=== PATIENT | female | born 1960 | race Caucasian/White ===

== ENCOUNTER → 2017-05-31 14:39 | Outpatient (CLI) | payer MEDICAID, SELFPAY ==
[2017-05-31 18:05] LABS: Absolute Lymphocyte Count 1.63 X10^3/ul (0.83-4.51); Eosinophil# 0.12 X10^3/uL; Eosinophils% 2.3 % (0-5); Hematocrit 38.9 % (37-47); Hemoglobin 13.2 g/dl (12.0-15.0); Lymphocyte # 1.63 X10^3/ul (4.0); Lymphocyte % 30.9 % (19-41); Mean Corp Hgb Conc 33.9 g/gl (32-36); Mean Corpuscular Volume 79.6 fL (81-99); Mean Platelet Vol. 10.8 fl (6.2-12.0); Monocyte# 0.48 X10^3/uL; Monocyte% 9.1 % (0-10); Neutrophil # 3.04 X10^3/uL (2.7-7.7); Neutrophil % 57.5 % (47-70); Platelet Count 205 K/mm3 (150-450); RBC Distribution Width CV 13.6 % (11.6-14.6); RBC Distribution Width SD 38.8 fl (35.1-43.9); Red Blood Count 4.89 M/mm3 (4.2-5.4); White Blood Count 5.3 K/mm3 (4.4-11.0)
[2017-05-31 18:26] LABS: Hemoglobin A1c 9.6 % (4.2-6.3)
[2017-05-31 18:27] LABS: Microalbumin,Random Urine 13.4 mg/L (NO RANGE EST.); Microalbumin:Creatinine Ratio 8.6 mg/g CRE (<30 mg/g CRE)
[2017-05-31 18:35] LABS: ALB/GLOB Ratio 0.8 RATIO (0.9-2.4); AST(SGOT) 12 U/L (15-37); Alanine Aminotransfer ALT/SGPT 15 U/L (13-56); Albumin, Serum 3.5 g/dL (3.2-5.0); Alkaline Phosphatase 116 U/L (45-117); Anion Gap 10 (5-15); BUN 14 mg/dL (7-18); BUN/Creat Ratio 17.5 RATIO (10-20); Calcium,Total 9.5 mg/dL (8.5-10.1); Chloride 99 mmol/L (98-107); Cholesterol 270 mg/dL (200); EST Glomerular Filtration Rate 79 mL/min (>60); Est Glom Filt Rate - Afr Amer 96 mL/min (>60); Globulin 4.6 g/dL (2.2-4.2); Glucose 229 mg/dL (74-106); High Density Lipoprotein 47 mg/dL; Potassium 3.9 mmol/L (3.5-5.1); Protein, Total 8.1 g/dL (6.4-8.2); Sodium Level 136 mmol/L (136-145); Thyroid Stim Hormone (TSH) 1.51 uIU/mL (0.358-3.74); Triglycerides 412 mg/dL
[2017-05-31 18:58] LABS: POSITIVE COUNT NO; POSITIVE DIFFERENTIAL NO; POSITIVE MORPHOLOGY NO
[2017-06-01 09:17] LABS: Vitamin D,25 Hydroxy 7.8 ng/mL (19.95-100.01)
== END ==
PROVIDERS: Family Provider Family Medicine; PCP Family Medicine; Visit Provider Family Medicine
DX: E11.65 Type 2 diabetes mellitus with hyperglycemia (principal); E78.5 Hyperlipidemia, unspecified; R53.83 Other fatigue; E01.0 Iodine-deficiency related diffuse (endemic) goiter
CPT/HCPCS: 36415; 80053; 80061; 82043; 82306; 82570; 83036; 84443; 85025

== ENCOUNTER → 2018-09-05 13:44 | Outpatient (CLI) | payer MEDICAID, SELFPAY | PROVIDERS: Family Provider Family Medicine; PCP Family Medicine; Visit Provider Family Medicine | DX: E11.65 Type 2 diabetes mellitus with hyperglycemia (principal); E78.5 Hyperlipidemia, unspecified; E55.9 Vitamin D deficiency, unspecified; R53.83 Other fatigue | CPT/HCPCS: 36415 ==

== ENCOUNTER → 2019-10-18 11:54 | Outpatient (CLI) | payer MEDICAID, SELFPAY ==
[2019-04-19 15:43] VITALS: BMI 33.3
[2019-10-18 15:11] LABS: Absolute Lymphocyte Count 2.45 X10^3/uL (0.83-4.51); Absolute Neutrophil Count 3.1 X10^3/uL (2.0-7.7); Basophil# 0.01 X10^3/uL; Basophil% 0.2 % (0-1); Eosinophil# 0.08 X10^3/uL; Eosinophils% 1.3 % (0-5); Hematocrit 40.4 % (37-47); Hemoglobin 13.2 g/dL (12.0-15.0); Lymphocyte # 2.45 X10^3/ul (4.0); Lymphocyte % 40.6 % (19-41); Mean Corp Hgb Conc 32.7 g/dL (32-36); Mean Corpuscular Hgb 27.4 pg (27.0-32.0); Mean Corpuscular Volume 83.8 fL (81-99); Mean Platelet Vol. 10.8 fl (6.2-12.0); Monocyte# 0.43 X10^3/uL; Monocyte% 7.1 % (0-10); NRBC Flagged by Analyzer 0 % (0-5); Neutrophil # 3.06 X10^3/uL (2.7-7.7); Neutrophil % 50.6 % (47-70); Platelet Count 249 K/mm3 (150-450); RBC Distribution Width CV 13.2 % (11.6-14.6); RBC Distribution Width SD 39.9 fl (35.1-43.9); Red Blood Count 4.82 M/mm3 (4.2-5.4)
[2019-10-18 15:42] LABS: ALB/GLOB Ratio 0.9 RATIO (0.9-2.4); AST(SGOT) 15 U/L (15-37); Alanine Aminotransfer ALT/SGPT 18 U/L (13-56); Albumin, Serum 3.7 g/dL (3.2-5.0); Alkaline Phosphatase 93 U/L (45-117); Anion Gap 1 (5-15); BUN 9 mg/dL (7-18); BUN/Creat Ratio 12.3 RATIO (10-20); Chloride 102 mmol/L (98-107); Creatinine, Serum 0.73 mg/dL (0.55-1.02); EST Glomerular Filtration Rate 87 mL/min (>60); Est Glom Filt Rate - Afr Amer 105 mL/min (>60); Glucose 207 mg/dL (74-106); Magnesium 1.9 mg/dL (1.6-2.6); Protein, Total 7.7 g/dL (6.4-8.2); Sodium Level 135 mmol/L (136-145)
== END ==
PROVIDERS: PCP Family Medicine; Visit Provider Family Medicine
DX: E11.65 Type 2 diabetes mellitus with hyperglycemia (principal); R25.2 Cramp and spasm; E87.6 Hypokalemia
CPT/HCPCS: 36415; 80053; 83735; 85025

== ENCOUNTER → 2020-01-17 15:51 | Outpatient (CLI) | payer MEDICAID, SELFPAY ==
[2020-01-17 15:01] VITALS: BMI 31.2
== END ==
PROVIDERS: PCP Family Medicine; Referring Provider Internal Medicine Cardiovascular Disease; Visit Provider Internal Medicine Cardiovascular Disease
DX: E78.5 Hyperlipidemia, unspecified (principal)
CPT/HCPCS: 36415; 80061; 80076

== ENCOUNTER → 2020-01-24 14:21 | Outpatient (CLI) | payer MEDICAID, SELFPAY ==
[2020-01-17 15:01] VITALS: BMI 31.2
[2020-01-24 13:32] VITALS: BMI 31.2
[2020-01-24 15:40] LABS: ALB/GLOB Ratio 0.7 RATIO (0.9-2.4); AST(SGOT) 19 U/L (15-37); Alanine Aminotransfer ALT/SGPT 20 U/L (13-56); Albumin, Serum 3.6 g/dL (3.2-5.0); Alkaline Phosphatase 88 U/L (45-117); Anion Gap 4 (5-15); BUN 10 mg/dL (7-18); BUN/Creat Ratio 13.3 RATIO (10-20); Bilirubin, Direct 0.19 mg/dL (0.00-0.30); Calcium,Total 9.3 mg/dL (8.5-10.1); Chloride 102 mmol/L (98-107); Cholesterol 198 mg/dL (200); Creatinine, Serum 0.75 mg/dL (0.55-1.02); EST Glomerular Filtration Rate 84 mL/min (>60); Est Glom Filt Rate - Afr Amer 101 mL/min (>60); Globulin 4.9 g/dL (2.2-4.2); Glucose 114 mg/dL (74-106); High Density Lipoprotein 55 mg/dL; Potassium 3.9 mmol/L (3.5-5.1); Protein, Total 8.5 g/dL (6.4-8.2); Sodium Level 136 mmol/L (136-145); Triglycerides 206 mg/dL; Very Low Density Lipoprotein 41 mg/dL (5-40)
[2020-01-26 14:37] LABS: C-Peptide 1.8 ng/mL (1.1-4.4)
== END ==
PROVIDERS: Internal Medicine Endocrinology, Diabetes & Metabolism; PCP Family Medicine; Referring Provider Internal Medicine Cardiovascular Disease; Visit Provider Internal Medicine Cardiovascular Disease
DX: E11.65 Type 2 diabetes mellitus with hyperglycemia (principal); I10 Essential (primary) hypertension; E78.5 Hyperlipidemia, unspecified; E55.9 Vitamin D deficiency, unspecified
CPT/HCPCS: 80053; 80061; 82248; 82306; 84681

== ENCOUNTER → 2020-02-12 06:25 | Outpatient (CLI) | payer MEDICAID, SELFPAY ==
[2020-01-17 15:01] VITALS: BMI 31.2
[2020-01-24 13:32] VITALS: BMI 31.2
--- NOTE | 2020-02-12 17:37 | STRESSREP ---
Stress Test Report Exercise myocardial perfusion stress test. 59-year-old lady with a history of previous left anterior descending artery stent. Stress protocol: Resting EKG demonstrates normal sinus rhythm with a rate of 66 bpm normal intervals are noted. The patient exercised according to the regular Brennen protocol for a total duration of 7 minutes. Patient completed 1 minute into stage III of the Brennen protocol. The maximum heart rate attained was 157 bpm which was 96% of max impacted heart rate the maximum workload was 8.5 metabolic equivalents. At rest there were no ST or T wave changes noted to suggest ischemia at peak exercise upsloping ST changes noted of approximately 1.25 mm noted in leads II, III and aVF were noted. The patient did experience chest discomfort across the chest which appeared to persist during recovery. It did improve however. The peak blood pressure was 142/90 mmHg. Myocardial perfusion protocol. 12.0 mCi of technetium 99m sestamibi was injected at rest. The patient exercised according to regular Brennen protocol for 7 minutes at peak exercise 35.0 mCi of technetium 99m sestamibi was injected stress images were obtained stress and rest images were reconstructed and compared in the short axis vertical long horizontal long axis. Gated images were also obtained Perfusion SPECT analysis: Review of the stress images demonstrate a small to medium size defect noted in the mid anterior wall. The resting images demonstrate improvement in this wall suggestive of mid anterior ischemia. No previous infarct is noted. Gated SPECT analysis: The gated ejection fraction is 57%. Conclusion: Abnormal exercise myocardial perfusion stress test with evidence of ischemia noted at a moderate workload. Clinical angina present. Preserved ejection fraction.
== END ==
PROVIDERS: PCP Family Medicine; Referring Provider Internal Medicine Cardiovascular Disease; Visit Provider Internal Medicine Cardiovascular Disease
DX: I25.10 Atherosclerotic heart disease of native coronary artery without angina pectoris (principal); E78.1 Pure hyperglyceridemia; Z95.5 Presence of coronary angioplasty implant and graft
CPT/HCPCS: 78452; 93017; A9500; A4216

== ENCOUNTER 2020-02-21 06:36 | Day surgery (SDC) | payer MEDICAID, SELFPAY ==
[2020-01-24 13:32] VITALS: BMI 31.2
--- NOTE | 2020-02-15 09:13 | RAD_ITS ---
STUDY: X-RAY CHEST REASON FOR EXAM: Female, 59 years old. HEART CATH, STENS TECHNIQUE: PA and lateral views of the chest. COMPARISON: 07/21/2016 FINDINGS: The lungs are clear and expanded. There is no demonstrated pleural abnormality. Normal size heart. Normal mediastinum and kt. Normal visualized pulmonary arteries. Normal visualized aortic arch and descending thoracic aorta. Normal visualized thoracic spine. Normal visualized ribs, clavicles, and shoulders. There is no demonstrated abnormality of the visualized soft tissue structures of the upper abdomen. RAD/Chest PA and Lateral IMPRESSION: Normal x-ray examination of the chest. Electronically Signed: Donell Mathews MD at 8:40 EDT Tel , Service support ,
[2020-02-15 09:22] LABS: Absolute Lymphocyte Count 2.17 X10^3/uL (0.83-4.51); Absolute Neutrophil Count 2.4 X10^3/uL (2.0-7.7); Basophil# 0.01 X10^3/uL; Basophil% 0.2 % (0-1); Eosinophil# 0.13 X10^3/uL; Eosinophils% 2.5 % (0-5); Hematocrit 40.5 % (37-47); Hemoglobin 12.9 g/dL (12.0-15.0); Lymphocyte # 2.17 X10^3/ul (4.0); Lymphocyte % 41.6 % (19-41); Mean Corp Hgb Conc 31.9 g/dL (32-36); Mean Corpuscular Hgb 27.1 pg (27.0-32.0); Mean Corpuscular Volume 85.1 fL (81-99); Mean Platelet Vol. 10.5 fl (6.2-12.0); Monocyte# 0.54 X10^3/uL; Monocyte% 10.3 % (0-10); NRBC Flagged by Analyzer 0 % (0-5); Neutrophil # 2.36 X10^3/uL (2.7-7.7); Neutrophil % 45.2 % (47-70); Platelet Count 216 K/mm3 (150-450); RBC Distribution Width SD 40.1 fl (35.1-43.9); Red Blood Count 4.76 M/mm3 (4.2-5.4); White Blood Count 5.2 K/mm3 (4.4-11.0)
[2020-02-15 09:47] LABS: Anion Gap 5 (5-15); BUN 10 mg/dL (7-18); Calcium,Total 9.2 mg/dL (8.5-10.1); Chloride 105 mmol/L (98-107); Creatinine, Serum 0.77 mg/dL (0.55-1.02); EST Glomerular Filtration Rate 82 mL/min (>60); Est Glom Filt Rate - Afr Amer 99 mL/min (>60); Glucose 128 mg/dL (74-106); Potassium 4.2 mmol/L (3.5-5.1); Sodium Level 140 mmol/L (136-145)
[2020-02-20 07:50] VITALS: BMI 31.2
--- NOTE | 2020-02-21 08:00 | HP_ITS ---
HPI HPI History of Present Illness Details: Pleasant 59-year-old lady who presents for a follow-up visit in 2014 she underwent a cardiac catheterization with demonstrated proximal left anterior descending artery as well as a diagonal stenosis. She underwent angioplasty of the diagonal vessel and stenting to the left anterior descending artery with a 3.5 x 20 mm Promus stent placed. She did not follow-up here due to a variety of reasons. She started having accelerated chest discomfort presented to [place] emergency room with a non-ST elevation myocardial infarction and was transferred to [facility] where she underwent a drug-eluting stent placed to the left anterior descending artery. She says that she has been feeling better but occasionally has some chest discomfort. She has had no further neck arm or jaw discomfort suggest angina her blood pressure appears to have been stable. She has had no dizziness or diaphoresis no near syncope or syncope. Her physical exam here today demonstrates clear lung lombardi regular rate and rhythm. Intake Vital Signs 01/17/20 BP 106/68 01/17/20 Position Standing 01/17/20 Pulse 84 01/17/20 Height 5 ft 5 in 01/17/20 Weight: 188 lb 01/17/20 BMI 31.2 01/17/20 BP 114/68 01/17/20 Position Sitting 01/17/20 Respiration 16 01/17/20 Pulse 80 01/17/20 Pulse Oximetry (%) 96 12/18/19 Height 5 ft 5 in Intake Visit Reasons: 6 M FU (pt r/s from 9-) Allergies No Known Allergies Allergy (Verified 04/19/19 15:42) Medications Aspirin [Aspirin, Baby] 81 mg PO DAILY@0800 11/08/14 [History Confirmed 01/17/20] Metoprolol Tartrate [Lopressor (Beta Crista)] 25 mg PO BID 07/23/16 [History Confirmed 01/17/20] atorvastatin 80 mg tablet 80 mg PO DAILY tab 04/19/19 [History Confirmed 01/17/20] clopidogrel 75 mg tablet 75 mg PO DAILY #90 tab 04/19/19 [Rx Confirmed 01/17/20] isosorbide mononitrate 30 mg tablet,extended release 24 hr mg PO 04/19/19 [History Confirmed 01/17/20] glipizide 5 mg tablet 5 mg PO DAILY 01/17/20 [History Confirmed 01/17/20] insulin glargine 100 unit/mL subcutaneous solution 50 unit SC QHS ml 01/17/20 [History Confirmed 01/17/20] Ejection fraction %: 60 to 64 PFSH Medical History Atherosclerosis of coronary artery of [place] heart without angina pectoris (Chronic) History of non-ST elevation myocardial infarction (NSTEMI) (Resolved 02/23/19) Essential (primary) hypertension (Chronic) Hypertriglyceridemia (Chronic) Hyperlipidemia (Chronic) Obesity (Chronic) Type 2 diabetes mellitus (Chronic) Surgical History History of coronary artery stent placement (Resolved 02/23/19) History of left heart catheterization (Resolved 12/02/14) Family History Father CVA (cerebral vascular accident) ROS Const Const: Positive for fatigue; negative for weakness, headache(s), frequent falls, difficulty sleeping or excessive sweating Eyes Eyes: Negative for loss of peripheral vision, transient loss of vision, blurry vision, double vision or tunnel vision ENT ENT: Negative for headache(s), dizziness, Nosebleed/epistaxis or balance problems Cardio Chest Pain: Yes (October-Dec, having chest pain at rest and with activity) Frequency: weekly Character: tightness Onset: at rest, exercise Location: mid sternal Duration: minutes Exacerbation: activity, rest Relieving: rest, other (ntg SL) Palpitations: No Edema: None Muscle aches with walking: None Resp Respiratory: Negative for SOB with activity, SOB at rest, SOB orthopnea\SOB lying down, Cough or paroxysmal nocturnal dyspnea GI GI: Negative nausea, vomiting, heartburn or black,tarry stools : Negative for hematuria Musc Musc: Negative for muscle aches/ myalgia, muscle weakness, joint pain or balance problems Skin Skin: Negative non-healing lesions, rash or unusual bruising Neuro Neuro: Negative for dizziness, lightheadedness, near syncope, syncope, orthostatic symptoms, frequent falls, headache(s), weakness, blurry vision, double vision or lack of coordination Aba Hematologic/Lymphatic: Negative for easy bleeding or easy bruising Endo Endo: Positive for fatigue; negative for excessive sweating or increased thirst/drinking Psych Psych: Negative for anxiety or depression Allergy Allergy/Immunology: Negative for hives, Negative for rash Cardiology Exam Const Appearance: cooperative, healthy appearing, no acute distress, well developed and well groomed Nutritional Appearance: average body habitus and well nourished Orientation: alert, awake and oriented x3 Head Head: normal to inspection, normocephalic and atraumatic Ears: hearing grossly normal bilaterally and external ears normal Nose: external nose normal, nares normal, nasal mucous membranes and turbinates normal, septum normal, no nasal discharge Face and Sinus: face symmetric Mouth: oral mucosae normal, tongue normal, oropharynx normal and moist mucous membranes Teeth and gingiva: dentition normal Throat: posterior oropharynx normal, tonsils normal and uvula midline Eyes General: appearance normal, both eyes and all related structures Eyelids: eyelids normal Conjunctivae: conjunctivae normal Pupils: PERRL, normal by confrontation and accommodation normal EOM: EOM intact bilaterally Neck Neck: normal visual inspection, trachea midline and no JVD JVD: +5 Carotids: normal carotid upstroke and bounding pulses Chest Chest inspection: normal inspection of the chest, symmetric chest movement and normal respiratory effort Auscultation: Bilateral: Clear to Auscultation Cardio Palpation: normal PMI Rate: regular rate Rhythm: regular rhythm Heart sounds: S1 normal, S2 normal and normal, physiologic split S2; negative rub, gallop or murmur GI GI: normal to inspection, soft, no hepatosplenomegaly and bowel sounds present Neuro General: alert, awake, oriented x3, gait normal, moves all extremities and no focal sensory deficit Skin Skin: no rashes or lesions noted Extremities Pulses: Normal: Right Femoral Pulse, Left Femoral Pulse, Right Dorsalis Pedis Pulse, Left Dorsalis Pedis Pulse, Right Posterior Tibial Pulse, Left Posterior Tibial Pulse, Right Radial Pulse, Left Radial Pulse Lower Extremity Edema: None: Bilateral Musculoskel Musculoskeletal: No joint tenderness Psych Psychological: normal affect Assessment & Plan 1. Chest pain R07.9 Plan She has had some chest discomfort which was not long-lasting and somewhat atypical. My recommendation is for us to obtain an exercise myocardial perfusion stress test and depending on the findings further recommendations will be made. 2. History of coronary artery stent placement Z95.5 TGE-RWS-Shlf LAD and Mid LAD w/ 3.5 x 16 mm and 3.0 x 12 mm Promus Premier Stent and POBA-D1 11/12/14; PCI-CLAY-ISR Prox and Mid LAD and thrombotic lesion between both stents w/ 3.5 x 23 mm and 3.0 x 38 mm Xience Sharon Stents 02/23/19 Plan She is status post previous angioplasty and stenting as noted above. Her blood pressure appears to be under good control. You do remember that in February 2019 she had in-stent stenosis of the proximal and mid LAD for which she underwent repeat stenting. We will evaluate this by stress testing. She did have a carotid and abdominal ultrasound done all of which were normal. Orders Orders: Nuclear Stress Test - Treadmil 3 Weeks 3. Essential (primary) hypertension I10 Plan Her blood pressure is under good control at this time and I would not suggest that we make any changes. 4. Hyperlipidemia E78.5 Plan She does have a history of hyperlipidemia. Her most recent lipid profile was in 2017 and I would recommend that we obtain a repeat profile today. Depending on the findings further recommendations will be made. Orders Orders: Lipid Profile Today Liver Profile Today Plan Detail Other Orders Orders: Nuclear Stress Test - Treadmil 3 Weeks E78.1, I25.10 Liver Profile Today E78.1 Follow Up 6 Months (mmm) Coding Level of Care Code Off vis,est,level 4 Diagnoses Chest pain R07.9 History of coronary artery stent placement Z95.5 Essential (primary) hypertension I10 Hyperlipidemia E78.5 Coding Level of Care Code Off vis,est,level 4 Diagnoses Chest pain R07.9 History of coronary artery stent placement Z95.5 Essential (primary) hypertension I10 Hyperlipidemia E78.5 Supplemental Info Supplemental Information Labs LDL Cholesterol Pending 01/17/20 HDL Cholesterol Pending 01/17/20 Triglycerides Pending 01/17/20 VLDL Cholesterol Pending 01/17/20 Diagnostics Chest X-Ray 07/21/16
--- NOTE | 2020-02-21 09:00 | CL.D_ITS ---
Patient Name: ZITA BROWNLEE Study Date: 02/21/2020 Performing: Reggie Ramirez MD Ht: 64.96 inches 165 cm : 1960 Wt: 187.39 lbs 85 kg Age: 59 Gender: female BSA: 1.92 PROCEDURE(S) PERFORMED OD74-DBU/COR/LV CLINICAL PROFILE AND INDICATIONS Indications: Suspected CAD Heart Failure: None Stress/Imaging Date: 02/05/2020 CAD Presentations: Unstable angina. CONCLUSIONS Previously placed stent in the LAD is noted to be patent. Minimal distal disease is noted. Moderate ostial left circumflex OM1 stenosis. Preserved ejection fraction. RECOMMENDATIONS Medical therapy DESCRIPTION OF PROCEDURE The patient arrived to the procedure lab. The risks and benefits of the procedure as well as a full d escription of our services here and current unavailability of surgical backup were fully explained to the patient and/or their significant other prior to the catheterization. The Timeout was completed, verifying the correct patient and procedure. The patient's procedural site was prepped and draped in the usual fashion. Local anesthetic was given subcutaneously to right radial region with Lidocaine 2% . Using a modified Seldinger technique, arterial access was obtained via the right radial artery, a 6 Fr sheath was inserted. Left Coronary Artery selective angiography was performed in multiple views u sing a 5 Fr. 4.0 [place] catheter. Right Coronary Artery selective angiography was then performed in mu ltiple views using a 5 Fr. 4.0 [place] catheter. Left Ventriculography was performed in MCGRAW projection using a 5 Fr. Pigtail catheter. LV to AO pullback pressures were then recorded.The arterial sheath was pulled and a TR Band was applied for hemostasis 14cc air CORONARY ANGIOGRAPHY DOMINANCE: Right Dominant LEFT HEART ASSESSMENT Left Ventricular Ejection Fraction: by LV Gram 60 % Normal Left Ventricular systolic function LEFT MAIN: Angiographically normal LEFT ANTERIOR DESCENDING ARTERY: MID LAD: Previously placed stent has an instent 20 % restenosis DISTAL LAD: Moderate luminal irregularities up to 50% CIRCUMFLEX ARTERY: No significant disease noted OM 1: Ostial - 60 % Stenosis RIGHT CORONARY ARTERY: No significant disease noted COMPLICATIONS No Complications PROCEDURE MEDICATIONS Versed 1 mg IV Fentanyl 50 mcg IV Versed 1 mg IV Oxygen: 2 L/min via nasal cannula Heparin diluted in 23cc Heparinized saline. Patient given 10cc IA of this solution. 02/21/2020 08:28: 10 Verapamil 2.5mg, Ntg 100mcgs, 2000 units of Heparin diluted in 23cc Heparinized saline. Patient give n 10cc IA of this solution. 02/21/2020 08:28:10 SUMMARY OF HEMODYNAMIC DATA Time AIR REST ECG 07:06:57 AO 110/67 (86) SA 08:29:05 LV 120/1, 10 08:34:29 LV 121/2, 9 08:34:36 LV 112/5, 12 08:35:14 LVp 112/2, 11 08:35:18 AOp 115/62 (85) 08:35:23 Signed By Reggie Ramirez MD On 02/21/2020 08:59:51 Reggie Ramirez MD
== END 2020-02-21 10:45 | disposition home or self-care (01) ==
LOC: CLSP 06:36
PROVIDERS: PCP Family Medicine; Referring Provider Internal Medicine Cardiovascular Disease; Visit Provider Internal Medicine Cardiovascular Disease
DX: I25.110 Atherosclerotic heart disease of native coronary artery with unstable angina pectoris (principal); E11.9 Type 2 diabetes mellitus without complications; I10 Essential (primary) hypertension; E78.1 Pure hyperglyceridemia; E78.5 Hyperlipidemia, unspecified; E66.9 Obesity, unspecified; Z79.82 Long term (current) use of aspirin; Z79.4 Long term (current) use of insulin; I25.2 Old myocardial infarction; Z95.5 Presence of coronary angioplasty implant and graft
CPT/HCPCS: 36415; 71046; 80048; 85025; 93458; 99152; 99153; J7040; Q9967; C1769; C1894

== ENCOUNTER → 2021-01-29 15:40 | Outpatient (CLI) | payer MEDICAID, SELFPAY ==
[2021-01-29 17:44] LABS: BNP,B-Type NATRIURETIC PEPTIDE 66.1 pg/mL (0-100)
[2021-01-29 17:52] LABS: Anion Gap 7 (5-15); BUN 13 mg/dL (7-18); BUN/Creat Ratio 15.7 RATIO (10-20); Calcium,Total 9.6 mg/dL (8.5-10.1); Chloride 101 mmol/L (98-107); Creatinine, Serum 0.83 mg/dL (0.55-1.02); EST Glomerular Filtration Rate 75 mL/min (>60); Est Glom Filt Rate - Afr Amer 90 mL/min (>60); Glucose 176 mg/dL (74-106); Potassium 3.9 mmol/L (3.5-5.1); Sodium Level 135 mmol/L (136-145)
== END ==
PROVIDERS: PCP Family Medicine; Visit Provider Nurse Practitioner Family
DX: R06.00 Dyspnea, unspecified (principal); E78.5 Hyperlipidemia, unspecified; I10 Essential (primary) hypertension; I25.10 Atherosclerotic heart disease of native coronary artery without angina pectoris; Z95.5 Presence of coronary angioplasty implant and graft
CPT/HCPCS: 36415; 80048; 83880

== ENCOUNTER 2021-04-28 09:30 | Outpatient (CLI) | payer MEDICAID, SELFPAY ==
[2021-04-28 12:53] LABS: Microalbumin,Random Urine 5.6 mg/L (NO RANGE EST.); Microalbumin:Creatinine Ratio 11.2 mg/g CRE (<30 mg/g CRE)
[2021-04-28 12:57] LABS: ALB/GLOB Ratio 0.8 RATIO (0.9-2.4); AST(SGOT) 14 U/L (15-37); Alanine Aminotransfer ALT/SGPT 19 U/L (13-56); Albumin, Serum 3.4 g/dL (3.2-5.0); Alkaline Phosphatase 90 U/L (45-117); Anion Gap 8 (5-15); BUN 11 mg/dL (7-18); BUN/Creat Ratio 13.1 RATIO (10-20); Calcium,Total 9.2 mg/dL (8.5-10.1); Chloride 102 mmol/L (98-107); Cholesterol 364 mg/dL (200); Creatinine, Serum 0.84 mg/dL (0.55-1.02); EST Glomerular Filtration Rate 74 mL/min (>60); Est Glom Filt Rate - Afr Amer 89 mL/min (>60); Glucose 256 mg/dL (74-106); High Density Lipoprotein 36 mg/dL; Potassium 4.1 mmol/L (3.5-5.1); Protein, Total 7.4 g/dL (6.4-8.2); Sodium Level 137 mmol/L (136-145); Thyroid Stim Hormone (TSH) 2.14 uIU/mL (0.358-3.74); Triglycerides 688 mg/dL
[2021-04-28 13:10] LABS: Vitamin D,25 Hydroxy 44.9 ng/mL
== END 2021-04-28 23:59 | disposition short-term general hospital (02) ==
LOC: BIMLAB 09:31
PROVIDERS: PCP Family Medicine; Visit Provider Internal Medicine Endocrinology, Diabetes & Metabolism
DX: E11.65 Type 2 diabetes mellitus with hyperglycemia (principal); Z79.4 Long term (current) use of insulin; E78.5 Hyperlipidemia, unspecified; I10 Essential (primary) hypertension; I25.10 Atherosclerotic heart disease of native coronary artery without angina pectoris; E66.09 Other obesity due to excess calories; Z68.31 Body mass index [BMI] 31.0-31.9, adult
CPT/HCPCS: 36415; 80053; 80061; 82043; 82306; 82570; 84443

== ENCOUNTER 2021-05-18 06:44 | Outpatient (CLI) | payer MEDICAID, SELFPAY ==
--- NOTE | 2021-05-18 10:16 | STRESSREP ---
Stress Test Report Exercise myocardial perfusion stress test. 60-year-old lady with a history of premature coronary artery disease status post previous angioplasty and stenting of the left anterior descending artery. Medications aspirin, clopidogrel, metoprolol, ranolazine. Stress protocol: Resting EKG demonstrates normal sinus rhythm with a rate of 60 bpm normal intervals are noted resting blood pressure is 126/82 mmHg. The patient exercised according to the regular Brennen protocol for total duration of 5 minutes. The maximum heart rate attained was 151 bpm which was 93% of max impact at heart rate. Patient completed 2 minutes into stage II of the Brennen protocol. The maximum workload was 7 metabolic equivalents. At rest there were no ST or T wave changes noted to suggest ischemia and at peak exercise no ST changes were noted to suggest ischemia. Patient did experience some chest burning suggestive of angina. Post stress no diffuse T wave inversions noted. The peak blood pressure was 164/82 mmHg. Myocardial perfusion protocol. 11.4 mCi of technetium 99m sestamibi was injected at rest. The patient exercised according to the regular Brennen protocol for 5 minutes and at peak exercise 35.1 mCi of technetium 99m sestamibi was injected stress images were obtained stress and rest images were reconstructed and compared in the short axis vertical long and horizontal long axis. Gated images were also obtained per Perfusion SPECT analysis: Review of the stress images demonstrate mildly reduced perfusion noted in the mid anterior wall. The septum inferior wall and lateral wall appeared to be normally perfused. The resting images demonstrate mild improvement in the anterior wall suggesting a mild amount of mid anterior ischemia. No previous infarct is noted. Gated SPECT analysis: The gated ejection fraction is 75%. Conclusion: Mildly abnormal myocardial perfusion stress test with mild anterior ischemia noted at a moderate workload. Chest burning suggestive of angina noted. Preserved ejection fraction.
== END 2021-05-18 23:59 | disposition short-term general hospital (02) ==
LOC: CVS 06:45
PROVIDERS: PCP Family Medicine; Referring Provider Nurse Practitioner Family; Visit Provider Nurse Practitioner Family
DX: R07.9 Chest pain, unspecified (principal); E78.5 Hyperlipidemia, unspecified; I10 Essential (primary) hypertension; Z95.5 Presence of coronary angioplasty implant and graft; Z91.19 Patient's noncompliance with other medical treatment and regimen
CPT/HCPCS: 78452; 93017; A9500; A4216

== ENCOUNTER 2021-05-24 18:34 | Inpatient (IN) | payer MEDICAID, SELFPAY ==
[2021-05-24] VITALS (10 sets, daily range): BP systolic 106–139; BP diastolic 62–87; PULSE 60–78; RESP 11–22; TEMP 36–37.2; O2SAT 96–100; BMI 30.2; BMI 29.6
--- NOTE | 2021-05-24 18:44 | EKG12_ITS ---
Test Reason : CP Blood Pressure : / mmHG Vent. Rate : 072 BPM Atrial Rate : 072 BPM P-R Int : 152 ms QRS Dur : 084 ms QT Int : 370 ms P-R-T Axes : 058 039 056 degrees QTc Int : 405 ms Normal sinus rhythm Normal ECG Confirmed by JOSÉ LUIS GATES, MELITON ([id number]), communications editor LENARD KHALIL ([id number]) on 05/25/2021 12:27:13 PM Referred By: RICKEY Confirmed By:MELITON ORDONEZ MD
--- NOTE | 2021-05-24 19:00 | RAD_ITS ---
STUDY: X-RAY CHEST REASON FOR EXAM: Female, 60 years old. chest pain TECHNIQUE: Single AP portable view of the chest. COMPARISON: May 20, 2021 FINDINGS: No visualized consolidation. There is hyperinflation of the lungs consistent with chronic obstructive lung disease (COPD). There is no demonstrated pleural abnormality. Normal size heart. Normal mediastinum and kt. Normal visualized pulmonary arteries. There is atherosclerotic calcification of the aortic arch with tortuosity. Left coronary stent noted. There are diffuse degenerative changes of the visualized thoracic spine. Normal visualized ribs, clavicles, and shoulders. There is no demonstrated abnormality of the visualized soft tissue structures of the upper abdomen. RAD/Chest 1 View (Portable) IMPRESSION: COPD. Electronically Signed: Ethan Cortez MD at 19:52 EST ,
[2021-05-24] MEDS: Aspirin 81 MG TAB.CHEW 324 MG PO (19:06)
[2021-05-24 19:11] LABS: Anion Gap 6 (5-15); BUN 14 mg/dL (7-18); BUN/Creat Ratio 16.1 RATIO (10-20); Chloride 104 mmol/L (98-107); Creatinine, Serum 0.87 mg/dL (0.55-1.02); EST Glomerular Filtration Rate 71 mL/min (>60); Est Glom Filt Rate - Afr Amer 86 mL/min (>60); Estimated Creatinine Clearance 62.65 ml/min; Glucose 203 mg/dL (74-106); Potassium 3.7 mmol/L (3.5-5.1); Sodium Level 138 mmol/L (136-145); Troponin-I HS < 3 pg/mL (3.0-54.0)
--- NOTE | 2021-05-24 19:29 | EDS_ITS ---
HPI History of Present Illness Chief Complaint: Chest Pain Narrative Narrative: 60-year-old female with history of NSTEMI, hyperlipidemia, diabetes, abnormal stress test. She scheduled for a cardiac catheterization tomorrow by Dr. Ramirez. She states that over the course of the last 24 hours has had increasing chest pain which she describes as crushing chest pressure. This sometimes is relieved by nitroglycerin. Patient currently is symptom-free but had pain prior to arrival. Patient states is not had fever, chills, cough. She denies lower extremity edema. [facility] Medical History Atherosclerosis of coronary artery of [place] heart without angina pectoris Diabetes Essential (primary) hypertension History of non-ST elevation myocardial infarction (NSTEMI) (02/23/19) Hyperlipidemia Hypertriglyceridemia Noncompliance with diabetes treatment Obesity Obesity Type 2 diabetes mellitus Home Medications aspirin 81 mg PO DAILY@0800 11/08/14 [History Last Taken 02/21/20] clopidogrel 75 mg tablet 75 mg PO DAILY #90 tab 05/01/20 [Rx Last Taken Unknown] metoprolol tartrate 25 mg tablet 25 mg PO BID #180 tab 05/01/20 [Rx Last Taken Unknown] ranolazine 500 mg tablet,extended release,12 hr 500 mg PO BID #60 tablet 07/29/20 [Rx Last Taken Unknown] nitroglycerin 0.4 mg sublingual tablet 0.4 mg SUBLINGUAL Q5-15M PRN #25 tab 10/21/20 [Rx Last Taken Unknown] insulin aspart U-100 100 unit/mL (3 mL) subcutaneous pen 10 unit SUBCUT TID #15 ml 04/28/21 [Rx Last Taken Unknown] pen needle, diabetic 32 gauge x #100 ea 04/28/21 [Rx Last Taken Unknown] insulin detemir U-100 100 unit/mL (3 mL) subcutaneous pen 30 unit SUBCUT QHS #15 ml 04/30/21 [Rx Last Taken Unknown] Allergy/AdvReac Type Severity Reaction Status Date / Time No Known Allergies Allergy Verified 05/24/21 18:42 Family History Father CVA (cerebral vascular accident) Surgical History History of coronary artery stent placement (02/23/19) History of left heart catheterization (02/21/20) Social History Smoking Status: Never smoker alcohol intake: never substance use type: does not use caffeine: Yes ROS ROS ED Constitutional Constitutional ED: Denies chills or fever(s) Eyes Eyes: Denies blurry vision or change in vision ENT ENT ED: Denies rhinorrhea or sore throat Cardiovascular Cardiovascular: Reports as per HPI Respiratory/Chest Respiratory/Chest: Denies cough or dyspnea Gastrointestinal Gastrointestinal: Reports nausea; Denies abdominal pain or vomiting Genitourinary Genitourinary ED: Denies dysuria, hematuria or urinary frequency Musculoskeletal Musculoskeletal: Denies arthralgias or myalgias Integumentary Denies abscess or rash EXAM Physical Exam Const Vital Signs: 05/24/21 18:37 05/24/21 18:43 05/24/21 18:45 Temperature 96.8 F L Temperature Source Temporal Pulse Rate 78 Respiratory Rate 13 Respiratory Effort Normal Non-Labored Blood Pressure 139/83 H Blood Pressure Mean 101 Pulse Ox 100 99 Oxygen Delivery Method Room Air 05/24/21 20:00 05/24/21 20:36 05/24/21 21:00 Temperature Temperature Source Pulse Rate 70 66 63 Respiratory Rate 13 22 H 11 L Respiratory Effort Blood Pressure 106/87 H 124/76 H 118/68 Blood Pressure Mean 93 92 84 Pulse Ox 98 96 97 Oxygen Delivery Method Room Air Room Air Room Air Positive well developed General Appearance ED: well developed and NAD; Negative for pallor HEENT normocephalic and atraumatic Eyes PERRL and EOMs intact bilaterally Chest Wall inspection of chest normal and palpation of chest normal Resp normal respiratory effort Effort and Inspection: respiratory distress Cardio regular rate and regular rhythm Extremity normal to inspection General Extremety ED: Negative for edema or tenderness General Extremity: Negative for edema Neuro oriented x3 Sensorium / Orientation: awake and alert Psych mental status grossly normal Skin no rashes or lesions noted General Skin Exam: Negative for jaundice or pallor Heart Score History: Highly Suspicious ECG: Normal Age: >45 - <65 years Risk Factors: >/= 3 Risk Factors or History of CAD Score: 5 MDM MDM MDM Narrative Medical decision making narrative: Patient with abnormal stress test and cardiac history including NSTEMI without previous stents presenting with chest pain. Patient scheduled for cardiac catheterization tomorrow. EKG on my interpretation is sinus rhythm at a ventricular to 72 bpm without sign of ischemic change. CBC and BMP are unremarkable. Initial high-sensitivity troponin is less than 3. 2-hour troponin is 4. Chest x-ray my interpretation shows no acute cardiopulmonary process. Covid testing is negative. Discussed with Dr. Ramirez given abnormal stress test and he recommended admission. Patient given aspirin 324 mg. She is currently pain-free. Discussed with hospitalist. Impression: 1. Unstable angina Lab Data Attestation: I reviewed the patient's lab results. Labs: Laboratory Results - last 24 hr 05/24/21 05/24/21 05/24/21 18:45 18:45 20:45 WBC 7.2 RBC 4.74 Hgb 13.5 Hct 39.5 MCV 83.3 MCH 28.5 MCHC 34.2 RDW Std Deviation 38.2 RDW Coeff of Donna 12.6 Plt Count 230 MPV 10.8 Immature Gran % (Auto) 0.300 Neut % (Auto) 48.0 Lymph % (Auto) 41.8 H [place] % (Auto) 8.3 Eos % (Auto) 1.3 Baso % (Auto) 0.3 Absolute Neuts (auto) 3.4 Absolute Lymphs (auto) 2.99 Nucleated RBC % 0 Sodium 138 Potassium 3.7 Chloride 104 Carbon Dioxide 28.0 Anion Gap 6 BUN 14 Creatinine 0.87 Estim Creat Clear Calc 62.65 Est GFR (MDRD) Af Amer 86 Est GFR (MDRD) Non-Af 71 BUN/Creatinine Ratio 16.1 Glucose 203 H Calcium 9.0 Troponin I High Sens < 3 L 4 Radiography Diagnostic Testing: Clinical Impression(s) from Imaging Studies Chest X-Ray 05/24/21 19:00 IMPRESSION: COPD. Electronically Signed: Ethan Cortez MD at 19:52 EST , Discharge Plan Triage Chief Complaint: Chest Pain ED Provider: Alberto Green Dx/Rx/DC Orders Prescriptions: No Action ranolazine [Ranexa] 500 mg tablet extended release 12 hr 500 mg PO BID Qty: 60 RF: 3 insulin aspart U-100 [Novolog Flexpen U-100 Insulin] 100 unit/mL (3 mL) insulin pen 10 unit subcut TID Qty: 15 RF: 4 (DME) pen needle, diabetic [BD Ultra-Fine Yu Pen Needle] 32 gauge x 5/32 needle See Rx Instructions .ROUTE .MEDSUPPLY Qty: 100 RF: 4 Levemir FlexTouch U-100 Insuln 100 unit/mL (3 mL) insulin pen 30 unit subcut QHS Qty: 15 RF: 4 aspirin 81 MG tablet,chewable 81 mg PO DAILY@0800 RF: 0 clopidogrel 75 mg tablet 75 mg PO DAILY Qty: 90 RF: 3 metoprolol tartrate 25 mg tablet 25 mg PO BID Qty: 180 RF: 3 nitroglycerin 0.4 mg tablet, sublingual 0.4 mg sublingual Q5-15M PRN (Reason: chest pain) Qty: 25 RF: 6 Primary Care Provider: Madalyn Vaughan
[2021-05-24 19:38] LABS: Absolute Lymphocyte Count 2.99 X10^3/uL (0.83-4.51); Absolute Neutrophil Count 3.4 X10^3/uL (2.0-7.7); Basophil# 0.02 X10^3/uL; Basophil% 0.3 % (0-1); Eosinophil# 0.09 X10^3/uL; Eosinophils% 1.3 % (0-5); Hematocrit 39.5 % (37-47); Hemoglobin 13.5 g/dL (12.0-15.0); Lymphocyte # 2.99 X10^3/ul (0.83-4.51); Lymphocyte % 41.8 % (19-41); Mean Corp Hgb Conc 34.2 g/dL (32-36); Mean Corpuscular Hgb 28.5 pg (27.0-32.0); Mean Corpuscular Volume 83.3 fL (81-99); Mean Platelet Vol. 10.8 fl (6.2-12.0); Monocyte# 0.59 X10^3/uL; Monocyte% 8.3 % (0-10); NRBC Flagged by Analyzer 0 % (0-5); Neutrophil # 3.44 X10^3/uL (2.7-7.7); Platelet Count 230 K/mm3 (150-450); RBC Distribution Width CV 12.6 % (11.6-14.6); RBC Distribution Width SD 38.2 fl (35.1-43.9); Red Blood Count 4.74 M/mm3 (4.2-5.4); White Blood Count 7.2 K/mm3 (4.4-11.0)
[2021-05-24 21:13] LABS: Troponin-I HS 4 pg/mL (3.0-54.0)
--- NOTE | 2021-05-24 21:50 | HP.PCM.HOS_ITS ---
[facility] - General General Date of Admission: 05/24/21 HPI Narrative ZITA BROWNLEE, is a 60 F with a significant history of hypertension; hyperlipidemia; type 2 diabetes; CAD status post stent who has a heart cath scheduled on 05/25/2021 at 9:30AM presenting to the emergency department on 05/24/2021 with chest pain. She report that her chest pain began a night before the day of presentation. The chest pain woke her up from sleep. Her chest pain went away and returned about 2 times on the day of presentation. The chest pain is substernal. She described the chest pain as crushing. The chest pain is nonradiating. She has a headache. She denies any vomiting. She has some mild nausea. She denies diaphoresis. [facility] Medical History Atherosclerosis of coronary artery of [place] heart without angina pectoris Diabetes Essential (primary) hypertension History of non-ST elevation myocardial infarction (NSTEMI) (02/23/19) Hyperlipidemia Hypertriglyceridemia Noncompliance with diabetes treatment Obesity Obesity Type 2 diabetes mellitus Home Medications aspirin 81 mg PO DAILY@0800 11/08/14 [History Last Taken 05/24/21] clopidogrel 75 mg tablet 75 mg PO DAILY #90 tab 05/01/20 [Rx Last Taken 05/23/21] metoprolol tartrate 25 mg tablet 25 mg PO BID #180 tab 05/01/20 [Rx Last Taken 05/23/21] ranolazine 500 mg tablet,extended release,12 hr 500 mg PO BID #60 tablet 07/29/20 [Rx Last Taken Unknown] nitroglycerin 0.4 mg sublingual tablet 0.4 mg SUBLINGUAL Q5-15M PRN #25 tab 10/21/20 [Rx Last Taken 05/24/21] insulin aspart U-100 100 unit/mL (3 mL) subcutaneous pen 10 unit SUBCUT TID #15 ml 04/28/21 [Rx Last Taken 05/24/21 12:00] insulin detemir U-100 100 unit/mL (3 mL) subcutaneous pen 30 unit SUBCUT QHS #15 ml 04/30/21 [Rx Last Taken 05/23/21] pen needle, diabetic [BD Ultra-Fine Yu Pen Needle] 05/24/21 [History Last Taken Unknown] Allergy/AdvReac Type Severity Reaction Status Date / Time No Known Allergies Allergy Verified 05/24/21 18:42 Family History Father CVA (cerebral vascular accident) Surgical History History of coronary artery stent placement (02/23/19) History of left heart catheterization (02/21/20) Social History Smoking Status: Never smoker alcohol intake: never substance use type: does not use caffeine: Yes ROS ROS Narrative Constitutional: Denies fever, chills, fatigue, anorexia and change in weight Eyes: Denies blurry vision, change in eye color, change in vision, discharge from eye(s), double vision, erythema, eye pain, loss of vision or other HEENT: Denies abnormal hearing, dysphagia, ear pain, epistaxis, headache(s), hearing loss, nasal congestion, nasal discharge, post nasal drip, sinus pressure, sore throat or other Cardiovascular: Reports chest pain. Denies palpitations. Denies dyspnea on exertion, orthopnea and paroxysmal nocturnal dyspnea Respiratory/Chest: Denies cough, excessive phlegm production, shortness of breath with exertion and wheezing Gastrointestinal: Reports nausea. Denies abdominal pain, coffee ground emesis, constipation, diarrhea, dyspepsia, hematemesis, hematochezia, loose stools, melena, vomiting or other Genitourinary: Denies burning urination, difficulty urinating, dysuria, hematuria, nocturia, urinary frequency, urinary hesitancy, urinary incontinence, urinary urgency or other Musculoskeletal: Denies arthralgias, back pain, joint pain, joint stiffness, joint swelling, myalgias, neck pain or other Neurologic: Denies abnormal gait, abnormal speech, confusion, disequilibrium, d izziness, focal weakness, headache(s), numbness, paresthesias, seizure-like activity, seizures, syncope, tingling, tremor(s) or other Psychiatric: Denies anxiety, depression, homicidal ideation, suicidal ideation or other Endocrinology: Denies change in body appearance, cold intolerance, excessive sweating, heat intolerance, polydipsia, polyuria or other Hematologic/Lymphatic: Denies anemia, easy bleeding, easy bruising, lymphadenopathy or other Integumentary: Denies rashes Allergic/Immunologic: Denies rhinitis, hives, eczema, asthma or other Vital Signs Vital Signs Vital Signs: 05/24/21 18:37 05/24/21 18:43 05/24/21 18:45 Temperature 96.8 F L Temperature Source Temporal Pulse Rate 78 Respiratory Rate 13 Respiratory Effort Normal Non-Labored Blood Pressure 139/83 H Blood Pressure Mean 101 Pulse Ox 100 99 Oxygen Delivery Method Room Air 05/24/21 20:00 05/24/21 20:36 05/24/21 21:00 Temperature Temperature Source Pulse Rate 70 66 63 Respiratory Rate 13 22 H 11 L Respiratory Effort Blood Pressure 106/87 H 124/76 H 118/68 Blood Pressure Mean 93 92 84 Pulse Ox 98 96 97 Oxygen Delivery Method Room Air Room Air Room Air Weight Weight: 82.3 kg Body Mass Index (BMI) 30.2 Physical Exam Narrative Physical exam: General: Well-nourished, well-developed. Head: Normocephalic, atraumatic, no tenderness Eyes: PERRLA, EOMI ENT, no trauma, moist mucous membranes, no rhinorrhea Neck: Nontender, full range of motion, no spinal tenderness, deformities, step- off CVS: Regular rate and rhythm. S1-S2 present. No murmur, gallop or rub. Respiratory : clear to auscultation bilaterally, chest wall nontender, no wheezing Abdomen: Soft, nontender, nondistended, normal bowel sounds, no masses : Deferred Back: Nontender, no CVA tenderness, no midline spinal tenderness, deformities, step-offs Extremities: Nontender full range of motion, no trauma Skin: Normal color, no trauma, abrasions Neuro: Alert, oriented, cranial nerves II through XII grossly intact. Psychiatry: Normal mood. Normal affect. Not depressed. Not anxious. Results Lab / Micro Data Result Diagrams: 05/24/21 18:45 05/24/21 18:45 Labs: Laboratory Results - last 24 hr 05/24/21 18:45: WBC 7.2, RBC 4.74, Hgb 13.5, Hct 39.5, MCV 83.3, MCH 28.5, MCHC 34.2, RDW Std Deviation 38.2, RDW Coeff of Donna 12.6, Plt Count 230, MPV 10.8, Immature Gran % (Auto) 0.300, Neut % (Auto) 48.0, Lymph % (Auto) 41.8 H, [place] % (Auto) 8.3, Eos % (Auto) 1.3, Baso % (Auto) 0.3, Absolute Neuts (auto) 3.4, Absolute Lymphs (auto) 2.99, Nucleated RBC % 0 05/24/21 18:45: Sodium 138, Potassium 3.7, Chloride 104, Carbon Dioxide 28.0, Anion Gap 6, BUN 14, Creatinine 0.87, Estim Creat Clear Calc 62.65, Est GFR (MDRD) Af Amer 86, Est GFR (MDRD) Non-Af 71, BUN/Creatinine Ratio 16.1, Glucose 203 H, Calcium 9.0, Troponin I High Sens < 3 L 05/24/21 20:45: Troponin I High Sens 4 Micro: Microbiology 05/24/21 20:25 Nasal Secretion SARS-CoV-2 Antigen (Rapid) - Final Radiology Impression Chest X-Ray 05/24/21 19:00 IMPRESSION: COPD. Electronically Signed: Ethan Cortez MD at 19:52 EST Reading Location ID and State: [facility] / [place] , Service support , Assessment & Plan Assessment/Plan (1) Unstable angina: PLAN: Unstable angina place on a monitored bed at progressive care unit. Actual CXR image was visualized and independently interpreted. No acute cardiopulmonary process seen. I agree with radiologist impression. Actual EKG tracing was independently visualized. EKG tracing showed sinus rhythm with no ST or T wave abnormalities. Old records were reviewed. Conclusion of stress test on 05/18/2021:Mildly abnormal myocardial perfusion stress test with mild anterior ischemia noted at a moderate workload. Chest burning suggestive of angina noted. Preserved ejection fraction. Daily baby aspirin and Plavix continued. SL NTG 0.4 mg prn as needed for chest pain ordered Morphine as needed for pain ordered Metoprolol and ranolazine continued. High-sensitivity troponin x2 at the ED was negative, trend. Emergency department doctor discussed the case with cardiology. Cardiology consult. N.p.o. after midnight for possible heart cath since patient was already scheduled for cardiac cath outpatient. Diabetes mellitus Patient with hyperglycemia on presentation. ED labs reviewed showed a glucose of 203. Adjust basal insulin. Hold prandial insulin in the setting of n.p.o. status. Accu-Chek every 6 hours with correction scale insulin ordered. Hypertension Blood pressure is stable. Metoprolol continued. Trend blood pressure and adjust blood pressure medications. DVT prophylaxis: SCDs ordered. Charges/Coding Visit Charges Inpatient E&M: 90907 Init Hosp L3
--- NOTE | 2021-05-24 23:00 | EKG12_ITS ---
Test Reason : CP ADMIT Blood Pressure : / mmHG Vent. Rate : 057 BPM Atrial Rate : 057 BPM P-R Int : 148 ms QRS Dur : 084 ms QT Int : 440 ms P-R-T Axes : 027 034 056 degrees QTc Int : 428 ms Sinus bradycardia Otherwise normal ECG When compared with ECG of 24-MAY-2021 18:40, MANUAL COMPARISON REQUIRED, DATA IS UNCONFIRMED Confirmed by JOSÉ LUIS GATES, REGGIE ([id number]), video tape editor LENARD KHALIL ([id number]) on 05/26/2021 10:50:57 AM Referred By: Reggie Ramirez Confirmed By:REGGIE RAMIREZ MD
[2021-05-24 23:55] LABS: Bedside Glucose 155 mg/dL (70-110)
[2021-05-25] VITALS (19 sets, daily range): BP systolic 92–119; BP diastolic 52–73; PULSE 54–72; RESP 16–18; TEMP 36.4–36.6; O2SAT 96–100
[2021-05-25] MEDS: Ranolazine 500 MG Tablet PO ×3 (00:01→21:46)
[2021-05-25 01:27] LABS: Troponin-I HS 4 pg/mL (3.0-54.0)
--- NOTE | 2021-05-25 05:55 | EKG12_ITS ---
Test Reason : AM EKG Blood Pressure : / mmHG Vent. Rate : 060 BPM Atrial Rate : 060 BPM P-R Int : 150 ms QRS Dur : 086 ms QT Int : 438 ms P-R-T Axes : 014 024 051 degrees QTc Int : 438 ms Normal sinus rhythm Normal ECG When compared with ECG of 24-MAY-2021 23:39, MANUAL COMPARISON REQUIRED, DATA IS UNCONFIRMED Confirmed by JOSÉ LUIS GATES, MELITON ([id number]), purchase request editor LENARD KHALIL ([id number]) on 05/26/2021 10:50:22 AM Referred By: DR UGARTE Confirmed By:MELITON ORDONEZ MD
[2021-05-25] MEDS: Metoprolol Tartrate 25 MG Tablet PO ×2 (06:09→21:37)
[2021-05-25] MEDS: Clopidogrel Bisulfate 75 MG Tablet PO (06:10)
[2021-05-25] MEDS: Aspirin 81 MG TAB.CHEW PO (06:13)
[2021-05-25 06:34] LABS: Absolute Lymphocyte Count 2.56 X10^3/uL (0.83-4.51); Basophil# 0.01 X10^3/uL; Basophil% 0.2 % (0-1); Hemoglobin 12.9 g/dL (12.0-15.0); Lymphocyte # 2.56 X10^3/ul (0.83-4.51); Mean Corp Hgb Conc 33.9 g/dL (32-36); Mean Corpuscular Hgb 28.1 pg (27.0-32.0); Mean Corpuscular Volume 82.8 fL (81-99); Mean Platelet Vol. 10.4 fl (6.2-12.0); Monocyte# 0.46 X10^3/uL; NRBC Flagged by Analyzer 0 % (0-5); Neutrophil # 1.98 X10^3/uL (2.7-7.7); Neutrophil % 38.6 % (47-70); Platelet Count 197 K/mm3 (150-450); RBC Distribution Width CV 12.6 % (11.6-14.6); Red Blood Count 4.59 M/mm3 (4.2-5.4); White Blood Count 5.1 K/mm3 (4.4-11.0)
[2021-05-25 06:36] LABS: Bedside Glucose 215 mg/dL (70-110)
[2021-05-25 06:58] LABS: Anion Gap 8 (5-15); BUN 9 mg/dL (7-18); BUN/Creat Ratio 12.2 RATIO (10-20); Calcium,Total 8.9 mg/dL (8.5-10.1); Chloride 105 mmol/L (98-107); Creatinine, Serum 0.74 mg/dL (0.55-1.02); EST Glomerular Filtration Rate 85 mL/min (>60); Est Glom Filt Rate - Afr Amer 103 mL/min (>60); Estimated Creatinine Clearance 73.66 ml/min; Glucose 175 mg/dL (74-106); Potassium 3.9 mmol/L (3.5-5.1); Sodium Level 136 mmol/L (136-145)
--- NOTE | 2021-05-25 07:01 | PCM.CONS.C ---
Assessment & Plan Assessment/Plan (1) Chest pain: PLAN: The patient presents with chest pain with an abnormal stress test recently. At this juncture it would be prudent to reassess her coronary anatomy and to guide therapy. Coronary anatomy today demonstrates the following: Normal left main coronary artery. Left anterior descending artery with proximal 90% stenosis prior to the stent with a stent having mild in-stent stenosis and a distal 70% stenosis noted. Left circumflex artery with a second small obtuse marginal branch with a 90% long stenosis. Dominant right coronary artery with proximal mild disease and distal 50% stenosis. Preserved left ventricular systolic function. Based on the above angiographic findings the patient would be considered for PCI of the proximal left anterior descending artery. (2) History of coronary artery stent placement: PLAN: Patient has previous stenting noted in the left anterior descending artery with mildly abnormal stress test done recently. We will continue with her current medical therapy with no changes. She will continue with risk factor modification. (3) Essential (primary) hypertension: PLAN: Her blood pressure appears to be under good control. Would recommend adding a low-dose ZENA inhibitor to the regimen. Thank you for allowing me to participate in the care of your patient. Please don't hesitate to call if any issues arise. HPI Consult Data Date of Consult: 05/25/21 HPI Narrative HPI Narrative: ZITA BROWNLEE, is a 60 F who presents to the emergency room with crushing chest discomfort. She was originally scheduled to undergo a cardiac catheterization this morning. In 2014, she underwent a cardiac catheterization with demonstrated proximal left anterior descending artery as well as a diagonal stenosis. She underwent angioplasty of the diagonal vessel and stenting to the left anterior descending artery with a 3.5 x 20 mm Promus stent placed. In February 2019, she presented with chest discomfort and was transferred and underwent a cardiac catheterization which demonstrated in-stent restenosis to the LAD for which she had a drug-eluting stent placed. She also has a history of hypertension and hyperlipidemia. She had been doing well until we saw her in January 2020 when she complained of chest discomfort going up a hill. She underwent a cardiac catheterization which demonstrated patent stents and moderate disease of the circumflex artery. Her ejection fraction was noted to be 60%. She has noted to have intermittent chest discomfort. This is noted with both rest and activity. This resolves on its own in approximately one hour. This is located in the center of her chest. This radiates into her left lower back. This is not associated with SOB, nausea, or diaphoresis. She rates it a 3-4/10. She acknowledges SOB with activity such as going up step. This is ongoing since last office visit and not necessarily worse. This improves with rest. She denies bilateral lower extremity edema. She therefore underwent a stress test which demonstrated mild anterior ischemia and has been scheduled for cardiac catheterization. COUNTS INCLUDE 234 BEDS AT THE [facility] Medical History Atherosclerosis of coronary artery of solomon heart without angina pectoris Diabetes Essential (primary) hypertension History of non-ST elevation myocardial infarction (NSTEMI) (02/23/19) Hyperlipidemia Hypertriglyceridemia Noncompliance with diabetes treatment Obesity Obesity Type 2 diabetes mellitus Home Medications aspirin 81 mg PO DAILY@0800 11/08/14 [History Last Taken 05/24/21] clopidogrel 75 mg tablet 75 mg PO DAILY #90 tab 05/01/20 [Rx Last Taken 05/23/21] metoprolol tartrate 25 mg tablet 25 mg PO BID #180 tab 05/01/20 [Rx Last Taken 05/23/21] ranolazine 500 mg tablet,extended release,12 hr 500 mg PO BID #60 tablet 07/29/20 [Rx Last Taken Unknown] nitroglycerin 0.4 mg sublingual tablet 0.4 mg SUBLINGUAL Q5-15M PRN #25 tab 10/21/20 [Rx Last Taken 05/24/21] insulin aspart U-100 100 unit/mL (3 mL) subcutaneous pen 10 unit SUBCUT TID #15 ml 04/28/21 [Rx Last Taken 05/24/21 12:00] insulin detemir U-100 100 unit/mL (3 mL) subcutaneous pen 30 unit SUBCUT QHS #15 ml 04/30/21 [Rx Last Taken 05/23/21] pen needle, diabetic [BD Ultra-Fine Yu Pen Needle] 05/24/21 [History Last Taken Unknown] Allergy/AdvReac Type Severity Reaction Status Date / Time No Known Allergies Allergy Verified 05/24/21 18:42 Family History Father CVA (cerebral vascular accident) Surgical History History of coronary artery stent placement (02/23/19) History of left heart catheterization (02/21/20) Social History Smoking Status: Never smoker alcohol intake: never substance use type: does not use caffeine: Yes ROS Constitutional Constitutional: Denies fever(s) or weight loss Eyes Eyes: Reports systems reviewed and no addt'l complaints, except as documented ENT HEENT: Reports systems reviewed and no addt'l complaints, except as documented Cardiovascular Cardiovascular: Reports chest pain at rest and chest pain with activity; Denies dyspnea at rest, dyspnea on exertion, edema, palpitations or paroxysmal nocturnal dyspnea Respiratory/Chest Respiratory/Chest: Denies dyspnea on exertion, productive cough, shortness of breath at rest or shortness of breath with exertion Gastrointestinal Gastrointestinal: Denies change in bowel habits, nausea, vomiting or weight changes Genitourinary Genitourinary: Denies difficulty urinating Musculoskeletal Musculoskeletal: Denies joint stiffness or muscle weakness Integumentary Integumentary: Denies lesions Neurologic Neurologic: Denies dizziness or syncope Psychiatric Psychiatric: Denies anxiety Endocrine Endocrinology: Denies excessive sweating or fatigue Hematologic/Lymphatic Hematologic/Lymphatic: Denies anemia Allergic/Immunologic Allergic/Immunologic: Denies seasonal rhinorrhea Physical Exam Const alert, oriented x3 and no apparent distress General Appearance: cooperative HEENT hearing grossly normal bilaterally Head and Scalp: atraumatic Eyes EOMs intact bilaterally Neck General: normal visual inspection Chest inspection of chest normal and palpation of chest normal Resp normal respiratory effort Auscultation: clear to auscultation bilaterally Cardio regular rate, regular rhythm, S1 normal heart sound and S2 normal heart sound Jugular Venous Distention: JVD GI normal to inspection, nondistended, normoactive bowel sounds Extremity normal capillary refill and no pedal edema Peripheral Pulses: Yes pulses 2+ throughout and femoral pulses present Skin no rashes or lesions noted Neuro oriented x3 and CN's II-XII intact bilaterally Psych Appearance: grossly normal and appropriate Risk Stratification Risk Stratification Applicable: Yes Age >/= 65: No >/= 3 CAD Risk Factors (HTN, HLD, DM, family hx of CAD, or current smoker): Yes Aspirin Use in the Past 7 Days: Yes Severe Angina (>/= episodes in 24 hours): Yes EKG ST Changes >/= 0.5mm: No Positive Cardiac Marker: No CRUZ Risk Stratification Score: 3 CRUZ % Risk: 13% Risk Objective Data Vital Signs: Vital Signs Temp Pulse Resp BP Pulse Ox 97.8 F 61 16 119/65 98 05/25/21 05:40 05/25/21 06:09 05/25/21 05:40 05/25/21 05:40 05/25/21 05:40 Oxygen Delivery Method Room Air Weight: 177 lb 14.609 oz Body Mass Index (BMI) 29.6 Lab / Micro Data Result Diagrams: 05/25/21 06:07 05/25/21 06:07 Labs: Laboratory Results - last 24 hr 05/24/21 18:45: WBC 7.2, RBC 4.74, Hgb 13.5, Hct 39.5, MCV 83.3, MCH 28.5, MCHC 34.2, RDW Std Deviation 38.2, RDW Coeff of Donna 12.6, Plt Count 230, MPV 10.8, Immature Gran % (Auto) 0.300, Neut % (Auto) 48.0, Lymph % (Auto) 41.8 H, [place] % (Auto) 8.3, Eos % (Auto) 1.3, Baso % (Auto) 0.3, Absolute Neuts (auto) 3.4, Absolute Lymphs (auto) 2.99, Nucleated RBC % 0 05/24/21 18:45: Sodium 138, Potassium 3.7, Chloride 104, Carbon Dioxide 28.0, Anion Gap 6, BUN 14, Creatinine 0.87, Estim Creat Clear Calc 62.65, Est GFR (MDRD) Af Amer 86, Est GFR (MDRD) Non-Af 71, BUN/Creatinine Ratio 16.1, Glucose 203 H, Calcium 9.0, Troponin I High Sens < 3 L 05/24/21 20:45: Troponin I High Sens 4 05/24/21 23:47: POC Glucose 155 H 05/25/21 00:54: Troponin I High Sens 4 05/25/21 05:35: POC Glucose 215 H 05/25/21 06:07: WBC 5.1, RBC 4.59, Hgb 12.9, Hct 38.0, MCV 82.8, MCH 28.1, MCHC 33.9, RDW Std Deviation 38.0, RDW Coeff of Donna 12.6, Plt Count 197, MPV 10.4, Immature Gran % (Auto) 0.200, Neut % (Auto) 38.6 L, Lymph % (Auto) 50.0 H, [place] % (Auto) 9.0, Eos % (Auto) 2.0, Baso % (Auto) 0.2, Absolute Neuts (auto) 2.0, Absolute Lymphs (auto) 2.56, Nucleated RBC % 0 05/25/21 06:07: Sodium 136, Potassium 3.9, Chloride 105, Carbon Dioxide 23.0, Anion Gap 8, BUN 9, Creatinine 0.74, Estim Creat Clear Calc 73.66, Est GFR (MDRD) Af Amer 103, Est GFR (MDRD) Non-Af 85, BUN/Creatinine Ratio 12.2, Glucose 175 H, Calcium 8.9 Micro: Microbiology 05/24/21 20:25 Nasal Secretion SARS-CoV-2 Antigen (Rapid) - Final Cardiology Labs/Tests 05/24/21 18:45: WBC 7.2, RBC 4.74, Hgb 13.5, Hct 39.5, MCV 83.3, MCH 28.5, MCHC 34.2, Plt Count 230, MPV 10.8, Immature Gran % (Auto) 0.300, Neut % (Auto) 48.0, Lymph % (Auto) 41.8 H, [place] % (Auto) 8.3, Eos % (Auto) 1.3, Baso % (Auto) 0.3, Absolute Neuts (auto) 3.4, Nucleated RBC % 0 05/24/21 18:45: Sodium 138, Potassium 3.7, Chloride 104, Carbon Dioxide 28.0, Anion Gap 6, BUN 14, Creatinine 0.87, Est GFR (MDRD) Af Amer 86, Est GFR (MDRD) Non-Af 71, BUN/Creatinine Ratio 16.1, Glucose 203 H, Calcium 9.0 05/25/21 06:07: WBC 5.1, RBC 4.59, Hgb 12.9, Hct 38.0, MCV 82.8, MCH 28.1, MCHC 33.9, Plt Count 197, MPV 10.4, Immature Gran % (Auto) 0.200, Neut % (Auto) 38.6 L, Lymph % (Auto) 50.0 H, [place] % (Auto) 9.0, Eos % (Auto) 2.0, Baso % (Auto) 0.2, Absolute Neuts (auto) 2.0, Nucleated RBC % 0 05/25/21 06:07: Sodium 136, Potassium 3.9, Chloride 105, Carbon Dioxide 23.0, Anion Gap 8, BUN 9, Creatinine 0.74, Est GFR (MDRD) Af Amer 103, Est GFR (MDRD) Non-Af 85, BUN/Creatinine Ratio 12.2, Glucose 175 H, Calcium 8.9 Rhythm: EKG: ECHO: Stress Test: Cardiac Cath: PCI: CT Surgery: Holter monitor: EPS: PPM: CXR: Chest CT Scan: Radiography Diagnostic Testing: Radiology Impression Chest X-Ray 05/24/21 19:00 IMPRESSION: COPD. Electronically Signed: Ethan Cotrez MD at 19:52 EST Reading Location ID and State: [address] [place] [address] , Service support ,
--- NOTE | 2021-05-25 08:28 | CL.D_ITS ---
Patient Name: ZITA BROWNLEE Study Date: 05/25/2021 Performing: Reggie Ramirez MD Ht: 64.96 inches 165 cm : 1960 Wt: 178.57 lbs 81 kg Age: 60 Gender: female BSA: 1.88 PROCEDURE(S) PERFORMED [id number])LHC/COR/LV CLINICAL PROFILE AND INDICATIONS Indications: Suspected CAD Heart Failure: None Stress/Imaging Date: 05/07/21 CONCLUSIONS Severe stenosis of the proximal left anterior descending artery prior to the stent. Severe disease n oted in the second obtuse marginal vessel RECOMMENDATIONS Referred for immediate PCI DESCRIPTION OF PROCEDURE The patient arrived to the procedure lab. The risks and benefits of the procedure as well as a full d escription of our services here and current unavailability of surgical backup were fully explained to the patient and/or their significant other prior to the catheterization. The Timeout was completed, verifying the correct patient and procedure. The patient's procedural site was prepped and draped in the usual fashion. Local anesthetic was given subcutaneously to right radial region with Lidocaine 2% . Using a modified Seldinger technique, arterial access was obtained via the right radial artery, a 6 Fr sheath was inserted. Left Coronary Artery selective angiography was performed in multiple views u sing a 5 Fr. 4.0 [place] catheter. Right Coronary Artery selective angiography was then performed in mu ltiple views using a 5 Fr. 4.0 [place] catheter. Left Ventriculography was performed in MCGRAW projection using a 5 Fr. Pigtail catheter. LV to AO pullback pressures were then recorded. CORONARY ANGIOGRAPHY DOMINANCE: Right Dominant LEFT HEART ASSESSMENT Left Ventricular Ejection Fraction: by LV Gram 55 % Normal LV wall motion Normal Left Ventricular systolic function LEFT MAIN: Angiographically normal LEFT ANTERIOR DESCENDING ARTERY: Proximal left anterior descending artery with 95% stenosis in the mi d LAD with previously placed stent with mild 30% in-stent stenosis and a distal long 70% stenosis in a small vessel. RIGHT CORONARY ARTERY: Dominant right coronary artery with a distal 50% stenosis in the posterior lat eral vessel. COMPLICATIONS PROCEDURE MEDICATIONS Fentanyl 50 mcg IV Versed 1 mg IV Oxygen: 2 L/min via nasal cannula Heparin given IA 05/25/2021 07:53:22 Verapamil 2.5mg, Ntg 100mcgs, 3000 units of Heparin given IA 05/25/2021 07:53:22 SUMMARY OF HEMODYNAMIC DATA Time AIR REST ECG 07:37:59 AO 125/72 (94) SA 07:54:12 LV 121/2, 9 07:59:56 LV 129/4, 11 08:00:03 LV 122/6, 15 08:00:40 LVp 117/4, 15 08:00:45 AOp 126/65 (91) 08:00:50 Signed By Reggie Ramirez MD On 05/25/2021 8:27:25 AM Reggie Ramirez MD
--- NOTE | 2021-05-25 09:55 | PCIREPORT_ITS ---
PCI Cardiac Cath Report PCI Report: Procedure performed; 1. Successful PCI of high-grade 95% stenosis of the proximal LAD with predilatation, using 2.5 x 15 mm Emerge balloon Followed by stenting of the proximal LAD using 3.5 x 22 mm drug-eluting stent/CLAY/Orsiro post dilated with 3.5 x 20 mm NC balloon With reduction of stenosis to 0% and maintenance of pre and post CRUZ-3 flow 2. Placement of TR band to the right radial artery arteriotomy site. Preprocedure diagnosis; 60-year-old patient with history of hypertension, hyperlipidemia, CAD with symptoms of chest pain She had a PCI and stent of the LAD in 2014 using drug-eluting stent 3.5 mm, with PTCA of the sidebranch diagonal She underwent cardiac catheterization today by her primary supervisor mold yard Dr. Ramirez Finding of cardiac catheterization were discussed it revealed severe proximal LAD stenosis of around 95% and diffuse disease in the LAD which is a small vessel distally RCA is large dominant with nonobstructive 50% in the posterolateral branch The left circumflex artery OM 2 had long segment of diffuse 90% stenosis small vessel on the left main is normal angiographically Ejection fraction is 55%. Based on her clinical presentation we will proceed with the intervention PCI of the culprit which is a high-grade stenosis of the proximal large left anterior descending artery. Consent; Risk and benefits of the procedure explained detail patient elected to proceed informed consent obtained. Interventional equipment used; 1. 6 Prydeinig sheath/Terumo in the right radial artery 2. 6 Prydeinig 3.5 EBU guide catheter 3. 0.014 run-through extra floppy 180 cm straight wire 4. 2.5 x 15 mm emerge balloon 5. Drug-eluting stent/CLAY-Orsiro 3.5 x 22 mm 6. NC balloon 3.5 x 20 mm/NC Emerge MR Medication used in the Credit Rating Checker patient was given additional doses of Plavix a total of 300 mg of Plavix in addition to aspirin Heparin 6000 units of heparin ACT level was acceptable. Procedure in detail; Proceed with a 6 Prydeinig EBU guide from the radial approach advanced ascending aorta cannulated the left main without difficulty, angiographic view obtained in the spider and MCGRAW cranial Then will proceed with the guidewire run-through across the lesion in the prox imal LAD and placed wire distal to this mid LAD stent Then will proceed with a predilatation using the 2.5 x 50 mm balloon followed by placement of the stent as a specified and postdilated using 3.5 x 20 mm NC balloon and achievement of excellent result Patient had symptoms of mild discomfort in the chest with no change in the EKG. She was given nitroglycerin. Conclusion and recommendation; Successful PCI of high-grade proximal LAD stenosis with placement of drug- eluting stent overlapping the stent with a previously placed stent in the mid LAD 1. Continue on DAPT patient currently on Plavix and aspirin for 1 year 2. We will continue to follow with the primary supervisor mold yard Dr. Ramirez 3. Patient is scheduled for phase 1 cardiac rehab program No complication in the Credit Rating Checker. Tip Sanders MD,FAC,[facility]
--- NOTE | 2021-05-25 10:00 | EKG12_ITS ---
Test Reason : AM EKG Blood Pressure : / mmHG Vent. Rate : 058 BPM Atrial Rate : 058 BPM P-R Int : 164 ms QRS Dur : 094 ms QT Int : 440 ms P-R-T Axes : 061 040 057 degrees QTc Int : 431 ms Sinus bradycardia Nonspecific T wave abnormality Abnormal ECG Confirmed by CATINA GATES, BONY ([id number]), associate entertainment editor LENARD KHALIL ([id number]) on 05/27/2021 9:26:02 AM Referred By: HUGO Confirmed By:BONY DOMINIQUE MD
[2021-05-25] MEDS: 0.9% Normal Saline 1,000 ML 75 ML IV (11:04)
--- NOTE | 2021-05-25 11:08 | PCM.PN.HOSP ---
Documented by User: James GURROLA 05/25/21 11:18 Subjective Subjective Patient is a 60-year-old female comfortably resting in bed, alert and orient x3. Denies development of any new symptoms overnight. Does not appear in acute distress. Objective Data Objective Data Vital Signs: Vital Signs Temp Pulse Resp BP Pulse Ox 97.7 F L 54 L 16 108/69 99 05/25/21 09:28 05/25/21 10:41 05/25/21 10:41 05/25/21 10:41 05/25/21 10:41 Oxygen Delivery Method Room Air Weight: 177 lb 14.609 oz Body Mass Index (BMI) 29.6 Lab / Micro Data Result Diagrams: 05/25/21 06:07 05/25/21 06:07 Labs: Laboratory Results - last 24 hr 05/24/21 18:45: WBC 7.2, RBC 4.74, Hgb 13.5, Hct 39.5, MCV 83.3, MCH 28.5, MCHC 34.2, RDW Std Deviation 38.2, RDW Coeff of Donna 12.6, Plt Count 230, MPV 10.8, Immature Gran % (Auto) 0.300, Neut % (Auto) 48.0, Lymph % (Auto) 41.8 H, [place] % (Auto) 8.3, Eos % (Auto) 1.3, Baso % (Auto) 0.3, Absolute Neuts (auto) 3.4, Absolute Lymphs (auto) 2.99, Nucleated RBC % 0 05/24/21 18:45: Sodium 138, Potassium 3.7, Chloride 104, Carbon Dioxide 28.0, Anion Gap 6, BUN 14, Creatinine 0.87, Estim Creat Clear Calc 62.65, Est GFR (MDRD) Af Amer 86, Est GFR (MDRD) Non-Af 71, BUN/Creatinine Ratio 16.1, Glucose 203 H, Calcium 9.0, Troponin I High Sens < 3 L 05/24/21 20:45: Troponin I High Sens 4 05/24/21 23:47: POC Glucose 155 H 05/25/21 00:54: Troponin I High Sens 4 05/25/21 05:35: POC Glucose 215 H 05/25/21 06:07: WBC 5.1, RBC 4.59, Hgb 12.9, Hct 38.0, MCV 82.8, MCH 28.1, MCHC 33.9, RDW Std Deviation 38.0, RDW Coeff of Donna 12.6, Plt Count 197, MPV 10.4, Immature Gran % (Auto) 0.200, Neut % (Auto) 38.6 L, Lymph % (Auto) 50.0 H, [place] % (Auto) 9.0, Eos % (Auto) 2.0, Baso % (Auto) 0.2, Absolute Neuts (auto) 2.0, Absolute Lymphs (auto) 2.56, Nucleated RBC % 0 05/25/21 06:07: Sodium 136, Potassium 3.9, Chloride 105, Carbon Dioxide 23.0, Anion Gap 8, BUN 9, Creatinine 0.74, Estim Creat Clear Calc 73.66, Est GFR (MDRD) Af Amer 103, Est GFR (MDRD) Non-Af 85, BUN/Creatinine Ratio 12.2, Glucose 175 H, Calcium 8.9 Micro: Microbiology 05/24/21 20:25 Nasal Secretion SARS-CoV-2 Antigen (Rapid) - Final Radiography Diagnostic Testing: Radiology Impression Chest X-Ray 05/24/21 19:00 IMPRESSION: COPD. Electronically Signed: Ethan Cortez MD at 19:52 EST Reading Location ID and State: [facility] / [place] , Service support , Physical Exam Const alert, oriented x3 and no apparent distress HEENT head/scalp atraumatic and moist oral mucous membranes Head and Scalp: normocephalic Eyes PERRL, EOMs intact bilaterally and conjunctivae normal Neck no lymphadenopathy, supple and no JVD Resp normal respiratory effort, no retractions, no use of accessory muscles and clear to auscultation bilaterally Cardio regular rhythm, no murmurs and no JVD Rate: bradycardia GI normal to inspection, nondistended, normoactive bowel sounds, soft to palpation and non-tender Extremity normal to inspection, full ROM and no clubbing, cyanosis or edema Skin no rashes or lesions noted Neuro CN's II-XII intact bilaterally Psych affect normal Assessment & Plan Assessment/Plan (1) Unstable angina: PLAN: Day 1 Discharge planning: Current plan for patient discharge home when medically ready. 1) unstable angina Patient underwent cardiac catheterization which revealed proximal 90% stenosis of the LAD and left circumflex artery, patient immediately went for PCI of the proximal LAD. We will continue to monitor overnight, continue aspirin, Plavix, statin, beta-kamla and isosorbide mononitrate. Cardiology following. 2) DM2 Accu-Cheks with sliding scale insulin ordered. 3) HTN Stable, continue metoprolol. DVT prophylaxis - SCDs Patient seen by James Ayala PA-C, under the supervision of Dr. Tinoco. Documented by User: Dr. Jairo Tinoco MD 05/25/21 13:13 Objective Data Lab / Micro Data Result Diagrams: 05/25/21 06:07 05/25/21 06:07 Assessment & Plan Addt'l Comments This patient was seen in conjunction with James Ayala PA-C. I have independently interviewed and examined the patient and reviewed pertinent historical, laboratory, and other data. Please refer to James Ayala PA-C's note for details of this patient's presentation, findings, and recommendations. I have reviewed James Ayala PA-C's note and concur with documented findings. In brief, patient is a 60-year-old lady with history of recent abnormal stress test who due to undergo undergo [facility] on 05/25/2021 who presented with chest pain. An assessment of unstable angina made admitted to a monitored bed with consultation placed to cardiology. Patient underwent left heart catheterization with PCI to LAD Physical Examination: GENERAL: cooperative HEENT: Atraumatic; EYES; Anicteric, Normal Conjunctiva NECK; supple, normal thyroid, RESPIRATORY: Diminished to auscultation CARDIOVASCULAR: Regular S1 S2, GI: soft, normoactive bowel sounds, : No Renal angle tenderness; EXTREMITIES: No edema, no clubbing, MUSCULOSKELETAL: no muscle wasting NEURO: Awake; no lateralizing signs. SKIN: No Rash PSYCH; Flat affect Assessment: 1. Unstable angina 2. Diabetes mellitus type 2 3. Essential hypertension 4. DVT prophylaxis Recommendations: 1. I have discussed the results of my overview and impressions with the patient 2. Options for management were reviewed Plan; patient was admitted to a monitored bed cardiology was consulted underwent left heart catheterization with PCI with CLAY to proximal LAD lesion Total time spent by myself and the advanced practice practitioner evaluating patient, reviewing labs, subsequent management decisions, discussion with patient as well as other providers 40 minutes ( 25 of which was spent by myself) Charges/Coding Visit Charges Inpatient E&M: 18722 [facility] Hosp L3
--- NOTE | 2021-05-25 11:35 | CASEMGMT ---
DINORAH WINSLOW assessment: Face to Face with patient for initial transition planning/care coordination assessment. DINORAH WINSLOW introduced self and role at [facility], pt voices understanding and consents to assessment. Pt is sitting up in bed in no distress on room air. Pt is A/Ox4 and answers all questions appropriately. Care providers, pharmacy, and demographics verified. Presentation: Pt c/o 'crushing' CP that was relieved with nitro-pain returned, also c/o SOB, dizziness Admitting dx: Unstable angina PCP: [facility] Specialists: [facility] Preferred Pharmacy: [facility] Insurance: [email or web address] Prescription Benefit: [email or web address] Living Will/HPOA: Pt does not have LW/HPOA and declines AD info. LNOK: Luigi Justice, ; Chantal Mota, daughter Living Arrangements: Pt lives with daughter on main level of 2 story home and states no concerns at home. Pt is independent with ADL's. Transportation: Pt drives self and states no transportation concerns. DME/HHC: Pt has no current DME or need for any further DME. Pt states no hx of HHC or SNF. Pt states no concerns with going home at time of discharge. 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 Pt states does not smoke cigarettes or drink ETOH. Pt states no further concerns/needs. CM to follow for any further discharge planning/needs. Advised pt to ask for CM if any further questions/concerns/needs arise, voices understanding. Pt Goal: [place] DINORAH WINSLOW
[2021-05-25] MEDS: Lisinopril 2.5 MG Tablet PO (11:52)
[2021-05-25] MEDS: Insulin Lispro 100 UNIT/ML INSULN.PEN SC ×2 (11:52→21:37)
[2021-05-25 12:05] LABS: Bedside Glucose 171 mg/dL (70-110)
--- NOTE | 2021-05-25 14:15 | CRPHASE1_ITS ---
Patient Communication PHII Cardiac Rehab Discussed with Patient:: Yes Guide to Cardiac Rehab Given to Patient:: Yes Cardiac Rehab Facility Choice List Given to Patient:: Yes Choice Program [facility] PHII:: Communication Given to CR, Refer to [facility] Choice Program Other:: Communication Given to CR - pt thinks that she may do rehab at [facility], With permission faxed order and referral information Rehabilitation Supervisor:: Tip Sanders Refer Phase II Cardiac Rehab:: Yes Sessions:: 36 sessions - 3 days/wk, 12 weeks Cardiac Rehabilitation Info Cardiac Rehabilitation Program Information: Cardiac Rehabilitation is important for patients like you who are recovering from a heart problem. Cardiac rehabilitation programs are recognized as integral to the continued care of the patient with coronary heart disease. The cardiac rehabilitation program is designed to optimize a patient's physical, psychological, and social functioning. Health administrator health care facility work in cardiac rehabilitation programs and assist you with getting the treatments you need to get stronger and healthier - like exercise, healthy eating habits, and medications. Cardiac rehabilitation has been show to help people with heart problems live longer and have better life enjoyment than people who do not go to cardiac rehabilitation. Please contact the Cardiac Rehabilitation Program at [facility] at in two weeks if you have not heard from them.
--- NOTE | 2021-05-25 14:18 | CRPH1.INSTRU ---
General Education CAD and cardiac anatomy and function:: Needs reinforcement Explanation of diagnoses and procedures:: Needs reinforcement Sign/Symptoms of [place]:: Needs reinforcement Antiplatelet therapy: Needs reinforcement Proper use of NTG-SL: Not instructed Emergency procedures and activation of EMS: Needs reinforcement Compliance of all prescribed medications: Needs reinforcement Smoking Nicotine/Smoking Response Code:: Patient communicates acknowledgment Dyslipidemia Dyslipidemia Response Code:: Patient communicates acknowledgment Overweight/Obesity Patient Overweight/Obesity Risk Factors Are:: Overweight = 26-29 Overweight/Obesity:: Family communicates acknowledgment Hypertension Recommendations Include:: Maintain BP <130/85, BP <130/80 if diabetic, DASH dietary guidelines, Decrease/maintain normal body weight, Moderation of ETOH Hypertension:: Patient returns demonstration Heart Disease Patient Heart Disease Risk Factors Are:: Previous cardiac event Heart Disease Response Code:: Patient communicates acknowledgment Diabetes Patient Diabetes Risk Factors Are:: Elevated blood sugars Diabetes:: Patient communicates acknowledgment Metabolic Syndrome Metabolic Syndrome Response Code:: Patient communicates acknowledgment Sedentary Sedentary Response Code:: Patient communicates acknowledgment Stress Stress Response Code:: Patient communicates acknowledgment
[2021-05-25 16:50] LABS: Bedside Glucose 135 mg/dL (70-110)
[2021-05-25] MEDS: MELATONIN 3 MG TABLET PO (21:41)
[2021-05-25 21:51] LABS: Bedside Glucose 166 mg/dL (70-110)
[2021-05-26] VITALS (8 sets, daily range): BP systolic 86–99; BP diastolic 50–62; PULSE 55–61; RESP 10–18; TEMP 36.1–36.9; O2SAT 96–99
[2021-05-26 05:50] LABS: Hematocrit 36.9 % (37-47); Hemoglobin 12.5 g/dL (12.0-15.0); Mean Corp Hgb Conc 33.9 g/dL (32-36); Mean Corpuscular Hgb 27.7 pg (27.0-32.0); Mean Corpuscular Volume 81.6 fL (81-99); Mean Platelet Vol. 10.2 fl (6.2-12.0); Platelet Count 194 K/mm3 (150-450); RBC Distribution Width CV 12.5 % (11.6-14.6); RBC Distribution Width SD 37.4 fl (35.1-43.9); Red Blood Count 4.52 M/mm3 (4.2-5.4); White Blood Count 5.4 K/mm3 (4.4-11.0)
[2021-05-26 06:33] LABS: ALB/GLOB Ratio 0.9 RATIO (0.9-2.4); AST(SGOT) 13 U/L (15-37); Alanine Aminotransfer ALT/SGPT 14 U/L (13-56); Albumin, Serum 3.4 g/dL (3.2-5.0); Alkaline Phosphatase 82 U/L (45-117); Anion Gap 7 (5-15); BUN 12 mg/dL (7-18); BUN/Creat Ratio 15.6 RATIO (10-20); Calcium,Total 8.8 mg/dL (8.5-10.1); Chloride 106 mmol/L (98-107); Creatinine, Serum 0.77 mg/dL (0.55-1.02); EST Glomerular Filtration Rate 82 mL/min (>60); Est Glom Filt Rate - Afr Amer 99 mL/min (>60); Estimated Creatinine Clearance 70.79 ml/min; Globulin 3.7 g/dL (2.2-4.2); Glucose 125 mg/dL (74-106); Potassium 3.8 mmol/L (3.5-5.1); Protein, Total 7.1 g/dL (6.4-8.2); Sodium Level 137 mmol/L (136-145)
--- NOTE | 2021-05-26 08:22 | PN.CARD_ITS ---
Subjective Subjective Patient seen and evaluated. Appears to be doing well. No complaints this morning. Objective Data Vital Signs: Vital Signs Temp Pulse Resp BP Pulse Ox 98.5 F 59 L 18 96/50 L 98 05/26/21 03:50 05/26/21 07:00 05/26/21 03:50 05/26/21 03:50 05/26/21 03:50 Oxygen Delivery Method Room Air Weight: 177 lb 14.609 oz Body Mass Index (BMI) 29.6 Intake & Output: Intake and Output for Last 24 Hours 05/24/21 05/25/21 05/26/21 23:59 23:59 23:59 Intake Total 2190 / 2190 220 / 220 Balance 2190 / 2190 220 / 220 Lab / Micro Data Result Diagrams: 05/26/21 05:38 05/26/21 05:38 Labs: Laboratory Results - last 24 hr 05/25/21 11:31: POC Glucose 171 H 05/25/21 16:18: POC Glucose 135 H 05/25/21 21:34: POC Glucose 166 H 05/26/21 05:38: WBC 5.4, RBC 4.52, Hgb 12.5, Hct 36.9 L, MCV 81.6, MCH 27.7, MCHC 33.9, RDW Std Deviation 37.4, RDW Coeff of Donna 12.5, Plt Count 194, MPV 10.2 05/26/21 05:38: Sodium 137, Potassium 3.8, Chloride 106, Carbon Dioxide 24.0, Anion Gap 7, BUN 12, Creatinine 0.77, Estim Creat Clear Calc 70.79, Est GFR (MDRD) Af Amer 99, Est GFR (MDRD) Non-Af 82, BUN/Creatinine Ratio 15.6, Glucose 125 H, Calcium 8.8, Total Bilirubin 1.10 H, AST 13 L, ALT 14, Alkaline Phosphatase 82, Total Protein 7.1, Albumin 3.4, Globulin 3.7, Albumin/Globulin Ratio 0.9 Cardiology Labs/Tests 05/26/21 05:38: WBC 5.4, RBC 4.52, Hgb 12.5, Hct 36.9 L, MCV 81.6, MCH 27.7, MCHC 33.9, Plt Count 194, MPV 10.2 05/26/21 05:38: Sodium 137, Potassium 3.8, Chloride 106, Carbon Dioxide 24.0, Anion Gap 7, BUN 12, Creatinine 0.77, Est GFR (MDRD) Af Amer 99, Est GFR (MDRD) Non-Af 82, BUN/Creatinine Ratio 15.6, Glucose 125 H, Calcium 8.8, Total Bilirubin 1.10 H Rhythm: EKG: ECHO: Stress Test: Cardiac Cath: PCI: CT Surgery: Holter monitor: EPS: PPM: CXR: Chest CT Scan: Physical Exam Const alert, oriented x3 and no apparent distress General Appearance: cooperative HEENT hearing grossly normal bilaterally Head and Scalp: atraumatic Eyes EOMs intact bilaterally Neck General: normal visual inspection Chest inspection of chest normal and palpation of chest normal Resp normal respiratory effort Auscultation: clear to auscultation bilaterally Cardio regular rate, regular rhythm, S1 normal heart sound and S2 normal heart sound Jugular Venous Distention: JVD GI normal to inspection, nondistended, normoactive bowel sounds Extremity normal capillary refill and no pedal edema Peripheral Pulses: Yes pulses 2+ throughout and femoral pulses present Skin no rashes or lesions noted Neuro oriented x3 and CN's II-XII intact bilaterally Psych Appearance: grossly normal and appropriate Assessment & Plan Assessment/Plan (1) Chest pain: PLAN: The patient presents with chest pain with an abnormal stress test recently. Coronary anatomy demonstrates the following: Normal left main coronary artery. Left anterior descending artery with proximal 90% stenosis prior to the stent with a stent having mild in-stent stenosis and a distal 70% stenosis noted. Left circumflex artery with a second small obtuse marginal branch with a 90% long stenosis. Dominant right coronary artery with proximal mild disease and distal 50% valorie nosis. Preserved left ventricular systolic function. Based on the above angiographic findings the patient underwent PCI of the proximal left anterior descending artery. This morning she is feeling quite well with no headache or chest discomfort. She will be discharged for outpatient follow-up in cardiac rehabilitation. (2) History of coronary artery stent placement: PLAN: Patient has previous stenting noted in the left anterior descending artery with mildly abnormal stress test done recently. We will continue with her current medical therapy with no changes. She will continue with risk factor modification. (3) Essential (primary) hypertension: PLAN: Her blood pressure appears to be under good control. Would recommend adding a low-dose ZENA inhibitor to the regimen. Thank you for allowing me to participate in the care of your patient. Please don't hesitate to call if any issues arise.
[2021-05-26] MEDS: Clopidogrel Bisulfate 75 MG Tablet PO (09:41)
[2021-05-26] MEDS: Aspirin 81 MG TAB.CHEW PO (09:41)
--- NOTE | 2021-05-26 10:00 | EKG12_ITS ---
Test Reason : PCI Blood Pressure : / mmHG Vent. Rate : 056 BPM Atrial Rate : 056 BPM P-R Int : 152 ms QRS Dur : 086 ms QT Int : 456 ms P-R-T Axes : 049 027 058 degrees QTc Int : 440 ms Sinus bradycardia Otherwise normal ECG Confirmed by CATINA GATES, BONY ([id number]), editorial intern LENARD KHALIL ([id number]) on 05/27/2021 9:26:17 AM Referred By: JOSÉ LUIS Confirmed By:BONY DOMINIQUE MD
--- NOTE | 2021-05-26 10:58 | PCM.DC ---
Discharge Instructions Diet Discharge Diet: No restrictions Activity Discharge Activity: Return to Normal Activity Weight Bearing Status: Weight bearing as tolerated Dressing / Incision Call your doctor if you observe: Fever of 101 or Higher, Numbness or Tingling, Shortness of breath, Dizziness, Chest pain, Increased palpitations (irregular heartbeat) and Calf discomfort Follow Up Care Please Follow Up With: Primary care provider When: Within the next two weeks. Test Results: Test results from this visit will be discussed in further detail at your follow-up appointment, if applicable. Discharge Plan Admission Admit Date/Time: 05/24/21 21:43 Primary Reason for Your Visit: Chest pain Attending Provider: Jairo Tinoco Primary Care Provider: Madalyn Vaughan Consulting Providers: eRggie Ramirez Discharge Orders/Prescriptions Prescriptions: New atorvastatin 40 mg Tablet 40 mg PO QHS Qty: 30 RF: 0 isosorbide mononitrate 30 mg Tablet Extended Release 24 Hr 30 mg PO DAILY Qty: 30 RF: 0 lisinopril 2.5 mg Tablet 2.5 mg PO DAILY Qty: 30 RF: 0 Continued ranolazine [Ranexa] 500 mg tablet extended release 12 hr 500 mg PO BID Qty: 60 RF: 3 insulin aspart U-100 [Novolog Flexpen U-100 Insulin] 100 unit/mL (3 mL) insulin pen 10 unit subcut TID Qty: 15 RF: 4 Levemir FlexTouch U-100 Insuln 100 unit/mL (3 mL) insulin pen 30 unit subcut QHS Qty: 15 RF: 4 aspirin 81 MG tablet,chewable 81 mg PO DAILY@0800 RF: 0 (DME) pen needle, diabetic [BD Ultra-Fine Yu Pen Needle] 32 gauge x 5/32 needle See Rx Instructions .ROUTE .MEDSUPPLY RF: 0 clopidogrel 75 mg tablet 75 mg PO DAILY Qty: 90 RF: 3 metoprolol tartrate 25 mg tablet 25 mg PO BID Qty: 180 RF: 3 nitroglycerin 0.4 mg tablet, sublingual 0.4 mg sublingual Q5-15M PRN (Reason: chest pain) Qty: 25 RF: 6 Referrals / Follow Up: Reggie Ramirez MD [STAFF PHYSICIAN] - Within 2 Weeks Madalyn Vaughan DO [Primary Care Provider] - Within 2 Weeks Disposition Disposition (needs filled in before D/C Order can be placed): Home, Self Care
[2021-05-26 12:36] LABS: Bedside Glucose 146 mg/dL (70-110)
--- NOTE | 2021-05-26 14:34 | PCM.DC.SUM ---
Documented by User: James GURROLA 05/26/21 14:39 Providers Date of Admission: 05/24/21 Primary Care Physician: Dr. Madalyn Vaughan DO Consultations 05/24/21 23:00 Consult: Cardiology Routine Consulting Provider: Reggie Ramirez Reason for Consult: Chest pain; cardiac cath already ordered outpatient EMERGENT Consult: No MD Notified: Yes Date Notified: 05/24/21 Time Notified: 21:48 Method of Notification: in ED by MD Reason For Visit: UNSTABLE ANGINA Diagnosis Discharge Diagnosis (1) Chest pain: Status: Acute Code(s): R07.9 - Chest pain, unspecified (2) History of coronary artery stent placement: Status: Resolved Code(s): Z95.5 - Presence of coronary angioplasty implant and graft (3) Essential (primary) hypertension: Status: Chronic Code(s): I10 - Essential (primary) hypertension Medications at Discharge Home Medications aspirin 81 mg PO DAILY@0800 11/08/14 clopidogrel 75 mg tablet 75 mg PO DAILY #90 tab 05/01/20 metoprolol tartrate 25 mg tablet 25 mg PO BID #180 tab 05/01/20 ranolazine 500 mg tablet,extended release,12 hr 500 mg PO BID #60 tablet 07/29/20 nitroglycerin 0.4 mg sublingual tablet 0.4 mg SUBLINGUAL Q5-15M PRN #25 tab 10/21/20 insulin aspart U-100 100 unit/mL (3 mL) subcutaneous pen 10 unit SUBCUT TID #15 ml 04/28/21 insulin detemir U-100 100 unit/mL (3 mL) subcutaneous pen 30 unit SUBCUT QHS #15 ml 04/30/21 pen needle, diabetic [BD Ultra-Fine Yu Pen Needle] 05/24/21 atorvastatin 40 mg PO QHS #30 tab 05/26/21 isosorbide mononitrate 30 mg PO DAILY #30 tab 05/26/21 lisinopril 2.5 mg PO DAILY #30 tab 05/26/21 Hospital Course Procedures Cardiac catheterization Summary of Care Provided Minutes Spent on Discharge: 20 Hospital Course: Patient is a 60-year-old female who was admitted to [facility] on [facility]10/05/2021 for evaluation and management of chest pain. Course and management as below. 1) unstable angina Patient underwent cardiac catheterization which revealed proximal 90% stenosis of the LAD and left circumflex artery, patient immediately went for PCI of the proximal LAD. Patient was observed overnight and no cardiac events or complaints were noted. We will continue aspirin, Plavix, beta-kamla, ranolazine. We will initiate lisinopril, isosorbide and atorvastatin. Patient is to follow-up with cardiology within the next 2 weeks. 2) DM2 Continue home diabetic regimen. 3) HTN Stable, continue metoprolol. Patient seen by James Ayaal PA-C, under the supervision of Dr. Tinoco. Physical Exam Narrative Patient is a 60-year-old female comfortably resting in bed, alert and orient x3. Patient denies development of any new symptoms overnight. Does not appear in acute distress. Const alert, oriented x3 and no apparent distress HEENT normocephalic, head/scalp atraumatic and hearing grossly normal bilaterally Eyes PERRL, EOMs intact bilaterally and conjunctivae normal Neck no lymphadenopathy, supple and no JVD Resp normal respiratory effort, no retractions and no use of accessory muscles Cardio regular rate, regular rhythm and no JVD GI normal to inspection, nondistended, normoactive bowel sounds Extremity normal to inspection Skin no rashes or lesions noted Neuro CN's II-XII intact bilaterally Psych affect normal Weight / BMI Weight Weight: 177 lb 14.609 oz Body Mass Index (BMI) 29.6 ABG / Lab / Microbiology Data Result Diagrams: 05/26/21 05:38 05/26/21 05:38 Laboratory: Laboratory Results - last 24 hr 05/25/21 16:18: POC Glucose 135 H 05/25/21 21:34: POC Glucose 166 H 05/26/21 05:38: WBC 5.4, RBC 4.52, Hgb 12.5, Hct 36.9 L, MCV 81.6, MCH 27.7, MCHC 33.9, RDW Std Deviation 37.4, RDW Coeff of Donna 12.5, Plt Count 194, MPV 10.2 05/26/21 05:38: Sodium 137, Potassium 3.8, Chloride 106, Carbon Dioxide 24.0, Anion Gap 7, BUN 12, Creatinine 0.77, Estim Creat Clear Calc 70.79, Est GFR (MDRD) Af Amer 99, Est GFR (MDRD) Non-Af 82, BUN/Creatinine Ratio 15.6, Glucose 125 H, Calcium 8.8, Total Bilirubin 1.10 H, AST 13 L, ALT 14, Alkaline Phosphatase 82, Total Protein 7.1, Albumin 3.4, Globulin 3.7, Albumin/Globulin Ratio 0.9 05/26/21 12:15: POC Glucose 146 H Microbiology: Microbiology 05/24/21 20:25 Nasal Secretion SARS-CoV-2 Antigen (Rapid) - Final D/C Instructions Discharge Diet: No restrictions Weight Bearing Status: Weight bearing as tolerated Call your doctor if you observe: Fever of 101 or Higher, Numbness or Tingling, Shortness of breath, Dizziness, Chest pain, Increased palpitations (irregular heartbeat) and Calf discomfort Please Follow Up With: Primary care provider When: Within the next two weeks. Meaningful Use Info Meaningful Use Diagnoses (Choose all that apply): None applicable Discharge Plan Admission Admit Date/Time: 05/24/21 21:43 Primary Reason for Your Visit: Chest pain Attending Provider: Jairo Tinoco Primary Care Provider: Madalyn Vaughan Consulting Providers: Reggie Ramirez Discharge Orders/Prescriptions Prescriptions: New atorvastatin 40 mg Tablet 40 mg PO QHS Qty: 30 RF: 0 isosorbide mononitrate 30 mg Tablet Extended Release 24 Hr 30 mg PO DAILY Qty: 30 RF: 0 lisinopril 2.5 mg Tablet 2.5 mg PO DAILY Qty: 30 RF: 0 Continued ranolazine [Ranexa] 500 mg tablet extended release 12 hr 500 mg PO BID Qty: 60 RF: 3 insulin aspart U-100 [Novolog Flexpen U-100 Insulin] 100 unit/mL (3 mL) insulin pen 10 unit subcut TID Qty: 15 RF: 4 Levemir FlexTouch U-100 Insuln 100 unit/mL (3 mL) insulin pen 30 unit subcut QHS Qty: 15 RF: 4 aspirin 81 MG tablet,chewable 81 mg PO DAILY@0800 RF: 0 (DME) pen needle, diabetic [BD Ultra-Fine Yu Pen Needle] 32 gauge x 5/32 needle See Rx Instructions .ROUTE .MEDSUPPLY RF: 0 clopidogrel 75 mg tablet 75 mg PO DAILY Qty: 90 RF: 3 metoprolol tartrate 25 mg tablet 25 mg PO BID Qty: 180 RF: 3 nitroglycerin 0.4 mg tablet, sublingual 0.4 mg sublingual Q5-15M PRN (Reason: chest pain) Qty: 25 RF: 6 Referrals / Follow Up: Reggie Ramirez MD [STAFF PHYSICIAN] - 06/17/21 1:00 pm Madalyn Vaughan DO [Primary Care Provider] - Within 2 Weeks Disposition Disposition (needs filled in before D/C Order can be placed): Home, Self Care Documented by User: Dr. Jairo Tinoco MD 05/26/21 14:58 Providers Date of Admission: 05/24/21 Reason For Visit: UNSTABLE ANGINA Medications at Discharge Home Medications aspirin 81 mg PO DAILY@0800 11/08/14 clopidogrel 75 mg tablet 75 mg PO DAILY #90 tab 05/01/20 metoprolol tartrate 25 mg tablet 25 mg PO BID #180 tab 05/01/20 ranolazine 500 mg tablet,extended release,12 hr 500 mg PO BID #60 tablet 07/29/20 nitroglycerin 0.4 mg sublingual tablet 0.4 mg SUBLINGUAL Q5-15M PRN #25 tab 10/21/20 insulin aspart U-100 100 unit/mL (3 mL) subcutaneous pen 10 unit SUBCUT TID #15 ml 04/28/21 insulin detemir U-100 100 unit/mL (3 mL) subcutaneous pen 30 unit SUBCUT QHS #15 ml 04/30/21 pen needle, diabetic [BD Ultra-Fine Yu Pen Needle] 05/24/21 atorvastatin 40 mg PO QHS #30 tab 05/26/21 isosorbide mononitrate 30 mg PO DAILY #30 tab 05/26/21 lisinopril 2.5 mg PO DAILY #30 tab 05/26/21 Hospital Course Summary of Care Provided Hospital Course: This patient was seen in conjunction with James Ayala PA-C. I have independently interviewed and examined the patient and reviewed pertinent historical, laboratory, and other data. Please refer to James Ayala PA-C's note for details of this patient's presentation, findings, and recommendations. I have reviewed James Ayala PA-C's note and concur with documented findings. In brief, patient is a 60-year-old lady with history of recent abnormal stress test who due to undergo undergo C on 05/25/2021 who presented with chest pain. An assessment of unstable angina made admitted to a monitored bed with consultation placed to cardiology. Patient underwent left heart catheterization with PCI to LAD Physical Examination: GENERAL: cooperative HEENT: Atraumatic; EYES; Anicteric, Normal Conjunctiva NECK; supple, normal thyroid, RESPIRATORY: Diminished to auscultation CARDIOVASCULAR: Regular S1 S2, GI: soft, normoactive bowel sounds, : No Renal angle tenderness; EXTREMITIES: No edema, no clubbing, MUSCULOSKELETAL: no muscle wasting NEURO: Awake; no lateralizing signs. SKIN: No Rash PSYCH; Flat affect Assessment: 1. Unstable angina 2. Diabetes mellitus type 2 3. Essential hypertension 4. DVT prophylaxis Plan; patient was admitted to a monitored bed cardiology was consulted underwent left heart catheterization with PCI with CLAY to proximal LAD lesion Total time spent by myself and the advanced practice practitioner evaluating patient, reviewing labs, subsequent management decisions, discussion with patient as well as other providers 40 minutes ( 25 of which was spent by myself) ABG / Lab / Microbiology Data Result Diagrams: 05/26/21 05:38 05/26/21 05:38 Discharge Plan Admission Admit Date/Time: 05/24/21 21:43 Primary Reason for Your Visit: Chest pain Attending Provider: Jairo Tinoco Primary Care Provider: Madalyn Vaughan Consulting Providers: Reggie Ramirez Discharge Orders/Prescriptions Prescriptions: New atorvastatin 40 mg Tablet 40 mg PO QHS Qty: 30 RF: 0 isosorbide mononitrate 30 mg Tablet Extended Release 24 Hr 30 mg PO DAILY Qty: 30 RF: 0 lisinopril 2.5 mg Tablet 2.5 mg PO DAILY Qty: 30 RF: 0 Continued ranolazine [Ranexa] 500 mg tablet extended release 12 hr 500 mg PO BID Qty: 60 RF: 3 insulin aspart U-100 [Novolog Flexpen U-100 Insulin] 100 unit/mL (3 mL) insulin pen 10 unit subcut TID Qty: 15 RF: 4 Levemir FlexTouch U-100 Insuln 100 unit/mL (3 mL) insulin pen 30 unit subcut QHS Qty: 15 RF: 4 aspirin 81 MG tablet,chewable 81 mg PO DAILY@0800 RF: 0 (DME) pen needle, diabetic [BD Ultra-Fine Yu Pen Needle] 32 gauge x 5/32 needle See Rx Instructions .ROUTE .MEDSUPPLY RF: 0 clopidogrel 75 mg tablet 75 mg PO DAILY Qty: 90 RF: 3 metoprolol tartrate 25 mg tablet 25 mg PO BID Qty: 180 RF: 3 nitroglycerin 0.4 mg tablet, sublingual 0.4 mg sublingual Q5-15M PRN (Reason: chest pain) Qty: 25 RF: 6 Referrals / Follow Up: Reggie Ramirez MD [STAFF PHYSICIAN] - 06/17/21 1:00 pm Madalyn Vaughan DO [Primary Care Provider] - Within 2 Weeks Disposition Disposition (needs filled in before D/C Order can be placed): Home, Self Care Charges/Coding Visit Charges Inpatient E&M: 42605 Disch Hosp
== END 2021-05-26 14:37 | disposition home or self-care (01) | DRG 175 ==
LOC: ED 19:00 → PCU 22:00
PROVIDERS: Internal Medicine Interventional Cardiology; Admitting Provider Hospitalist; Emergency Provider Student in an Organized Health Care Education/Training Program; PCP Family Medicine; Visit Provider Internal Medicine
DX: I25.110 Atherosclerotic heart disease of native coronary artery with unstable angina pectoris (principal); T82.855A Stenosis of coronary artery stent, initial encounter; E11.65 Type 2 diabetes mellitus with hyperglycemia; Z79.4 Long term (current) use of insulin; E78.5 Hyperlipidemia, unspecified; I10 Essential (primary) hypertension; I25.2 Old myocardial infarction; E78.1 Pure hyperglyceridemia; Z20.822 Contact with and (suspected) exposure to COVID-19; Z79.02 Long term (current) use of antithrombotics/antiplatelets; Z79.82 Long term (current) use of aspirin; Z91.19 Patient's noncompliance with other medical treatment and regimen; E66.9 Obesity, unspecified; Z95.5 Presence of coronary angioplasty implant and graft; Z68.30 Body mass index [BMI] 30.0-30.9, adult
CPT/HCPCS: 36415; 71045; 80048; 80053; 82962; 84484; 85025; 85027; 87426; 92928; 93005; 93458; 99152; 99153; 99285; C1874; J7030; Q9967; A4216; C1725; C1769; C1887; C1894; C9600

== ENCOUNTER 2021-05-25 11:37 | Outpatient (CLI) | payer MEDICAID, SELFPAY ==
--- NOTE | 2021-05-20 09:47 | RAD_ITS ---
STUDY: X-RAY CHEST REASON FOR EXAM: Female, 60 years old. Preop for heart catheter TECHNIQUE: PA and lateral views of the chest. COMPARISON: 02/15/2020 FINDINGS: The lungs are clear and expanded. There is no demonstrated pleural abnormality. Normal size heart. Normal mediastinum and kt. Normal visualized pulmonary arteries. Normal visualized aortic arch and descending thoracic aorta. Normal visualized thoracic spine. Normal visualized ribs, clavicles, and shoulders. There is no demonstrated abnormality of the visualized soft tissue structures of the upper abdomen. RAD/Chest PA and Lateral IMPRESSION: No acute pulmonary process Electronically Signed: Souleymane Marquez MD at 16:18 EST ,
[2021-05-20 10:01] LABS: Absolute Lymphocyte Count 2.16 X10^3/uL (0.83-4.51); Absolute Neutrophil Count 2.2 X10^3/uL (2.0-7.7); Basophil# 0.01 X10^3/uL; Basophil% 0.2 % (0-1); Eosinophil# 0.07 X10^3/uL; Eosinophils% 1.5 % (0-5); Hematocrit 38.3 % (37-47); Hemoglobin 12.9 g/dL (12.0-15.0); Lymphocyte # 2.16 X10^3/ul (0.83-4.51); Lymphocyte % 45.6 % (19-41); Mean Corp Hgb Conc 33.7 g/dL (32-36); Mean Corpuscular Volume 83.1 fL (81-99); Mean Platelet Vol. 10.8 fl (6.2-12.0); Monocyte# 0.35 X10^3/uL; Monocyte% 7.4 % (0-10); NRBC Flagged by Analyzer 0 % (0-5); Neutrophil # 2.15 X10^3/uL (2.7-7.7); Neutrophil % 45.3 % (47-70); Platelet Count 205 K/mm3 (150-450); RBC Distribution Width CV 12.8 % (11.6-14.6); RBC Distribution Width SD 38.6 fl (35.1-43.9); Red Blood Count 4.61 M/mm3 (4.2-5.4); White Blood Count 4.7 K/mm3 (4.4-11.0)
[2021-05-20 10:31] LABS: Anion Gap 7 (5-15); BUN 12 mg/dL (7-18); BUN/Creat Ratio 16.8 RATIO (10-20); Calcium,Total 9.1 mg/dL (8.5-10.1); Chloride 104 mmol/L (98-107); Creatinine, Serum 0.72 mg/dL (0.55-1.02); EST Glomerular Filtration Rate 89 mL/min (>60); Est Glom Filt Rate - Afr Amer 107 mL/min (>60); Glucose 159 mg/dL (74-106); Sodium Level 138 mmol/L (136-145)
[2021-05-22 07:49] VITALS: BMI 30.4
== END 2021-05-25 23:59 | disposition home or self-care (01) ==
LOC: CLSP 07-02 11:38
PROVIDERS: Nurse Practitioner Family; PCP Family Medicine; Referring Provider Internal Medicine Cardiovascular Disease; Visit Provider Internal Medicine Cardiovascular Disease
DX: Z01.818 Encounter for other preprocedural examination (principal); R94.39 Abnormal result of other cardiovascular function study
CPT/HCPCS: 36415; 71046; 80048; 85025

== ENCOUNTER 2021-06-29 11:50 | Outpatient (CLI) | payer MEDICAID, SELFPAY ==
[2021-06-29 16:22] LABS: Cholesterol 277 mg/dL (200); High Density Lipoprotein 51 mg/dL; Triglycerides 171 mg/dL; Very Low Density Lipoprotein 34 mg/dL (5-40)
== END 2021-06-29 23:59 | disposition home or self-care (01) ==
LOC: BIMLAB 11:51
PROVIDERS: PCP Family Medicine; Referring Provider Nurse Practitioner Family; Visit Provider Nurse Practitioner Family
DX: E78.5 Hyperlipidemia, unspecified (principal); E11.65 Type 2 diabetes mellitus with hyperglycemia; Z79.4 Long term (current) use of insulin
CPT/HCPCS: 36415; 80061

== ENCOUNTER 2021-07-27 14:19 | Emergency (ER) | payer MEDICAID, SELFPAY ==
[2021-07-27 14:19] VITALS: BP 120/93; PULSE 74; RESP 18; TEMP 36.5; O2SAT 96; BMI 29.1
[2021-07-27 14:41] VITALS: BP 146/79; PULSE 69; RESP 18; O2SAT 99
--- NOTE | 2021-07-27 15:00 | EKG12_ITS ---
Test Reason : CP Blood Pressure : / mmHG Vent. Rate : 065 BPM Atrial Rate : 065 BPM P-R Int : 156 ms QRS Dur : 082 ms QT Int : 402 ms P-R-T Axes : 063 040 054 degrees QTc Int : 418 ms Normal sinus rhythm Normal ECG Confirmed by CATINA GATES, BONY ([id number]), web editor DARREN PEPE ([id number]) on 07/29/2021 11:38:55 AM Referred By: Confirmed By:BONY DOMINIQUE MD
--- NOTE | 2021-07-27 15:10 | RAD_ITS ---
STUDY: X-RAY CHEST REASON FOR EXAM: Female, 60 years old. Chest pain TECHNIQUE: Single AP portable view of the chest. COMPARISON: Comparison is made with prior study dated 05/24/2021. FINDINGS: EKG electrodes are seen. The lungs are clear and expanded. There is no demonstrated pleural abnormality. Left coronary stent. Normal mediastinum and kt. Normal visualized pulmonary arteries. Normal visualized aortic arch and descending thoracic aorta. There are diffuse degenerative changes of the visualized thoracic spine. Normal visualized ribs, clavicles, and shoulders. There is no demonstrated abnormality of the visualized soft tissue structures of the upper abdomen. RAD/Chest 1 View (Portable) IMPRESSION: Stable examination. No acute abnormality is seen. Electronically Signed: Alexander Galvez MD at 15:22 EDT ,
--- NOTE | 2021-07-27 15:12 | ED.VIS.CHEST ---
HPI History of Present Illness Chief Complaint: Chest Pain Informant: patient Onset/Context/Timing Onset: Weeks (1) Activity at onset: gradual Quality: Positive for Pressure Location: Substernal Worsened By: Nothing Relieved By: Nothing Associated Symptoms: Positive for Lightheadedness and Palpitations; Negative for Nausea, Vomiting, Diaphoresis, Dyspnea, Cough, Fever and Acid Reflux Narrative Narrative: Presents with chest pain that began approximate 1 week ago. Patient states it is gradually getting worse over the last week. Patient states it has been constant today. Patient describes as a pressure. Patient states it is over the substernal area. Patient states nothing makes it better nothing makes it worse. Patient admits to some lightheadedness. Patient also admits to some palpitations. Patient denies any nausea or vomiting. Patient denies any shortness of breath or cough. Patient denies any diaphoresis. Patient states she did have a recent cardiac stents placed and her pain is similar to the pain she was having prior to stent placement. CVD Risk Factors: Positive for Hypertension, Diabetes, Hypercholesterolemia and Family History 1' </=55; Negative for Smoking PE Risk Factors: Negative for Recent Travel/Surgery, Recent Immobilization, Prior DVT or PE, Cancer and OCP + Smoking + >/=35 PFSH PFSH Medical History Atherosclerosis of coronary artery of upper [place] heart without angina pectoris Diabetes Essential (primary) hypertension History of non-ST elevation myocardial infarction (NSTEMI) (02/23/19) Hyperlipidemia Hypertriglyceridemia Noncompliance with diabetes treatment Obesity Obesity Type 2 diabetes mellitus Home Medications aspirin 81 mg PO DAILY@0800 11/08/14 [History Last Taken 05/24/21] nitroglycerin 0.4 mg sublingual tablet 0.4 mg SUBLINGUAL Q5-15M PRN #25 tab 10/21/20 [Rx Last Taken 05/24/21] insulin aspart U-100 100 unit/mL (3 mL) subcutaneous pen 10 unit SUBCUT TID #15 ml 04/28/21 [Rx Last Taken 05/24/21 12:00] insulin detemir U-100 100 unit/mL (3 mL) subcutaneous pen 30 unit SUBCUT QHS #15 ml 04/30/21 [Rx Last Taken 05/23/21] pen needle, diabetic [BD Ultra-Fine Yu Pen Needle] 05/24/21 [History Last Taken Unknown] clopidogrel 75 mg tablet 75 mg PO DAILY #90 tab 06/17/21 [Rx Last Taken Unknown] evolocumab 140 mg/mL subcutaneous pen injector 140 mg SUBCUT Q2W #2 ml 06/17/21 [Rx Last Taken Unknown] lisinopril 2.5 mg tablet 2.5 mg PO DAILY #30 tab 06/17/21 [Rx Last Taken Unknown] metoprolol tartrate 25 mg tablet 25 mg PO BID #180 tab 06/17/21 [Rx Last Taken Unknown] Allergy/AdvReac Type Severity Reaction Status Date / Time atorvastatin AdvReac Severe myalgias Verified 07/27/21 14:20 rosuvastatin AdvReac Severe myalgias Verified 07/27/21 14:20 simvastatin AdvReac Severe myalgias Verified 07/27/21 14:20 Family History Father CVA (cerebral vascular accident) Surgical History History of coronary artery stent placement (05/25/21) History of left heart catheterization (02/21/20) Social History Smoking Status: Never smoker alcohol intake: never substance use type: does not use caffeine: Yes ROS ROS ED Constitutional Constitutional ED: Denies chills or fever(s) Eyes Eyes: Denies blurry vision or change in vision ENT ENT ED: Denies rhinorrhea or sore throat Cardiovascular Cardiovascular: Reports chest pain and palpitations Respiratory/Chest Respiratory/Chest: Denies cough or dyspnea Gastrointestinal Gastrointestinal: Denies abdominal pain, nausea or vomiting Genitourinary Genitourinary ED: Denies dysuria or hematuria Musculoskeletal Musculoskeletal: Reports back pain and neck pain Integumentary Denies abscess or rash Neurologic Neurologic: Reports headache(s); Denies weakness Allergic/Immunologic Allergic/Immunologic ED: Denies mouth swelling or urticaria EXAM Physical Exam Const Vital Signs: 07/27/21 14:19 07/27/21 14:41 07/27/21 15:01 Temperature 97.7 F L Temperature Source Temporal Pulse Rate 74 69 Respiratory Rate 18 18 Respiratory Effort Normal Non-Labored Blood Pressure 120/93 H 146/79 H Blood Pressure Mean 102 101 Pulse Ox 96 99 Oxygen Delivery Method Room Air Room Air Room Air 07/27/21 15:19 07/27/21 16:00 07/27/21 16:39 Temperature Temperature Source Pulse Rate 69 89 67 Respiratory Rate 16 16 Respiratory Effort Blood Pressure 127/68 H 127/79 H 122/70 H Blood Pressure Mean 87 95 Pulse Ox 98 97 Oxygen Delivery Method Room Air Room Air 07/27/21 17:00 Temperature Temperature Source Pulse Rate 64 Respiratory Rate 13 Respiratory Effort Blood Pressure 110/64 Blood Pressure Mean 79 Pulse Ox 98 Oxygen Delivery Method Room Air Positive well nourished and well developed General Appearance ED: well developed and NAD HEENT normocephalic and atraumatic Eyes PERRL and EOMs intact bilaterally Neck supple and no JVD Chest Wall palpation of chest normal Resp normal respiratory effort and clear to auscultation bilaterally Effort and Inspection: Negative for respiratory distress Cardio regular rate, regular rhythm and no murmurs GI normal to inspection, nondistended, normoactive bowel sounds, soft to palpation, non-tender and non-distended Extremity normal to inspection General Extremety ED: Negative for edema or tenderness General Extremity: Negative for edema Neuro oriented x3, CN's II-XII intact bilaterally and no sensory deficits noted Sensorium / Orientation: awake and alert Motor Exam: strength 5/5 throughout Psych mental status grossly normal Heart Score History: Moderately Suspicious ECG: Normal Age: >45 - <65 years Risk Factors: >/= 3 Risk Factors or History of CAD Troponin: </= Normal Limit Score: 4 MDM MDM MDM Narrative Medical decision making narrative: EKG was obtained. On my interpretation, it showed a normal sinus rhythm with a rate of 65. VA interval, QRS interval, and QTc intervals were all normal. Powell was normal. There are no acute ST or T wave changes. CBC and basic metabolic profile were obtained and were essentially within normal limits. PT with INR was normal. High-sensitivity troponin was less than 3. D-dimer was less than 0.27. Portable 1 view chest x-ray was obtained. On my interpretation, lung lombardi are clear. There is normal cardiac silhouette. Bony thorax is normal. There is no acute process noted. Radiologist also interpreted the x-ray and agrees. Patient was advised of her findings. Patient was instructed to follow-up with her primary care physician in 3 to 5 days for further evaluation. Patient understood and was agreeable with the plan. All questions were answered. Lab Data Attestation: I reviewed the patient's lab results. Labs: Laboratory Results - last 24 hr 07/27/21 07/27/21 07/27/21 14:55 14:55 14:55 WBC 5.5 RBC 4.47 Hgb 12.1 Hct 37.0 MCV 82.8 MCH 27.1 MCHC 32.7 RDW Std Deviation 37.6 RDW Coeff of Donna 12.5 Plt Count 220 MPV 10.2 Immature Gran % (Auto) 0.200 Neut % (Auto) 57.6 Lymph % (Auto) 33.0 Monroe % (Auto) 7.9 Eos % (Auto) 1.1 Baso % (Auto) 0.2 Absolute Neuts (auto) 3.1 Absolute Lymphs (auto) 1.80 Nucleated RBC % 0 PT 12.7 INR 1.0 D-Dimer Quant (PE/DVT) Sodium 138 Potassium 3.6 Chloride 104 Carbon Dioxide 30.0 Anion Gap 4 L BUN 12 Creatinine 0.74 Estim Creat Clear Calc 73.66 Est GFR (MDRD) Af Amer 103 Est GFR (MDRD) Non-Af 85 BUN/Creatinine Ratio 16.2 Glucose 232 H Calcium 8.9 Troponin I High Sens < 3 L 07/27/21 14:55 WBC RBC Hgb Hct MCV MCH MCHC RDW Std Deviation RDW Coeff of Donna Plt Count MPV Immature Gran % (Auto) Neut % (Auto) Lymph % (Auto) Monroe % (Auto) Eos % (Auto) Baso % (Auto) Absolute Neuts (auto) Absolute Lymphs (auto) Nucleated RBC % PT INR D-Dimer Quant (PE/DVT) < 0.27 L Sodium Potassium Chloride Carbon Dioxide Anion Gap BUN Creatinine Estim Creat Clear Calc Est GFR (MDRD) Af Amer Est GFR (MDRD) Non-Af BUN/Creatinine Ratio Glucose Calcium Troponin I High Sens Radiography Chest X-Ray - ED: 1 View, Read by ED Physician, Read by Radiologist and No Acute Disease Diagnostic Testing: Clinical Impression(s) from Imaging Studies Chest X-Ray 07/27/21 15:10 IMPRESSION: Stable examination. No acute abnormality is seen. Electronically Signed: Alexander Galvez MD at 15:22 EDT , EKG Initial EKG: Interpretation: Sinus Rhythm (65) and No Acute Injury Pattern Prior: Unchanged (05/25/2021) Discharge Plan Triage Chief Complaint: Chest Pain ED Provider: Mahin Dewitt Dx/Rx/DC Orders Clinical Impression: Chest pain, Atherosclerosis of coronary artery of upper [place] heart without angina pectoris Instructions: ED Chest Pain, Uncertain Cause Prescriptions: No Action insulin aspart U-100 [Novolog Flexpen U-100 Insulin] 100 unit/mL (3 mL) insulin pen 10 unit subcut TID Qty: 15 RF: 4 Levemir FlexTouch U-100 Insuln 100 unit/mL (3 mL) insulin pen 30 unit subcut QHS Qty: 15 RF: 4 lisinopril 2.5 mg tablet 2.5 mg PO DAILY Qty: 30 RF: 3 Repatha SureClick 140 mg/mL pen injector 140 mg subcut Q2W Qty: 2 RF: 11 clopidogrel 75 mg tablet 75 mg PO DAILY Qty: 90 RF: 3 metoprolol tartrate 25 mg tablet 25 mg PO BID Qty: 180 RF: 3 aspirin 81 MG tablet,chewable 81 mg PO DAILY@0800 RF: 0 (DME) pen needle, diabetic [BD Ultra-Fine Yu Pen Needle] 32 gauge x 5/32 needle See Rx Instructions .ROUTE .MEDSUPPLY RF: 0 nitroglycerin 0.4 mg tablet, sublingual 0.4 mg sublingual Q5-15M PRN (Reason: chest pain) Qty: 25 RF: 6 Primary Care Provider: Madalyn Vaughan Referrals: Madalyn Vaughan DO [Primary Care Provider] - 3-5 Days Disposition Disposition: Home, Self Care
[2021-07-27 15:19] VITALS: BP 127/68; PULSE 69; RESP 16; O2SAT 98
[2021-07-27 15:31] LABS: Absolute Neutrophil Count 3.1 X10^3/uL (2.0-7.7); Basophil# 0.01 X10^3/uL; Basophil% 0.2 % (0-1); Eosinophil# 0.06 X10^3/uL; Eosinophils% 1.1 % (0-5); Hemoglobin 12.1 g/dL (12.0-15.0); Mean Corp Hgb Conc 32.7 g/dL (32-36); Mean Corpuscular Hgb 27.1 pg (27.0-32.0); Mean Corpuscular Volume 82.8 fL (81-99); Mean Platelet Vol. 10.2 fl (6.2-12.0); Monocyte# 0.43 X10^3/uL; Monocyte% 7.9 % (0-10); NRBC Flagged by Analyzer 0 % (0-5); Neutrophil # 3.14 X10^3/uL (2.7-7.7); Neutrophil % 57.6 % (47-70); Platelet Count 220 K/mm3 (150-450); RBC Distribution Width CV 12.5 % (11.6-14.6); RBC Distribution Width SD 37.6 fl (35.1-43.9); Red Blood Count 4.47 M/mm3 (4.2-5.4); White Blood Count 5.5 K/mm3 (4.4-11.0)
[2021-07-27 15:36] LABS: Anion Gap 4 (5-15); BUN 12 mg/dL (7-18); BUN/Creat Ratio 16.2 RATIO (10-20); Calcium,Total 8.9 mg/dL (8.5-10.1); Chloride 104 mmol/L (98-107); Creatinine, Serum 0.74 mg/dL (0.55-1.02); EST Glomerular Filtration Rate 85 mL/min (>60); Est Glom Filt Rate - Afr Amer 103 mL/min (>60); Estimated Creatinine Clearance 73.66 ml/min; Glucose 232 mg/dL (74-106); Potassium 3.6 mmol/L (3.5-5.1); Sodium Level 138 mmol/L (136-145); Troponin-I HS < 3 pg/mL (3.0-54.0)
[2021-07-27 15:39] LABS: Prothrombin Time (Protime)PT. 12.7 SECONDS (11.7-14.9)
[2021-07-27 15:43] LABS: D-Dimer Quantitative (DVT/PE) < 0.27 FEU/ug/m (0.27-0.49)
[2021-07-27 16:00] VITALS: BP 127/79; PULSE 89; RESP 16; O2SAT 97
[2021-07-27 16:39] VITALS: BP 122/70; PULSE 67
[2021-07-27] MEDS: Nitroglycerin SL (ED/IMG/CATH) 0.4 MG TABLET SL (16:39)
[2021-07-27 17:00] VITALS: BP 110/64; PULSE 64; RESP 13; O2SAT 98
== END 2021-07-27 17:31 | disposition home or self-care (01) ==
PROVIDERS: Emergency Provider Emergency Medicine; PCP Family Medicine; Visit Provider Emergency Medicine
DX: R07.9 Chest pain, unspecified (principal); E11.9 Type 2 diabetes mellitus without complications; Z79.4 Long term (current) use of insulin; I25.10 Atherosclerotic heart disease of native coronary artery without angina pectoris; R00.2 Palpitations; I10 Essential (primary) hypertension; E78.5 Hyperlipidemia, unspecified; E66.9 Obesity, unspecified; I25.2 Old myocardial infarction; Z91.14 Patient's other noncompliance with medication regimen; Z79.82 Long term (current) use of aspirin; Z79.899 Other long term (current) drug therapy; Z95.5 Presence of coronary angioplasty implant and graft; Z79.02 Long term (current) use of antithrombotics/antiplatelets
CPT/HCPCS: 71045; 80048; 84484; 85025; 85379; 85610; 93005; 99285; A4216

== ENCOUNTER → 2022-01-14 | Outpatient (CLI) | payer MEDICAID, SELFPAY ==
[2022-01-14 13:52] LABS: Bacteria 0 SEEN /hpf (None Seen); Mucous, Urine 0 SEEN /hpf (<or=2+)
[2022-01-14 14:39] LABS: Color, Urine Straw (Yellow); Glucose, Dipstick Normal (Normal); Ketone-Dipstick Negative (Negative); Leukocyte Esterase-Dipstick Negative /ul (Negative); Nitrite-Dipstick Negative (Negative); Occult Blood-Urine Negative /ul (Negative); Protein-Dipstick Negative (Negative); Urine Bilirubin Dipstick Negative (Negative); Urine Clarity Clear (Clear); Urine Urobilinogen Normal (Normal)
[2022-01-14 14:45] LABS: Red Blood Cells-Urine 0-5 SEEN /hpf (0-5); Squamous Epithelial Cells - UA 0-5 SEEN /hpf (5-10); White Blood Cells 0 SEEN /hpf (0-5)
== END | disposition home or self-care (01) ==
LOC: LAB 13:48
PROVIDERS: PCP Family Medicine; Referring Provider Internal Medicine Cardiovascular Disease; Visit Provider Internal Medicine Cardiovascular Disease
DX: R10.30 Lower abdominal pain, unspecified (principal); R68.83 Chills (without fever)
CPT/HCPCS: 81001

== ENCOUNTER → 2022-01-20 | Outpatient (CLI) | payer MEDICAID, SELFPAY ==
[2022-01-20 14:53] LABS: Mucous, Urine 0 SEEN /hpf (<or=2+); Red Blood Cells-Urine 0 SEEN /hpf (0-5)
[2022-01-20 15:41] LABS: Color, Urine Straw (Yellow); Glucose, Dipstick Normal (Normal); Ketone-Dipstick Negative (Negative); Leukocyte Esterase-Dipstick 25 /ul (Negative); Nitrite-Dipstick Negative (Negative); Occult Blood-Urine Negative /ul (Negative); Protein-Dipstick Negative (Negative); Specific Gravity, Urine 1.015 (1.002-1.030); Urine Bilirubin Dipstick Negative (Negative); Urine Clarity Clear (Clear); Urine Urobilinogen Normal (Normal); Urine pH 6.5 (5.0 - 8.0)
[2022-01-20 15:49] LABS: Bacteria 1+ /hpf (None Seen); Squamous Epithelial Cells - UA 0-5 SEEN /hpf (5-10); White Blood Cells 0-5 SEEN /hpf (0-5)
== END | disposition home or self-care (01) ==
LOC: LAB 14:49
PROVIDERS: PCP Family Medicine; Visit Provider Nurse Practitioner Family
DX: R30.0 Dysuria (principal)
CPT/HCPCS: 81001; 87086; 87088

== ENCOUNTER → 2022-02-24 | Outpatient (CLI) | payer MEDICAID, SELFPAY ==
--- NOTE | 2022-02-24 16:05 | MRI_ITS ---
EXAM: MR LEFT LOWER EXTREMITY WITHOUT INTRAVENOUS CONTRAST, KNEE CLINICAL INDICATION: left knee pain TECHNIQUE: Multiplanar and multisequence MR images of the left knee without intravenous contrast. This report was created using [employer] technology. COMPARISON: None. FINDINGS: BONES/JOINTS: Unremarkable. No fracture. No abnormal bone marrow signal. No synovial hypertrophy. No intra-articular body. EXTENSOR MECHANISM: Unremarkable. MEDIAL MENISCUS: Tearing of the posterior root ligament of the medial meniscus. No other meniscal tear. Associated 2 mm of peripheral excision of the body segment of the medial meniscus. LATERAL MENISCUS: Unremarkable. MEDIAL CAPSULE/SUPPORTING STRUCTURES: Unremarkable. Intact. LATERAL CAPSULE/SUPPORTING STRUCTURES: Unremarkable. Lateral collateral ligamentous complex, inclusive of the popliteal tendon, are intact. ANTERIOR CRUCIATE LIGAMENT: Unremarkable. Intact. POSTERIOR CRUCIATE LIGAMENT: Unremarkable. Intact. MUSCLES: Unremarkable. CARTILAGE: Unremarkable. Intact. FLUID: Large suprapatellar joint effusion without significant synovitis or intracranial intra-articular ossific bodies. OTHER SOFT TISSUES: Unremarkable. No popliteal cyst. MRI/Lower Ext Joint Only (Routine) IMPRESSION: Tearing of the posterior root ligament of the medial meniscus. No other meniscal tear. Electronically Signed: Theron Cole MD at 3:57 EST ,
== END | disposition home or self-care (01) ==
LOC: MRI 15:48
PROVIDERS: PCP Family Medicine; Visit Provider Physician Assistant
DX: M25.562 Pain in left knee (principal)
CPT/HCPCS: 73721

== ENCOUNTER → 2022-03-24 | Outpatient (CLI) | payer MEDICAID, SELFPAY ==
--- NOTE | 2022-03-24 17:07 | STRESSREP_ITS ---
Stress Test Report Exercise myocardial perfusion stress test. 61-year-old lady with history of coronary artery disease Stress protocol: Resting EKG demonstrates normal sinus rhythm with a rate of 65 bpm normal intervals noted. Resting blood pressure is 142/80 mmHg. The patient exercised according to the regular Brennen protocol for a total duration of 4 minutes attaining a maximum heart rate of [150 ] bpm which was 93% of max impacted heart rate the maximum workload was 6.9 metabolic equivalents. At rest there were no ST or T wave changes noted suggest ischemia and at peak exercise upsloping ST changes only were noted we did not meet the criteria for ischemia. No clinical angina was noted the test was terminated due to the target heart rate being ach ieved. The peak blood pressure was 198/90 mmHg. Rate-pressure product was 28,100. Myocardial perfusion protocol. 11.9 mCi of technetium 99m sestamibi was injected at rest. The patient exercised according to regular Brennen protocol for total duration of 4 minutes and at peak exercise 34.7 mCi of technetium 99m sestamibi was injected stress images were obtained stress and rest images were reconstructed in comparing the short axis vertical long and horizontal long axis. Gated images were also obtained. Perfusion SPECT analysis: Review of the stress images demonstrate normal uptake of tracer noted in all areas of the myocardium. The resting images similarly demonstrate normal uptake of tracer noted in all areas of the myocardium. No areas of reversibility are noted to suggest ischemia no previous infarct was noted. Gated SPECT analysis: The gated ejection fraction is 58. Conclusion: Normal exercise myocardial perfusion stress test at a moderate workload. Preserved ejection fraction.
== END | disposition home or self-care (01) ==
LOC: CVS 06:06
PROVIDERS: PCP Family Medicine; Visit Provider Internal Medicine Cardiovascular Disease
DX: I25.10 Atherosclerotic heart disease of native coronary artery without angina pectoris (principal); R07.9 Chest pain, unspecified; R06.09 Other forms of dyspnea; Z95.5 Presence of coronary angioplasty implant and graft
CPT/HCPCS: 78452; 93017; A9500; A4216

== ENCOUNTER → 2022-07-08 | Outpatient (CLI) | payer MEDICAID, SELFPAY ==
[2022-07-08 13:04] LABS: Vitamin D,25 Hydroxy 36.3 ng/mL
[2022-07-08 13:36] LABS: Microalbumin,Random Urine 6.4 mg/L (NO RANGE EST.); Microalbumin:Creatinine Ratio 5.8 mg/g CRE (<30 mg/g CRE)
[2022-07-08 13:37] LABS: AST(SGOT) 15 U/L (15-37); Alanine Aminotransfer ALT/SGPT 18 U/L (13-56); Albumin, Serum 3.7 g/dL (3.2-5.0); Alkaline Phosphatase 78 U/L (45-117); Anion Gap 8 (5-15); BUN 12 mg/dL (7-18); BUN/Creat Ratio 16.7 RATIO (10-20); Calcium,Total 9.4 mg/dL (8.5-10.1); Chloride 102 mmol/L (98-107); Cholesterol 380 mg/dL (200); Creatinine, Serum 0.72 mg/dL (0.55-1.02); EST Glomerular Filtration Rate 88 mL/min (>60); Est Glom Filt Rate - Afr Amer 106 mL/min (>60); Globulin 3.8 g/dL (2.2-4.2); Glucose 189 mg/dL (74-106); High Density Lipoprotein 50 mg/dL; Potassium 4.1 mmol/L (3.5-5.1); Protein, Total 7.5 g/dL (6.4-8.2); Sodium Level 137 mmol/L (136-145); Thyroid Stim Hormone (TSH) 1.19 uIU/mL (0.358-3.74); Triglycerides 370 mg/dL; Very Low Density Lipoprotein 74 mg/dL (5-40)
== END | disposition home or self-care (01) ==
LOC: LAB 12:00
PROVIDERS: PCP Family Medicine; Visit Provider Nurse Practitioner Family
DX: E11.9 Type 2 diabetes mellitus without complications (principal)
CPT/HCPCS: 36415; 80053; 80061; 82043; 82306; 82570; 84443

== ENCOUNTER → 2023-03-21 | Outpatient (CLI) | payer MEDICAID, SELFPAY ==
[2023-03-21 11:59] LABS: Cholesterol 321 mg/dL (200); High Density Lipoprotein 48 mg/dL; Triglycerides 287 mg/dL; Very Low Density Lipoprotein 57 mg/dL (5-40)
== END | disposition home or self-care (01) ==
LOC: LABSPEC 09:49 → LAB 09:53
PROVIDERS: PCP Family Medicine; Visit Provider Nurse Practitioner Family
DX: E78.1 Pure hyperglyceridemia (principal)
CPT/HCPCS: 36415; 80061

== ENCOUNTER → 2023-03-30 | Outpatient (CLI) | payer MEDICAID, SELFPAY ==
--- NOTE | 2023-03-30 09:54 | RAD_ITS ---
STUDY: X-RAY CHEST REASON FOR EXAM: Female, 62 years old. cp TECHNIQUE: PA and lateral COMPARISON: July 27, 2021. FINDINGS: The lungs are clear and expanded. Tiny calcified granuloma in left upper lobe There is no demonstrated pleural abnormality. Normal size heart. Normal mediastinum and kt. Normal visualized pulmonary arteries. Normal visualized aortic arch and descending thoracic aorta. Dorsal spine demonstrates mild scoliosis and degenerative change. Normal visualized ribs, clavicles, and shoulders. There is no demonstrated abnormality of the visualized soft tissue structures of the upper abdomen. RAD/Chest PA and Lateral IMPRESSION: No acute cardiopulmonary pathology Electronically Signed: Ihsan Reyna MD at 19:05 EST ,
== END | disposition home or self-care (01) ==
LOC: RAD 09:49
PROVIDERS: PCP Family Medicine; Visit Provider Internal Medicine Cardiovascular Disease
DX: R07.9 Chest pain, unspecified (principal)
CPT/HCPCS: 71046

== ENCOUNTER 2023-04-04 08:58 | Day surgery (SDC) | payer MEDICAID, SELFPAY ==
[2023-03-30 11:26] LABS: Absolute Lymphocyte Count 1.51 X10^3/uL (0.83-4.51); Absolute Neutrophil Count 2.8 X10^3/uL (2.0-7.7); Basophil# 0.02 X10^3/uL; Basophil% 0.4 % (0-1); Eosinophil# 0.05 X10^3/uL; Hemoglobin 12.7 g/dL (12.0-15.0); Lymphocyte # 1.51 X10^3/ul (0.83-4.51); Lymphocyte % 30.6 % (19-41); Mean Corp Hgb Conc 31.8 g/dL (32-36); Mean Corpuscular Hgb 26.6 pg (27.0-32.0); Mean Corpuscular Volume 83.9 fL (81-99); Mean Platelet Vol. 10.5 fl (6.2-12.0); Monocyte# 0.53 X10^3/uL; Monocyte% 10.8 % (0-10); NRBC Flagged by Analyzer 0 % (0-5); Neutrophil # 2.81 X10^3/uL (2.7-7.7); Platelet Count 233 K/mm3 (150-450); RBC Distribution Width CV 12.6 % (11.6-14.6); RBC Distribution Width SD 38.3 fl (35.1-43.9); Red Blood Count 4.77 M/mm3 (4.2-5.4); White Blood Count 4.9 K/mm3 (4.4-11.0)
[2023-03-30 11:56] LABS: Anion Gap 4 (5-15); BUN 13 mg/dL (7-18); BUN/Creat Ratio 17.8 RATIO (10-20); Calcium,Total 9.3 mg/dL (8.5-10.1); Chloride 105 mmol/L (98-107); Creatinine, Serum 0.73 mg/dL (0.55-1.02); EST Glomerular Filtration Rate 86 mL/min (>60); Est Glom Filt Rate - Afr Amer 104 mL/min (>60); Glucose 144 mg/dL (74-106); Sodium Level 138 mmol/L (136-145)
[2023-03-30 11:57] LABS: Prothrombin Time (Protime)PT. 13.1 SECONDS (11.7-14.9)
[2023-04-04 09:03] VITALS: BMI 30.4
--- NOTE | 2023-04-04 10:47 | CL.D_ITS ---
Patient Name: ZITA BROWNLEE Study Date: 04/04/2023 Performing: Reggie Ramirez MD Ht: 65 inches 165.1 cm : 1960 Wt: 183.01 lbs 83.01 kg Age: 62 Gender: female BSA: 1.9 PROCEDURE(S) PERFORMED DC01-(85282)LHC/COR/LV IC10-(91256)FFR, CORONARY OR GRAFT, INITIAL VESSEL CLINICAL PROFILE AND INDICATIONS Indications: Worsening Angina Heart Failure: None Stress/Imaging Date: 04/08/22Stress Test with SPECT MPI: Negative CAD Presentations: Unstable angina. CONCLUSIONS Diffuse coronary disease with previously stented LAD which is noted to be patent with mild to moderate in-stent stenosis, disease noted of the diagonal vessel, obtuse marginal vessel, and the mid right coronary artery. The first 2 did not appear to be significantly changed from before and the latter has a normal IFR. RECOMMENDATIONS Aggressive medical therapy and risk factor modification and medication compliance. DESCRIPTION OF PROCEDURE The patient arrived to the procedure lab. The risks and benefits of the procedure as well as a full description of our services here and current unavailability of surgical backup were fully explained to the patient and/or their significant other prior to the catheterization. The Timeout was completed, verifying the correct patient and procedure. The patient's procedural site was prepped and draped in the usual fashion. Local anesthetic was given subcutaneously to right radial region with Lidocaine 2%. Using a modified Seldinger technique, arterial access was obtained via the right radial artery, a 6Fr sheath was inserted. Left Coronary Artery selective angiography was performed in multiple views using a 5 Fr. 4.0 [place] catheter. Right Coronary Artery selective angiography was then performed in multiple views using a 5 Fr. 4.0 [place] catheter. Left Ventriculography was performed in MCGRAW projection using a 5 Fr. Pigtail catheter. LV to AO pullback pressures were then recorded.The arterial sheath was pulled and a TR Band was applied for hemostasis w/ 10ml air CORONARY ANGIOGRAPHY DOMINANCE: Right Dominant LEFT HEART ASSESSMENT Left Ventricular Ejection Fraction: by LV Gram 65 % Normal LV wall motion Normal Left Ventricular systolic function LEFT MAIN: Angiographically normal LEFT ANTERIOR DESCENDING ARTERY: Previously stented vessel which is noted to be patent with mild 40% in-stent stenosis and a second distal diagonal vessel with an ostial 90% and distal LAD with 60 to 70% long stenosis. CIRCUMFLEX ARTERY: Codominant vessel with first obtuse marginal branch with mild to moderate disease in the second obtuse marginal branch diffusely diseased with 80% proximal stenosis in the AV groove branch with 40 to 50% diffuse stenosis RIGHT CORONARY ARTERY: Codominant right coronary artery with moderate mid segment stenosis of approximately 60% for which she underwent an IFR which demonstrated 0.92. COMPLICATIONS No Complications PROCEDURE MEDICATIONS Versed 1 mg IV Fentanyl 50 mcg IV Oxygen: 2 L/min via nasal cannula Aspirin (325mg) 1 Tabs PO 04/04/2023 09:30:36 Brilinta 180 mg PO @ 04/04/2023 10:18:22 Heparin given IA 04/04/2023 09:48:25 Heparin 6000 unit(s) IV 04/04/2023 10:20:16 Verapamil 2.5mg, Ntg 100mcgs, 3000 units of Heparin given IA 04/04/2023 09:48:25 SUMMARY OF HEMODYNAMIC DATA Time AIR REST ECG 09:23:14 Art 149/72 (100) 09:53:59 AO 182/57 (78) SA 10:01:03 LV 185/13, 31 10:08:26 LV 181/14, 29 10:08:34 LV 0/0, 16 10:09:07 LV 174/17, 31 10:09:16 LVp 174/17, 32 10:09:22 AOp 176/93 (130) 10:09:29 10:45:35 Signed By Reggie Ramirez MD On 04/04/2023 10:46:29 Reggie Ramirez MD
--- NOTE | 2023-04-04 10:57 | PCI.CARDCATH ---
PCI Cardiac Cath Report PCI Report: Procedure performed; 1. IFR of mid codominant RCA. Mid RCA intermediate lesion of around 60% stenosis iFR repeated x 3 equivalent to 0.92 which is normal. 2. Placement of TR band to close the right radial artery arteriotomy site. Consent; Risk and benefit of procedure interventional plan/IFR explained in detail to the patient She elected to proceed informed consent obtained. Procedure in detail; 62-year-old patient with history of CAD With a prior PCI and stent of left anterior descending artery Patient seen and evaluated by the primary chenille machine operator Dr. Ramirez Underwent cardiac catheterization I reviewed the cardiac cath films in detail with Dr. Ramirez. LV function is preserved. LAD stent is patent with mild 40% in-stent stenosis and diagonal branch of around ostial 90%. Circumflex had diffuse disease. 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 6 Latvian R4 guide 2. IFR wire Proceed with a 6 Latvian JR4 Cannulated the right coronary artery ostium without difficulty Then we proceeded with IFR wire normalized and then we crossed the lesion and we measure IFR x 3 Patient has no symptoms and no change in the cardiac rehabilitation specialist remained in sinus rhythm iFR repeatedly within normal 0.92 Conclusion recommendations; Patient with intermediate lesion in the mid RCA 60% Had diffuse atherosclerosis involving the left coronary system , OM branches which are small and patency of LAD stent Diagonal branch disease and intermediate RCA evaluated by IFR which was normal. Would recommend medical therapy and patient will follow-up with her primary chenille machine operator Dr. Ramirez No complication in the [employer] Luggage M[employer] Tip Sanders MD,[facility]
== END 2023-04-04 13:49 | disposition home or self-care (01) ==
LOC: CLSP 09:00
PROVIDERS: Physician Assistant Medical; PCP Family Medicine; Referring Provider Internal Medicine Cardiovascular Disease; Visit Provider Internal Medicine Cardiovascular Disease
DX: T82.855A Stenosis of coronary artery stent, initial encounter (principal); I25.110 Atherosclerotic heart disease of native coronary artery with unstable angina pectoris; Z79.4 Long term (current) use of insulin; E11.9 Type 2 diabetes mellitus without complications; I10 Essential (primary) hypertension; E78.5 Hyperlipidemia, unspecified; E78.1 Pure hyperglyceridemia; E66.9 Obesity, unspecified; I25.2 Old myocardial infarction; Z79.899 Other long term (current) drug therapy
CPT/HCPCS: 36415; 80048; 85025; 85610; 85730; 93005; 93458; 93571; 99152; 99153; J7040; Q9967; C1769; C1887; C1894

== ENCOUNTER → 2023-08-03 | Outpatient (CLI) | payer MEDICAID, SELFPAY | END | disposition home or self-care (01) | LOC: BFHLAB 10:57 | PROVIDERS: PCP Family Medicine; Referring Provider Family Medicine; Visit Provider Family Medicine | DX: N39.0 Urinary tract infection, site not specified (principal) | CPT/HCPCS: 87086; 87088 ==

== ENCOUNTER → 2023-09-23 | Outpatient (CLI) | payer MEDICAID, SELFPAY | END | disposition home or self-care (01) | PROVIDERS: PCP Family Medicine; Referring Provider Nurse Practitioner Family; Visit Provider Nurse Practitioner Family | DX: N39.0 Urinary tract infection, site not specified (principal) | CPT/HCPCS: 87086; 87088 ==

== ENCOUNTER → 2024-06-14 | Outpatient (CLI) | payer MEDICAID, SELFPAY ==
[2024-06-14 12:05] LABS: Hemoglobin A1c 6.7 % (<=5.6)
[2024-06-14 12:22] LABS: ALB/GLOB Ratio 1.5 RATIO (0.9-2.4); AST(SGOT) 21 U/L (<=31); Alanine Aminotransfer ALT/SGPT 9 U/L (<=34); Albumin, Serum 4.3 g/dL (3.4-4.8); Alkaline Phosphatase 67 U/L (35-104); Anion Gap 9 (5-15); BUN 13 mg/dL (4-19); BUN/Creat Ratio 16.4 RATIO (10-20); Calcium 9.6 mg/dL (7.6-11.0); Carbon Dioxide 27.7 mmol/L (22.0-29.0); Chloride 103 mmol/L (96-108); Cholesterol 248 mg/dL (<=200); Creatinine, Serum 0.8 mg/dL (0.6-1.0); EST Glomerular Filtration Rate 88 (>60); Globulin 2.9 g/dL (2.2-4.2); Glucose 129 mg/dL (70-99); High Density Lipoprotein 60 mg/dL; Low Density Lipoprotein Calc. 159 mg/dL; Potassium 4.4 mmol/L (3.3-5.1); Protein, Total 7.2 g/dL (5.9-8.4); Sodium Level 139 mmol/L (133-145); Total Bilirubin 0.45 mg/dL (0.00-1.30); Triglycerides 145 mg/dL; Very Low Density Lipoprotein 29 mg/dL (5-40); Vitamin D,25 Hydroxy 26.7 ng/mL (30-100); cholesterol:hdl ratio screen 4.15
[2024-06-14 16:13] LABS: Microalbumin,Random Urine < 12.0 mg/L (NO RANGE EST.)
== END | disposition home or self-care (01) ==
LOC: LAB 11:06
PROVIDERS: PCP Family Medicine; Referring Provider Nurse Practitioner Family; Visit Provider Nurse Practitioner Family
DX: E11.65 Type 2 diabetes mellitus with hyperglycemia (principal); Z79.4 Long term (current) use of insulin
CPT/HCPCS: 36415; 80053; 80061; 82043; 82306; 82570; 83036; 84443

== ENCOUNTER → 2025-02-06 | Outpatient (CLI) | payer MEDICAID, SELFPAY ==
--- OUTSIDE RECORDS SUMMARY | 2025-02-06 06:45 | XMS RPT_ITS | CCD ---
Author Organization [facility] CliniSyri Care Team Providers Care Dye Tub Operator Name Role Phone Unavailable Primary Care Provider UnavailDr. Madalyn Holt Primary Care Provider Dr. Madalyn Vaughan Referring Provider Dr. Wali Hurley Attending Provider Roof BROADCASTER, BROADCASTER-C James Eller Attending Provider Roof BROADCASTER, BROADCASTER-C James Eller Referring Provider Roof BROADCASTER, BROADCASTER-C James Eller Other Provider Dr. Reggie Ramirez Attending Provider Dr. Alberto Green Emergency Provider Dr. Kaiser Corey Admit Provider Dr. Kaiser Corey Attending Provider Dr. Kaiser Corey Other Provider Dr. Reggie Ramirez Other Provider Dr. Min Arias Attending Provider Dr. Reggie Ramirez Referring Provider Dr. Jairo Tinoco Other Provider Unavailable Dr. Jairo Tinoco Attending Provider Unavailable Dr. Kaiser Corey Referring Provider Adelfo GURROLA, GALILEO Kathleen Attending Provider JOE Mcfarland Attending Provider Unavailable Primary Care Provider UnavailMadalyn Hlot DO Primary Care Provider Reggie Ramirez Unavailable Dr. Madalyn Vaughan Primary Care Provider Clement, Dr. Bergman Referring Provider James, Dr. Paredes Attending Provider [phone] JOE Mcfarland Attending Provider [phone] Clement, Dr. Bergman Primary Care Provider [phone] Clement, Dr. Bergman Referring Provider [phone] James, Dr. Paredes Attending Provider [phone] JOE Mcfarland Attending Provider James, Dr. Paredes Other Provider Clement, Dr. Bergman Primary Care Provider James, Dr. Paredes Attending Provider [phone] James, Dr. Paredes Other Provider Clement, Dr. Bergman Referring Provider JOE Mcfarland Attending Provider Dr. Wali Hurley Attending Provider NICK PERRY Consulting Unavailable ESPOSITO, DONA Attending Unavailable ESPOSITO, DONA Primary Care Unavailable ESPOSITO, DONA Admitting Unavailable PROVIDER, UNKNOWN Consulting Unavailable PROVIDER, UNKNOWN Consulting Unavailable PROVIDER, UNKNOWN Consulting Unavailable Malys DO, Madalyn A Primary Care Provider Reggie Ramirez Unavailable SAATI, AMMAR Referring Unavailable MALYS, MADALYN A Primary Care Unavailable MALYS, MADALYN A Primary Care Unavailable SAATI, AMMAR Referring Unavailable MALYS, MADALYN A Primary Care Unavailable SAATI, AMMAR Referring Unavailable MALYS, MADALYN A Primary Care Unavailable MALYS, MADALYN A Referring Unavailable SAATI, AMMAR Attending Unavailable Clement, Dr. Bergman Primary Care Provider Dr. Madalyn Vaughan Referring Provider JOE Mcfarland Attending Provider [phone] Adelfo GURROLA, GALILEO Kathleen Attending Provider James, Dr. Paredes Referring Provider Dr. Reggie Ramirez Other Provider Dr. Tip Sanders Attending Provider Clement GILL, Dr. Bergman Primary Care Provider [phone] Clement GILL, Dr. Bergman Referring Provider [phone] Bartolo BROADCASTER-C, Shonna Attending Provider [phone] Bartolo BROADCASTER-C, Shonna Referring Provider [phone] Unavailable Primary Care Provider UnavailMIGUEL Kang Attending Unavailable Clement DO, Dr. Bergman Primary Care Provider [phone] Malys , Dr. Bergman Referring Provider [phone] Reggie Ramirez MD Attending Provider [phone] Bartolo BROADCASTER-C, Shonna Attending Provider [phone] Wali Hurley Attending Unavailable Malys, Madalyn Primary Care Unavailable Malys, Madalyn Referring Unavailable Malys, Madalyn Primary Care Unavailable James, Sapello Attending Unavailable James, Reggie Referring Unavailable Bartolo, Shonna Attending Unavailable Bartolo, Shonna Referring Unavailable Malys, Madalyn Primary Care Unavailable Malys, Madalyn Primary Care Unavailable Bartolo, Shonna Attending Unavailable Malys, Madalyn Referring Unavailable Malys, Mdaalyn Referring Unavailable Bartolo, Shonna Attending Unavailable Malys, Madalyn Primary Care Unavailable Malys, Madalyn Primary Care Unavailable James, Reggie Attending Unavailable Malys, Madalyn Referring Unavailable Allergies Allergy Classification Reported Allergen(s) Allergy Type Date of Onset Reaction(s) Facility (15 sources) atorvastatin; Translations: [ATORVASTATIN] Drug Allergy 06-29-2021 [facility] (15 sources) rosuvastatin; Translations: [ROSUVASTATIN] Drug Allergy 06-29-2021 [facility] (15 sources) Simvastatin; Translations: [SIMVASTATIN] Drug Allergy 06-29-2021 [facility] (8 sources) evolocumab; Translations: [EVOLOCUMAB] Drug Allergy 09-23-2022 Unknown [facility] Work Phone: (1 source) atorvastatin Drug Allergy 12-03-2024 [facility] (1 source) evolocumab Drug Allergy 12-03-2024 [facility] (1 source) rosuvastatin Drug Allergy 12-03-2024 [facility] (1 source) Simvastatin Drug Allergy 12-03-2024 [facility] Medications Current Medications Medication Drug Class(es) Dates Sig (Normalized) Sig (Original) 1 ml alirocumab 75 mg/ml auto-injector (5 sources) PCSK9 Inhibitor Start: 08-21-2024 Alirocumab (Praluent Pen) 75 mg/mL pen injector Active 75 mg SC Q14D 2 August 21, 2024 12:00am Start: 10-19-2023 End: 05-28-2024 Alirocumab (Praluent Pen) 75 mg/mL pen injector Discontinued 75 mg SC every 2 weeks 2 October 19, 2023 2:22pm May 28, 2024 4:55pm amLODIPine 10 mg oral tablet (7 sources) Dihydropyridine Calcium Channel Crista Start: 04-04-2023 End: 08-30-2024 take 1 tablet by mouth once daily Amlodipine 10 mg tablet Active 10 mg PO daily 90 August 30, 2024 9:56am amoxicillin 875 mg / clavulanate 125 mg oral tablet (3 sources) Penicillin-class Antibacterial Start: 09-11-2024 End: 09-18-2024 take 1 tablet by mouth every twelve hours Amoxicillin-clav ulanate 875-125 MG tablet Take 1 tablet by mouth every 12 hours for 13 doses. 13 tablet 09/11/2024 11:04 AM EDT 09/11/2024 09/18/2024 Active Start: 09-11-2024 End: 09-11-2024 1 tablet, Oral, ONCE, 1 dose , On Tue09/11/24 at 1045 Blood-Glucose Meter (Onetouc h Verio Flex Meter) mis (6 sources) Start: 03-21-2023 Blood-Glucose Meter (Onetouch Verio Flex Meter) misc Active 0 .Route 1 March 21, 2023 1:00am Diabetes mellitus Type 2 diabetes mellitus without complications As directed Start: 03-21-2023 Blood-Glucose Meter (Onetouch Verio Flex Meter) misc Active 0 .Route March 21, 2023 1:00am As directed Start: 03-21-2023 Blood-Glucose Meter (Onetouch Verio Flex Meter) mis Active 0 .Route 1 March 21, 2023 12:00am As directed Blood-Glucose Sensor (Freest yle Jaime 3 Plus Sensor) device (3 sources) Start: 11-19-2024 Blood-Glucose Sensor (Freestyle Jaime 3 Plus Sensor) device Active 0 .Route 2 November 19, 2024 1:02pm Diabetes mellitus Type 2 diabetes mellitus with hyperglycemia 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 1 sensor every 15 days Start: 05-28-2024 End: 11-19-2024 Blood-Glucose Sensor (Freest yle Jaime 3 Plus Sensor) device Discontinued 0 .Route 2 May 28, 2024 1:00am November 19, 2024 1:02pm Diabetes mellitus Type 2 diabetes mellitus with hyperglycemia 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 1 sensor every 15 days Start: 05-28-2024 Blood-Glucose Sensor (Freestyle Jaime 3 Plus Sensor) device Active 0 .Route 2 May 28, 2024 1:00am 1 sensor every 15 days desipramine hydrochloride 25 mg oral tablet (1 source) Tricyclic Antidepressant Start: 06-29-2021 take 25 mg by mouth at bedtime Desipramine Active 25 MG PO AT BEDTIME June 29, 2021 11:51am 3 ml insulin glargine 100 unt/ml pen injector (20 sources) Insulin Analog Start: 03-14-2024 End: 10-03-2024 Insulin Glargine (Lantus Solostar U-100 Insulin) 100 unit/mL (3 mL) insulin pen Active 32 U SC DAILY 28.8 1 October 03, 2024 12:56pm Diabetes mellitus Type 2 diabetes mellitus with hyperglycemia skilled nursing (current) use of insulin Start: 08-19-2020 End: 04-28-2021 Insulin Glargine (Lantus Sophie ostar U-100 Insulin) 100 unit/mL (3 mL) insulin pen Discontinued 24 U SC DAILY August 19, 2020 12:00am April 28, 2021 10:24am Start: 04-22-2020 End: 06-30-2020 Insulin Glargine 100 unit/mL (3 mL) insulin pen Discontinued 50 U SC ONCE April 22, 2020 1:00am June 30, 2020 3:57pm Start: 01-17-2020 End: 03-25-2020 Insulin Glargine 100 unit/mL solution Discontinued 50 U SC AT BEDTIME January 17, 2020 3:04pm March 25, 2020 4:25pm Start: 07-23-2016 End: 01-17-2020 inject 100 [IU] by subcutaneous injection at bedtime Insulin Glargine 100 UNIT/ML solution Discontinued 100 U SQ AT BEDTIME July 23, 2016 12:00am January 17, 2020 3:05pm 3 ml insulin lispro 100 unt/ml pen injector (1 source) Insulin Analog Start: 07-09-2024 Insulin Lispro (Humalog Kwikpen Insulin) 100 unit/mL insulin pen Active 12 U SC THREE TIMES A DAY 45 July 09, 2024 12:00am magnesium hydroxide 80 mg/ml oral suspension (1 source) Start: 02-23-2019 take 30 mL by mouth once daily as needed for constipation 30 mL, Oral, DAILY PRN, Constipation, Starting Tue02/23/19 at 0518 First line therapy for constipation. 2 ml ondansetron 2 mg/ml injection (1 source) Serotonin-3 Receptor Antagonist Start: 02-23-2019 4 mg, Intravenous, EVERY 6 HOURS PRN, Nausea, Starting Tue02/23/19 at 0518 perflutren lipid microspheres (DEFINITY) injection 1.65 mg (1 source) Start: 02-24-2019 End: 02-27-2019 perflutren lipid microspheres (DEFINITY) injection 1.65 mg potassium chloride 10 meq extended release oral capsule (3 sources) Start: 08-21-2024 take 2 capsules by mouth once daily Potassium Chloride 10 mEq capsule, extended release Active 20 meq PO daily August 21, 2024 9:43am Start: 05-28-2024 End: 08-21-2024 take 2 capsules by mouth twice daily Potassium Chloride 10 mEq capsule, extended release Discontinued 20 meq PO TWICE A DAY May 28, 2024 1:00am August 21, 2024 9:43am Completed/Discontinued Medications Medication Drug Class(es) Dates Sig (Normalized) Sig (Original) acetaminophen 325 mg oral tablet (1 source) Start: 02-24-2019 End: 02-24-2019 acetaminophen (TYLENOL) 325 MG tablet Start: 02-24-2019 End: 02-24-2019 acetaminophen (TYLENOL) 325 MG tablet aspirin 81 mg chewable tablet (20 sources) Platelet Aggregation Inhibitor, Nonsteroidal Anti-inflammatory Drug Start: 11-08-2014 End: 03-21-2023 take 1 tablet by mouth once daily Aspirin 81 mg tablet,chewable Discontinued 81 mg PO DAILY@0800 September 23, 2022 9:53am March 21, 2023 11:32am heart health take 1 tablet by mouth once nisha y aspirin 81 MG tablet Take 81 mg by mouth daily 0 Active atorvastatin 40 mg oral tablet (20 sources) HMG-CoA Reductase Inhibitor Start: 05-26-2021 End: 06-17-2021 take 1 tablet by mouth at bedtime Atorvastatin 40 mg Tablet Discontinued 40 mg PO AT BEDTIME 30 0 May 26, 2021 1:00am June 17, 2021 2:05pm Start: 07-29-2020 End: 01-29-2021 Atorvastatin 80 mg tablet Discontinued 40 mg PO AT BEDTIME July 29, 2020 12:00am January 29, 2021 2:43pm Start: 07-29-2020 End: 01-29-2021 take 40 mg by mouth at bedtime Atorvastatin Discontinu ed 40 MG PO AT BEDTIME July 29, 2020 12:00am January 29, 2021 2:43pm Start: 04-19-2019 End: 04-22-2020 take 1 tablet by mouth once daily Atorvastatin 80 mg tablet Discontinued 80 mg PO DAILY April 19, 2019 1:00am April 22, 2020 5:23pm Start: 02-24-2019 take 1 tablet by genesis th once daily atorvastatin (LIPITOR) 80 MG tablet Take 1 tablet by mouth daily 30 tablet 3 02/24/2019 Active Start: 02-23-2019 atorvastatin ( LIPITOR) tablet 80 mg Start: 12-02-2014 End: 04-19-2019 take 1 tablet by mouth at bedtime Atorvastatin 40 MG tablet Discontinued 40 mg PO AT BEDTIME December 02, 2014 12:00am April 19, 2019 4:46pm cephalexin 500 mg oral capsule (10 sources) Cephalosporin Antibacterial Start: 01-21-2022 End: 09-23-2022 take 1 capsule by mouth three times daily Cephalexin 500 mg capsule Discontinued 500 mg PO THREE TIMES A DAY 15 0 January 21, 2022 12:00am September 23, 2022 9:53am Urinary tract infection Urinary tract infection, site not specified clopidogrel 75 mg oral tablet (20 sources) P2Y12 Platelet Inhibitor Start: 11-28-2014 End: 12-22-2023 take 1 tablet by mouth once daily Clopidogrel 75 mg tablet Discontinued 75 mg PO DAILY 90 November 15, 2022 11:36am December 22, 2023 11:48am Comment on above: Take 75 mg by mouth once daily. 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 Start: 08-03-2021 End: 01-14-2022 Dulaglutide (Trulicity) 0.75 mg/0.5 mL pen injector Discontinued 0.75 mg SC EVERY WEEK August 03, 2021 12:00am January 14, 2022 1:16pm Start: 06-29-2021 Dulaglutide (T rulicity) 0.75 mg/0.5 mL pen injector Active 0.75 MG SC EVERY WEEK 2 June 29, 2021 11:45am 1 ml evolocumab 140 mg/ml auto-injector (13 sources) PCSK9 Inhibitor Start: 06-17-2021 End: 09-23-2022 Evolocumab (Repatha Sureclick) 140 mg/mL pen injector Discontinued 140 mg SC every 2 weeks 05 29June 17, 2021 1:00am September 23, 2022 9:53am ezetimibe 10 mg oral tablet (6 sources) Dietary Cholesterol Absorption Inhibitor Start: 09-23-2022 End: 11-15-2022 take 1 tablet by mouth once daily Ezetimibe (Zetia) 10 mg tablet Discontinued 10 mg PO DAILY 17 03September 23, 2022 12:00am November 15, 2022 8:16am fenofibrate 145 mg oral tablet (11 sources) Peroxisome Proliferator Receptor alpha Agonist Start: 03-21-2023 End: 12-22-2023 take 1 tablet by mouth once daily Fenofibrate Nanocrystallized 145 mg tablet Discontinued 145 mg PO DAILY October 27, 2023 10:44am December 22, 2023 11:48am Start: 03-21-2023 Fenofibrate Na nocrystallized Active MG PO March 21, 2023 1:00am Start: 12-07-2022 End: 03-07-2023 take 1 tablet by mouth once daily fenofibrate nanocrystallized (TRICOR) 145 mg tablet Indications: Familial hypercholesterolemia , Coronary artery disease due to lipid rich plaque Take 1 tablet by mouth once daily. 30 tablet 2 12/07/2022 03/07/2023 Active Comment on above: Take 1 tablet by genesis th once daily. Flash Glucose Scanning [place] (Freestyle Jaime 2 [place]) misc (13 sources) Start: 12-06-2022 End: 12-03-2024 Flash Glucose Scanning [place] (Freestyle Jaime 2 [place]) misc Discontinued 0 .Route 1 0 December 06, 2022 3:19pm December 03, 2024 2:40pm Diabetes mellitus Type 2 diabetes mellitus without complications As directed Start: 12-06-2022 Flash Glucose Scanning [place] (Freestyle Jaime 2 [place]) misc Active 0 .Route 1 December 06, 2022 3:19pm As directed Start: 12-06-2022 Flash Glucose Scanning [place] (Freestyle Jaime 2 [place]) misc Active 0 .Route 1 December 06, 2022 2:19pm As directed Start: 06-23-2022 End: 12-06-2022 Flash Glucose Scanning [place] (Freestyle Jaime 2 [place]) misc Discontinued 0 .Route 1 0 June 23, 2022 1:00am December 06, 2022 3:19pm Diabetes mellitus Type 2 diabetes mellitus without complications As directed Start: 06-23-2022 End: 12-06-2022 Flash Glucose Scanning Re[place] r (Freestyle Jaime 2 [place]) misc Discontinued 0 .Route 1 June 23, 2022 1:00am December 06, 2022 3:19pm As directed Start: 06-23-2022 End: 12-06-2022 Flash Glucose Scanning [place] r (Freestyle Jaime 2 [place]) misc Discontinued 0 .Route 1 June 23, 2022 12:00am December 06, 2022 2:19pm As directed Start: 06-23-2022 Flash Glucose Scanning [place] (Freestyle Jaime 2 [place]) misc Active 0 .Route 1 June 23, 2022 1:00am As directed Flash Glucose Sensor (Freestyle Jaime 2 Sensor) kit (17 sources) Start: 10-27-2023 End: 12-03-2024 Flash Glucose Sensor (Freest yle Jaime 2 Sensor) kit Discontinued 0 .Route 6 October 27, 2023 11:02am December 03, 2024 2:40pm Diabetes mellitus Type 2 diabetes mellitus without complications 1 sensor q 14 days Start: 10-27-2023 Flash Glucose Sensor (Freestyle Jaime 2 Sensor) kit Active 0 .Route 6 October 27, 2023 11:02am 1 sensor q 14 days Start: 09-23-2023 End: 10-27-2023 Flash Glucose Sensor (Freest yle Jaime 2 Sensor) kit Discontinued 0 .Route 2 September 23, 2023 11:26am October 27, 2023 11:02am Diabetes mellitus Type 2 diabetes mellitus without complications 1 sensor q 14 days Start: 09-23-2023 End: 10-27-2023 Flash Glucose Sensor (Freest yle Jaime 2 Sensor) kit Discontinued 0 .Route 2 September 23, 2023 11:26am October 27, 2023 11:02am 1 sensor q 14 days Start: 03-21-2023 End: 09-23-2023 Flash Glucose Sensor (Freest yle Jaime 2 Sensor) kit Discontinued 0 .Route 2 March 21, 2023 10:30am September 23, 2023 11:26am Diabetes mellitus Type 2 diabetes mellitus without complications 1 sensor q 14 days Start: 03-21-2023 End: 09-23-2023 Flash Glucose Sensor (Freest yle Jaime 2 Sensor) kit Discontinued 0 .Route 2 March 21, 2023 10:30am September 23, 2023 11:26am 1 sensor q 14 days Start: 03-21-2023 Flash Glucose Sensor (Freestyle Jaime 2 Sensor) kit Active 0 .Route 2 March 21, 2023 10:30am 1 sensor q 14 days Start: 03-21-2023 Flash Glucose Sensor (Freestyle Jaime 2 Sensor) kit Active 0 .Route 2 March 21, 2023 9:30am 1 sensor q 14 days Start: 06-23-2022 End: 03-21-2023 Flash Glucose Sensor (Freest yle Jaime 2 Sensor) kit Discontinued 0 .Route 2 5 June 23, 2022 1:00am March 21, 2023 10:30am Diabetes mellitus Type 2 diabetes mellitus without complications 1 sensor q 14 days Start: 06-23-2022 End: 03-21-2023 Flash Glucose Sensor (Freest yle Jaime 2 Sensor) kit Discontinued 0 .Route 2 June 23, 2022 1:00am March 21, 2023 10:30am 1 sensor q 14 days Start: 06-23-2022 End: 03-21-2023 Flash Glucose Sensor (Freest yle Jaime 2 Sensor) kit Discontinued 0 .Route 2 June 23, 2022 12:00am March 21, 2023 9:30am 1 sensor q 14 days Start: 06-23-2022 Flash Glucose Sensor (Freestyle Jaime 2 Sensor) kit Active 0 .Route 2 June 23, 2022 1:00am 1 sensor q 14 days furosemide 40 mg oral tablet (13 sources) Loop Diuretic Start: 04-19-2019 End: 12-15-2019 take 1 tablet by mouth once daily Furosemide (Lasix) 40 mg tablet Discontinued 40 mg PO DAILY 7 0 April 19, 2019 1:00am December 15, 2019 4:11pm glipiZIDE 5 mg oral tablet (13 sources) Sulfonylurea Start: 01-17-2020 End: 07-29-2020 take 1 tablet by mouth once daily Glipizide 5 mg tablet Discontinued 5 mg PO DAILY January 17, 2020 12:00am July 29, 2020 3:19pm 100 ml heparin sodium, porcine 100 unt/ml injection (2 sources) Unfractionated Heparin, Anti-coagulant Start: 02-23-2019 End: 02-23-2019 1,000 Units/hr (10 mL/hr), Intravenous, at 10 mL/hr, CONTINUOUS, Starting Tue02/23/19 at 0545 LOW Dose Heparin Weight Based Dosing (ACS/[place]/CVA/ECMO) aPTT < 30 Call ordering provider JAYCEE. If ordering provider cannot be reached in 20 minutes, follow escalation policy. aPTT 30-49.9 Rebolus with half initial bolus and increase Heparin by 100 units/hr (1ml/hr). &nb sp; Repeat aPTT in 6hrs. If repeat value is <50 call ordering provider JAYCEE, otherwise follow table. aPTT 50-70.9 Continue same rate. Repeat aPTT in 6 hrs after first therapeutic PTT (aPTT between 50-70, then repeat aPTT every 12 hrs X 2, then repeat aPTT daily. aPTT 71-95.9 If less than 6 hrs after bolus continue same rate, otherwise discontinue Heparin X 1 hr. Then restart Heparin 100 units/hr (1ml/hr) below previous rate. R epeat aPTT in 6 hr. If aPTT 71-95 Call ordering provider JAYCEE, otherwise, follow table. aPTT > 95.9 Stop Heparin infusion. Call ordering provider JAYCEE. Check aPTT 6 hours after initiation and 6 hours after every dose change; &nbsp ;Every 12hrs X 1 day after 2 consecutive therapeutic aPTT; Daily after Every 12hrs X 1 day is completed. Start: 02-23-2019 End: 02-23-2019 2,000 Units, Intravenous, [place] N, Other, heparin dosing algorithm, Starting Tue02/23/19 at 0520 Half dose re-bolus based on pharmacy algorithm icosapent ethyl 1000 mg oral capsule (12 sources) Start: 11-15-2022 End: 12-30-2022 Icosapent Ethyl (Vascepa) 1 gram capsule Discontinued 2 g PO TWICE A DAY 120 5 December 21, 2022 2:17pm December 30, 2022 10:28am 3 ml insulin aspart, human 100 unt/ml pen injector (20 sources) Insulin Analog Start: 12-26-2023 End: 07-09-2024 Insulin Aspart U-100 (Novolog Flexpen U-100 Insulin) 100 unit/mL (3 mL) insulin pen Discontinued 12 U SC THREE TIMES A DAY 32.4 1 December 29, 2023 2:01pm July 09, 2024 3:47pm Diabetes mellitus Type 2 diabetes mellitus with hyperglycemia skilled nursing (current) use of insulin Start: 01-11-2023 End: 12-26-2023 Insulin Aspart U-100 (Novolo g Flexpen U-100 Insulin) 100 unit/mL (3 mL) insulin pen Discontinued 12 U SC TWICE A DAY 15 5 January 11, 2023 12:59pm December 26, 2023 12:56pm Diabetes mellitus Type 2 diabetes mellitus with hyperglycemia 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 0 07/19/2022 Active Start: 01-27-2022 End: 01-11-2023 Insulin Aspart U-100 (Novolo g Flexpen U-100 Insulin) 100 unit/mL (3 mL) insulin pen Discontinued 12 U SC DAILY 15 October 14, 2022 9:28am January 11, 2023 12:59pm Diabetes mellitus Type 2 diabetes mellitus with hyperglycemia 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 8 u supper, 4 u snacks Start: 08-03-2021 End: 01-27-2022 Insulin Aspart U-100 (Novolo g Flexpen U-100 Insulin) 100 unit/mL (3 mL) insulin pen Discontinued 2 U SC THREE TIMES A DAY August 03, 2021 9:38am January 27, 2022 2:22pm Start: 04-28-2021 End: 08-03-2021 Insulin Aspart U-100 (Novolo g Flexpen U-100 Insulin) 100 unit/mL (3 mL) insulin pen Discontinued 10 U SC THREE TIMES A DAY 15 April 28, 2021 1:00am August 03, 2021 9:39am Comment on above: INJECT 8 UNITS SUBCU TANEOUSLY AT SUPPER, THEN 4 UNITS WITH SNACKS. 3 ml insulin degludec 100 unt/ml pen injector (20 sources) Insulin Analog Start: 04-28-2021 End: 04-30-2021 Insulin Degludec (Tresiba Flextouch U-100) 100 unit/mL (3 mL) insulin pen Discontinued 30 U SC DAILY 15 April 28, 2021 1:00am April 30, 2021 9:05am Start: 03-25-2020 End: 06-30-2020 Insulin Degludec (Tresiba Fl extouch U-200) 200 unit/mL (3 mL) insulin pen Discontinued 50 U SC DAILY 9 March 25, 2020 1:00am June 30, 2020 3:57pm 3 ml insulin detemir 100 unt/ml pen injector (20 sources) Insulin Analog Start: 01-27-2022 End: 07-19-2022 Insulin Detemir U-100 (Levemir Flextouch U-100 Insuln) 100 unit/mL (3 mL) insulin pen Discontinued 32 U SC AT BEDTIME 30 3 July 15, 2022 3:32pm July 19, 2022 1:27pm Diabetes mellitus Type 2 diabetes mellitus with hyperglycemia 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 Start: 04-30-2021 End: 01-27-2022 Insulin Detemir U-100 (Levem ir Flextouch U100 Insulin) 100 unit/mL (3 mL) insulin pen Discontinued 30 U SC AT BEDTIME 15 4 April 30, 2021 1:00am January 27, 2022 2:22pm Insulin Detemir U-100 (Levemir Flexpen) 100 unit/mL (3 mL) insulin pen (12 sources) Start: 12-29-2023 End: 05-28-2024 Insulin Detemir U-100 (Levem ir Flexpen) 100 unit/mL (3 mL) insulin pen Discontinued 32 U SC AT BEDTIME 28.8 1 December 29, 2023 2:01pm May 28, 2024 4:56pm Diabetes mellitus Type 2 diabetes mellitus with hyperglycemia skilled nursing (current) use of insulin Start: 12-29-2023 End: 05-28-2024 Insulin Detemir U-100 (Levem ir Flexpen) 100 unit/mL (3 mL) insulin pen Discontinued 32 U SC AT BEDTIME 28.8 December 29, 2023 2:01pm May 28, 2024 4:56pm Start: 12-26-2023 End: 12-29-2023 Insulin Detemir U-100 (Levem ir Flexpen) 100 unit/mL (3 mL) insulin pen Discontinued 32 U SC AT BEDTIME 28.8 1 December 26, 2023 12:56pm December 29, 2023 2:01pm Diabetes mellitus Type 2 diabetes mellitus with hyperglycemia 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 Start: 12-26-2023 End: 12-29-2023 Insulin Detemir U-100 (Levem ir Flexpen) 100 unit/mL (3 mL) insulin pen Discontinued 32 U SC AT BEDTIME 28.8 December 26, 2023 12:56pm December 29, 2023 2:01pm Start: 10-10-2023 End: 12-26-2023 Insulin Detemir U-100 (Levem ir Flexpen) 100 unit/mL (3 mL) insulin pen Discontinued 32 U SC AT BEDTIME 15 07October 10, 2023 1:33pm December 26, 2023 12:56pm Start: 10-10-2023 End: 12-26-2023 Insulin Detemir U-100 (Levem ir Flexpen) 100 unit/mL (3 mL) insulin pen Discontinued 32 U SC AT BEDTIME October 10, 2023 1:33pm December 26, 2023 12:56pm Start: 07-19-2022 End: 10-10-2023 Insulin Detemir U-100 (Levem ir Flexpen) 100 unit/mL (3 mL) insulin pen Discontinued 32 U SC AT BEDTIME 15 07July 19, 2022 12:00am October 10, 2023 1:33pm Start: 07-19-2022 End: 10-10-2023 Insulin Detemir U-100 (Levem ir Flexpen) 100 unit/mL (3 mL) insulin pen Discontinued 32 U SC AT BEDTIME July 19, 2022 12:00am October 10, 2023 1:33pm Start: 07-19-2022 Insulin Detemi r U-100 (Levemir Flexpen) 100 unit/mL (3 mL) insulin pen Active 32 UNIT SC AT BEDTIME July 19, 2022 12:00am Start: 07-19-2022 Insulin Detemi r U-100 (Levemir Flexpen) 100 unit/mL (3 mL) insulin pen Active 32 UNIT SC AT BEDTIME July 18, 2022 11:00pm 3 ml insulin lispro 50 unt/ml / insulin lispro protamine, human 50 unt/ml pen injector (13 sources) Insulin Analog Start: 06-30-2020 End: 04-28-2021 Insulin Lispro Protamin-Lispro (Humalog Mix 50-50 Kwikpen) 100 unit/mL (50-50) insulin pen Discontinued 25 U SC TWICE A DAY 15 June 30, 2020 12:00am April 28, 2021 10:18am iohexol (OMNIPAQUE) 350 MG/ML injection 1-171 mL (1 source) Start: 09-11-2024 End: 09-11-2024 1-171 mL, Intravenous, ONCE, 1 dose, On Tue09/11/24 at 0915, Extravasation Risk, CT Procedure 24 hr isosorbide mononitrate 60 mg extended release oral tablet (20 sources) Nitrate Vasodilator Start: 04-04-2023 End: 10-19-2023 take 1 tablet by mouth at bedtime, then take 1 tablet by mouth every twenty-four hours Isosorbide Mononitrate 60 mg tablet extended release 24 hr Discontinued 60 mg PO AT BEDTIME 90 July 11, 2023 5:27pm October 19, 2023 11:01am Start: 03-28-2023 End: 04-04-2023 take 1 tablet by mouth once daily, then take 1 tablet by mouth every twenty-four hours Isosorbide Mononitrate 30 mg tablet extended release 24 hr Discontinued 30 mg PO DAILY 30 March 28, 2023 1:00am April 04, 2023 11:54am Start: 03-08-2022 End: 09-23-2022 take 1 tablet by mouth once daily, then take 1 tablet by mouth every twenty-four hours Isosorbide Mononitrate 30 mg tablet extended release 24 hr Discontinued 30 mg PO DAILY 30 March 08, 2022 1:00am September 23, 2022 9:53am Start: 05-26-2021 End: 06-17-2021 take 1 tablet by mouth once daily, then take 1 tablet by mouth every twenty-four hours Isosorbide Mononitrate 30 mg Tablet Extended Release 24 Hr Discontinued 30 mg PO DAILY 30 May 26, 2021 1:00am June 17, 2021 2:06pm Start: 06-19-2020 End: 07-29-2020 take 1 tablet by mouth once daily, then take 1 tablet by mouth every twenty-four hours Isosorbide Mononitrate 60 mg tablet extended release 24 hr Discontinued 60 mg PO DAILY 90 June 19, 2020 1:00am July 29, 2020 3:18pm Start: 03-27-2020 End: 06-19-2020 take 1 tablet by mouth twice daily, then take 1 tablet by mouth every twenty-four hours Isosorbide Mononitrate 30 mg tablet extended release 24 hr Discontinued 30 mg PO TWICE A DAY 180 May 22, 2020 12:59pm June 19, 2020 9:52am Start: 04-19-2019 End: 03-27-2020 take 1 tablet by mouth once daily Isosorbide Mononitra te 30 mg tablet extended release 24 hr Discontinued 1 mg PO DAILY April 19, 2019 1:00am March 27, 2020 11:46am Start: 02-23-2019 End: 02-24-2019 take 30 mg by mouth once daily 30 mg, Oral, DAILY, Fir st dose on Tue02/23/19 at 1045 Do not crush or chew. linagliptin 5 mg oral tablet (13 sources) Dipeptidyl Peptidase 4 Inhibitor Start: 07-23-2016 End: 04-19-2019 take 1 tablet by mouth once daily Linagliptin 5 MG tablet Discontinued 5 mg PO DAILY July 23, 2016 12:00am April 19, 2019 4:47pm lisinopril 2.5 mg oral tablet (20 sources) Angiotensin Converting Enzyme Inhibitor Start: 05-26-2021 End: 08-03-2021 take 1 tablet by mouth once daily Lisinopril 2.5 mg tablet Discontinued 2.5 mg PO DAILY 30 3 June 17, 2021 2:30pm August 03, 2021 9:38am metFORMIN hydrochloride 1000 mg oral tablet (13 sources) Biguanide Start: 11-08-2014 End: 01-17-2020 take 1 tablet by mouth twice daily at mealtime Metformin 1,000 MG tablet Discontinued 1000 mg PO TWICE DAILY WITH MEALS November 08, 2014 12:00am January 17, 2020 3:05pm 24 hr metoprolol succinate 50 mg extended release oral tablet (20 sources) beta-Adrenergic Crista Start: 04-04-2023 End: 08-20-2024 take 1 tablet by mouth once daily Metoprolol Succinate (Toprol Xl) 50 mg tablet extended release 24 hr Discontinued 50 mg PO .Daily 90 3 August 20, 2024 8:00am August 20, 2024 9:21am Start: 03-21-2023 End: 04-04-2023 take 1 tablet by mouth once daily Metoprolol Tartrate 25 mg tablet Discontinued 25 mg PO DAILY March 21, 2023 11:33am April 04, 2023 11:53am Start: 02-23-2019 take 25 mg by mouth twice nisha y 25 mg, Oral, 2 TIMES DAILY, First dose on Tue02/23/19 at 1045 Do not crush or chew. Start: 07-23-2016 End: 03-21-2023 take 1 tablet by mouth twice daily Metoprolol Tartrate 25 mg tablet Discontinued 25 mg PO TWICE A DAY 180 November 15, 2022 11:36am March 21, 2023 11:33am take 1 tablet by genesis th once daily metoprolol succinate ER (TOPROL XL) 25 mg 24 hr tablet Take 25 mg by mouth once daily. 0 Active Comment on above: Take 25 mg by mouth once daily. nitroglycerin 0.4 mg sublingual tablet (20 sources) Nitrate Vasodilator Start: 10-21-2020 End: 03-19-2024 Nitroglycerin 0.4 mg tablet, sublingual Discontinued 0.4 mg SL every 5 to 15 minutes as needed for chest pain 10 10August 16, 2022 9:41am March 19, 2024 5:13pm do not exceed 3 doses per episode Start: 10-21-2020 End: 08-16-2022 Nitroglycerin Active 0.4 MG SL every 5 to 15 minutes August 16, 2022 8:41am do not exceed 3 doses per episode omega-3 acid ethyl esters (detention) 1000 mg oral capsule (6 sources) Start: 12-30-2022 End: 10-19-2023 take 1 capsule by mouth twice daily [place]-3 Acid Ethyl Esters (Lovaza) 1 gram capsule Discontinued 1 NMA PO TWICE A DAY 180 December 30, 2022 12:00am October 19, 2023 11:01am Hyperlipidemia Hyperlipidemia, unspecified 12 hr ranolazine 500 mg extended release oral tablet (20 sources) Anti-wood nal Start: 09-23-2022 End: 11-15-2022 take 1 tablet by mouth twice daily Ranolazine 500 mg tablet extended release 12 hr Discontinued 500 mg PO TWICE A DAY 60 September 23, 2022 12:00am November 15, 2022 8:16am Start: 08-03-2021 End: 01-14-2022 take 1 tablet by mouth twice daily Ranolazine (Ranexa) 500 mg tablet extended release 12 hr Discontinued 500 mg PO TWICE A DAY 60 August 03, 2021 12:00am January 14, 2022 1:15pm Start: 07-29-2020 End: 06-17-2021 take 1 tablet by mouth twice daily Ranolazine (Ranexa) 500 mg tablet extended release 12 hr Discontinued 500 mg PO TWICE A DAY 60 July 29, 2020 12:00am June 17, 2021 2:29pm Semaglutide (7 sources) Start: 06-23-2022 End: 07-19-2022 Semaglutide (Ozempic) 0.25 m g or 0.5 mg (2 mg/3 mL) pen injector Discontinued 0.25 mg SC EVERY WEEK 3 June 23, 2022 1:00am July 19, 2022 8:01am Diabetes mellitus Obesity Type 2 diabetes mellitus without complications Obesity, unspecified for 4 weeks Start: 06-23-2022 End: 07-19-2022 Semaglutide (Ozempic) 0.25 m g or 0.5 mg (2 mg/3 mL) pen injector Discontinued 0.25 mg SC EVERY WEEK June 23, 2022 1:00am July 19, 2022 8:01am for 4 weeks Start: 06-23-2022 End: 07-19-2022 Semaglutide (Ozempic) 0.25 m g or 0.5 mg (2 mg/3 mL) pen injector Discontinued 0.25 MG SC EVERY WEEK June 23, 2022 1:00am July 19, 2022 8:01am for 4 weeks Start: 06-23-2022 End: 07-19-2022 Semaglutide (Ozempic) 0.25 m g or 0.5 mg (2 mg/3 mL) pen injector Discontinued 0.25 MG SC EVERY WEEK June 23, 2022 12:00am July 19, 2022 7:01am for 4 weeks Start: 06-23-2022 Semaglutide (O zempic) 0.25 mg or 0.5 mg (2 mg/3 mL) pen injector Active 0.25 MG SC EVERY WEEK June 23, 2022 1:00am for 4 weeks 20 ml sodium chloride 9 mg/m l injection (6 sources) Start: 09-11-2024 End: 09-11-2024 1-100 mL, Intravenous, ONCE NEEDED, 1 dose, Starting on Tue09/11/24 at 0901, Until Tue09/11/24 at 0901, Flush, CT Procedure Start: 02-23-2019 End: 02-27-2019 sodium chloride flush 0.9 % injection 10 mL Start: 02-23-2019 10 mL, Intrave nous, EVERY 12 HOURS SCHEDULED (2 times per day), First dose on Tue02/23/19 at 0900 Start: 02-23-2019 take 10 mL intraveno us route once as needed 10 mL, Intravenous, PRN, Line Care, After every IV line use, Starting Tue02/23/19 at 0518 ticagrelor 90 mg oral tablet (15 sources) Start: 04-19-2019 End: 04-19-2019 Ticagrelor 90 mg tablet Discontinued mg PO April 19, 2019 1:00am April 19, 2019 5:04pm Start: 04-19-2019 End: 04-19-2019 Ticagrelor Discontinued MG P O April 19, 2019 1:00am April 19, 2019 5:04pm Start: 02-24-2019 take 1 tablet by genesis th twice daily ticagrelor (BRILINTA) 90 MG TABS tablet Take 1 tablet by mouth 2 times daily 60 tablet 02/24/2019 Active Start: 02-23-2019 ticagrelor (BR ILINTA) tablet 90 mg Problems Active Problems Problem Classification Problem Date Documented Date Episodic/Chronic Abdominal pain (11 sources) Lower abdominal pain; Translations: [Lower abdominal pain, unspecified] 01-14-2022 Episodic Acute myocardial infarction (3 sources) Myocardial infarction; Translations: [Non-ST elevation (NSTEMI) myocardial infarction] Onset: 02-23-2019 02-24-2019 Chronic Coronary atherosclerosis and other heart disease (20 sources) Coronary arteriosclerosis in [place] artery; Translations: [Coronary arteriosclerosis] Onset: 02-23-2019 02-24-2019 Chronic Coronary atherosclerosis and other heart disease (8 sources) Presence of coronary angioplasty implant and graft; Translations: [Percutaneous transluminal coronary angioplasty status] Onset: 05-25-2021 Episodic Diabetes mellitus with complications (1 source) Type 2 diabetes mellitus with hyperglycemia; Translations: [Type 2 diabetes mellitus with hyperglycemia] Onset: 12-03-2024 Chronic Diabetes mellitus without complication (20 sources) Diabetes mellitus; Translations: [Type 2 diabetes mellitus without complications] Onset: 02-23-2019 02-24-2019 Chronic Disorders of lipid metabolism (20 sources) Hypertriglyceridemia; Translations: [Pure hyperglyceridemia] Onset: 02-24-2019 Chronic Essential hypertension (20 sources) Essential hypertension; Translations: [Essential (primary) hypertension] Chronic Genitourinary symptoms and ill-defined conditions (14 sources) Dysuria; Translations: [Dysuria] Onset: 2022 Episodic Other aftercare (1 source) skilled nursing (current) use of insulin; 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] Onset: 12-03-2024 Episodic Other circulatory disease (6 sources) Carotid bruit; Translations: [Other specified symptoms and signs involving the circulatory and respiratory systems] 09-23-2022 Episodic Other connective tissue disease (1 source) Pain in right leg; Translations: [Leg pain, bilateral] Onset: 10-11-2022 Episodic Other connective tissue disease (1 source) Pain in left leg; Translations: [Leg pain, bilateral] Onset: 10-11-2022 Episodic Other lower respiratory disease (20 sources) Dyspnea on exertion; Translations: [Dyspnea, unspecified] 01-29-2021 Episodic Other lower respiratory disease (13 sources) Dyspnea; Translations: [Dyspnea, unspecified] 12-15-2019 Episodic Other nervous system disorders (14 sources) Neuropathy; Translations: [Polyneuropathy, unspecified] 06-29-2021 Chronic Other nervous system disorders (6 sources) Polyneuropathy, unspecified; Translations: [Mononeuritis of unspecified site] Chronic Other nutritional; endocrine; and metabolic disorders (14 sources) Obesity; Translations: [Obesity, unspecified] 01-20-2022 Chronic Other nutritional; endocrine; and metabolic disorders (6 sources) Obesity, unspecified; Translations: [Obesity, unspecified] Chronic Other nutritional; endocrine; and metabolic disorders (6 sources) Overweight; Translations: [Overweight] 03-21-2023 Episodic Other nutritional; endocrine; and metabolic disorders (3 sources) Overweight; Translations: [Overweight] 03-21-2023 Episodic Other screening for suspected conditions (not mental disorders or infectious disease) (13 sources) Cardiovascular stress test abnormal; Translations: [Abnormal result of other cardiovascular function study] 11-03-2021 Episodic Peripheral and visceral atherosclerosis (8 sources) Intermittent claudication; Translations: [Peripheral vascular disease, unspecified] Onset: 09-27-2022 09-27-2022 Chronic Residual codes; unclassified (13 sources) Noncompliance with treatment; Translations: [Patient's noncompliance with other medical treatment and regimen] 04-28-2021 Episodic Residual codes; unclassified (2 sources) Patient's noncompliance with other medical treatment and regimen; Translations: [Personal history of noncompliance with medical treatment, presenting hazards to health] Episodic Residual codes; unclassified (11 sources) Chill; Translations: [Chills (without fever)] 01-14-2022 Episodic Urinary tract infections (13 sources) Urinary tract infectious disease; Translations: [Urinary tract infection, site not specified] Onset: 09-11-2024 01-21-2022 Episodic Past or Other Problems Problem Classification Problem Date Documented Da te Episodic/Chronic Nonspecific chest pain (20 sources) Chest discomfort; Translations: [Other chest pain] Onset: 08-21-2024 Episodic Other lower respiratory disease (1 source) Dyspnea, unspecified; Translations: [Dyspnea, unspecified] Onset: 08-21-2024 Episodic Results Test Name Value Interpretation Reference Range Facility Endocrinology Visit Reporton 12-03-2024 Endocrinology Visit Report [facility] [address] [place] [address] OFFICE VISIT Date of Service: 12/03/24 MR#: [id number] Acct: [id number] Name: BONNIE BROWNLEE Rep #: [id number] : 1960 Provider: JOE urias Age/Sex: 64/F Location[place] [facility] Status: Signed Intake Vital Signs 05/28/24 15:50 08/21/24 09:28 12/03/24 14:34 Height 5 ft 5 in 5 ft 5 in 5 ft 5 in Weight: 189 lb 181 lb BMI 31.4 30.1 BP 108/69 116/69 Blood Pressure Location Lt brachial Lt brachial Position Sitting Sitting Respiration 16 Pulse 60 57 L Pulse Source Monitor Monitor Pulse Oximetry (%) 98 Oxygen Delivery Method room air Intake Visit Reasons: 6 M FU Chief Complaint: f/u diabetes Design Director Required: No Accompanied by: Self Is patient in pain?: No Allergies atorvastatin Adverse Reaction (Severe, Verified 12/03/24 14:34) myalgias rosuvastatin Adverse Reaction (Severe, Verified 12/03/24 14:34) myalgias simvastatin Adverse Reaction (Severe, Verified 12/03/24 14:34) myalgias evolocumab (From Repatha Pushtronex) Adverse Reaction (Intermediate, Verified 12/03/24 14:34) mylagias Medications ???Medication ???Instructions ???Recorded ???Confirmed ???Type pen needle, diabetic 32 gauge x 05/24/21 12/03/24 History " (BD Ultra-Fine Yu Pen Needle) blood-glucose meter (SecureWatersTouch #1 ea 03/21/23 12/03/24 Rx Verio Flex Meter) clopidogrel 75 mg tablet 75 mg PO DAILY #90 tabs 12/22/23 0 12/03/24 Rx fenofibrate nanocrystallized 145 145 mg PO DAILY #90 tabs 12/22/23 12/03/24 Rx mg tablet nitroglycerin 0.4 mg sublingual 0.4 mg sublingual Q5-15M PRN chest 03/19/24 12/03/24 Rx tablet pain #25 tabs insulin lispro 100 unit/mL 12 unit (0.12 mL) subcut TID #45 m L 07/09/24 12/03/24 Rx subcutaneous pen (Humalog KwikPen (U-100) Insulin) metoprolol succinate 50 mg 50 mg PO .Daily #90 tabs 08/20/24 12/03/24 Rx tablet,extended release 24 hr (Toprol XL) alirocumab 75 mg/mL subcutaneous 75 mg subcut Q14D #2 mL 08/21/24 0 12/03/24 Rx pen injector (Praluent Pen) potassium chloride 10 mEq 20 meq PO QDAY 08/21/24 12/03/24 H istory capsule,extended release amlodipine 10 mg tablet 10 mg PO QDAY #90 tabs 08/30/24 Rx insulin glargine 100 unit/mL (3 32 unit (0.32 mL) subcut DAILY 12/03/24 Rx mL) subcutaneous pen (Lantus #28.8 mL Solostar U-100 Insulin) blood-glucose sensor (FreeStyle #2 ea 11/19/24 12/03/24 Rx Jaime 3 Plus Sensor device) [facility] Medical History Abnormal stress test Noncompliance with diabetes treatment Obesity Diabetes Hypertriglyceridemia History of non-ST elevation myocardial infarction (NSTEMI) (02/23/19) Type 2 diabetes mellitus Atherosclerosis of coronary artery of chilkoot heart without angina pectoris Essential (primary) hypertension Hyperlipidemia Surgical History History of left heart catheterization (02/21/20) History of coronary artery stent placement (05/25/21) Family History Father CVA (cerebral vascular accident) Social History Smoking Status: Never smoker alcohol intake: never substance use type: does not use caffeine: Yes (Occasionally) Type: coffee HPI HPI Chief Complaint: f/u diabetes Details: BONNIE BROWNLEE, is a 64 F who presents to the office today for evaluation and management of diabetes. A1C today is 6.5%, improved from 05/28/24 at 6.9%. She has lost 6 lbs since that time. Currently taking Lantus 30 u once daily and Novolog 12 u TIDCM. CGM tracings reviewed- she is having occasional post meal elevations, she is having lows during sleeping hours. She denies any significant episode of hypoglycemia that has required assistance from others. BP controlled. Currently taking amlodipine 10 mg once daily. She was to have a stress test completed; however, her was acutely ill at the time and she did not proceed. She states that she does not want to pursue a stress test as "I have horrible chest pain during the test." Hx of poorly controlled cholesterol and unable to tolerate statins. She was prescribed alirocumab; however, she doesn't know if this is approved by insurance and is not currently taking any medications to address her cholesterol. She has vitamin D insufficiency. She is not currently taking any supplement. Her recently , she reports decreased appetite with grief. Denies any acute concerns. ROS Const Constitutional: No fatigue, weakness or weight change Cardio Cardiology: No chest pain at rest, chest pain (more content not included)... Normal [facility] CALCIUMon 09-11-2024 Calcium [Mass/Vol] 9.5 mg/dL 8.6 - 10. 5 mg/dL [facility] Calcium [Mass/Vol] 9.5 mg/dL Normal 8.6-10.5 [facility] Comment on above: Performed By: #### H FP, MGO, CA, LIPA, C7ED #### [facility] (DEFAULT) [address] [place] [address] CBC AND ELECTRONIC DIFFon Basophils (Bld) [#/Vol] K/uL 0.00 - 0.15 K/uL [facility] Basophils/100 WBC (Bld) 0.2 % [facility] Differential cell count method Nom (Bld) Electronic Differential O [facility] Eosinophils (Bld) [#/Vol] 0.1 10*3/uL 0.00 - 0.42 K/uL [facility] Eosinophils/100 WBC (Bld) 1.7 % [facility] Erythrocyte distribution width (RBC) [Ratio] 12.7 % 10.8 - 14.9 % [facility] Hematocrit (Bld) [Volume fraction] 37.2 % 34.9 - 44.3 % [facility] Hemoglobin (Bld) [Mass/Vol] 12.5 g/dL 11.4 - 15.2 g/dL [facility] Immature granulocytes (Bld) [#/Vol] K/uL NINF - 0.08 K/uL [facility] Immature granulocytes/100 WBC (Bld) 0.2 % [facility] Lymphocytes (Bld) [#/Vol] 2.65 10*3/uL 1.16 - 3.51 K/uL [facility] Lymphocytes/100 WBC (Bld) 46.2 % [facility] MCH (RBC) [Entitic mass] 27.7 pg 25.9 - 33.9 pg [facility] MCHC (RBC) [Mass/Vol] 33.6 g/dL 31.4 - 35.9 g/dL [facility] MCV (RBC) [Entitic vol] 82.5 fL 79.6 - 97.7 fL [facility] Monocytes (Bld) [#/Vol] 0.51 10*3/uL 0.22 - 0.87 K/uL [facility] Monocytes/100 WBC (Bld) 8.9 % [facility] Neutrophils (Bld) [#/Vol] 2.45 10*3/uL 1.64 - 7.28 K/uL [facility] Nucleated RBC/100 WBC (Bld) [Ratio] 0 % NINF [facility] Platelet mean volume (Bld) [Entitic vol] 10.5 fL 8.5 - 12.2 fL [facility] Platelets (Bld) [#/Vol] 259 10*3/uL 150 - 393 K/uL [facility] RBC (Bld) [#/Vol] 4.51 10*6/uL [facility] Segmented neutrophils/100 WBC (Bld) 42.8 % [facility] WBC (Bld) [#/Vol] 5.73 10*3/uL 3.99 - 11. 19 K/uL [facility] Abs Baso Auto < Normal 0.00-0.15 [facility] Comment on above: Performed By: #### L [id number] #### [facility] (DEFAULT) [address] [address] Basophils/100 WBC (Bld) 0.2 % Normal [facility] Comment on above: Performed By: #### L [id number] #### [facility] (DEFAULT) [address] [place] [id number] DIFF STATUS Electronic Differential Normal [facility] Comment on above: Performed By: #### L [id number] #### [facility] (DEFAULT) [address] [address] Eosinophils (Bld) [#/Vol] 0.10 10*3/uL Normal 0.00-0.42 [facility] Comment on above: Performed By: #### L [id number] #### [facility] (DEFAULT) [address] [address] Eosinophils/100 WBC (Bld) 1.7 % Normal [facility] Comment on above: Performed By: #### L [id number] #### [facility] (DEFAULT) [address] [place] [id number] Hematocrit (Bld) [Volume fraction] 37.2 % Normal 34.9-44.3 [facility] Comment on above: Performed By: #### L [id number] #### [facility] (DEFAULT) [address] [address] Hemoglobin (Bld) [Mass/Vol] 12.5 g/dL Normal 11.4-15.2 [facility] Comment on above: Performed By: #### L [id number] #### [facility] (DEFAULT) [address] [address] Immature Grans % 0.2 % Normal [facility] Comment on above: Performed By: #### L [id number] #### [facility] (DEFAULT) [address] [address] Immature Grans Absolute < Normal <=0.08 [facility] Comment on above: Performed By: #### L [id number] #### [facility] (DEFAULT) [address] [address] Lymphocytes (Bld) [#/Vol] 2.65 10*3/uL Normal 1.16-3.51 [facility] Comment on above: Performed By: #### L [id number] #### [facility] (DEFAULT) [address] [address] Lymphocytes/100 WBC (Bld) 46.2 % Normal [facility] Comment on above: Performed By: #### L [id number] #### [facility] (DEFAULT) [address] [address] MCV (RBC) [Entitic vol] 82.5 fL Normal 79.6-97.7 [facility] Comment on above: Performed By: #### L [id number] #### [facility] (DEFAULT) [address] [address] Mean Cell Hgb 27.7 pg Normal 25.9-33.9 [facility] Comment on above: Performed By: #### L [id number] #### [facility] (DEFAULT) [address] [address] Mean Cell Hgb Conc 33.6 g/dL Normal 31.4-35.9 [facility] Comment on above: Performed By: #### L [id number] #### [facility] (DEFAULT) [address] [address] Monocytes (Bld) [#/Vol] 0.51 10*3/uL Normal 0.22-0.87 [facility] Comment on above: Performed By: #### L [id number] #### [facility] (DEFAULT) [address] [address] Monocytes/100 WBC (Bld) 8.9 % Normal [facility] Comment on above: Performed By: #### L [id number] #### [facility] (DEFAULT) [address] [address] Nucleated RBC 0.0 /100 WBC Normal <=0.2 [facility] Comment on above: Performed By: #### L [id number] #### [facility] (DEFAULT) [address] [address] Platelet mean volume (Bld) [Entitic vol] 10.5 fL Normal 8.5-12.2 [facility] Comment on above: Performed By: #### L [id number] #### [facility] (DEFAULT) [address] [address] Platelets (Bld) [#/Vol] 259 10*3/uL Normal 150-393 [facility] Comment on above: Performed By: #### L [id number] #### [facility] (DEFAULT) [address] [place] [address] RBC (Bld) [#/Vol] 4.51 10*6/uL Normal 3.91-5.04 [facility] Comment on above: Performed By: #### L [id number] #### [facility] (DEFAULT) [address] [place] [address] RBC Distribution 12.7 % Normal 10.8-14.9 [facility] Comment on above: Performed By: #### L [id number] #### [facility] (DEFAULT) [address] [place] [address] [id number] Segs + Bands Auto 42.8 % Normal [facility] Comment on above: Performed By: #### L [id number] #### [facility] (DEFAULT) [address] [place] [address] [id number] Segs + Bands,Absolute Auto 2.45 K/uL Normal 1.64-7.28 [facility] Comment on above: Performed By: #### L [id number] #### [facility] (DEFAULT) [address] [place] [address] [phone] WBC (Bld) [#/Vol] 5.73 10*3/uL Normal 3.99-11.19 [facility] Comment on above: Performed By: #### L [id number] #### [facility] (DEFAULT) [address] [place] [address] [id number] [facility] 7 - EDon 09-11-2024 Anion gap [Moles/Vol] 9 mmol/L 7 - 17 mmol/L [facility] Chloride [Moles/Vol] 106 mmol/L 98 - 10 8 mmol/L [facility] CO2 [Moles/Vol] 26 mmol/L 21 - 31 mmol/L [facility] Creatinine [Mass/Vol] 0.84 mg/dL 0.50 - 1.20 mg/dL [facility] eGFR, CKD-EPI, Female 80 - PINF [facility] Comment on above: Reported eGFR is bas ed on the CKD-EPI 2020 equation using creatinine, age, and sex. Glucose [Mass/Vol] 125 mg/dL 70 - 179 mg/dL [facility] Osmolality Calc [Osmolality] 291 [facility] Potassium [Moles/Vol] 3.9 mmol/L 3.5 - 5.0 mmol/L [facility] Sodium [Moles/Vol] 137 mmol/L 135 - 145 mmol/L [facility] Urea nitrogen [Mass/Vol] 19 mg/dL 7 - 25 mg/dL [facility] Urea nitrogen/Creatinine [Mass ratio] 23 mg/mg [facility] Anion gap [Moles/Vol] 9 mmol/L Normal 7-17 [facility] Comment on above: Performed By: #### H FP, MGO, CA, LIPA, C7ED #### [facility] (DEFAULT) [address] [place] [address] [phone] Chloride [Moles/Vol] 106 mmol/L Normal 98-108 [facility] Comment on above: Performed By: #### H FP, MGO, CA, LIPA, C7ED #### [facility] (DEFAULT) [address] [place] [address] 60109 CO2 [Moles/Vol] 26 mmol/L Normal 21-31 [facility] Comment on above: Performed By: #### H FP, MGO, CA, LIPA, C7ED #### [facility] (DEFAULT) [address] [place] [address] [phone] Creatinine [Mass/Vol] 0.84 mg/dL Normal 0.50-1.20 [facility] Comment on above: Performed By: #### H FP, MGO, CA, LIPA, C7ED #### [facility] (DEFAULT) [address] [place] [address] [phone] GFR/1.73 sq M.predicted among non-blacks MDRD (S/P/Bld) [Vol rate/Area] 79 mL/min/{1.73_m2} Normal >=60 [facility] Comment on above: Result Comment: Repo rted eGFR is based on the CKD-EPI 2020 equation using creatinine, age, and sex. Performed By: #### H FP, MGO, CA, LIPA, C7ED #### [facility] (DEFAULT) [address] [place] [address] [phone] Glucose [Mass/Vol] 125 mg/dL Normal Nonfastin -179 mg/dL; Fastin-99 [facility] Comment on above: Performed By: #### H FP, MGO, CA, LIPA, C7ED #### [facility] (DEFAULT) [address] [place] [address] [phone] Osmolality [Osmolality] 291 mosm/kg Normal 278-305 [facility] Comment on above: Performed By: #### H FP, MGO, CA, LIPA, C7ED #### [facility] (DEFAULT) [address] [place] [address] 34431 Potassium [Moles/Vol] 3.9 mmol/L Normal 3.5-5.0 [facility] Comment on above: Performed By: #### H FP, MGO, CA, LIPA, C7ED #### [facility] (DEFAULT) [address] [place] [address] 50769 Sodium [Moles/Vol] 137 mmol/L Normal 135-145 [facility] Comment on above: Performed By: #### H FP, MGO, CA, LIPA, C7ED #### [facility] (DEFAULT) [address] [place] [address] [phone] Urea nitrogen [Mass/Vol] 19 mg/dL Normal 7-25 [facility] Comment on above: Performed By: #### H FP, MGO, CA, LIPA, C7ED #### [facility] (DEFAULT) [address] [place] [address] [phone] Urea nitrogen/Creatinine [Mass ratio] 23 mg/mg Normal [facility] Comment on above: Performed By: #### H FP, MGO, CA, LIPA, C7ED #### [facility] (DEFAULT) [address] [place] [address] CT ABDOMEN/PELVIS WITH CONTR Ramon 09-11-2024 CT ABDOMEN/PELVIS WITH CONTRAST EXAM: CT ABDOMEN/PELVIS WITH CONTRAST, 09/11/2024 09:11 AM COMPARISON: No prior studies available for comparison. CLINICAL INDICATIONS: Suprapubic and RLQ abd tenderness TECHNIQUE: CT scanning was performed of the abdomen and pelvis following the administration of intravenous contrast. PROTOCOL: Standard. CONTRAST: iohexol (OMNIPAQUE) 350 MG/ML injection 1-171 mL; Route of Administration: Intravenous; Dose: 90 mL. FINDINGS: Lung Bases: Visualized lung bases reveal atelectatic changes in the lower lobes and in the lingula lobe. No pleural or pericardial effusion. Small left posterior diaphragmatic defect with herniation of the abdominal fat into the thorax. Liver: Liver is normal in size and morphology. Mild hepatic steatosis. Faint hypodensity along the falciform ligament likely relates to focal fatty infiltration. Some areas of fatty sparing in the liver parenchyma. There are no suspicious enhancing focal liver lesions. Portal vein is patent. No intrahepatic biliary ductal dilatation. No perihepatic fluid or collection is seen Gallbladder: Gallbladder is distended with no calcified stones. No GB wall thickening or pericholecystic fluid Bile Ducts: Normal in caliber. Spleen: Spleen is normal in size and CT density. No suspicious enhancing focal splenic lesions. Small calcified granuloma along the posterior aspect of the spleen measuring 1 cm in size. Splenic vascular pedicle is patent with no perisplenic fluid or collections. Pancreas: Pancreas shows no discrete focal lesions or ductal dilatation. There is some fatty replacement in the pancreatic parenchyma. There are no peripancreatic inflammatory changes or fluid collections. Adrenals: Both adrenal glands and unremarkable Kidneys: Kidneys show symmetric enhancement with no calculus or hydronephrosis. There are no focal lesions noted within the kidneys. No perinephric or retroperitoneal fluid collections. The ureters are nondilated Gastrointestinal: Stomach is partly distended with fluid limiting detailed evaluation. Apparent wall thickening in the gastric fundus and body could be related to partial distention or acid peptic disease. The small bowel loops are grossly unremarkable and nonobstructed. No mesenteric mass or adenopathy is seen. Appendix: Appendix is within normal limits. Mild to moderate fecal residue is noted within the colonic loops limiting detailed evaluation. No gross colonic mass or paracolic inflammation is seen. No diverticular disease.. No free air Peritoneum/retroperiton eum: No ascites. No loculated fluid collections in the abdomen or pelvis. Iliopsoas muscles are symmetric. Lymph nodes: No enlarged or morphologically abnormal lymph nodes in the upper abdomen or retroperitoneum. Scattered small mesenteric nodes throughout the central abdomen.. Vasculature: The abdominal aorta is normal in course and caliber. Patent celiac and superior mesenteric arteries. Patent portal, splenic, and superior mesenteric veins. Atherosclerotic wall thickening and calcifications in the abdominal aorta Bladder: Urinary bladder is distended with no gross mass or calculus. Bladder wall thickness is within normal limits. Pelvic Organs: Uterus shows heterogeneous enhancement with a punctate focus of calcification in the left fundus. Prominent adnexal vascularity especially on the left side with no adnexal mass or pelvic free fluid. Small phleboliths in the pelvis with atherosclerotic vascular calcifications. No enlarged pelvic or inguinal nodes. Body Wall: Some skin thickening in the region of the umbilicus. Mild diastasis of the rectus muscles. Scarring in the pelvic ventral wall Bones: Degenerative changes in the visualized spine and the pelvic bones. Mild generalized osteopenia. No aggressive bony lesions IMPRESSION: 1. Normal appendix. No acute bowel obstruction or free air. Moderate amount of stool in the colon. 2. Heterogeneous uterus with a punctate focus of calcification in the left fundus. Slight prominence of adnexal vascularity especially on the left side with no clear adnexal mass lesions. 3. Hepatic steatosis with some areas of fatty sparing in the liver. No suspicious focal liver lesions. 4. Ancillary findings as described above Normal [facility] CT Abdomen and Pelvis W cont rast Mary 09-11-2024 IMPRESSION: 1. Normal appendix. No acute bowel obstruction or free air. Moderate amount of stool in the colon. 2. Heterogeneous uterus with a punctate focus of calcification in the left fundus. Slight prominence of adnexal vascularity especially on the left side with no clear adnexal mass lesions. 3. Hepatic steatosis with some areas of fatty sparing in the liver. No suspicious focal liver lesions. 4. Ancillary findings as described above OLOGY EXAM: CT ABDOMEN/PEL VIS WITH CONTRAST, 09/11/2024 09:11 AM COMPARISON: No prior studies available for comparison. CLINICAL INDICATIONS: Suprapubic and RLQ abd tenderness TECHNIQUE: CT scanning was performed of the abdomen and pelvis following the administration of intravenous contrast. PROTOCOL: Standard. CONTRAST: iohexol (OMNIPAQUE) 350 MG/ML injection 1-171 mL; Route of Administration: Intravenous; Dose: 90 mL. FINDINGS: Lung Bases: Visualized lung bases reveal atelectatic changes in the lower lobes and in the lingula lobe. No pleural or pericardial effusion. Small left posterior diaphragmatic defect with herniation of the abdominal fat into the thorax. Liver: Liver is normal in size and morphology. Mild hepatic steatosis. Faint hypodensity along the falciform ligament likely relates to focal fatty infiltration. Some areas of fatty sparing in the liver parenchyma. There are no suspicious enhancing focal liver lesions. Portal vein is patent. No intrahepatic biliary ductal dilatation. No perihepatic fluid or collection is seen Gallbladder: Gallbladder is distended with no calcified stones. No GB wall thickening or pericholecystic fluid Bile Ducts: Normal in caliber. Spleen: Spleen is normal in size and CT density. No suspicious enhancing focal splenic lesions. Small calcified granuloma along the posterior aspect of the spleen measuring 1 cm in size. Splenic vascular pedicle is patent with no perisplenic fluid or collections. Pancreas: Pancreas shows no discrete focal lesions or ductal dilatation. There is some fatty replacement in the pancreatic parenchyma. There are no peripancreatic inflammatory changes or fluid collections. Adrenals: Both adrenal glands and unremarkable Kidneys: Kidneys show symmetric enhancement with no calculus or hydronephrosis. There are no focal lesions noted within the kidneys. No perinephric or retroperitoneal fluid collections. The ureters are nondilated Gastrointestinal: Stomach is partly distended with fluid limiting detailed evaluation. Apparent wall thickening in the gastric fundus and body could be related to partial distention or acid peptic disease. The small bowel loops are grossly unremarkable and nonobstructed. No mesenteric mass or adenopathy is seen. Appendix: Appendix is within normal limits. Mild to moderate fecal residue is noted within the colonic loops limiting detailed evaluation. No gross colonic mass or paracolic inflammation is seen. No diverticular disease.. No free air Peritoneum/retroperiton eum: No ascites. No loculated fluid collections in the abdomen or pelvis. Iliopsoas muscles are symmetric. Lymph nodes: No enlarged or morphologically abnormal lymph nodes in the upper abdomen or retroperitoneum. Scattered small mesenteric nodes throughout the central abdomen.. Vasculature: The abdominal aorta is normal in course and caliber. Patent celiac and superior mesenteric arteries. Patent portal, splenic, and superior mesenteric veins. Atherosclerotic wall thickening and calcifications in the abdominal aorta Bladder: Urinary bladder is distended with no gross mass or calculus. Bladder wall thickness is within normal limits. Pelvic Organs: Uterus shows heterogeneous enhancement with a punctate focus of calcification in the left fundus. Prominent adnexal vascularity especially on the left side with no adnexal mass or pelvic free fluid. Small phleboliths in the pelvis with atherosclerotic vascular calcifications. No enlarged pelvic or inguinal nodes. Body Wall: Some skin thickening in the region of the umbilicus. Mild diastasis of the rectus muscles. Scarring in the pelvic ventral wall Bones: Degenerative changes in the visualized spine and the pelvic bones. Mild generalized osteopenia. No aggressive bony lesions RADIOLOGY Justyn Ruiz MBBS - 09/11/2024 EXAM: CT ABDOMEN/PELVIS WITH CONTRAST, 09/11/2024 09:11 AM COMPARISON: No prior studies available for comparison. CLINICAL INDICATIONS: Suprapubic and RLQ abd tenderness TECHNIQUE: CT scanning was performed of the abdomen and pelvis following the administration of intravenous contrast. PROTOCOL: Standard. CONTRAST: iohexol (OMNIPAQUE) 350 MG/ML injection 1-171 mL; Route of Administration: Intravenous; Dose: 90 mL. FINDINGS: Lung Bases: Visualized lung bases reveal atelectatic changes in the lower lobes and in the lingula lobe. No pleural or pericardial effusion. Small left posterior diaphragmatic defect with herniation of the abdominal fat into the thorax. Liver: Liver is normal in size and morphology. Mild hepatic steatosis. Faint hypodensity along the falciform ligament likely relates to focal fatty infiltration. Some areas of fatty sparing in the liver parenchyma. There are no suspicious enhancing focal liver lesions. Portal vein is patent. No intrahepatic biliary ductal dilatation. No perihepatic fluid or collection is seen Gallbladder: Gallbladder is distended with no calcified stones. No GB wall thickening or pericholecystic fluid Bile Ducts: Normal in caliber. Spleen: Spleen is normal in size and CT density. No suspicious enhancing focal splenic lesions. Small calcified granuloma along the posterior aspect of the spleen measuring 1 cm in size. Splenic vascular pedicle is patent with no perisplenic fluid or collections. Pancreas: Pancreas shows no discrete focal lesions or ductal dilatation. There is some fatty replacement in the pancreatic parenchyma. There are no peripancreatic inflammatory changes or fluid collections. Adrenals: Both adrenal glands and unremarkable Kidneys: Kidneys show symmetric enhancement with no calculus or hydronephrosis. There are no focal lesions noted within the kidneys. No perinephric or retroperitoneal fluid collections. The ureters are nondilated Gastrointestinal: Stomach is partly distended with fluid limiting detailed evaluation. Apparent wall thickening in the gastric fundus and body could be related to partial distention or acid peptic disease. The small bowel loops are grossly unremarkable and nonobstructed. No mesenteric mass or adenopathy is seen. Appendix: Appendix is within normal limits. Mild to moderate fecal residue is noted within the colonic loops limiting detailed evaluation. No gross colonic mass or paracolic inflammation is seen. No diverticular disease.. No free air Peritoneum/retroperiton eum: No ascites. No loculated fluid collections in the abdomen or pelvis. Iliopsoas muscles are symmetric. Lymph nodes: No enlarged or morphologically abnormal lymph nodes in the upper abdomen or retroperitoneum. Scattered small mesenteric nodes throughout the central abdomen.. Vasculature: The abdominal aorta is normal in course and caliber. Patent celiac and superior mesenteric arteries. Patent portal, splenic, and superior mesenteric veins. Atherosclerotic wall thickening and calcifications in the abdominal aorta Bladder: Urinary bladder is distended with no gross mass or calculus. Bladder wall thickness is within normal limits. Pelvic Organs: Uterus shows heterogeneous enhancement with a punctate focus of calcification in the left fundus. Prominent adnexal vascularity especially on the left side with no adnexal mass or pelvic free fluid. Small phleboliths in the pelvis with atherosclerotic vascular calcifications. No enlarged pelvic or inguinal nodes. Body Wall: Some skin thickening in the region of the umbilicus. Mild diastasis of the rectus muscles. Scarring in the pelvic ventral wall Bones: Degenerative changes in the visualized spine and the pelvic bones. Mild generalized osteopenia. No aggressive bony lesions IMPRESSION IMPRESSION: 1. Normal appendix. No acute bowel obstruction or free air. Moderate amount of stool in the colon. 2. Heterogeneous uterus with a punctate focus of calcification in the left fundus. Slight prominence of adnexal vascularity especially on the left side with no clear adnexal mass lesions. 3. Hepatic steatosis with some areas of fatty sparing in the liver. No suspicious focal liver lesions. 4. Ancillary findings as described above [facility] Radiology Study observation (narrative) [facility] CT Abdomen and Pelvis W cont rast IVOrdered By: Justyn Ruiz on 09-11-2024 [facility] Work Phone: EXTRA MICROon 09-11-2024 [facility] HEPATIC FUNCTION PANELon Albumin [Mass/Vol] 4.3 g/dL 3.5 - 5.0 g/dL [facility] ALP [Catalytic activity/Vol] 70 U/L 32 - 126 U/L [facility] ALT [Catalytic activity/Vol] 7 U/L Low 9 - 48 U/L [facility] AST [Catalytic activity/Vol] 16 U/L 10 - 39 U/L [facility] Bilirubin [Mass/Vol] 0.4 mg/dL NINF - 1.5 mg/dL [facility] Bilirubin.direct [Mass/Vol] 0.1 mg/dL [facility] mg/dL [facility] Interpretation and review of laboratory results Abnormal [facility] Protein [Mass/Vol] 7.5 g/dL 6.4 - 8.3 g/dL [facility] Albumin [Mass/Vol] 4.3 g/dL Normal 3.5-5.0 [facility] Comment on above: Performed By: #### H FP, MGO, CA, LIPA, C7ED #### [facility] (DEFAULT) [address] [place] [address] ALP [Catalytic activity/Vol] 70 U/L Normal 32-126 [facility] Comment on above: Performed By: #### H FP, MGO, CA, LIPA, C7ED #### [facility] (DEFAULT) [address] [place] [address] ALT [Catalytic activity/Vol] 7 U/L Low 9-48 [facility] Comment on above: Performed By: #### H FP, MGO, CA, LIPA, C7ED #### [facility] (DEFAULT) [address] [place] [address] [id number] AST [Catalytic activity/Vol] 16 U/L Normal 10-39 [facility] Comment on above: Performed By: #### H FP, MGO, CA, LIPA, C7ED #### [facility] (DEFAULT) [address] [place] [address] [phone] Bilirubin [Mass/Vol] 0.4 mg/dL Normal <1.5 [facility] Comment on above: Performed By: #### H FP, MGO, CA, LIPA, C7ED #### [facility] (DEFAULT) [address] [place] [address] [phone] Bilirubin.indirect [Mass/Vol] 0.1 mg/dL Normal <0.3 [facility] Comment on above: Performed By: #### H FP, MGO, CA, LIPA, C7ED #### [facility] (DEFAULT) [address] [place] [address] [id number] Protein [Mass/Vol] 7.5 g/dL Normal 6.4-8.3 [facility] Comment on above: Performed By: #### H FP, MGO, CA, LIPA, C7ED #### [facility] (DEFAULT) [address] [place] [address] [id number] LIPASEon 09-11-2024 Lipase [Catalytic activity/Vol] 17 U/L 11 - 82 U/L [facility] Lipase [Catalytic activity/Vol] 17 U/L Normal 11-82 [facility] Comment on above: Performed By: #### H FP, MGO, CA, LIPA, C7ED #### [facility] (DEFAULT) [address] [place] [address] [phone] MAGNESIUMon 09-11-2024 Magnesium [Mass/Vol] 2 mg/dL 1.6 - 2 .6 mg/dL [facility] Magnesium [Mass/Vol] 2.0 mg/dL Normal 1.6-2.6 [facility] Comment on above: Performed By: #### H FP, MGO, CA, LIPA, C7ED #### [facility] (DEFAULT) [address] [place] [address] No Panel Informationon 09-11 [facility] Interpretation and review of laboratory results Normal [facility] URINALYSIS REFLEX TO CULTURE PERFORMABLEOrdered By: Paige Osman on 09-11-2024 Appearance (U) Clear Clear [facility] Comment on above: Results may be inacc urate due to color interference. Clinical correlation recommended. Bacteria LM Ql (Urine sed) TRACE Abnormal ABSENT [facility] Color (U) [place] Abnormal Yellow [facility] Comment on above: Results may be inacc urate due to color interference. Clinical correlation recommended. Epithelial cells.squamous LM Ql (Urine sed) 3-5/hpf = 1+ 0-2/hpf, 3-5/hpf = 1+ [facility] Glucose Test strip (U) [Mass/Vol] Negative Negative [facility] Comment on above: Results may be inacc urate due to color interference. Clinical correlation recommended. Interpretation and review of laboratory results Abnormal [facility] Ketones (U) [Mass/Vol] Negative Negative [facility] Comment on above: Results may be inacc urate due to color interference. Clinical correlation recommended. Leukocyte esterase Test strip Ql (U) Moderate Abnormal Negative [facility] Comment on above: Results may be inacc urate due to color interference. Clinical correlation recommended. Nitrite Ql (U) Positive Abnormal Negative [facility] Comment on above: Results may be inacc urate due to color interference. Clinical correlation recommended. pH (U) 5.0 [pH] 5.0 - 7.0 [facility] Comment on above: Results may be inacc urate due to color interference. Clinical correlation recommended. Protein (U) [Mass/Vol] Negative Negative [facility] Comment on above: Results may be inacc urate due to color interference. Clinical correlation recommended. RBC (U) [#/Vol] Negative Negative [facility] Comment on above: Results may be inacc urate due to color interference. Clinical correlation recommended. RBC LM.HPF (Urine sed) [#/Area] 0-2 [facility] Specific gravity (U) [Rel density] 1.007 1.001 - 1.035 [facility] Comment on above: Results may be inacc urate due to color interference. Clinical correlation recommended. Urobilinogen (U) [Mass/Vol] 1.0 E.U./dL 0.2 E.U/dL, 1.0 E.U/dL [facility] Comment on above: Results may be inacc urate due to color interference. Clinical correlation recommended. WBC LM.HPF (Urine sed) [#/Area] 0 - 5 [facility] URINALYSIS REFLEX TO CULTURE PERFORMABLEon 09-11-2024 Appearance (U) Clear Normal Clear [facility] Comment on above: Order Comment: For i ndwelling catheters, specimen collection is acceptable on catheter day 1 and 2 only. ? Result Comment: Resu lts may be inaccurate due to color interference. Clinical correlation recommended. Performed By: #### U [id number] #### [facility] (DEFAULT) [address] [address] Bacteria TRACE Abnormal ABSENT [facility] Comment on above: Order Comment: For i ndwelling catheters, specimen collection is acceptable on catheter day 1 and 2 only. ? Performed By: #### U [id number] #### [facility] (DEFAULT) [address] [place] [address] Blood Urine Negative Normal Negative [facility] Comment on above: Order Comment: For i ndwelling catheters, specimen collection is acceptable on catheter day 1 and 2 only. ? Result Comment: Resu lts may be inaccurate due to color interference. Clinical correlation recommended. Performed By: #### U [id number] #### [facility] (DEFAULT) [address] [place] [address] Color (U) Benton Abnormal Yellow [facility] Comment on above: Order Comment: For i ndwelling catheters, specimen collection is acceptable on catheter day 1 and 2 only. ? Result Comment: Resu lts may be inaccurate due to color interference. Clinical correlation recommended. Performed By: #### U [id number] #### [facility] (DEFAULT) [address] [place] [address] Glucose Ql (U) Negative Normal Negative [facility] Comment on above: Order Comment: For i ndwelling catheters, specimen collection is acceptable on catheter day 1 and 2 only. ? Result Comment: Resu lts may be inaccurate due to color interference. Clinical correlation recommended. Performed By: #### U [id number] #### [facility] (DEFAULT) [address] [place] [address] Ketones Ql (U) Negative Normal Negative [facility] Comment on above: Order Comment: For i ndwelling catheters, specimen collection is acceptable on catheter day 1 and 2 only. ? Result Comment: Resu lts may be inaccurate due to color interference. Clinical correlation recommended. Performed By: #### U [id number] #### [facility] (DEFAULT) [address] [place] [address] Leukocyte esterase Test strip Ql (U) Moderate Abnormal Negative [facility] Comment on above: Order Comment: For i ndwelling catheters, specimen collection is acceptable on catheter day 1 and 2 only. ? Result Comment: Resu lts may be inaccurate due to color interference. Clinical correlation recommended. Performed By: #### U [id number] #### [facility] (DEFAULT) [address] [place] [address] Nitrites Urine Positive Abnormal Negative [facility] Comment on above: Order Comment: For i ndwelling catheters, specimen collection is acceptable on catheter day 1 and 2 only. ? Result Comment: Resu lts may be inaccurate due to color interference. Clinical correlation recommended. Performed By: #### U [id number] #### [facility] (DEFAULT) [address] [place] [address] pH (U) 5.0 [pH] Normal 5.0-7.0 [facility] Comment on above: Order Comment: For i ndwelling catheters, specimen collection is acceptable on catheter day 1 and 2 only. ? Result Comment: Resu lts may be inaccurate due to color interference. Clinical correlation recommended. Performed By: #### U [id number] #### [facility] (DEFAULT) [address] [address] Protein Urine Negative Normal Negative [facility] Comment on above: Order Comment: For i ndwelling catheters, specimen collection is acceptable on catheter day 1 and 2 only. ? Result Comment: Resu lts may be inaccurate due to color interference. Clinical correlation recommended. Performed By: #### U [id number] #### [facility] (DEFAULT) [address] [address] RBC Urine 0-2 Normal 0-2 [facility] Comment on above: Order Comment: For i ndwelling catheters, specimen collection is acceptable on catheter day 1 and 2 only. ? Performed By: #### U [id number] #### [facility] (DEFAULT) [address] [address] Specific [place] Urine 1.007 Normal 1.001-1.035 O [facility] Comment on above: Order Comment: For i ndwelling catheters, specimen collection is acceptable on catheter day 1 and 2 only. ? Result Comment: Resu lts may be inaccurate due to color interference. Clinical correlation recommended. Performed By: #### U [id number] #### [facility] (DEFAULT) [address] [address] Squamous/Epithelial Cells, Urine 3-5/hpf = 1+ Normal 0-2/hpf, 3-5/hpf = 1+ [facility] Comment on above: Order Comment: For i ndwelling catheters, specimen collection is acceptable on catheter day 1 and 2 only. ? Performed By: #### U [id number] #### [facility] (DEFAULT) [address] [address] Urobilinogen Urine 1.0 E.U./dL Normal 0.2 E.U/d L, 1.0 E.U/dL [facility] Comment on above: Order Comment: For i ndwelling catheters, specimen collection is acceptable on catheter day 1 and 2 only. ? Result Comment: Resu lts may be inaccurate due to color interference. Clinical correlation recommended. Performed By: #### U [id number] #### [facility] (DEFAULT) [address] [place] [address] WBC Urine 0 - 5 Normal 0 - 5 [facility] Comment on above: Order Comment: For i ndwelling catheters, specimen collection is acceptable on catheter day 1 and 2 only. ? Performed By: #### U [id number] #### [facility] (DEFAULT) [address] [place] [address] 12 Lead EKG performed by [facility] on 08-21-2024 12 Lead EKG performed by [place] [id number] Lead EKG performed by [facility] 08/21/2447 MR#: [id number] Acct: [id number] Name: BONNIE BROWNLEE Rep #: [id number] : 1960 63 From: Reggie Ramirez MD Attending Dr: Dr. Reggie Ramirez MD Status: DEP A MB Ordering Dr: Reggie Ramirez MD Date: 08/21/24 Location: [facility] Sex: F C Admitted: [facility]/12 Lead EKG performed by [facility] ECG Report Interpretation ---Sinus Bradycardia Low voltage in precordial leads. ABNORMAL Electronically signed on 08/28/2024 at 08:15 by Reggie Ramirez [employer] Version [id number] 08/28/24 0821 Date Reggie Ramirez MD CC: Dr. Madalyn Vaughan, Date Dictated: 08/21/2447 Date Transcribed: 08/21/24946 Ship Officer: [place] Signed Normal [facility] Cardiology Visit Reporton 05 -06-2025 Cardiology Visit Report [facility] [address] [place] [address] OFFICE VISIT Date of Service: 08/21/24 MR#: [id number] Acct: [id number] Name: BONNIE BROWNLEE Rep #: [id number] : 1960 Provider: Dr. Reggie Ramirez MD Age/Sex: 63/F Location: [facility] Status: Signed HPI HPI History of Present Illness Details: Bonnie Brownlee is a 63-year-old female that presents here today for a cardiovascular follow-up. She has a history of coronary artery disease with angioplasty to her diagonal in 2014 and stenting to her LAD in 2014. In 2018 she presented back to hospital with chest discomfort. She was noted to have in-stent restenosis of the LAD and had a drug-eluting stent placed. She presented back to the hospital on May 24, 2021 with chest discomfort. She underwent an urgent heart catheterization which demonstrated Left anterior descending artery with proximal 90% stenosis prior to the stent with a stent having mild in-stent stenosis and a distal 70% stenosis noted. She had stenting of this vessel. Left circumflex artery with a second small obtuse marginal branch with a 90% long stenosis. Dominant right coronary artery with proximal mild disease and distal 50% stenosis. She also has a history of hypertension and hyperlipidemia. Stress test in 03/2022 was negative for ischemia. She did undergo a diagnostic heart catheterization in March 2023. This demonstrated diffuse coronary disease with previously stented LAD is noted to be patent with mild to moderate in- stent stenosis. Disease of the diagonal vessels, obtuse marginal vessel and mid RCA noted. The 1st and 2nd diagonal vessels had an ostial 90% in the distal LAD had a 60 to 70% stenosis. The codominant right coronary artery had a moderate mid segment stenosis of approximately 60% for which she underwent an IFR which demonstrated 0.92 which was not significant and medical therapy was continued. She tells me that she has been under some stress recently with a garage sale and she did develop some chest discomfort with activity midsternal and she took a nitroglycerin with some relief. She has also had some palpitations and some shortness of breath with activity. Her physical exam today is unremarkable her EKG demonstrates sinus bradycardia with a rate of 59 bpm and no acute changes. Intake Vital Signs 03/21/23 10:00 05/28/24 15:50 08/21/24 09:28 Height 5 ft 5 in 5 ft 5 in 5 ft 5 in Weight: 189 lb BMI 31.4 BP 108/69 Blood Pressure Location Lt brachial Position Sitting Respiration 16 Pulse 60 Pulse Source Monitor Intake Visit Reasons: 18 M FU Design Director Required: No Accompanied by: Self Is patient in pain?: No Allergies atorvastatin Adverse Reaction (Severe, Verified 08/21/24 09:42) myalgias rosuvastatin Adverse Reaction (Severe, Verified 08/21/24 09:42) myalgias simvastatin Adverse Reaction (Severe, Verified 08/21/24 09:42) myalgias evolocumab (From Repatha Pushtronex) Adverse Reaction (Intermediate, Verified 08/21/24 09:42) mylagias Medications ???Medication ???Instructions ???Recorded ???Confirmed ???Type pen needle, diabetic 32 gauge x 05/24/21 03/21/23 History " (BD Ultra-Fine Yu Pen Needle) flash glucose scanning reader #1 ea 12/06/22 03/21/23 Rx (FreeStyle Jaime 2 [place]) blood-glucose meter (Solarus #1 ea 03/21/23 03/21/23 Rx Verio Flex Meter) amlodipine 10 mg tablet 10 mg PO QDAY 10/27/23 08/21/24 Hi story flash glucose sensor (FreeStyle #6 ea 10/27/23 10/27/23 Rx Jaime 2 Sensor kit) clopidogrel 75 mg tablet 75 mg PO DAILY #90 tabs 12/22/23 0 08/21/24 Rx fenofibrate nanocrystallized 145 145 mg PO DAILY #90 tabs 12/22/23 08/21/24 Rx mg tablet insulin glargine 100 unit/mL (3 32 unit (0.32 mL) subcut DAILY 08/21/24 Rx mL) subcutaneous pen (Lantus #28.8 mL Solostar U-100 Insulin) nitroglycerin 0.4 mg sublingual 0.4 mg sublingual Q5-15M PRN chest 03/19/24 08/21/24 Rx tablet pain #25 tabs blood-glucose sensor (FreeStyle #2 ea 05/28/24 05/28/24 Rx Jaime 3 Plus Sensor device) insulin lispro 100 unit/mL 12 unit (0.12 mL) subcut TID #45 m L 07/09/24 08/21/24 Rx subcutaneous pen (Humalog KwikPen (U-100) Insulin) metoprolol succinate 50 mg 50 mg PO .Daily #90 tabs 08/20/24 08/21/24 Rx tablet,extended release 24 hr (Toprol XL) alirocumab 75 mg/mL subcutaneous 75 mg subcut Q14D #2 mL 08/21/24 0 08/21/24 Rx pen injector (Praluent Pen) potassium chloride 10 mEq 20 meq PO QDAY 08/21/24 08/21/24 H istory capsule,extended release Have you fallen in the past year?: No [facility] Medical History Abnormal stress test Noncompliance with diabetes treatment Obesity Diabetes Hypertriglyceridemia History of non-S (more content not included)... Normal [facility] Albumin DL <= 20 mg/L (U) [M ass/Vol]Ordered By: Shonna Mcfarland on 06-14-2024 Urine Random Microalbumin < 12.0 mg/L NO RANGE EST. [facility] BUN/creatinine ratioOrdered By: Shonna Mcfarland on 06-14-2024 Urea nitrogen/Creatinine [Mass ratio] 16.4 mg/mg 10-20 [facility] Bilirubin, totalOrdered By: Shonna Mcfarland on 06-14-2024 Bilirubin [Mass/Vol] 0.45 mg/dL 0.00-1.30 [facility] Calculated very low density lipoprotein (VLDL) cholesterol measurementOrdered By: Shonna Mcfarland on 06-14-2024 VLDL Cholesterol 29 mg/dL 5-40 [facility] Carbon dioxide measurementOr dered By: Shonna Mcfarland on 06-14-2024 CO2 [Moles/Vol] 27.7 mmol/L 22.0-29.0 [facility] Chloride measurementOrdered By: Shonna Mcfarland on 06-14-2024 Chloride [Moles/Vol] 103 mmol/L 96-108 [facility] Comprehensive Metabolic Prof ilon 06-14-2024 Albumin [Mass/Vol] 4.3 g/dL Normal 3.4-4.8 [facility] Comment on above: Performed By: #### L 506.1001, L501.9520, L500.4100, L502.0250, L500.4050, L501.9985 #### [facility] [address] [place], [address] Albumin/Globulin [Mass ratio] 1.5 {ratio} Normal 0.9-2.4 [facility] Comment on above: Performed By: #### L 506.1001, L501.9520, L500.4100, L502.0250, L500.4050, L501.9985 #### [facility] [address] [place], [address] ALK PHOS 67 U/L Normal 35-104 [facility] Comment on above: Performed By: #### L 506.1001, L501.9520, L500.4100, L502.0250, L500.4050, L501.9985 #### [facility] [address] [place], [address] ALT [Catalytic activity/Vol] 9 U/L Normal <=34 [facility] Comment on above: Performed By: #### L 506.1001, L501.9520, L500.4100, L502.0250, L500.4050, L501.9985 #### [facility] [address] [place], [address] Anion gap [Moles/Vol] 9 mmol/L Normal 5-15 [facility] Comment on above: Performed By: #### L 506.1001, L501.9520, L500.4100, L502.0250, L500.4050, L501.9985 #### [facility] [address] [place], [address] AST [Catalytic activity/Vol] 21 U/L Normal <=31 [facility] Comment on above: Performed By: #### L 506.1001, L501.9520, L500.4100, L502.0250, L500.4050, L501.9985 #### [facility] [address] [place], [address] Bilirubin [Mass/Vol] 0.45 mg/dL Normal 0.00-1.30 [facility] Comment on above: Performed By: #### L 506.1001, L501.9520, L500.4100, L502.0250, L500.4050, L501.9985 #### [facility] [address] [place], [address] BUN/CRE 16.4 RATIO Normal 10-20 [facility] Comment on above: Performed By: #### L 506.1001, L501.9520, L500.4100, L502.0250, L500.4050, L501.9985 #### [facility] [address] [place], [address] Calcium [Mass/Vol] 9.6 mg/dL Normal 7.6-11.0 [facility] Comment on above: Performed By: #### L 506.1001, L501.9520, L500.4100, L502.0250, L500.4050, L501.9985 #### [facility] [address] [place], [address] Chloride [Moles/Vol] 103 mmol/L Normal 96-108 [facility] Comment on above: Performed By: #### L 506.1001, L501.9520, L500.4100, L502.0250, L500.4050, L501.9985 #### [facility] [address] [place], [address] CO2 [Moles/Vol] 27.7 mmol/L Normal 22.0-29.0 [facility] Comment on above: Performed By: #### L 506.1001, L501.9520, L500.4100, L502.0250, L500.4050, L501.9985 #### [facility] [address] [place], [address] Creatinine [Mass/Vol] 0.8 mg/dL Normal 0.6-1.0 [facility] Comment on above: Performed By: #### L 506.1001, L501.9520, L500.4100, L502.0250, L500.4050, L501.9985 #### [facility] [address] [place], [address] GFR/1.73 sq M.predicted among non-blacks MDRD (S/P/Bld) [Vol rate/Area] 88 mL/min/{1.73_m2} Normal >60 [facility] Comment on above: Result Comment: mL/m in/1.73m2 CKD-EPI Creatinine Equation (2020) Performed By: #### L 506.1001, L501.9520, L500.4100, L502.0250, L500.4050, L501.9985 #### [facility] [address] [place], [address] Globulin (S) [Mass/Vol] 2.9 g/dL Normal 2.2-4.2 [facility] Comment on above: Performed By: #### L 506.1001, L501.9520, L500.4100, L502.0250, L500.4050, L501.9985 #### [facility] [address] [place], [address] Glucose [Mass/Vol] 129 mg/dL High 70-99 [facility] Comment on above: Performed By: #### L 506.1001, L501.9520, L500.4100, L502.0250, L500.4050, L501.9985 #### [facility] [address] [place], [address] Potassium [Moles/Vol] 4.4 mmol/L Normal 3.3-5.1 [facility] Comment on above: Performed By: #### L 506.1001, L501.9520, L500.4100, L502.0250, L500.4050, L501.9985 #### [facility] [address] [place], [address] Sodium [Moles/Vol] 139 mmol/L Normal 133-145 [facility] Comment on above: Performed By: #### L 506.1001, L501.9520, L500.4100, L502.0250, L500.4050, L501.9985 #### [facility] [address] [place], [address] T PROT 7.2 g/dL Normal 5.9-8.4 [facility] Comment on above: Performed By: #### L 506.1001, L501.9520, L500.4100, L502.0250, L500.4050, L501.9985 #### [facility] [address] [place], [address] Urea nitrogen [Mass/Vol] 13 mg/dL Normal 4-19 [facility] Comment on above: Performed By: #### L 506.1001, L501.9520, L500.4100, L502.0250, L500.4050, L501.9985 #### [facility] [address] [place], [address] Creatinine Unsp time (U) [Ma ss/Vol]Ordered By: Shonna Mcfarland on 06-14-2024 Creatinine (U) [Mass/Vol] 189.00 mg/dL NO RANGE EST. [facility] GFR/1.73 sq M.predicted shantel g non-blacks MDRD (S/P/Bld) [Vol rate/Area]Ordered By: Shonna Mcfarland on 06-14-2024 Estimated GFR (MDRD) Non-Af Amer 88 >60 [facility] Comment on above: mL/min/1.73m2 CKD-EP I Creatinine Equation (2020) Hemoglobin A1con 06-14-2024 HbA1c (Bld) [Mass fraction] 6.7 % Normal <=5.6 [facility] Comment on above: Performed By: #### L 506.1001, L501.9520, L500.4100, L502.0250, L500.4050, L501.9985 #### [facility] [address] [place], [address] Hemoglobin A1c percentageOrd ered By: Shonna Mcfarland on 06-14-2024 HbA1c (Bld) [Mass fraction] 6.7 % >5.7 [facility] L506.1001on 06-14-2024 Vitamin D 25-OH 26.7 ng/mL Low 30-100 [facility] Comment on above: Result Comment: Katherine min D Status Deficiency: <20 ng/mL (50nmol/L) Insufficiency: 20-30 ng/mL (50-75 nmol/L) Sufficiency: 30-100 ng/mL (75-250 nmol/L) Toxicity: >100 ng/mL (>250 nmol/L) Performed By: #### L 506.1001, L501.9520, L500.4100, L502.0250, L500.4050, L501.9985 #### [facility] [address] [place], [address] LDL calc ser/plasOrdered By: Shonna Mcfarland on 06-14-2024 LDL Cholesterol, Calculated 159 mg/dL [facility] Comment on above: Hoidvmjykz=817-632 m g/dL & Higher Rffn=531 mg/dL or greater Laboratory - Chemistry and C hemistry - challengeOrdered By: Shonna Mcfarland on 06-14-2024 AST [Catalytic activity/Vol] 21 U/L <32 [facility] Lipid Profileon 06-14-2024 CHOL:HDL 4.15 Normal [facility] Comment on above: Performed By: #### L 506.1001, L501.9520, L500.4100, L502.0250, L500.4050, L501.9985 #### [facility] [address] [place], [address] Cholesterol [Mass/Vol] 248 mg/dL High <=200 [facility] Comment on above: Result Comment: Chol esterol level, Desirable <200 mg/dL Borderline high cholesterol 200-239 mg/dL High cholesterol >=240 mg/dL Recommendations of the NCEP Adult Treatment Panel for the following risk-cutoff thresholds for the [place] population. Performed By: #### L 506.1001, L501.9520, L500.4100, L502.0250, L500.4050, L501.9985 #### [facility] [address] [place], [address] Cholesterol in HDL [Mass/Vol] 60 mg/dL Normal [facility] Comment on above: Result Comment: Jeny onal Cholesterol Education Program (NCEP) guidelines: <40 mg/dL: Low HDL-cholesterol (major risk factor for CHD) >= 60 mg/dL: High HDL-cholesterol (negative risk factor for CHD) HDL-cholesterol is affected by a number of factors, e.g. smoking, exercise, hormones, sex and age. Performed By: #### L 506.1001, L501.9520, L500.4100, L502.0250, L500.4050, L501.9985 #### [facility] [address] [place], [address] Cholesterol in LDL [Mass/Vol] 159 mg/dL Normal [facility] Comment on above: Result Comment: Bord flndnd=578-012 mg/dL Higher Hlsx=755 mg/dL or greater Performed By: #### L 506.1001, L501.9520, L500.4100, L502.0250, L500.4050, L501.9985 #### [facility] [address] [place], [address] Cholesterol in VLDL [Mass/Vol] 29 mg/dL Normal 5-40 [facility] Comment on above: Performed By: #### L 506.1001, L501.9520, L500.4100, L502.0250, L500.4050, L501.9985 #### [facility] [address] [place], [address] Triglyceride [Mass/Vol] 145 mg/dL Normal [facility] Comment on above: Result Comment: The drugs N-Acetylcysteine and Metamizole may falsely depress this assay. Normal range: <150 mg/dL Borderline High: 150-199 mg/dL High: 200-499 mg/dL Very High: >500 mg/dL Performed By: #### L 506.1001, L501.9520, L500.4100, L502.0250, L500.4050, L501.9985 #### [facility] [address] [place], [place], [id number] Microalb:Creat Ratio,Random URon 06-14-2024 MALB:CREAT Normal [facility] Comment on above: Result Comment: UNAB LE TO CALCULATE Performed By: #### L 506.1001, L501.9520, L500.4100, L502.0250, L500.4050, L501.9985 #### [facility] [address] [place], [place], [id number] Microalbumin/creat ratio urO rdered By: Shonna Mcfarland on 06-14-2024 Urine Microalbumin/Creatinin e Ratio See comment [facility] Comment on above: UNABLE TO CALCULATE Screening total cholesterol/ high density lipoprotein (HDL) cholesterol ratioOrdered By: Shonna Mcfarland on 06-14-2024 Cholesterol.total/Chol esterol in HDL [Mass ratio] 4.15 {ratio} [facility] Serum creatinine measurement (mass/volume)Ordered By: Shonna Mcfarland on 06-14-2024 Creatinine [Mass/Vol] 0.8 mg/dL 0.70-1.20 [facility] Serum globulin measurementOr dered By: Shonna Mcfarland on 06-14-2024 Globulin (S) [Mass/Vol] 2.9 g/dL 2.2-4.2 [facility] Serum glucose measurement (m ass/volume)Ordered By: Shonna Mcfarland on 06-14-2024 Glucose [Mass/Vol] 129 mg/dL High 70-99 [facility] Serum or plasma alanine sanchez otransferase (ALT) measurementOrdered By: Shonna Mcfarland on 06-14-2024 ALT [Catalytic activity/Vol] 9 U/L <35 [facility] Serum or plasma albumin nanette urement (mass/volume)Ordered By: Shonna Mcfarland on 06-14-2024 Albumin [Mass/Vol] 4.3 g/dL 3.4-4.8 [facility] Serum or plasma albumin/glob ulin mass ratioOrdered By: Shonna Mcfarland on 06-14-2024 Albumin/Globulin [Mass ratio] 1.5 {ratio} 0.9-2.4 [facility] Serum or plasma alkaline dennis sphatase measurementOrdered By: Shonna Mcfarland on 06-14-2024 ALP [Catalytic activity/Vol] 67 U/L 35-104 [facility] Serum or plasma anion gap de termination (moles/volume)Ordered By: Shonna Mcfarland on 06-14-2024 Anion gap [Moles/Vol] 9 mmol/L 5-15 [facility] Serum or plasma calcium nanette urement (mass/volume)Ordered By: Shonna Mcfarland on 06-14-2024 Calcium [Mass/Vol] 9.6 mg/dL 7.6-11.0 [facility] Serum or plasma cholesterol in HDL measurement (mass/volume)Ordered By: Shonna Mcfarland on 06-14-2024 Cholesterol in HDL [Mass/Vol] 60 mg/dL >40 [facility] Comment on above: National Cholesterol Education Program (NCEP) guidelines:<40 mg/dL: Low HDL-cholesterol (major risk factor for CHD)>= 60 mg/dL: High HDL-cholesterol (negative risk factor for CHD)HDL-cholesterol is affected by a number of factors, e.g. smoking, exercise, hormones, sex and age. Serum or plasma cholesterol measurement (mass/volume)Ordered By: Shonna Mcfarland on 06-14-2024 Cholesterol [Mass/Vol] 248 mg/dL High <201 [facility] Comment on above: Cholesterol level, D esirable <200 mg/dLBorderline high cholesterol 200-239 mg/dLHigh cholesterol >=240 mg/dLRecommendations of the NCEP Adult Treatment Panel for the following risk-cutoff thresholds for the [place] population. Serum or plasma potassium me asurementOrdered By: Shonna Mcfarland on 06-14-2024 Potassium [Moles/Vol] 4.4 mmol/L 3.3-5.1 [facility] Serum or plasma sodium measu rement (moles/volume)Ordered By: Shonna Mcfarland on 06-14-2024 Sodium [Moles/Vol] 139 mmol/L 133-145 [facility] Serum or plasma urea nitroge n measurement (mass/volume)Ordered By: Shonna Mcfarland on 06-14-2024 Urea nitrogen [Mass/Vol] 13 mg/dL 4-19 [facility] TSH DL <= 0.005 mIU/L QnOrde red By: Shonna Mcfarland on 06-14-2024 Thyroid Stimulating Hormone (TSH) 1.920 uIU/mL 0.300-4.200 [facility] Thyroid Stim Hormone (TSH)on 06-14-2024 TSH 1.920 uIU/mL Normal 0.300-4.200 [facility] Comment on above: Performed By: #### L 506.1001, L501.9520, L500.4100, L502.0250, L500.4050, L501.9985 #### [facility] [address] [place] [address]. [place], [place], [id number] Total proteinOrdered By: Arianna Mcfarland on 06-14-2024 Protein [Mass/Vol] 7.2 g/dL 5.9-8.4 [facility] Triglycerides measurementOrd ered By: Shonna Mcfarland on 06-14-2024 Triglyceride [Mass/Vol] 145 mg/dL <199 [facility] Comment on above: The drugs N-Acetylcy steine and Metamizole may falsely depress this assay. Normal range: <150 mg/dLBorderline High: 150-199 mg/dLHigh: 200-499 mg/dLVery High: >500 mg/dL Vitamin D, 25-hydroxyOrdered By: Shonna Mcfarland on 06-14-2024 Vitamin D 25-Hydroxy 26.7 ng/mL Low 30-100 [facility] Comment on above: Vitamin D StatusDefi ciency: <20 ng/mL (50nmol/L)Insufficiency: 20-30 ng/mL (50-75 nmol/L)Sufficiency: 30-100 ng/mL (75-250 nmol/L)Toxicity: >100 ng/mL (>250 nmol/L) Endocrinology Visit Reporton 05-28-2024 Endocrinology Visit Report [facility] [address] [place] [address] OFFICE VISIT Date of Service: 05/28/24 MR#: [id number] Acct: [id number] Name: BONNIE BROWNLEE Rep #: [id number] : 1960 Provider: JOE urias Age/Sex: 63/F Location[place] [facility] Status: Signed Intake Vital Signs 10/27/23 10:39 05/28/24 15:50 Height 5 ft 5 in 5 ft 5 in Weight: 180 lb 187 lb BMI 29.9 31.1 BP 106/71 119/74 Blood Pressure Location Lt brachial Rt brachial Position Sitting Sitting Pulse 69 61 Pulse Source Monitor Monitor Pulse Oximetry (%) 97 97 Oxygen Delivery Method room air room air Intake Visit Reasons: 7 M , RS 05/02 Chief Complaint: f/u diabetes Is patient in pain?: No Allergies atorvastatin Adverse Reaction (Severe, Verified 05/28/24 15:55) myalgias rosuvastatin Adverse Reaction (Severe, Verified 05/28/24 15:55) myalgias simvastatin Adverse Reaction (Severe, Verified 05/28/24 15:55) myalgias evolocumab (From Repatha Pushtronex) Adverse Reaction (Intermediate, Verified 05/28/24 15:55) mylagias Medications ???Medication ???Instructions ???Recorded ???Confirmed ???Type pen needle, diabetic 32 gauge x 05/24/21 03/21/23 History " (BD Ultra-Fine Yu Pen Needle) flash glucose scanning reader #1 ea 12/06/22 03/21/23 Rx (FreeStyle Jaime 2 [place]) blood-glucose meter (OneTouch #1 ea 03/21/23 03/21/23 Rx Verio Flex Meter) metoprolol succinate 50 mg 50 mg PO .Daily #90 tabs 04/04/23 05/28/24 Rx tablet,extended release 24 hr (Toprol XL) amlodipine 10 mg tablet 10 mg PO QDAY 10/27/23 05/28/24 Hi story flash glucose sensor (FreeStyle #6 ea 10/27/23 10/27/23 Rx Jaime 2 Sensor kit) clopidogrel 75 mg tablet 75 mg PO DAILY #90 tabs 12/22/23 0 05/28/24 Rx fenofibrate nanocrystallized 145 145 mg PO DAILY #90 tabs 12/22/23 05/28/24 Rx mg tablet insulin aspart U-100 100 unit/mL 12 unit (0.12 mL) subcut TID #32.4 12/29/23 05/28/24 Rx (3 mL) subcutaneous pen (Novolog mL FlexPen U-100 Insulin aspart) insulin glargine 100 unit/mL (3 32 unit (0.32 mL) subcut DAILY 05/28/24 Rx mL) subcutaneous pen (Lantus #28.8 mL Solostar U-100 Insulin) nitroglycerin 0.4 mg sublingual 0.4 mg sublingual Q5-15M PRN chest 03/19/24 05/28/24 Rx tablet pain #25 tabs blood-glucose sensor (FreeStyle #2 ea 05/28/24 05/28/24 Rx Jaime 3 Plus Sensor device) potassium chloride 10 mEq 20 meq PO BID 05/28/24 05/28/24 Hi story capsule,extended release [facility] History Abnormal stress test Noncompliance with diabetes treatment Obesity Diabetes Hypertriglyceridemia History of non-ST elevation myocardial infarction (NSTEMI) (02/23/19) Type 2 diabetes mellitus Atherosclerosis of coronary artery of [place] heart without angina pectoris Essential (primary) hypertension Hyperlipidemia Surgical History History of left heart catheterization (02/21/20) History of coronary artery stent placement (05/25/21) Family History Father CVA (cerebral vascular accident) Social History Smoking Status: Never smoker alcohol intake: never substance use type: does not use caffeine: Yes (Occasionally) Type: coffee HPI HPI Chief Complaint: f/u diabetes Details: BONNIE BROWNLEE, is a 63 F who presents to the office today for evaluation and management of diabetes. A1C today is 6.9%, consistent with 10/27/23. She has gained 7 lbs since that time. Unfortunately she did not have insurance for some time; however, she states it caused her to be more mindful of her diet and consuming processed carbohydrates. Currently taking Lantus 20 u once daily and Novolog 10 u 1-2x/day depending on carb servings. She recently decreased Lantus d/t recurrent lows during sleeping hours. She denies any significant episodes of hypoglycemia that has required assistance from others. Hx of uncontrolled cholesterol. She is unable to tolerate statins and Repatha. She was on Praluent 75 mg q2 weeks; however, she discontinued use as she states "I couldn't get the pen to work." After further discussing, "my cholesterol isn't the problem, it's my triglycerides." Currently taking fenofibrate 145 mg once daily. BP controlled. Currently taking amlodipine 10 mg once daily. She is overdue for labs. Denies any acute concerns. ROS Const Constitutional: Positive for weight change; No fatigue ENT ENT: No dizziness/vertigo Cardio Cardiology: No chest pain at rest, chest pain with exertion, shortness of breath or palpitations Skin Skin: No wounds En (more content not included)... Normal [facility] - Hematology and Cell countsOrdered By: Shonna Mcfarland on 05-28-2024 HbA1c (Bld) [Mass fraction] 6.9 % High 4.2-6.3 [facility] Culture, urineOrdered By: Monique Vaughan on 08-03-2023 Bacteria identified Cx Nom (U) Presumptive Lactobacillus sp. [facility] Bacteria identified Cx Nom (U) Negative [facility] Absolute lymphocyte countOrd ered By: Isadora Emanuel on 03-30-2023 Lymphocytes Auto (Unsp spec) [#/Vol] 1.51 10*3/uL 0.83-4.51 [facility] Basophil percentageOrdered B y: Isadora Emanuel on 03-30-2023 Basophils/100 WBC (Bld) 0.4 % 0-1 [facility] Chloride [Moles/Vol] 105 mmol/L 98-107 [facility] Eosinophils/100 WBC (Bld) 1.0 % 0-5 [facility] Glucose [Mass/Vol] 144 mg/dL 74-106 [facility] Comment on above: Fasting Glucose resu lt greater than or equal to 126 mg/dL suggests DIABETES MELLITUS per A.D.A. criteria. Neutrophils (Bld) [#/Vol] 2.8 10*3/uL 2.0-7.7 [facility] Neutrophils/100 WBC (Bld) 57.0 % 47-70 [facility] Potassium [Moles/Vol] 4.0 mmol/L 3.5-5.1 [facility] Sodium [Moles/Vol] 138 mmol/L 136-145 [facility] WBC (Bld) [#/Vol] 4.9 10*3/uL 4.4-11.0 [facility] Blood erythrocytes count (nu mber/volume)Ordered By: Isadora Emanuel on 03-30-2023 RBC (Bld) [#/Vol] 4.77 10*6/uL 4.2-5.4 [facility] Blood hemoglobin measurement (mass/volume)Ordered By: Isadora Emanuel on 03-30-2023 Hemoglobin (Bld) [Mass/Vol] 12.7 g/dL 12.0-15.0 [facility] Blood lymphocytes/100 leukoc ytesOrdered By: Isadora Emanuel on 03-30-2023 Lymphocytes/100 WBC (Bld) 30.6 % 19-41 [facility] Blood monocytes/100 leukocyt esOrdered By: Isadora Emanuel on 03-30-2023 Monocytes/100 WBC (Bld) 10.8 % 0-10 [facility] Blood platelet mean volumeOr dered By: Isadora Emanuel on 03-30-2023 Platelet mean volume (Bld) [Entitic vol] 10.5 fL 6.2-12.0 [facility] Determination of erythrocyte mean corpuscular volume (MCV)Ordered By: Isadora Emanuel on 03-30-2023 MCV (RBC) [Entitic vol] 83.9 fL 81-99 [facility] Hematocrit Auto (Bld) [Volum e fraction]Ordered By: Isadora Emanuel on 03-30-2023 Hematocrit (Bld) [Volume fraction] 40.0 % 37-47 [facility] INR in Blood by Coagulation assayOrdered By: Isadora Emanuel on 03-30-2023 INR Coag (Bld) [Relative time] 1.0 {INR} [facility] - Chemistry and C hemistry - challengeOrdered By: Isadora Emanuel on 03-30-2023 CO2 [Moles/Vol] 29.0 mmol/L 21.0-32.0 [facility] Urea nitrogen/Creatinine [Mass ratio] 17.8 mg/mg 10-20 [facility] - CoagulationOrde red By: Isadora Emanuel on 03-30-2023 aPTT Coag (Bld) [Time] 28.0 s 24.1-36.2 [facility] PT Coag (PPP) [Time] 13.1 s 11.7-14.9 [facility] - Hematology and Cell countsOrdered By: Isadora Emanuel on 03-30-2023 Erythrocyte distribution width (RBC) [Entitic vol] 38.3 fL 35.1-43.9 [facility] Erythrocyte distribution width (RBC) [Ratio] 12.6 % 11.6-14.6 [facility] Immature granulocytes/100 WBC (Bld) 0.200 % 0.0-0.9 [facility] Comment on above: IG% - Immature Granu locytes (promyelocytes, myelocytes and metamyelocytes) > 1% indicates that a LEFT SHIFT is Present. MCH (RBC) [Entitic mass] 26.6 pg 27.0-32.0 [facility] Nucleated RBC/100 WBC (Bld) [Ratio] 0 % 0-5 [facility] MCHC Auto (RBC) [Mass/Vol]Or dered By: Isadora Emanuel on 03-30-2023 MCHC (RBC) [Mass/Vol] 31.8 g/dL 32-36 [facility] No Panel InformationOrdered By: Isadora Emanuel on 03-30-2023 Estimated GFR (MDRD) Amer 104 mL/min >60 [facility] Comment on above: GFR Calc Estimated GFR (MDRD) Non-Af Amer 86 mL/min >60 [facility] Comment on above: Non- GFR Calc Platelets bldOrdered By: Jay Emanuel on 03-30-2023 Platelets (Bld) [#/Vol] 233 10*3/uL 150-450 [facility] Serum or plasma calcium nanette urement (mass/volume)Ordered By: Isadora Emanuel on 03-30-2023 Calcium [Mass/Vol] 9.3 mg/dL 8.5-10.1 [facility] Serum or plasma creatinine m easurement (mass/volume)Ordered By: Isadora Emanuel on 03-30-2023 Creatinine [Mass/Vol] 0.73 mg/dL 0.55-1.02 [facility] Comment on above: The validity of the calculated GFR & GFRAA in patients over 70 years has not been determined. Clinical correlation is essential. Serum or plasma urea nitroge n measurement (mass/volume)Ordered By: Isadora Emanuel on 03-30-2023 Urea nitrogen [Mass/Vol] 13 mg/dL 7-18 [facility] Thin prep Papanicolaou smear with manual screeningOrdered By: Isadora Emanuel on 03-30-2023 Thin prep Papanicolaou smear with manual screening 4 5-15 [facility] Basophil percentageOrdered B y: Shonna Mcfarland on 03-21-2023 Cholesterol [Mass/Vol] 321 mg/dL <200 [facility] Comment on above: <200 mg/dL Desirable 200-240 mg/dL Borderline >240 mg/dL High Risk Triglyceride [Mass/Vol] 287 mg/dL <199 [facility] Comment on above: The drugs N-Acetylcy steine and Metamizole may falsely depress this assay.Serum Triglycerides Reference Interval Normal <150 mg/dL Borderline high 150 - 199 mg/dL High 200 - 499 mg/dL Very High > or = 500 mg/dL Laboratory - Hematology and Cell countson 12-04-2023 HbA1c (Bld) [Mass fraction] 6.5 % 4.2-6.3 [facility] Serum or plasma cholesterol in HDL measurement (mass/volume)Ordered By: Shonna Mcfarland on 03-21-2023 Cholesterol in HDL [Mass/Vol] 48 mg/dL >40 [facility] Comment on above: The drugs N-Acetylcy steine and Metamizole may falsely depress this assay. Reference Range HDL <40 mg/dL Low HDL Cholesterol HDL >or= 60 mg/dL High HDL Cholesterol Serum or plasma cholesterol in VLDL measurement (mass/volume)Ordered By: Shonna Mcfarland on 03-21-2023 Cholesterol in VLDL [Mass/Vol] 57 mg/dL 5-40 [facility] Serum or plasma low density lipoprotein (LDL) cholesterol measurement (mass/volume)Ordered By: Shonna Mcfarland on 03-21-2023 Cholesterol in LDL [Mass/Vol] 216 mg/dL 0-130 [facility] CNPNon 12-06-2022 CNPN Telephone (PERVMN) BONNIE BROWNLEE ([id number]) 1960 F Date Time Provider Department 12/06/22 FAIZA WELSH During your visit today, we recorded the following information about you: Vanita Eaton 12/06/2022 10:12 AM Signed Patient called asking what the results of the lab work the was perfomed in September were, She has not heard from anyone. You can either just call her or she can have a virtual visit. Faiza Friedman MD 12/07/2022 1:44 PM Signed Spoke to the patient informed her that we spoke to her on September and was documented in my chart. Unfortunately the patient since her visit did not take the fenofibrate. I have emphasized on the importance of her hypertriglyceridemia to lower we need to have her on the fenofibrate along with the ezetimibe. She decided to try and recheck her cholesterol levels on the next visit that is scheduled on 01/10. I have informed her about the results of the LEW and carotids. Faiza Welsh MD 12/07/2022 1:44 PM Allergies As of Date: 12/06/2022 Noted Allergy Reaction ATORVASTATIN 06/29/2021 17 - Myalgia ROSUVASTATIN 06/29/2021 17 - Myalgia SIMVASTATIN 06/29/2021 17 - Myalgia EVOLOCUMAB 09/23/2022 16 - Unknown Date Reviewed: 09/27/2022 Reviewed by: Wayne Rollins RN - Fully Assessed Reason for Visit: Results [95] Visit Diagnoses:Familial hypercholesterolemia [E78.01] Coronary artery disease due to lipid rich plaque [I25.10, I25.83] Order(s):fenofibrate nanocrystallized (TRICOR) 145 mg tabletTake 1 tablet by mouth once daily.Disp: 30 tabletRfl: 2 Prescriptions as of 12/07/2022 - fenofibrate nanocrystallized (TRICOR) 145 mg tablet Take 1 tablet by mouth once daily. - insulin aspart U-100 (NOVOLOG) 100 unit/mL (3 mL) INJECT 8 UNITS SUBCUTANEOUSLY AT SUPPER, THEN 4 UNITS WITH SNACKS. - metoprolol succinate ER (TOPROL XL) 25 mg 24 hr tablet Take 25 mg by mouth once daily. - clopidogrel (PLAVIX) 75 mg tablet Take 75 mg by mouth once daily. - ezetimibe (ZETIA) 10 mg tablet Take 1 tablet by mouth once daily. Problem List As Of Date 12/06/2022 Noted Resolved Atherosclerosis of coronary artery [I25.10] 02/23/2019 Mixed hyperlipidemia [E78.2] 02/24/2019 Intermittent claudication (HCC) [I73.9] 09/27/2022 Prescriptions ordered this encounter Disp Refills Start End FENOFIBRATE NANOCRYSTALLIZED 145 MG * 30 t* 2 12/07/2022 03/07/2023 Route: ORAL Sig: Take 1 tablet by mouth once daily. Medications Discontinued During This Encounter Prescriptions - fenofibrate nanocrystallized (TRICOR) 145 mg tablet (Discontinued) Take 1 tablet by mouth once daily. Encounter Status:Closed by FAIZA WELSH on 12/07/22 Normal [facility] URINE CULTURE [CCL]on 2022 Bacteria identified Cx Nom (U) URCUL See Results Below See Below CULTURE, URINE Mixed microbiota, including predominantly: CULTURE, URINE ENTEROCOCCUS FAECALIS 50,000-<100,000 CFU/ml Enterococcus faecalis Cephalosporins, clindamycin, and TMP-SMX are not effective for the treatment of ORGANISM: ENTEROCOCCUS FAECALIS ANTIBIOTIC JAY DILUTN JAY INTERP Ampicillin <=2 Susceptible Vancomycin 1 Susceptible Nitrofurantoin <=16 Susceptible This test was developed and its performance characteristics determined by the [facility] [place] [facility] It has not been cleared or approved by the FDA. [facility] is regulated under CLIA as qualified to perform high-complexity testing. This test is used for clinical purposes. It should not be regarded as investigational or for research. SOURCE: URINE [facility] [address] [place] [address] Karri Colón III, M.D. [id number] SEND TO IC YES Normal [facility] Comment on above: Performed By: #### 2 [id number] #### [facility],[address] [place] [id number] Bacteria Ur Culton Bacteria identified Cx Nom (U) CULTURE, URINE: Mixed microbiota, including predominantly: ORGANISM ID: 1 50,000-<100,000 CFU/ml Enterococcus faecalis Cephalosporins, clindamycin, and TMP-SMX are not effective for the treatment of enterococcal infections. ORGANISM ID: 1 (ENTEROCOCCUS FAECALIS) ANTIBIOTIC INTERPRETATION JAY STATUS REFERENCE RANGE Ampicillin S <=2 F Susceptible <=8 , Resistant >8 Vancomycin S 1 F Susceptible <=4 , Intermediate >4 , Resistant >16 Nitrofurantoin S <=16 F Susceptible <=32 , Intermediate >32 , Resistant >64 Abnormal [facility] Comment on above: Performed By: #### 6 30-4 #### [facility] CLIA [id number] [address] [id number] [place] PVR LEG W/EXC [facility] 10-11-2022 PVR LEG W/EXC [facility] Non-Invasive Vascular Laboratory [facility] J35 Lower Extremity Arterial Physiology Study Bilateral/Complete Date of service/time: 10/11/2022 2:34:38 PM Name: BONNIE BROWNLEE Date of : 1960 Age: 61 years Gender: F Clinical Indication Pain in leg. TECHNIQUE -------- An arterial physiological examination was performed, including measurement of blood pressures using continuous wave Doppler and recording of plethysmographic with or without Doppler waveforms at the below-mentioned limb segments. FINDINGS -------- RIGHT SIDE AT REST Right Pressures Brachial: 129 mmHg High thigh: 196 mmHg Partially non-compressible arteries. Low thigh: 165 mmHg Calf: 149 mmHg Ankle dorsalis pedis: 142 mmHg LEW: 1.07 Ankle posterior tibial: 149 mmHg LEW: 1.12 Right PVR Waveforms High thigh: Normal. Low thigh: Normal. Calf: Normal. Ankle: Normal. Transmetatarsal: Normal. Digit: Normal. LEFT SIDE AT REST Left Pressures Brachial: 133 mmHg High thigh: 194 mmHg Partially non-compressible arteries. Low thigh: 154 mmHg Calf: 146 mmHg Ankle dorsalis pedis: 158 mmHg LEW: 1.19 Ankle posterior tibial: 155 mmHg LEW: 1.17 Left PVR Waveforms High thigh: Normal. Low thigh: Normal. Calf: Normal. Ankle: Normal. Transmetatarsal: Normal. Digit: Normal. POST EXERCISE Treadmill grade: 12.5 rate: 2.0 mph Onset of claudication: 2 min 30 sec Maximal walking time: 5 min Exercise symptoms 2 min 30 sec: weakness on both calves Reason test was terminated: end of protocol. Time to symptom recovery: 3 min 5 sec Post Exercise: Immediate Right Pressures and Waveform Ankle: 175 mmHg LEW: 1.14 Ankle waveform: Normal. Left Pressures and Waveform Brachial: 154 mmHg Ankle: 177 mmHg LEW: 1.15 Ankle waveform: Normal. IMPRESSION RIGHT SIDE Resting right ankle brachial index: 1.12 Post exercise right ankle brachial index: 1.14 Normal ankle brachial index at rest in the right leg. Right ankle: Normal at rest. No significant change in pressure and/or ankle-brachial index with exercise. LEFT SIDE Resting left ankle brachial index: 1.19 Post exercise left ankle brachial index: 1.15 Normal ankle brachial index at rest in the left leg. Left ankle: Normal at rest. No significant change in pressure and/or ankle-brachial index with exercise. Technologist: Sonal Pantoja T Ordering physician: FAIZA WELSH Interpreting physician: Jad José MD Final [facility] : [id number] oDynamicsSISUID See Link below for Image Normal [facility] US CAROTID ARTERIES [facility] 10-11-2022 US CAROTID ARTERIES [facility] Non-Invasive Vascular Laboratory [facility] J35 Carotid Duplex Bilateral/Complete Date of service/time: 10/11/2022 2:35:28 PM Name: BONNIE BROWNLEE Date of : 1960 Age: 61 years Gender: F Clinical Indication Coronary artery disease due to lipid rich plaque. TECHNIQUE -------- A carotid duplex ultrasound examination was performed, including grayscale imaging and color Doppler and spectral Doppler examination of the below mentioned arteries. FINDINGS -------- RIGHT SIDE Common carotid artery: Origin: PSV: 109 cm/s. EDV: 22 cm/s. Proximal: PSV: 112 cm/s. EDV: 23 cm/s. Mid: PSV: 86 cm/s. EDV: 21 cm/s. Distal: PSV: 87 cm/s. EDV: 19 cm/s. Mild heterogeneous plaque at distal. Internal carotid artery: Origin: PSV: 62 cm/s. EDV: 20 cm/s. Proximal: PSV: 73 cm/s. EDV: 24 cm/s. Mid: PSV: 79 cm/s. EDV: 29 cm/s. Distal: PSV: 76 cm/s. EDV: 28 cm/s. ICA/CCA Ratio: 0.9 External carotid artery: Proximal: PSV: 96 cm/s. EDV: 0 cm/s. Subclavian artery: Origin: PSV: 118 cm/s. EDV: 0 cm/s. Innominate artery: PSV: 137 cm/s. EDV: 20 cm/s. Vertebral artery: PSV: 43 cm/s. EDV: 13 cm/s. LEFT SIDE Common carotid artery: Proximal: PSV: 109 cm/s. EDV: 24 cm/s. Mid: PSV: 91 cm/s. EDV: 19 cm/s. Distal: PSV: 78 cm/s. EDV: 21 cm/s. Internal carotid artery: Origin: PSV: 72 cm/s. EDV: 21 cm/s. Proximal: PSV: 82 cm/s. EDV: 34 cm/s. Mid: PSV: 79 cm/s. EDV: 30 cm/s. Distal: PSV: 85 cm/s. EDV: 31 cm/s. ICA/CCA Ratio: 1.1 External carotid artery: Proximal: PSV: 99 cm/s. EDV: 9 cm/s. Subclavian artery: Proximal: PSV: 101 cm/s. EDV: 0 cm/s. Vertebral artery: PSV: 43 cm/s. EDV: 14 cm/s. IMPRESSION RIGHT SIDE Common carotid artery: Plaque visualized without evidence of hemodynamically significant stenosis. Internal carotid artery: 0-19% stenosis. Vertebral artery: Patent and antegrade flow noted. LEFT SIDE Internal carotid artery: 0-19% stenosis. Vertebral artery: Patent and antegrade flow noted. Technologist: Rakel Pantoja RVT Ordering physician: FAIZA WELSH Interpreting physician: Jad José MD Final [facility] : [id number] ISUID See Link below for Image Normal [facility] 09-28-2022 CNPN Telephone (PERVMN) BONNIE BROWNLEE ([id number]) 1960 F Date Time Provider Department 09/28/22 FAIZA WELSH During your visit today, we recorded the following information about you: Faiza Welsh MD 09/28/2022 10:53 AM Signed I spoke to the patient informed her about the blood test that she did yesterday. I have asked her to repeat the lipid profile after 6 weeks end of October to see how the fenofibrate and ezetimibe are effectively working. The patient is scheduled for carotid and PVR on 10/11 Faiza Welsh MD 09/28/2022 10:53 AM Allergies As of Date: 09/28/2022 Noted Allergy Reaction ATORVASTATIN 06/29/2021 17 - Myalgia ROSUVASTATIN 06/29/2021 17 - Myalgia SIMVASTATIN 06/29/2021 17 - Myalgia EVOLOCUMAB 09/23/2022 16 - Unknown Date Reviewed: 09/27/2022 Reviewed by: Wayne Rollins RN - Fully Assessed Reason for Visit: Results [95] Primary Visit Diagnosis:Familial hypercholesterolemia [E78.01] Order(s):LIPID PANEL BASIC [SQLIPB] Order #: [id number] FUTURE Prescriptions as of 09/28/2022 - insulin aspart U-100 (NOVOLOG) 100 unit/mL (3 mL) INJECT 8 UNITS SUBCUTANEOUSLY AT SUPPER, THEN 4 UNITS WITH SNACKS. - metoprolol succinate ER (TOPROL XL) 25 mg 24 hr tablet Take 25 mg by mouth once daily. - clopidogrel (PLAVIX) 75 mg tablet Take 75 mg by mouth once daily. - ezetimibe (ZETIA) 10 mg tablet Take 1 tablet by mouth once daily. - fenofibrate nanocrystallized (TRICOR) 145 mg tablet Take 1 tablet by mouth once daily. Problem List As Of Date 09/28/2022 Noted Resolved Atherosclerosis of coronary artery [I25.10] 02/23/2019 Mixed hyperlipidemia [E78.2] 02/24/2019 Intermittent claudication (HCC) [I73.9] 09/27/2022 Encounter Status:Closed by FAIZA WELSH on 09/28/22 [facility] 09-27-2022 CNOV Office Visit (PERVMN ) BONNIE BROWNLEE ([id number]) 1960 F Date Time Provider Department 09/27/22 9:15 AM FAIZA WELSH PERVMN During your visit today, we recorded the following information about you: Pulse Blood pressure Weight Height 70/minute 129/75 81.1 kg 1.651 m Faiza Welsh MD 09/27/2022 11:31 AM Signed [facility] [place] [facility] Department of Cardiovascular Medicine SECTION OF VASCULAR MEDICINE OUTPATIENT VISIT DATE September 27, 2022 OUTPATIENT VISIT TYPE CONSULTATION Consult regarding: Bilateral leg pain Consult requested by: Madalyn Vaughan My final recommendations will be communicated back to the requesting physician by way of the shared medical record or by letter. Primary care physician: Madalyn Vaughan DO History of present illness: 61-year-old female with medical history of, -CAD c/b NSTEMI s/p PCI to diagonal in 2015 and LAD. Had in-stent restenosis of LAD in 2019 s/p CLAY Proximal LAD stenosis on 05/24/2021 with in-stent stenosis and distal 70% stenosis. Currently on Plavix 75 mg daily. 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 She gets most of her care at [facility] including cardiac care. The patient made a vascular medicine appointment for concerns of dizziness and lower extremity pain. 2 years back when the patient had a NSTEMI, she had cold sweats, pressure in the head and dizziness. Most recently, the patient has started having similar symptoms 6 months back. It is intermittent and happens at the end of the day mostly once. It is associated with change in position or times of movement. It is not associated with headaches, vision changes, or difficulty maintaining balance or syncopal events. The patient also complains of pain in the lower legs bilaterally. It is constant but gets worse at night specially when the patient lays down in the bed. It is associated with numbness and tingling. The pain doesn't get worse with walking longer distances. Her activities are limited by exertional chest pain. She doesn't complain of open sores or ulcers or skin discoloration. She is a non-smoker, nonalcoholic and has no history of recreational drug use. The patient has extensive family history of premature coronary artery disease. Allergies: No known allergies. Statin induced muscle pain. Medications: Current Outpatient Medications on File Prior to Visit Medication Sig insulin aspart U-100 (NOVOLOG) 100 unit/mL (3 mL) INJECT 8 UNITS SUBCUTANEOUSLY AT SUPPER, THEN 4 UNITS WITH SNACKS. metoprolol succinate ER (TOPROL XL) 25 mg 24 hr tablet Take 25 mg by mouth once daily. clopidogrel (PLAVIX) 75 mg tablet Take 75 mg by mouth once daily. No current facility-administered medications on file prior to visit. Past medical history: CAD Hypertension Hyperlipidemia Diabetes Mellitus. Past surgical history: History of coronary artery stent placement (05/25/21) History of left heart catheterization (02/21/20) Family history: Father CVA (cerebral vascular accident) Social history: Smoking Status: Never smoker alcohol intake: never substance use type: does not use caffeine: Yes (Occasionally) Type: coffee REVIEW OF SYSTEMS: Review of systems: General Fever or chills - No Night sweats - No Change in weight - No Lumps in groin, underarms - No Neurological Headaches - No Seizures - No Passing out - No Dizziness/light headedness - YES Numbness, tingling, pins or needles - YES Weakness in arms or legs - No Head, eyes, ears, nose and throat Changes in hearing - No Changes in vision - No Nose bleeds - No Difficulty or pain with swallowing - No Cardiovascular Chest pain or pressure - YES Palpitations - YES Irregular heartbeat - YES Shortness of breath - YES Respiratory Cough - No Wheezing - No Shortness of breath at rest - No Shortness of breath with exertion - YES Coughing up blood - No Sleep apnea - No Gastrointestinal Abdominal pain - No Nausea/vomiting - No Diarrhea/Constipation - No Stomach pain after eating - No Blood in stool - No Black stool - No Genitourinary Pain with urination - No Blood in urine - No Gynecology - No Abnormal vaginal bleeding - No History of loss - No Extremity Bulging veins - No Swelling in arms or legs - No Redness of extremities - No Pain with walking - No Color change of hands/feet/digits - No Musculoskeletal Joint pain - YES Joint swelling - YES Back pain - YES Muscle pain or ache - YES Skin Rash - No Lesions - No Slow healing sores - No Tight or thickened skin - No Hematology Low blood counts - No Easy bruising - No Blood t (more content not included)... Normal [facility] LIPID PANEL, NONFASTINGon Cholesterol [Mass/Vol] 430 mg/dL High <200 [facility] Comment on above: Order Comment: Speci men Type: BLOOD SPECIMEN Ordering Facility: [facility] Address: [address] [id number] Result Comment: <200 mg/dL, Desirable 200-239 mg/dL, Borderline high >239 mg/dL, High Performed By: #### L IPNF #### [facility] CLIA [id number] [address] [facility] [place] [address] [place] HDL CHOLESTEROL, NF 37 mg/dL Low >[address] [facility] Comment on above: Order Comment: Speci annmarie Type: BLOOD SPECIMEN Ordering Facility: [facility] Address: [address] [place] [address] Result Comment: 40-5 9 mg/dL, Acceptable >59 mg/dL, High: Negative risk factor for coronary heart disease <40 mg/dL, Low: Positive risk factor for coronary heart disease Performed By: #### L IPNF #### [facility] CLIA [id number] [address] [place] [address] [place] LDL CHOLESTEROL, NF Normal [facility] Comment on above: Order Comment: Belindawendy anguiano Type: BLOOD SPECIMEN Ordering Facility: [facility] Address: [address] [place] [address] Result Comment: Unab le to calculate due to increased Triglycerides. A Direct LDL Cholesterol measurement will not be performed. If clinically indicated, a fasting Basic Lipid Panel (LIPB) may be ordered. Performed By: #### L IPNF #### [facility] CLIA [id number] [address] [place] [address] [place] LDL/HDL RATIO, NF Normal [facility] Comment on above: Order Comment: Ursula anguiano Type: BLOOD SPECIMEN Ordering Facility: [facility] Address: [address] [place] [address] Result Comment: Unab le to calculate due to elevated Triglycerides. Reference: 1. National Cholesterol Education Program ATP III Guideline At-A-Glance Quick Desk Reference: National Heart, Lung, and Blood [place]. National Institutes of Health. 2001: NIH Publication No. 01-3305. 2. An International Atherosclerosis Society position paper: global recommendations for the management of dyslipidemia: executive summary, Atherosclerosis. 2014: 232(2):410-413. Performed By: #### L IPNF #### [facility] CLIA [id number] [address] [place] [address] [place] NON HDL CHOL, NF 393 mg/dL High <130 [facility] Comment on above: Order Comment: Ursula anguiano Type: BLOOD SPECIMEN Ordering Facility: [facility] Address: [address] [place] [phone] Result Comment: <130 mg/dL, Optimal 130-159 mg/dL, Near optimal/above optimal 160-189 mg/dL, Borderline high 190-219 mg/dL, High >219 mg/dL, Very high Secondary prevention optimal non HDL Cholesterol levels are recommended to be <100 mg/dL Performed By: #### L IPNF #### [facility] CLIA [id number] [address] [facility] T CHOL/HDL RATIO NF 11.62 mg/dL High <5.10 [facility] Comment on above: Order Comment: Speci men Type: BLOOD SPECIMEN Ordering Facility: [facility] Address: [address] [place] [address] Performed By: #### L IPNF #### [facility] CLIA [id number] [address] [place] [address] [place] [facility] TRIGLYCERIDES, NF 631 mg/dL High <150 [facility] Comment on above: Order Comment: Speci men Type: BLOOD SPECIMEN Ordering Facility: [facility] Address: [address] [place], [place] [id number] Result Comment: <150 mg/dL, Normal 150-199 mg/dL, Borderline high 200-499 mg/dL, High >499 mg/dL, Very high Performed By: #### L IPNF #### [facility] CLIA [id number] [address] [place] [address] [place] VLDL CHOLESTEROL, NF Normal [facility] Comment on above: Order Comment: Speci men Type: BLOOD SPECIMEN Ordering Facility: [facility] Address: [address] [place] [address] Result Comment: Unab le to calculate due to elevated Triglycerides. Performed By: #### L IPNF #### [facility] CLIA [id number] [address] [place] [address] [place] LPa SerPl-mCncon 09-27-2022 Lipoprotein a [Mass/Vol] mg/dL Normal <30 [facility] Comment on above: Order Comment: Speci men Type: BLOOD SPECIMEN Ordering Facility: [facility] Address: [address] [phone] Performed By: #### 1 [id number] #### [facility] CLIA [id number] [address] [facility] [id number] [id number] [place] Basophil percentageOrdered B y: Shonna Mcfarland on 07-08-2022 Bilirubin [Mass/Vol] 1.10 mg/dL 0.20-1.00 [facility] Comment on above: For patients on eltr ombopag therapy, use of Dimension [place] TBIL is not recommended. Chloride [Moles/Vol] 102 mmol/L 98-107 [facility] Cholesterol [Mass/Vol] 380 mg/dL <200 [facility] Comment on above: <200 mg/dL Desirable 200-240 mg/dL Borderline >240 mg/dL High Risk Glucose [Mass/Vol] 189 mg/dL 74-106 [facility] Comment on above: Fasting Glucose resu lt greater than or equal to 126 mg/dL suggests DIABETES MELLITUS per A.D.A. criteria. Potassium [Moles/Vol] 4.1 mmol/L 3.5-5.1 [facility] Protein [Mass/Vol] 7.5 g/dL 6.4-8.2 [facility] Sodium [Moles/Vol] 137 mmol/L 136-145 [facility] Triglyceride [Mass/Vol] 370 mg/dL <199 [facility] Comment on above: The drugs N-Acetylcy steine and Metamizole may falsely depress this assay.Serum Triglycerides Reference Interval Normal <150 mg/dL Borderline high 150 - 199 mg/dL High 200 - 499 mg/dL Very High > or = 500 mg/dL Laboratory - Chemistry and C hemistry - challengeOrdered By: Shonna Mcfarland on 07-08-2022 ALP [Catalytic activity/Vol] 78 U/L 45-117 [facility] ALT [Catalytic activity/Vol] 18 U/L 13-56 [facility] CO2 [Moles/Vol] 27.0 mmol/L 21.0-32.0 [facility] Globulin (S) [Mass/Vol] 3.8 g/dL 2.2-4.2 [facility] Urea nitrogen/Creatinine [Mass ratio] 16.7 mg/mg 10-20 [facility] No Panel InformationOrdered By: Shonna Mcfarland on 07-08-2022 Estimated GFR (MDRD) Amer 106 mL/min >60 [facility] Comment on above: GFR Calc Estimated GFR (MDRD) Non-Af Amer 88 mL/min >60 [facility] Comment on above: Non- GFR Calc Thyroid Stimulating Hormone (TSH) 1.19 uIU/mL 0.358-3.74 [facility] Urine Microalbumin/Creatinin e Ratio 5.8 mg/g CRE <30 [facility] Vitamin D 25-Hydroxy 36.3 ng/mL [facility] Comment on above: Vitamin D 25(OH) Sta tus Range Deficiency <20 ng/mL (50nmol/L) Insufficiency 20 - 30 ng/mL (50 - 75 nmol/L) Sufficiency 30 - 100 ng/mL (75 - 250 nmol/L) Toxicity >100 ng/mL (>250 nmol/L) Serum or plasma albumin nanette urement (mass/volume)Ordered By: Shonna Mcfarland on 07-08-2022 Albumin [Mass/Vol] 3.7 g/dL 3.2-5.0 [facility] Serum or plasma albumin/glob ulin mass ratioOrdered By: Shonna Mcfarland on 07-08-2022 Albumin/Globulin [Mass ratio] 1.0 {ratio} 0.9-2.4 [facility] Serum or plasma calcium nanette urement (mass/volume)Ordered By: Shonna Mcfarland on 07-08-2022 Calcium [Mass/Vol] 9.4 mg/dL 8.5-10.1 [facility] Serum or plasma cholesterol in HDL measurement (mass/volume)Ordered By: Shonna Mcfarland on 07-08-2022 Cholesterol in HDL [Mass/Vol] 50 mg/dL >40 [facility] Comment on above: The drugs N-Acetylcy steine and Metamizole may falsely depress this assay. Reference Range HDL <40 mg/dL Low HDL Cholesterol HDL >or= 60 mg/dL High HDL Cholesterol Serum or plasma cholesterol in VLDL measurement (mass/volume)Ordered By: Shonna Mcfarland on 07-08-2022 Cholesterol in VLDL [Mass/Vol] 74 mg/dL 5-40 [facility] Serum or plasma creatinine m easurement (mass/volume)Ordered By: Shonna Mcfarland on 07-08-2022 Creatinine [Mass/Vol] 0.72 mg/dL 0.55-1.02 [facility] Comment on above: The validity of the calculated GFR & GFRAA in patients over 70 years has not been determined. Clinical correlation is essential. Serum or plasma low density lipoprotein (LDL) cholesterol measurement (mass/volume)Ordered By: Shonna Mcfarland on 07-08-2022 Cholesterol in LDL [Mass/Vol] 256 mg/dL 0-130 [facility] Serum or plasma urea nitroge n measurement (mass/volume)Ordered By: Shonna Mcfarland on 07-08-2022 Urea nitrogen [Mass/Vol] 12 mg/dL 7-18 [facility] Thin prep Papanicolaou smear with manual screeningOrdered By: Shonna Mcfarland on 07-08-2022 Thin prep Papanicolaou smear with manual screening 15 U/L 15-37 [facility] Thin prep Papanicolaou smear with manual screening 8 5-15 [facility] Thin prep Papanicolaou smear with manual screening 6.4 mg/L NO RANGE EST. [facility] Urine creatinine measurement (mass/volume)Ordered By: Shonna Mcfarland on 07-08-2022 Creatinine (U) [Mass/Vol] 110.00 mg/dL NO RANGE EST. [facility] Laboratory - Hematology and Cell countson 06-23-2022 HbA1c (Bld) [Mass fraction] 8.3 % 4.2-6.3 [facility] Basophil percentageon 2021 Basophil percentage 0-5 SEEN /hpf 0-5 [facility] Work Phone: Bilirubin Test strip Ql (U)o n 01-20-2022 Bilirubin Ql (U) Negative Negative [facility] Work Phone: Ketones Test strip Ql (U)on 01-20-2022 Ketones Ql (U) Negative Negative [facility] Work Phone: Laboratory - Hematology and Cell countson 01-20-2022 HbA1c (Bld) [Mass fraction] 7.9 % [facility] Work Phone: Mucus LM Ql (Urine sed)on Mucus Ql (Urine sed) 0 SEEN /hpf [facility] Work Phone: Nitrite Test strip Ql (U)on 01-20-2022 Nitrite Ql (U) Negative Negative [facility] Work Phone: Protein Test strip Ql (U)on 01-20-2022 Protein Ql (U) Negative Negative [facility] Work Phone: Squamous epithelial cells de tection in urine sediment by light microscopyon 01-20-2022 Epithelial cells.squamous LM Ql (Urine sed) 0-5 SEEN /hpf 5- [facility] Work Phone: Urine blood detectionon RBC Ql (U) Negative Negative [facility] Work Phone: RBC Ql (U) 0 SEEN /hpf 0-5 [facility] Work Phone: Urine clarityon 01-20-2022 Clarity (U) Clear Clear [facility] Work Phone: Urine color determinationon 01-20-2022 Color (U) Straw Yellow [facility] Work Phone: Urine glucose detectionon Glucose Ql (U) Normal mg/dl Normal [facility] Work Phone: Urine leukocyte esterase det ection by dipstickon 01-20-2022 Leukocyte esterase Test strip Ql (U) 25 /ul Negative [facility] Work Phone: Urine pHon 01-20-2022 pH (U) 6.5 [pH] 5.0 - 8.0 [facility] Work Phone: Urine sediment bacteria coun t by microscopy (number/high power field)on 01-20-2022 Bacteria LM.HPF (Urine sed) [#/Area] 1 /[HPF] None Seen [facility] Work Phone: Urine specific gravity measu rementon 01-20-2022 Specific gravity (U) [Rel density] 1.015 1.002-1.030 [facility] Work Phone: Urobilinogen Auto test strip Ql (U)on 01-20-2022 Urobilinogen Ql (U) Normal mg/dl Normal [facility] Work Phone: Basophil percentageon 2021 Basophil percentage 0 SEEN /hpf 0-5 [facility] Work Phone: Bilirubin Test strip Ql (U)o n 01-14-2022 Bilirubin Ql (U) Negative Negative [facility] Work Phone: Ketones Test strip Ql (U)on 01-14-2022 Ketones Ql (U) Negative Negative [facility] Work Phone: Mucus LM Ql (Urine sed)on Mucus Ql (Urine sed) 0 SEEN /hpf [facility] Work Phone: Nitrite Test strip Ql (U)on 01-14-2022 Nitrite Ql (U) Negative Negative [facility] Work Phone: Protein Test strip Ql (U)on 01-14-2022 Protein Ql (U) Negative Negative [facility] Work Phone: Squamous epithelial cells de tection in urine sediment by light microscopyon 01-14-2022 Epithelial cells.squamous LM Ql (Urine sed) 0-5 SEEN /hpf 5-10 [facility] Work Phone: Urine blood detectionon 12-18 RBC Ql (U) Negative Negative [facility] Work Phone: RBC Ql (U) 0-5 SEEN /hpf 0-5 [facility] Work Phone: Urine clarityon 01-14-2022 Clarity (U) Clear Clear [facility] Work Phone: Urine color determinationon 01-14-2022 Color (U) Straw Yellow [facility] Work Phone: Urine glucose detectionon Glucose Ql (U) Normal mg/dl Normal [facility] Work Phone: Urine leukocyte esterase det ection by dipstickon 01-14-2022 Leukocyte esterase Test strip Ql (U) Negative Negative [facility] Work Phone: Urine pHon 01-14-2022 pH (U) 6.0 [pH] 5.0 - 8.0 [facility] Work Phone: Urine sediment bacteria coun t by microscopy (number/high power field)on 01-14-2022 Bacteria LM.HPF (Urine sed) [#/Area] 0 /[HPF] None Seen [facility] Work Phone: Urine specific gravity measu rementon 01-14-2022 Specific gravity (U) [Rel density] 1.010 1.002-1.030 [facility] Work Phone: Urobilinogen Auto test strip Ql (U)on 01-14-2022 Urobilinogen Ql (U) Normal mg/dl Normal [facility] Work Phone: Absolute lymphocyte counton 07-27-2021 Lymphocytes Auto (Unsp spec) [#/Vol] 1.80 10*3/uL 0.83-4.51 [facility] Work Phone: Basophil percentageon 2021 Basophils/100 WBC (Bld) 0.2 % 0-1 [facility] Work Phone: Chloride [Moles/Vol] 104 mmol/L 98-107 [facility] Work Phone: Eosinophils/100 WBC (Bld) 1.1 % 0-5 [facility] Work Phone: Glucose [Mass/Vol] 232 mg/dL 74-106 [facility] Work Phone: Comment on above: Glucose result great er than or equal to 200 mg/dLsuggests DIABETES MELLITUS per A.D.A. criteria. Neutrophils (Bld) [#/Vol] 3.1 10*3/uL 2.0-7.7 [facility] Work Phone: Neutrophils/100 WBC (Bld) 57.6 % 47-70 [facility] Work Phone: Potassium [Moles/Vol] 3.6 mmol/L 3.5-5.1 [facility] Work Phone: Sodium [Moles/Vol] 138 mmol/L 136-145 [facility] Work Phone: WBC (Bld) [#/Vol] 5.5 10*3/uL 4.4-11.0 [facility] Work Phone: Blood erythrocytes count (nu mber/volume)on 07-27-2021 RBC (Bld) [#/Vol] 4.47 10*6/uL 4.2-5.4 [facility] Work [facility]: Blood hemoglobin measurement (mass/volume)on 07-27-2021 Hemoglobin (Bld) [Mass/Vol] 12.1 g/dL 12.0-15.0 [facility] Work Phone: Blood lymphocytes/100 leukoc yteson 07-27-2021 Lymphocytes/100 WBC (Bld) 33.0 % 19-41 [facility] Work Phone: Blood monocytes/100 leukocyt eson 07-27-2021 Monocytes/100 WBC (Bld) 7.9 % 0-10 [facility] Work Phone: Blood platelet mean volumeon 07-27-2021 Platelet mean volume (Bld) [Entitic vol] 10.2 fL 6.2-12.0 [facility] Work Phone: Determination of erythrocyte mean corpuscular volume (MCV)on 07-27-2021 MCV (RBC) [Entitic vol] 82.8 fL 81-99 [facility] Work Phone: Hematocrit Auto (Bld) [Volum e fraction]on 07-27-2021 Hematocrit (Bld) [Volume fraction] 37.0 % 37-47 [facility] Work Phone: INR in Blood by Coagulation assayon 07-27-2021 INR Coag (Bld) [Relative time] 1.0 {INR} [facility] Work Phone: Laboratory - Chemistry and C hemistry - challengeon 07-27-2021 CO2 [Moles/Vol] 30.0 mmol/L 21.0-32.0 [facility] Work Phone: Urea nitrogen/Creatinine [Mass ratio] 16.2 mg/mg 10-20 [facility] Work Phone: Laboratory - Coagulationon 0 07-27-2021 PT Coag (PPP) [Time] 12.7 s 11.7-14.9 [facility] Work Phone: Laboratory - Hematology and Cell countson 07-27-2021 Erythrocyte distribution width (RBC) [Entitic vol] 37.6 fL 35.1-43.9 [facility] Work Phone: Erythrocyte distribution width (RBC) [Ratio] 12.5 % 11.6-14.6 [facility] Work Phone: Immature granulocytes/100 WBC (Bld) 0.200 % 0.0-0.9 [facility] Work Phone: Comment on above: IG% - Immature Granu locytes (promyelocytes, myelocytes and metamyelocytes) > 1% indicates that a LEFT SHIFT is Present. MCH (RBC) [Entitic mass] 27.1 pg 27.0-32.0 [facility] Work Phone: Nucleated RBC/100 WBC (Bld) [Ratio] 0 % 0-5 [facility] Work Phone: MCHC Auto (RBC) [Mass/Vol]on 07-27-2021 MCHC (RBC) [Mass/Vol] 32.7 g/dL 32-36 [facility] Work Phone: No Panel Informationon 07-27 D-Dimer Quantitative (PE/DVT) < 0.27 FEU/ug/m 0.27-0.49 [facility] Work Phone: Comment on above: NORMAL D-Dimer level (<0.50) indicates no DVT or PE. NORMAL D-Dimer level (<0.50) indicates no DVT or PE. Estimated Creatinine Clearance Calc 73.66 ml/min [facility] Work Phone: Estimated GFR (MDRD) Amer 103 mL/min >60 [facility] Work Phone: Comment on above: GFR Calc Estimated GFR (MDRD) Non-Af Amer 85 mL/min >60 [facility] Work Phone: Comment on above: Non- GFR Calc Troponin I High Sensitivity < 3 pg/mL 3.0-54.0 [facility] Work Phone: Comment on above: Please Note: [place] t Units and Gender Specific Reference Ranges. For more information see Policy Stat Procedure [place] High Sensitivity Troponin (TNIH) and attachments. Platelets bldon 07-27-2021 Platelets (Bld) [#/Vol] 220 10*3/uL 150-450 [facility] Work Phone: Serum or plasma calcium nantete urement (mass/volume)on 07-27-2021 Calcium [Mass/Vol] 8.9 mg/dL 8.5-10.1 [facility] Work Phone: Serum or plasma creatinine m easurement (mass/volume)on 07-27-2021 Creatinine [Mass/Vol] 0.74 mg/dL 0.55-1.02 [facility] Work Phone: Comment on above: The validity of the calculated GFR & GFRAA in patients over 70 years has not been determined. Clinical correlation is essential. Serum or plasma urea nitroge n measurement (mass/volume)on 07-27-2021 Urea nitrogen [Mass/Vol] 12 mg/dL 7-18 [facility] Work Phone: Thin prep Papanicolaou smear with manual screeningon 07-27-2021 Thin prep Papanicolaou smear with manual screening 4 5-15 [facility] Work Phone: Basophil percentageon 2021 Cholesterol [Mass/Vol] 277 mg/dL <200 [facility] Work Phone: Comment on above: <200 mg/dL Desirable 200-240 mg/dL Borderline >240 mg/dL High Risk Triglyceride [Mass/Vol] 171 mg/dL [facility] Work Phone: Comment on above: The drugs N-Acetylcy steine and Metamizole may falsely depress this assay.Serum Triglycerides Reference Interval Normal <150 mg/dL Borderline high 150 - 199 mg/dL High 200 - 499 mg/dL Very High > or = 500 mg/dL Laboratory - Hematology and Cell countson 06-29-2021 HbA1c (Bld) [Mass fraction] 6.6 % [facility] Work Phone: Serum or plasma cholesterol in HDL measurement (mass/volume)on 06-29-2021 Cholesterol in HDL [Mass/Vol] 51 mg/dL [facility] Work Phone: Comment on above: The drugs N-Acetylcy steine and Metamizole may falsely depress this assay. Reference Range HDL <40 mg/dL Low HDL Cholesterol HDL >or= 60 mg/dL High HDL Cholesterol Serum or plasma cholesterol in VLDL measurement (mass/volume)on 06-29-2021 Cholesterol in VLDL [Mass/Vol] 34 mg/dL 5-40 [facility] Work Phone: Serum or plasma low density lipoprotein (LDL) cholesterol measurement (mass/volume)on 06-29-2021 Cholesterol in LDL [Mass/Vol] 192 mg/dL 0-130 [facility] Work Phone: Basophil percentageon 2021 Bilirubin [Mass/Vol] 1.10 mg/dL 0.20-1.00 [facility] Work Phone: Comment on above: For patients on eltr ombopag therapy, use of Dimension [place] TBIL is not recommended. Chloride [Moles/Vol] 106 mmol/L 98-107 [facility] Work Phone: Glucose [Mass/Vol] 125 mg/dL 74-106 [facility] Work Phone: Comment on above: Fasting Glucose resu lt from 100 to 125 mg/dL suggests IMPAIRED HOMEOSTASIS per A.D.A. criteria. Potassium [Moles/Vol] 3.8 mmol/L 3.5-5.1 [facility] Work Phone: Protein [Mass/Vol] 7.1 g/dL 6.4-8.2 [facility] Work Phone: Sodium [Moles/Vol] 137 mmol/L 136-145 [facility] Work Phone: WBC (Bld) [#/Vol] 5.4 10*3/uL 4.4-11.0 [facility] Work Phone: Blood erythrocytes count (nu mber/volume)on 05-26-2021 RBC (Bld) [#/Vol] 4.52 10*6/uL 4.2-5.4 [facility] [facility] Work Phone: Blood hemoglobin measurement (mass/volume)on 05-26-2021 Hemoglobin (Bld) [Mass/Vol] 12.5 g/dL 12.0-15.0 [facility] Work Phone: Blood platelet mean volumeon 05-26-2021 Platelet mean volume (Bld) [Entitic vol] 10.2 fL 6.2-12.0 [facility] Work Phone: Determination of erythrocyte mean corpuscular volume (MCV)on 05-26-2021 MCV (RBC) [Entitic vol] 81.6 fL 81-99 [facility] Work Phone: Glucose Glucometer (BldC) [M ass/Vol]on 05-26-2021 Glucose [Mass/Vol] 146 mg/dL 70-110 [facility] Work Phone: Comment on above: MANAGEMENT OF PATIEN T CARE PER NURSING PROTOCOL Hematocrit Auto (Bld) [Volum e fraction]on 05-26-2021 Hematocrit (Bld) [Volume fraction] 36.9 % 37-47 [facility] Work Phone: Laboratory - Chemistry and C hemistry - challengeon 05-26-2021 ALP [Catalytic activity/Vol] 82 U/L 45-117 [facility] Work Phone: ALT [Catalytic activity/Vol] 14 U/L 13-56 [facility] Work Phone: CO2 [Moles/Vol] 24.0 mmol/L 21.0-32.0 [facility] Work Phone: Globulin (S) [Mass/Vol] 3.7 g/dL 2.2-4.2 [facility] Work Phone: Urea nitrogen/Creatinine [Mass ratio] 15.6 mg/mg 10-20 [facility] Work Phone: Laboratory - Hematology and Cell countson 05-26-2021 Erythrocyte distribution width (RBC) [Entitic vol] 37.4 fL 35.1-43.9 [facility] Work Phone: Erythrocyte distribution width (RBC) [Ratio] 12.5 % 11.6-14.6 [facility] Work Phone: MCH (RBC) [Entitic mass] 27.7 pg 27.0-32.0 [facility] Work Phone: MCHC Auto (RBC) [Mass/Vol]on 05-26-2021 MCHC (RBC) [Mass/Vol] 33.9 g/dL 32-36 [facility] Work Phone: No Panel Informationon 05-26 Estimated Creatinine Clearance Calc 70.79 ml/min [facility] Work Phone: Estimated GFR (MDRD) Amer 99 mL/min >60 [facility] Work Phone: Comment on above: GFR Calc Estimated GFR (MDRD) Non-Af Amer 82 mL/min >60 [facility] Work Phone: Comment on above: Non- GFR Calc Platelets bldon 05-26-2021 Platelets (Bld) [#/Vol] 194 10*3/uL 150-450 [facility] Work Phone: Serum or plasma albumin nanette urement (mass/volume)on 05-26-2021 Albumin [Mass/Vol] 3.4 g/dL 3.2-5.0 [facility] Work Phone: Serum or plasma albumin/glob ulin mass ratioon 05-26-2021 Albumin/Globulin [Mass ratio] 0.9 {ratio} 0.9-2.4 [facility] Work Phone: Serum or plasma calcium nanette urement (mass/volume)on 05-26-2021 Calcium [Mass/Vol] 8.8 mg/dL 8.5-10.1 [facility] Work Phone: Serum or plasma creatinine m easurement (mass/volume)on 05-26-2021 Creatinine [Mass/Vol] 0.77 mg/dL 0.55-1.02 [facility] Work Phone: Comment on above: The validity of the calculated GFR & GFRAA in patients over 70 years has not been determined. Clinical correlation is essential. Serum or plasma urea nitroge n measurement (mass/volume)on 05-26-2021 Urea nitrogen [Mass/Vol] 12 mg/dL 7-18 [facility] Work Phone: Thin prep Papanicolaou smear with manual screeningon 05-26-2021 Thin prep Papanicolaou smear with manual screening 13 U/L 15-37 [facility] Work Phone: Thin prep Papanicolaou smear with manual screening 7 5-15 [facility] Work Phone: Absolute lymphocyte counton 05-25-2021 Lymphocytes Auto (Unsp spec) [#/Vol] 2.56 10*3/uL 0.83-4.51 [facility] Work Phone: Basophil percentageon 2021 Basophils/100 WBC (Bld) 0.2 % 0-1 [facility] Work Phone: Eosinophils/100 WBC (Bld) 2.0 % 0-5 [facility] Work Phone: Neutrophils (Bld) [#/Vol] 2.0 10*3/uL 2.0-7.7 [facility] Work Phone: Neutrophils/100 WBC (Bld) 38.6 % 47-70 [facility] Work Phone: Blood lymphocytes/100 leukoc yteson 05-25-2021 Lymphocytes/100 WBC (Bld) 50.0 % 19-41 [facility] Work Phone: Blood monocytes/100 leukocyt eson 05-25-2021 Monocytes/100 WBC (Bld) 9.0 % 0-10 [facility] Work Phone: Laboratory - Hematology and Cell countson 05-25-2021 Immature granulocytes/100 WBC (Bld) 0.200 % 0.0-0.9 [facility] Work Phone: Comment on above: IG% - Immature Granu locytes (promyelocytes, myelocytes and metamyelocytes) > 1% indicates that a LEFT SHIFT is Present. Nucleated RBC/100 WBC (Bld) [Ratio] 0 % 0-5 [facility] Work Phone: No Panel Informationon 05-25 Troponin I High Sensitivity 4 pg/mL 3.0-54.0 [facility] Work Phone: Comment on above: Please Note: [place] t Units and Gender Specific Reference Ranges. For more information see Policy Stat Procedure [place] High Sensitivity Troponin (TNIH) and attachments. No Panel Informationon 05-24 SARS-CoV-2 Antigen (Rapid) [facility] Work Phone: Absolute lymphocyte counton 05-20-2021 Lymphocytes Auto (Unsp spec) [#/Vol] 2.16 10*3/uL 0.83-4.51 [facility] Work Phone: [phone] Basophil percentageon 2021 Basophils/100 WBC (Bld) 0.2 % 0-1 [facility] Work Phone: [phone] Chloride [Moles/Vol] 104 mmol/L 98-107 [facility] Work Phone: [phone] Eosinophils/100 WBC (Bld) 1.5 % 0-5 [facility] Work Phone: [phone] Glucose [Mass/Vol] 159 mg/dL 74-106 [facility] Work Phone: [phone] Comment on above: Fasting Glucose resu lt greater than or equal to 126 mg/dL suggests DIABETES MELLITUS per A.D.A. criteria. Neutrophils (Bld) [#/Vol] 2.2 10*3/uL 2.0-7.7 [facility] Work Phone: Neutrophils/100 WBC (Bld) 45.3 % 47-70 [facility] Work Phone: Potassium [Moles/Vol] 4.0 mmol/L 3.5-5.1 [facility] Work Phone: Sodium [Moles/Vol] 138 mmol/L 136-145 [facility] Work Phone: WBC (Bld) [#/Vol] 4.7 10*3/uL 4.4-11.0 [facility] Work Phone: Blood erythrocytes count (nu mber/volume)on 05-20-2021 RBC (Bld) [#/Vol] 4.61 10*6/uL 4.2-5.4 [facility] Work Phone: Blood hemoglobin measurement (mass/volume)on 05-20-2021 Hemoglobin (Bld) [Mass/Vol] 12.9 g/dL 12.0-15.0 [facility] Work Phone: Blood lymphocytes/100 leukoc yteson 05-20-2021 Lymphocytes/100 WBC (Bld) 45.6 % 19-41 [facility] Work Phone: Blood monocytes/100 leukocyt eson 05-20-2021 Monocytes/100 WBC (Bld) 7.4 % 0-10 [facility] Work Phone: Blood platelet mean volumeon 05-20-2021 Platelet mean volume (Bld) [Entitic vol] 10.8 fL 6.2-12.0 [facility] Work Phone: Determination of erythrocyte mean corpuscular volume (MCV)on 05-20-2021 MCV (RBC) [Entitic vol] 83.1 fL 81-99 [facility] Work Phone: Hematocrit Auto (Bld) [Volum e fraction]on 05-20-2021 Hematocrit (Bld) [Volume fraction] 38.3 % 37-47 [facility] Work Phone: Laboratory - Chemistry and C hemistry - challengeon 05-20-2021 CO2 [Moles/Vol] 27.0 mmol/L 21.0-32.0 [facility] Work Phone: Urea nitrogen/Creatinine [Mass ratio] 16.8 mg/mg 10-20 [facility] Work Phone: Laboratory - Hematology and Cell countson 05-20-2021 Erythrocyte distribution width (RBC) [Entitic vol] 38.6 fL 35.1-43.9 [facility] Work Phone: Erythrocyte distribution width (RBC) [Ratio] 12.8 % 11.6-14.6 [facility] Work Phone: Immature granulocytes/100 WBC (Bld) 0.000 % 0.0-0.9 [facility] Work Phone: Comment on above: IG% - Immature Granu locytes (promyelocytes, myelocytes and metamyelocytes) > 1% indicates that a LEFT SHIFT is Present. MCH (RBC) [Entitic mass] 28.0 pg 27.0-32.0 [facility] Work Phone: Nucleated RBC/100 WBC (Bld) [Ratio] 0 % 0-5 [facility] Work Phone: MCHC Auto (RBC) [Mass/Vol]on 05-20-2021 MCHC (RBC) [Mass/Vol] 33.7 g/dL 32-36 [facility] Work Phone: No Panel Informationon 05-20 Estimated GFR (MDRD) Amer 107 mL/min >60 [facility] Work Phone: Comment on above: GFR Calc Estimated GFR (MDRD) Non-Af Amer 89 mL/min >60 [facility] Work Phone: Comment on above: Non- GFR Calc Platelets bldon 05-20-2021 Platelets (Bld) [#/Vol] 205 10*3/uL 150-450 [facility] Work Phone: Serum or plasma calcium nanette urement (mass/volume)on 05-20-2021 Calcium [Mass/Vol] 9.1 mg/dL 8.5-10.1 [facility] Work Phone: Serum or plasma creatinine m easurement (mass/volume)on 05-20-2021 Creatinine [Mass/Vol] 0.72 mg/dL 0.55-1.02 [facility] Work Phone: Comment on above: The validity of the calculated GFR & GFRAA in patients over 70 years has not been determined. Clinical correlation is essential. Serum or plasma urea nitroge n measurement (mass/volume)on 05-20-2021 Urea nitrogen [Mass/Vol] 12 mg/dL 7-18 [facility] Work Phone: Thin prep Papanicolaou smear with manual screeningon 05-20-2021 Thin prep Papanicolaou smear with manual screening 7 5-15 [facility] Work Phone: Basophil percentageon 2021 Bilirubin [Mass/Vol] 0.80 mg/dL 0.20-1.00 [facility] Work Phone: Comment on above: For patients on eltr ombopag therapy, use of Dimension [place] TBIL is not recommended. Chloride [Moles/Vol] 102 mmol/L 98-107 [facility] Work Phone: Cholesterol [Mass/Vol] 364 mg/dL <200 [facility] Work Phone: Comment on above: <200 mg/dL Desirable 200-240 mg/dL Borderline >240 mg/dL High Risk Glucose [Mass/Vol] 256 mg/dL 74-106 [facility] Work Phone: Comment on above: Glucose result great er than or equal to 200 mg/dLsuggests DIABETES MELLITUS per A.D.A. criteria.Please note revised GLUCOSE reference range effective 2017. Potassium [Moles/Vol] 4.1 mmol/L 3.5-5.1 [facility] Work Phone: Protein [Mass/Vol] 7.4 g/dL 6.4-8.2 [facility] Work Phone: Sodium [Moles/Vol] 137 mmol/L 136-145 [facility] Work Phone: Triglyceride [Mass/Vol] 688 mg/dL [facility] Work Phone: Comment on above: The drugs N-Acetylcy steine and Metamizole may falsely depress this assay. TRIGLYCERIDE IS GREATER THAN 400 mg/dL. LDL RESULT IS INVALID AND WILL NOT BE REPORTED.Serum Triglycerides Reference Interval Normal <150 mg/dL Borderline high 150 - 199 mg/dL High 200 - 499 mg/dL Very High > or = 500 mg/dL Laboratory - Chemistry and C hemistry - challengeon 04-28-2021 ALP [Catalytic activity/Vol] 90 U/L 45-117 [facility] Work Phone: ALT [Catalytic activity/Vol] 19 U/L 13-56 [facility] Work Phone: CO2 [Moles/Vol] 27.0 mmol/L 21.0-32.0 [facility] Work Phone: Globulin (S) [Mass/Vol] 4.0 g/dL 2.2-4.2 [facility] Work Phone: Urea nitrogen/Creatinine [Mass ratio] 13.1 mg/mg 10-20 [facility] Work Phone: Laboratory - Hematology and Cell countson 04-28-2021 HbA1c (Bld) [Mass fraction] 8.7 % [facility] Work Phone: No Panel Informationon 04-28 Estimated GFR (MDRD) Amer 89 mL/min >60 [facility] Work Phone: Comment on above: GFR Calc Estimated GFR (MDRD) Non-Af Amer 74 mL/min >60 [facility] Work Phone: Comment on above: Non- GFR Calc Thyroid Stimulating Hormone (TSH) 2.14 uIU/mL 0.358-3.74 [facility] Work Phone: Urine Microalbumin/Creatinin e Ratio 11.2 mg/g CRE <30 [facility] Work Phone: Vitamin D 25-Hydroxy 44.9 ng/mL [facility] Work Phone: Comment on above: Vitamin D 25(OH) Sta tus Range Deficiency <20 ng/mL (50nmol/L) Insufficiency 20 - 30 ng/mL (50 - 75 nmol/L) Sufficiency 30 - 100 ng/mL (75 - 250 nmol/L) Toxicity >100 ng/mL (>250 nmol/L) Serum or plasma albumin nanette urement (mass/volume)on 04-28-2021 Albumin [Mass/Vol] 3.4 g/dL 3.2-5.0 [facility] Work Phone: Serum or plasma albumin/glob ulin mass ratioon 04-28-2021 Albumin/Globulin [Mass ratio] 0.8 {ratio} 0.9-2.4 [facility] Work Phone: Serum or plasma calcium nanette urement (mass/volume)on 04-28-2021 Calcium [Mass/Vol] 9.2 mg/dL 8.5-10.1 [facility] Work Phone: Serum or plasma cholesterol in HDL measurement (mass/volume)on 04-28-2021 Cholesterol in HDL [Mass/Vol] 36 mg/dL [facility] Work Phone: Comment on above: The drugs N-Acetylcy steine and Metamizole may falsely depress this assay. Reference Range HDL <40 mg/dL Low HDL Cholesterol HDL >or= 60 mg/dL High HDL Cholesterol Serum or plasma cholesterol in VLDL measurement (mass/volume)on 04-28-2021 Cholesterol in VLDL [Mass/Vol] [facility] Work Phone: Comment on above: Test not performed Serum or plasma creatinine m easurement (mass/volume)on 04-28-2021 Creatinine [Mass/Vol] 0.84 mg/dL 0.55-1.02 [facility] Work Phone: Comment on above: The validity of the calculated GFR & GFRAA in patients over 70 years has not been determined. Clinical correlation is essential. Serum or plasma low density lipoprotein (LDL) cholesterol measurement (mass/volume)on 04-28-2021 Cholesterol in LDL [Mass/Vol] [facility] Work Phone: Comment on above: Test not performed Serum or plasma urea nitroge n measurement (mass/volume)on 04-28-2021 Urea nitrogen [Mass/Vol] 11 mg/dL 7-18 [facility] Work Phone: Thin prep Papanicolaou smear with manual screeningon 04-28-2021 Thin prep Papanicolaou smear with manual screening 14 U/L 15-37 [facility] Work Phone: Thin prep Papanicolaou smear with manual screening 8 5-15 [facility] Work Phone: Thin prep Papanicolaou smear with manual screening 5.6 mg/L NO RANGE EST. [facility] Work Phone: Urine creatinine measurement (mass/volume)on 04-28-2021 Creatinine (U) [Mass/Vol] 50.40 mg/dL NO RANGE EST. [facility] Work Phone: APTTon 02-24-2019 aPTT Coag (Bld) [Time] 20.8 s Normal 20.0-30.5 [facility] Comment on above: Result Comment: NOTE : The therapeutic time for Heparin anticoagulation, based on Xa activity inhibition, is an APTT of 46-80 seconds. Performed By: #### B HARRIET3Frannie TROPN, HEMOG #### [place] [address] [address] [place], [place] aPTT Coag (Bld) [Time] 20.8 s 20 - 30.5 s [place], [place] Comment on above: NOTE: The therapeuti c time for Heparin anticoagulation, based on Xa activity inhibition, is an APTT of 46-80 seconds. Test Performed by [facility], [facility] [place], [place] [id number] [place] [address] Basic Metabolic Panelon Anion gap [Moles/Vol] 6 Normal [facility] Comment on above: Performed By: #### B MP3Frannie TROPN, HEMOG #### [place] [address] [address] [place], [place] Calcium [Mass/Vol] 9.3 mg/dL Normal 8.4-10.4 [facility] Comment on above: Performed By: #### B MP3Frannie TROPN, HEMOG #### [place] [address] [address] [place], [place] CO2 [Moles/Vol] 24 mmol/L Normal 22-30 [facility] Comment on above: Performed By: #### B MP3M TROPN, HEMOG #### [place] [address] [place], [place] Glucose [Mass/Vol] 176 mg/dL High 70-100 [facility] Comment on above: Performed By: #### B MP3M TROPN, HEMOG #### [place] [address] [address] [place], [place] Urea nitrogen [Mass/Vol] 13 mg/dL Normal 7-20 [facility] Comment on above: Performed By: #### B HARRIET3DEE KathleenN, HEMOG #### [place] [address] [address] [place], [place] Creatinine [Mass/Vol] 0.58 mg/dL Normal 0.52-1.25 [facility] Comment on above: Performed By: #### B MP3DEE KathleenN, HEMOG #### [place] [address] [address] [place], [place] GFR/1.73 sq M predicted among blacks MDRD (S/P/Bld) [Vol rate/Area] mL/min/{1.73_m2} Normal >60 [facility] Comment on above: Performed By: #### B HARRIET3NATALIE Kathleen, HEMOG #### [place] [address] [address] [place], [place] GFR/1.73 sq M predicted among non-blacks MDRD (S/P/Bld) [Vol rate/Area] mL/min/{1.73_m2} Normal >60 [facility] Comment on above: Result Comment: Sour ce- MDRD equation with creatinine calibration to IDMS(NKDEP) eGFR not recommended for drug dose adjustment Performed By: #### B HARRIET3NATALIE Kathleen, HEMOG #### [place] [address] [address] [place], [place] Potassium [Moles/Vol] 3.7 mmol/L Normal 3.5-5.1 [facility] Comment on above: Performed By: #### Jessica MP3NATALIE Kathleen, HEMOG #### [place] [address] [address] [place], [place] Sodium [Moles/Vol] 135 mmol/L Normal 135-145 [facility] Comment on above: Performed By: #### B MP3DEE KathleenN, HEMOG #### [place] [address] [address] [place], [place] Chloride [Moles/Vol] 105 mmol/L Normal 98-107 [facility] Comment on above: Performed By: #### B MP3DEE KathleenN, HEMOG #### [address] [id number] Basic Metabolic Panel w/ Ref blanquita to MGon 02-24-2019 Anion gap [Moles/Vol] 6 mmol/L [place], [place] Calcium [Mass/Vol] 9.3 mg/dL 8.4 - 10. 4 mg/dL [place], [place] Chloride [Moles/Vol] 105 mmol/L 98 - 10 7 mmol/L [place] CO2 [Moles/Vol] 24 mmol/L 22 - 30 mmol/L [place] Creatinine [Mass/Vol] 0.58 mg/dL 0.52 - 1.25 mg/dL [place], [place] EGFR IF NonAfrican [place] >60.0 >60 mL/min [place], [place] Comment on above: Source- MDRD equatio n with creatinine calibration to IDMS(NKDEP) eGFR not recommended for drug dose adjustment GFR/1.73 sq M predicted among blacks MDRD (S/P/Bld) [Vol rate/Area] mL/min/{1.73_m2} >60 mL/min [place], [place] Glucose [Mass/Vol] 176 mg/dL High 70 - 100 mg/dL [place] Potassium [Moles/Vol] 3.7 mmol/L 3.5 - 5.1 mmol/L [place] Sodium [Moles/Vol] 135 mmol/L 135 - 145 mmol/L [place] Urea nitrogen [Mass/Vol] 13 mg/dL 7 - 20 mg/dL [place] CBCon 02-24-2019 Erythrocyte distribution width (RBC) [Ratio] 13.8 % 11.5 - 14.5 % [place] Hematocrit (Bld) [Volume fraction] 38.4 % 35 - 47 % [place] Hemoglobin (Bld) [Mass/Vol] 13.3 g/dL 11.7 - 16 g/dL [place] MCH (RBC) [Entitic mass] 27.8 pg 26 - 34 pg [place] MCHC (RBC) [Mass/Vol] 34.5 % 32 - 36 % [place], [place] MCV (RBC) [Entitic vol] 80.6 fL 79 - 98 fL [place] Platelet mean volume (Bld) [Entitic vol] 8.2 fL 7.4 - 10.4 fL [place] Platelets (Bld) [#/Vol] 219 10*3/uL 140 - 440 10*3/uL [facility], [place] RBC (Bld) [#/Vol] 4.77 10*6/uL 3.8 - 5.2 10*6/uL [facility], [place] WBC (Bld) [#/Vol] 8.4 10*3/uL 3.6 - 10.7 10*3/uL [place] Test Performed by [address] [address] [place], [place] Diagnostic Cardiac Hat Renovator Procedureon 02-24-2019 [facility] -- CARDIAC CATHETERIZATION Patient: Bonnie Brownlee Procedure Date: 02/23/2019 : 1960 Age: 58 Gender: F Patient Type: Inpatient Procedure physician: Theron Fox MD Fellow: Kaleigh Wright Referring Physician: Cynthia Latham MD -- INDICATIONS: Non ST elevated myocardial infarction. -- Procedures performed: # Left coronary angiography. # Right coronary angiography. # Left heart catheterization. # Percutaneous intervention on the 99% stenosis in the mid LAD. Interventional IVUS examination. Stent placement. Stent placement. -- SUMMARY: 1. Ms. Brownlee is a very pleasant 58yo F who presents with an NSTEMI. Urgent cath revealed a thrombotic lesion in the mid LAD between two previous stents. IVUS revealed restenosis in the stents as well, so the lesion was stented with overlapping 3.5x23 and 3.0x38 drug eluting stents, IVUS guided. A very small diagonal had CRUZ 1-2 flow after stenting but ECG had no changes so this will be medically managed. 2. 2nd obtuse marginal: Ostial lesion: There is an 80% stenosis. 3. 1st diagonal: Ostial lesion: There is a 90% stenosis. 4. LAD: Prior intervention #1: stent in the proximal LAD. Prior intervention #2: stent in the mid LAD. Mid-vessel lesion: The diagnostic study demonstrated a 99% stenosis. The distal vessel supplies a large vascular territory. The lesion is a likely culprit for the patient's clinical presentation. Stent placement was performed, with intravascular ultrasound, jailing the first diagonal, resulting in an excellent angiographic appearance (see 1st lesion intervention). Following intervention, there is a residual 0% stenosis with CRUZ grade 3 flow (brisk flow). Proximal vessel lesion: was performed. Following intervention, there is a residual 0% stenosis. Mid-vessel lesion: The diagnostic study demonstrated a 70%restenosisin the previous stent #2. was performed. Following intervention, there is a residual 0% stenosis. IMPRESSIONS: Successful PCI of the LAD with overlapping 3.5x23 and 3.0x38 drug eluting stents, IVUS guided. RECOMMENDATIONS: 1. Patient management should include aggressive risk factor modification and a cardiac rehabilitation program. The patient was counseled regarding the importance of adherence to the prescribed antiplatelet therapy and a low fat diet. 2. Add optimal medical therapy of the patient's disease. 3. Add statin therapy. 4. Add aspirin, 81mgPOdaily. 5. Add ticagrelor (Brilinta), 90mgPObid, for 12 mon. -- HISTORY: PMH: Myocardial infarction. Risk factors: Hypertension. Diabetes mellitus; on therapy with insulin. Dyslipidemia. [[LE FT]] -- PROCEDURE IN DETAIL: Study status: Cardiac cath: urgent. Consent: The risks, benefits, and alternatives to the procedure and sedation were explained to the patient and informed consent was obtained. Fluoroscop y time: Fluoroscopy time: 10.7 min. Fluoroscopy dose: Fluoroscopy dos e: 76.1 cGy. Location: Catheterization laboratory. PROCEDURE: 1. Initial setup. The patient was brought to the laboratory. A baseline ECG was recorded. Intravenous access was obtained. Surface ECG leads, blood pressure measurements, and pulse oximetric signals were monitored. 2. Skin preparation. The planned puncture sites were prepped and draped in the usual sterile manner. 3. Local anesthesia. 1% lidocaine was administered. 4. Right radial artery access. A 6Fr/10cm Glidesheath Slender sheath was advanced into the vessel. 5. Selective left coronary angiography. A 5fr x 100cm Optitorque TIG 4.0 catheter was advanced into the left coronary vessel ostium under fluoroscopic guidance. Contrast was injected. Images were obtained in multiple projections. 6. Selective right coronary angiography. A 5fr x 100cm Optitorque TIG 4.0 catheter was advanced into the right coronary vessel ostium under fluoroscopic guidance. Contrast was injected. Images were obtained in multiple projections. 7. Left heart catheterization. A catheter was advanced across the aortic valve to the left ventricle under fluoroscopic guidance. 8. A stent was placed in the stenosis in the mid LAD. See detailed description below (1st lesion intervention). 9. ACT was 277 sec. 10. Right radial artery hemostasis. Mechanical compression was applied. 1st lesion intervention: Percutaneous intervention on the 99% stenosis in the mid LAD. 1. Guider placement: a 6Fr x 100cm Launcher EBU3.5 guiding catheter was placed. 2. A .014/180cm Runthrough NS wire was placed across the lesion. 3. Intravascular ultrasound evaluation, using a .014 [place] catheter. 4. Stent placement. A 3 mm (D) x 38 mm (L), Xience Sharon RX (drug eluting) stent was used. The stent was advanced across the lesion and deployed with a single inflation and a maximum pressure of 18 delfino. 5. Stent placement. A 3.5 mm (D) x 23 mm (L), Xience Sharon RX (drug eluting) stent was used. The stent was advanced across the lesion and deployed with a single inflation and a maximum pressure of 18 delfino. STUDY COMPLETION: The estimated blood loss was 10 ml. All catheters inserted during the procedure were removed. The patient tolerated the pr ocedure well and was discharged from the lab. There were no complication s. Administered medications: Midazolam, 1mg, IV, VERSED. Heparin, in fusion, infusion rate of 1,100units/hr was discontinued, HEPARIN (Drip). NITROGLYCERIN (IA), 200mcg, intra-arterially, NITROGLYCERIN (IA). KAREN LINTA (180 load), 180mg, PO, BRILINTA (180 load). Aspirin, 81mg, PO, PIRIN. Heparin, 6000units, IV, HEPARIN. Nitroglycerin, 200mcg, into th e coronary artery, NITROGLYCERIN (IC). Contrast: 1. ISOVUE 300MG/CC 1 14 ml (total dose). -- CORONARY ARTERIES: The coronary circulation is right dominant. The left main bifurcates normally into the LAD and circumflex. Left main: Minor luminal irregularities. LAD: Prior intervention #1: stent in the proximal LAD. Prior intervention #2: stent in the mid LAD. Mid-vessel lesion: The diagnosti c study demonstrated a 99% stenosis. This lesion appears consistent with atherosclerotic disease. There is a filling defect consistent with thro mbus. There is CRUZ grade 3 flow (brisk flow) across the lesion. The dis vale vessel supplies a large vascular territory. The lesion is a likely c ulprit for the patient's clinical presentation. Stent placement was per formed, with intravascular ultrasound, jailing the first diagonal, resul ting in an excellent angiographic appearance (see 1st lesion interventio n). Following intervention, there is a residual 0% stenosis with CRUZ gr nam 3 flow (brisk flow). There were no site complications. Proximal ves salvatore lesion: The diagnostic study demonstrated a 40%restenosisin the prev ious stent #1. was performed. Following intervention, there is a r esidual 0% stenosis. Mid-vessel lesion: The diagnostic study demonstrat ed a 70%restenosisin the previous stent #2. was performed. Followi ng intervention, there is a residual 0% stenosis. 1st diagonal: Ostial lesion: There is a 90% stenosis. 2nd obtuse marginal: Small. Ostial lesion: There is an 80% stenosis. Right coronary: Minor luminal irregularities. AORTIC VALVE: There is no stenosis. HEMODYNAMICS: + ---+ + +Stage description +Condition1:Room Air - + + ---+ + +LV pressure s/d, ed +168/-13, 11, dP/kz=2340 mm Hg/s+ + ---+ + +Arterial pressure s/d (m)+153/69 (101) + + ---+ + Prepared and electronically signed by Theron Fox MD 02/24/2019 08:13 [facility] Incoming Cardiology Results From [employer]/Donate Your Desktop - 02/24/2019 8:13 AM EST [facility] -- CARDIAC CATHETERIZATION Patient: Bonnie Brownlee Procedure Date: 02/23/2019 : 1960 Age: 58 Gender: F Patient Type: Inpatient Procedure physician: Theron Fox MD Fellow: Kaleigh Wright Referring Physician: Cynthia Latham MD -- INDICATIONS: Non ST elevated myocardial infarction. -- Procedures performed: # Left coronary angiography. # Right coronary angiography. # Left heart catheterization. # Percutaneous intervention on the 99% stenosis in the mid LAD. Interventional IVUS examination. Stent placement. Stent placement. -- SUMMARY: 1. Ms. Brownlee is a very pleasant 58yo F who presents with an NSTEMI. Urgent cath revealed a thrombotic lesion in the mid LAD between two previous stents. IVUS revealed restenosis in the stents as well, so the lesion was stented with overlapping 3.5x23 and 3.0x38 drug eluting stents, IVUS guided. A very small diagonal had CRUZ 1-2 flow after stenting but ECG had no changes so this will be medically managed. 2. 2nd obtuse marginal: Ostial lesion: There is an 80% stenosis. 3. 1st diagonal: Ostial lesion: There is a 90% stenosis. 4. LAD: Prior intervention #1: stent in the proximal LAD. Prior intervention #2: stent in the mid LAD. Mid-vessel lesion: The diagnostic study demonstrated a 99% stenosis. The distal vessel supplies a large vascular territory. The lesion is a likely culprit for the patient's clinical presentation. Stent placement was performed, with intravascular ultrasound, jailing the first diagonal, resulting in an excellent angiographic appearance (see 1st lesion intervention). Following intervention, there is a residual 0% stenosis with CRUZ grade 3 flow (brisk flow). Proximal vessel lesion: was performed. Following intervention, there is a residual 0% stenosis. Mid-vessel lesion: The diagnostic study demonstrated a 70%restenosisin the previous stent #2. was performed. Following intervention, there is a residual 0% stenosis. IMPRESSIONS: Successful PCI of the LAD with overlapping 3.5x23 and 3.0x38 drug eluting stents, IVUS guided. RECOMMENDATIONS: 1. Patient management should include aggressive risk factor modification and a cardiac rehabilitation program. The patient was counseled regarding the importance of adherence to the prescribed antiplatelet therapy and a low fat diet. 2. Add optimal medical therapy of the patient's disease. 3. Add statin therapy. 4. Add aspirin, 81mgPOdaily. 5. Add ticagrelor (Brilinta), 90mgPObid, for 12 mon. -- HISTORY: PMH: Myocardial infarction. Risk factors: Hypertension. Diabetes mellitus; on therapy with insulin. Dyslipidemia. [[LE FT]] -- PROCEDURE IN DETAIL: Study status: Cardiac cath: urgent. Consent: The risks, benefits, and alternatives to the procedure and sedation were explained to the patient and informed consent was obtained. Fluoroscop y time: Fluoroscopy time: 10.7 min. Fluoroscopy dose: Fluoroscopy dos e: 76.1 cGy. Location: Catheterization laboratory. PROCEDURE: 1. Initial setup. The patient was brought to the laboratory. A baseline ECG was recorded. Intravenous access was obtained. Surface ECG leads, blood pressure measurements, and pulse oximetric signals were monitored. 2. Skin preparation. The planned puncture sites were prepped and draped in the usual sterile manner. 3. Local anesthesia. 1% lidocaine was administered. 4. Right radial artery access. A 6Fr/10cm Glidesheath Slender sheath was advanced into the vessel. 5. Selective left coronary angiography. A 5fr x 100cm Optitorque TIG 4.0 catheter was advanced into the left coronary vessel ostium under fluoroscopic guidance. Contrast was injected. Images were obtained in multiple projections. 6. Selective right coronary angiography. A 5fr x 100cm Optitorque TIG 4.0 catheter was advanced into the right coronary vessel ostium under fluoroscopic guidance. Contrast was injected. Images were obtained in multiple projections. 7. Left heart catheterization. A catheter was advanced across the aortic valve to the left ventricle under fluoroscopic guidance. 8. A stent was placed in the stenosis in the mid LAD. See detailed description below (1st lesion intervention). 9. ACT was 277 sec. 10. Right radial artery hemostasis. Mechanical compression was applied. 1st lesion intervention: Percutaneous intervention on the 99% stenosis in the mid LAD. 1. Guider placement: a 6Fr x 100cm Launcher EBU3.5 guiding catheter was placed. 2. A .014/180cm Runthrough NS wire was placed across the lesion. 3. Intravascular ultrasound evaluation, using a .014 [facility] catheter. 4. Stent placement. A 3 mm (D) x 38 mm (L), Xience Sharon RX (drug eluting) stent was used. The stent was advanced across the lesion and deployed with a single inflation and a maximum pressure of 18 delfino. 5. Stent placement. A 3.5 mm (D) x 23 mm (L), Xience Sharon RX (drug eluting) stent was used. The stent was advanced across the lesion and deployed with a single inflation and a maximum pressure of 18 delfino. STUDY COMPLETION: The estimated blood loss was 10 ml. All catheters inserted during the procedure were removed. The patient tolerated the pr ocedure well and was discharged from the lab. There were no complication s. Administered medications: Midazolam, 1mg, IV, VERSED. Heparin, in fusion, infusion rate of 1,100units/hr was discontinued, HEPARIN (Drip). NITROGLYCERIN (IA), 200mcg, intra-arterially, NITROGLYCERIN (IA). KAREN LINTA (180 load), 180mg, PO, BRILINTA (180 load). Aspirin, 81mg, PO, PIRIN. Heparin, 6000units, IV, HEPARIN. Nitroglycerin, 200mcg, into th e coronary artery, NITROGLYCERIN (IC). Contrast: 1. ISOVUE 300MG/CC 1 14 ml (total dose). -- CORONARY ARTERIES: The coronary circulation is right dominant. The left main bifurcates normally into the LAD and circumflex. Left main: Minor luminal irregularities. LAD: Prior intervention #1: stent in the proximal LAD. Prior intervention #2: stent in the mid LAD. Mid-vessel lesion: The diagnosti c study demonstrated a 99% stenosis. This lesion appears consistent with atherosclerotic disease. There is a filling defect consistent with thro mbus. There is CRUZ grade 3 flow (brisk flow) across the lesion. The dis vale vessel supplies a large vascular territory. The lesion is a likely c ulprit for the patient's clinical presentation. Stent placement was per formed, with intravascular ultrasound, jailing the first diagonal, resul ting in an excellent angiographic appearance (see 1st lesion interventio n). Following intervention, there is a residual 0% stenosis with CRUZ gr nam 3 flow (brisk flow). There were no site complications. Proximal ves salvatore lesion: The diagnostic study demonstrated a 40%restenosisin the prev ious stent #1. was performed. Following intervention, there is a r esidual 0% stenosis. Mid-vessel lesion: The diagnostic study demonstrat ed a 70%restenosisin the previous stent #2. was performed. Followi ng intervention, there is a residual 0% stenosis. 1st diagonal: Ostial lesion: There is a 90% stenosis. 2nd obtuse marginal: Small. Ostial lesion: There is an 80% stenosis. Right coronary: Minor luminal irregularities. AORTIC VALVE: There is no stenosis. HEMODYNAMICS: + ---+ + +Stage description +Condition1:Room Air - + + ---+ + +LV pressure s/d, ed +168/-13, 11, dP/mk=9538 mm Hg/s+ + ---+ + +Arterial pressure s/d (m)+153/69 (101) + + ---+ + Prepared and electronically signed by Theron Fox MD 02/24/2019 08:13 [facility] [place], [place] Echo Complete w/wo Contrasto n 02-24-2019 Echo Complete w/wo Contrast Patient Name: BONNIE BROWNLEE Ultrasound Exam Date/Time 02/24/2019 12:31:33 EST Exam Echo Complete w/wo Contrast Ordering Physician KRUNAL THOMAS CAYLA Accession Number [id number] Reason For Exam NSTEMI Report TRANSTHORACIC ECHOCARDIOGRAM PATIENT: Bonnie Brownlee STUDY DATE: 02/24/2019 : 1960 AGE: 58 HT/WT: 165.1 cm (65 88 kg in) (193.6 lb) GENDER: F BP: 127 / 81 LOCATION: [facility] PATIENT Inpatient [facility] STATUS: *ORDERING PHYSICIAN: * Cherelle Thomas *READING PHYSICIAN: * Nathan, *TOW OPERATOR: Todd Rodriguez MD RDCS, AE, RCS -- INDICATIONS: NSTEMI. -- HISTORY: Stent x 17 october 2014. -- CONCLUSIONS SUMMARY: 1. Left ventricle: Systolic function is normal by the biplane method of disks. The estimated ejection fraction is 60%. There are no regional wall motion abnormalities. Unable to assess LV diastolic function due to suboptimal technical data 2. No significant valve disease. -- STUDY DATA: Complete transthoracic echocardiogram. Procedure: Image quality was fair. Intravenous imaging enhancement (Definity) was administered to opacify the chamber. Definity lot #: [id number]. M-mode, complete 2D, complete spectral Doppler, and color flow Doppler images were acquired and archived for permanent storage and are available for subsequent review. Study status: Routine. Patient status: Inpatient. ECG RHYTHM: NSR -- FINDINGS LEFT VENTRICLE: The cavity size is small. Wall thickness is normal. Systolic function is normal by the biplane method of disks. The estimated ejection fraction is 60%. There are no regional wall motion abnormalities. Unable to assess LV diastolic function due to suboptimal technical data RIGHT VENTRICLE: The cavity size is normal. Systolic function is normal. Right ventricular systolic pressure is within the normal range. VENTRICULAR SEPTUM: There is no evidence of a ventricular septal defect. LEFT ATRIUM: The atrium is normal in size. RIGHT ATRIUM: The atrium is normal in size. ATRIAL SEPTUM: Color Doppler shows no shunt. MITRAL VALVE: Structurally normal valve. Doppler: There is no regurgitation. AORTIC VALVE: Trileaflet; mildly thickened leaflets. No significant valve disease. Doppler: There is no regurgitation. The peak systolic gradient is 4 mm Hg. The peak systolic velocity is 1 m/sec. TRICUSPID VALVE: Structurally normal valve. Doppler: There is no significant regurgitation. PULMONIC VALVE: Structurally normal valve. Doppler: There is no regurgitation. AORTA: The aorta is normal. PULMONARY ARTERY: Main pulmonary artery: Normal. PERICARDIUM: There is no pericardial effusion. SYSTEMIC VEINS: Inferior vena cava: The vessel is normal. The IVC collapses by greater than 50% with inspiration. -- Measurements Left ventricle Value Reference LV ID, ED (L) 3.5 cm 3.8 - 5.2 LV ID, ES 2.3 cm 2.2 - 3.5 LV ID/bsa, ED (L) 1.7 cm/m^2 2.3 - 3.1 LV ID/bsa, ES (L) 1.1 cm/m^2 1.3 - 2.1 LV PW thickness, ED (H) 1.2 cm 0.6 - 0.9 LV PW/LV ID ratio, ED 0.33 --------- LV wall mass 113 g 66 - 150 LV wall mass/bsa 55 g/m^2 44 - 88 Stroke volume/bsa, 1-p A2C 20.9 ml/m^2 --------- LV end-diastolic volume, 1-p A4C 70 ml 48 - 140 LV end-systolic volume, 1-p A4C 29 ml 12 - 60 LV end-diastolic volume, 2-p 78 ml 46 - 106 LV end-systolic volume, 2-p 31 ml 14 - 42 LV ejection fraction, 2-p 60 % 54 - 74 LV E/e', lateral 5.8 --------- LV E/e', medial 9 --------- LV E/e', average 7.1 --------- Ventricular septum Value Reference IVS thickness, ED 0.9 cm 0.6 - 0.9 LVOT Value Reference LVOT ID, A-P 1.9 cm --------- LVOT mean velocity, S 0.6 m/sec --------- LVOT peak gradient, S 3 mm Hg --------- Stroke volume (SV), LVOT DP 48 ml --------- Stroke index (SV/bsa), LVOT DP 24 ml/m^2 --------- Aortic valve Value Reference Aortic valve peak velocity, S 1 m/sec --------- Aortic peak gradient, S 4 mm Hg --------- Left atrium Value Reference LA volume/bsa, ES, 2-p 17 ml/m^2 16 - 34 Mitral valve Value Reference Mitral E-wave peak velocity 0.5 m/sec --------- Mitral A-wave peak velocity 0.8 m/sec --------- Mitral deceleration time 226 ms --------- Mitral E/A ratio, peak 0.7 --------- Right atrium Value Reference RA area, ES, A4C (L) 9 cm^2 10 - 18 Right ventricle Value Reference RV ID, minor axis, ED, A4C base 2.6 cm 2.5 - 4.1 RV ID, minor axis, ED, A4C mid 2.4 cm 1.9 - 3.5 TAPSE, 2D 1.8 cm 1.7 - 3.1 Legend: (L) and (H) francesca values outside specified reference range. Electronically signed by Jennifer Evans MD 02/24/2019 13:00 Prior Signatures: Final Dictated: 02/24/2019 1:00 pm Dictating Physician: Iris EVANS OTFRIED Signed Date and Time: 02/24/2019 1:00 pm Signed by: Iris EVANS OTFRIED [facility] Glucose,Bedsideon 02-24-2019 Glucose [Mass/Vol] 249 mg/dL High 70-100 [facility] Comment on above: Result Comment: Test performed by glucose meter. Results may be 10%-15% lower than serum/plasma values. (CLIA ID [id number]) Performed By: #### B MP3M, TROPN, HEMOG #### [place] [address] [address] [place], [place] Hemogramon 02-24-2019 Erythrocyte distribution width (RBC) [Ratio] 13.8 % Normal 11.5-14.5 [facility] Comment on above: Performed By: #### B MP3DEE KathleenN, HEMOG #### [place] [address] [address] [place], [place] Hematocrit (Bld) [Volume fraction] 38.4 % Normal 35.0-47.0 [facility] Comment on above: Performed By: #### B MP3M TROPN, HEMOG #### [place] [address] [place], [place] Hemoglobin (Bld) [Mass/Vol] 13.3 g/dL Normal 11.7-16.0 [facility] Comment on above: Performed By: #### B MP3M TROPN, HEMOG #### [place] [address] [address] [place], [place] MCH (RBC) [Entitic mass] 27.8 pg Normal 26.0-34.0 [facility] Comment on above: Performed By: #### B MP3M TROPN, HEMOG #### [place] [address] [address] [place], [place] MCHC (RBC) [Mass/Vol] 34.5 % Normal 32.0-36.0 [facility] Comment on above: Performed By: #### B MP3M TROPN, HEMOG #### [place] [address] [address] [place], [place] MCV (RBC) [Entitic vol] 80.6 fL Normal 79.0-98.0 [facility] Comment on above: Performed By: #### B MP3M TROPN, HEMOG #### [place] [address] [place], [place] Platelet mean volume (Bld) [Entitic vol] 8.2 fL Normal 7.4-10.4 [facility] Comment on above: Performed By: #### B MP3M TROPN, HEMOG #### [place] [address] [address] [place], [place] Platelets (Bld) [#/Vol] 219 10*3/uL Normal 140-440 [facility] Comment on above: Performed By: #### B NATALIE MORRIS, HEMOG #### [facility] [address] [place], [place] RBC (Bld) [#/Vol] 4.77 10*6/uL Normal 3.80-5.20 [facility] Comment on above: Performed By: #### B HARRIET3NATALIE Kathleen, HEMOG #### [facility] [address] [place], [place] WBC (Bld) [#/Vol] 8.4 10*3/uL Normal 3.6-10.7 [facility] Comment on above: Performed By: #### B HARRIET3NATALIE Kathleen, HEMOG #### [place] [address] [address] [place], [place] Lipid Panelon 02-24-2019 Cholesterol in HDL [Mass/Vol] 46 mg/dL Normal 40-60 [facility] Comment on above: Performed By: #### B NATALIE MORRIS, HEMOG #### [place] [address] [address] [place], [place] Cholesterol.total/Chol esterol in HDL [Mass ratio] 7 Normal [facility] Comment on above: Result Comment: Ref Range: < 3 Low Risk for CHD 3-6 Mod Risk for CHD > 6 High Risk for CHD Performed By: #### B NATALIE MORRIS, HEMOG #### [facility] [address] [place], [place] Protein [Mass/Vol] - Abnormal <100 [facility] Comment on above: Result Comment: LDL unable to calculate, Trig >400 mg/dL Suggest ordering LDL-Chol,Direct. Performed By: #### B HARRIET3NATALIE Kathleen, HEMOG #### [facility] [address] [place], [place] Triglyceride [Mass/Vol] 434 mg/dL Abnormal <150 [facility] Comment on above: Performed By: #### B HARRIET3NATALIE Kathleen, HEMOG #### [facility] [address] [place], [place] Cholesterol [Mass/Vol] 308 mg/dL Abnormal < 200 [facility] Comment on above: Performed By: #### B NATALIE MORRIS, HEMOG #### [facility] [address] [place], [place] Cholesterol in HDL [Mass/Vol] 46 mg/dL Normal 40-60 [facility] Comment on above: Performed By: #### B HARRIET3NATALIE Kathleen, HEMOG #### [facility] [address] [place], [place] Cholesterol.total/Chol esterol in HDL [Mass ratio] 7 Normal [facility] Comment on above: Result Comment: Ref Range: < 3 Low Risk for CHD 3-6 Mod Risk for CHD > 6 High Risk for CHD Performed By: #### B HARRIET3NATALIE Kathleen, HEMOG #### [place] [address] [address] [place], [place] Protein [Mass/Vol] - Abnormal <100 [facility] Comment on above: Result Comment: LDL unable to calculate, Trig >400 mg/dL Suggest ordering LDL-Chol,Direct. Performed By: #### B NATALIE MORRIS, HEMOG #### [facility] [address] [place], [place] Cholesterol [Mass/Vol] 310 mg/dL Abnormal < 200 [place] [facility] Comment on above: Performed By: #### B HARRIET3NATALIE Kathleen, HEMOG #### [facility] [address] [place], [place] Triglyceride [Mass/Vol] 431 mg/dL Abnormal <150 [facility] Comment on above: Performed By: #### B MP3NATALIE Kathleen, HEMOG #### [facility] [address] [place], [place] Lipid panelon 02-24-2019 Cholesterol [Mass/Vol] 308 mg/dL Abnormal <200 [facility], [place] Cholesterol in HDL [Mass/Vol] 46 mg/dL 40 - 60 mg/dL [facility], [place] Cholesterol in LDL [Mass/Vol] =- Abnormal <100 mg/dL [place], [place] Comment on above: LDL unable to calcul ate, Trig >400 mg/dL Suggest ordering LDL-Chol,Direct. Cholesterol.total/Chol esterol in HDL [Mass ratio] 7 {ratio} [place], [place] Comment on above: Ref Range: < 3 Low Risk for CHD 3-6 Mod Risk for CHD > 6 High Risk for CHD Triglyceride [Mass/Vol] 434 mg/dL Abnormal <150 [place] Lipid panel - fastingon Cholesterol [Mass/Vol] 310 mg/dL Abnormal <200 [place] Cholesterol in HDL [Mass/Vol] 46 mg/dL 40 - 60 mg/dL [place] Cholesterol in LDL [Mass/Vol] =- Abnormal <100 mg/dL [place] Comment on above: LDL unable to calcul ate, Trig >400 mg/dL Suggest ordering LDL-Chol,Direct. Cholesterol.total/Chol esterol in HDL [Mass ratio] 7 {ratio} [place] Comment on above: Ref Range: < 3 Low Risk for CHD 3-6 Mod Risk for CHD > 6 High Risk for CHD Interpretation and review of laboratory results Abnormal [place] Triglyceride [Mass/Vol] 431 mg/dL Abnormal <150 [place] Test Performed by [facility], [address] [place] [id number] [place] [address] Otheron 02-24-2019 Interpretation and review of laboratory results Abnormal [place], [place] Test Performed by [facility], [facility] [place] [address] [place], [place] POCT Glucoseon 02-24-2019 Glucose [Mass/Vol] 249 mg/dL High 70 - 100 mg/dL [place] Comment on above: Test performed by ucose meter. Results may be 10%-15% lower than serum/plasma values. (CLIA ID [id number]) Interpretation and review of laboratory results Abnormal [place] Test Performed by [facility], [address] [place] [address] [place], [place] ACT,Whole Bloodon 02-23-2019 ACT,Whole Blood 151 s High 90-134 [facility] Comment on above: Result Comment: ACTB O Performed by [employer] EliteCLIA ID: [id number] [place], [place] ACT testing is not intended for patients taking aprotonin, patients with hematocrits of <20% or >55%, patients using other types of anticoagulation medications, and patients with Lupus Anticoagulant. Performed By: #### A CTBO #### [address] [id number] ACT,Whole Blood 277 s High 90-134 [facility] Comment on above: Result Comment: ACTB O Performed by [employer] EliteCLIA ID: [id number] [place], [place] ACT testing is not intended for patients taking aprotonin, patients with hematocrits of <20% or >55%, patients using other types of anticoagulation medications, and patients with Lupus Anticoagulant. Performed By: #### A CTBO #### [address] [id number] APTTon 02-23-2019 aPTT Coag (Bld) [Time] 36.5 s High 20.0-30.5 [facility] Comment on above: Result Comment: NOTE : The therapeutic time for Heparin anticoagulation, based on Xa activity inhibition, is an APTT of 46-80 seconds. Performed By: #### A PTT #### [address] aPTT Coag (Bld) [Time] 36.5 s High 20 - 30.5 s [place], [place] Comment on above: NOTE: The therapeuti c time for Heparin anticoagulation, based on Xa activity inhibition, is an APTT of 46-80 seconds. Interpretation and review of laboratory results Abnormal [place] Test Performed by [address] [address] [place] aPTT Coag (Bld) [Time] 50.4 s High 20.0-30.5 [facility] Comment on above: Result Comment: NOTE : The therapeutic time for Heparin anticoagulation, based on Xa activity inhibition, is an APTT of 46-80 seconds. Performed By: #### A PTT #### [address] aPTT Coag (Bld) [Time] 50.4 s High 20 - 30.5 s [place], [place] Comment on above: NOTE: The therapeuti c time for Heparin anticoagulation, based on Xa activity inhibition, is an APTT of 46-80 seconds. Interpretation and review of laboratory results Abnormal [place] Test Performed by [address] [address] [place] Activated clotting timeon Activated Clotting Time 151 s High 90 - 134 s [place] Comment on above: ACTBO Performed by [employer] EliteCLIA ID: [id number] [place], [place] ACT testing is not intended for patients taking aprotonin, patients with hematocrits of <20% or >55%, patients using other types of anticoagulation medications, and patients with Lupus Anticoagulant. Activated Clotting Time 277 s High 90 - 134 s [place], [place] Comment on above: ACTBO Performed by [employer] EliteCLIA ID: [id number] [place], [place] ACT testing is not intended for patients taking aprotonin, patients with hematocrits of <20% or >55%, patients using other types of anticoagulation medications, and patients with Lupus Anticoagulant. Basic Metabolic Panelon Anion gap [Moles/Vol] 10 Normal [facility] Comment on above: Performed By: #### B HARRIET3NATALIE Kathleen, HEMOG #### [address] CO2 [Moles/Vol] 24 mmol/L Normal 22-30 [facility] Comment on above: Performed By: #### B MP3NATALIE Kathleen, HEMOG #### [address] Creatinine [Mass/Vol] 0.56 mg/dL Normal 0.52-1.25 [facility] Comment on above: Performed By: #### B HARRIET3DEE KathleenN, HEMOG #### [address] [address] GFR/1.73 sq M predicted among blacks MDRD (S/P/Bld) [Vol rate/Area] mL/min/{1.73_m2} Normal >60 [facility] Comment on above: Performed By: #### NATALIE ROBISON, HEMOG #### [facility] [address] [place] [address] GFR/1.73 sq M predicted among non-blacks MDRD (S/P/Bld) [Vol rate/Area] mL/min/{1.73_m2} Normal >60 [facility] Comment on above: Result Comment: Sour ce- MDRD equation with creatinine calibration to IDMS(NKDEP) eGFR not recommended for drug dose adjustment Performed By: #### B NATALIE MORRIS, HEMOG #### [facility] [address] [place] [address] Glucose [Mass/Vol] 183 mg/dL High 70-100 [facility] Comment on above: Performed By: #### NATALIE ROBISON, HEMOG #### [facility] [address] [place] [address] Urea nitrogen [Mass/Vol] 11 mg/dL Normal 7-20 [facility] Comment on above: Performed By: #### NATALIE ROBISON, HEMOG #### [facility] [address] [place] [address] Chloride [Moles/Vol] 105 mmol/L Normal 98-107 [facility] Comment on above: Performed By: #### Jessica LARIOS3NATALIE Kathleen, HEMOG #### [facility] [address] [place] [address] Potassium [Moles/Vol] 3.9 mmol/L Normal 3.5-5.1 [facility] Comment on above: Performed By: #### Jessica LARIOS3NATALIE Kathleen, HEMOG #### [facility] [address] [place] [address] Sodium [Moles/Vol] 139 mmol/L Normal 135-145 [facility] Comment on above: Performed By: #### Jessica LARIOS3NATALIE Kathleen, HEMOG #### [address] [address] [place] [address] Calcium [Mass/Vol] 9.6 mg/dL Normal 8.4-10.4 [place] Comment on above: Performed By: #### B NATALIE MORRIS, HEMOG #### [address] [address] [place] [address] Basic Metabolic Panel w/ Ref blanquita to MGon 02-23-2019 Anion gap [Moles/Vol] 10 mmol/L [place], [place] Chloride [Moles/Vol] 105 mmol/L 98 - 10 7 mmol/L [place] CO2 [Moles/Vol] 24 mmol/L 22 - 30 mmol/L [place] Creatinine [Mass/Vol] 0.56 mg/dL 0.52 - 1.25 mg/dL [place] EGFR IF NonAfrican [place] >60.0 >60 mL/min [place] Comment on above: Source- MDRD equatio n with creatinine calibration to IDMS(NKDEP) eGFR not recommended for drug dose adjustment GFR/1.73 sq M predicted among blacks MDRD (S/P/Bld) [Vol rate/Area] mL/min/{1.73_m2} >60 mL/min [place] Glucose [Mass/Vol] 183 mg/dL High 70 - 100 mg/dL [place] Interpretation and review of laboratory results Abnormal [place] Potassium [Moles/Vol] 3.9 mmol/L 3.5 - 5.1 mmol/L [place] Sodium [Moles/Vol] 139 mmol/L 135 - 145 mmol/L [place] Urea nitrogen [Mass/Vol] 11 mg/dL 7 - 20 mg/dL [place] Test Performed by [address] [address] [place] CBCon 02-23-2019 Erythrocyte distribution width (RBC) [Ratio] 13.4 % 11.5 - 14.5 % [place] Hematocrit (Bld) [Volume fraction] 41.7 % 35 - 47 % [place] Hemoglobin (Bld) [Mass/Vol] 14.3 g/dL 11.7 - 16 g/dL [place] MCH (RBC) [Entitic mass] 27.9 pg 26 - 34 pg [place] MCHC (RBC) [Mass/Vol] 34.3 % 32 - 36 % [facility] MCV (RBC) [Entitic vol] 81.4 fL 79 - 98 fL [place] Platelet mean volume (Bld) [Entitic vol] 8.2 fL 7.4 - 10.4 fL [place] Platelets (Bld) [#/Vol] 216 10*3/uL 140 - 440 10*3/uL [place] RBC (Bld) [#/Vol] 5.13 10*6/uL 3.8 - 5.2 10*6/uL [place] WBC (Bld) [#/Vol] 6.8 10*3/uL 3.6 - 10.7 10*3/uL [place] Test Performed by [facility], [address] [place] [id number] [place] [address] Diagnostic Catherizationon 1 04-25-2018 Diagnostic Catherization Patient Name: BONNIE BROWNLEE [facility] [employer] Exam Date/Time 02/23/2019 16:25:07 EST Exam Diagnostic Catherization Ordering Physician CYNTHIA LATHAM Accession Number [id number] Report [facility] -- CARDIAC CATHETERIZATION Patient: Bonnie Brownlee Procedure Date: 02/23/2019 : 1960 Age: 58 Gender: F Patient Type: Inpatient Procedure physician: Theron Fox MD Fellow: Kaleigh Wright Referring Physician: Cynthia Latham MD -- INDICATIONS: Non ST elevated myocardial infarction. -- Procedures performed: # Left coronary angiography. # Right coronary angiography. # Left heart catheterization. # Percutaneous intervention on the 99% stenosis in the mid LAD. Interventional IVUS examination. Stent placement. Stent placement. -- SUMMARY: 1. Ms. Brownlee is a very pleasant 58yo F who presents with an NSTEMI. Urgent cath revealed a thrombotic lesion in the mid LAD between two previous stents. IVUS revealed restenosis in the stents as well, so the lesion was stented with overlapping 3.5x23 and 3.0x38 drug eluting stents, IVUS guided. A very small diagonal had CRUZ 1-2 flow after stenting but ECG had no changes so this will be medically managed. 2. 2nd obtuse marginal: Ostial lesion: There is an 80% stenosis. 3. 1st diagonal: Ostial lesion: There is a 90% stenosis. 4. LAD: Prior intervention #1: stent in the proximal LAD. Prior intervention #2: stent in the mid LAD. Mid-vessel lesion: The diagnostic study demonstrated a 99% stenosis. The distal vessel supplies a large vascular territory. The lesion is a likely culprit for the patient's clinical presentation. Stent placement was performed, with intravascular ultrasound, jailing the first diagonal, resulting in an excellent angiographic appearance (see 1st lesion intervention). Following intervention, there is a residual 0% stenosis with CRUZ grade 3 flow (brisk flow). Proximal vessel lesion: was performed. Following intervention, there is a residual 0% stenosis. Mid-vessel lesion: The diagnostic study demonstrated a 70%restenosisin the previous stent #2. was performed. Following intervention, there is a residual 0% stenosis. IMPRESSIONS: Successful PCI of the LAD with overlapping 3.5x23 and 3.0x38 drug eluting stents, IVUS guided. RECOMMENDATIONS: 1. Patient management should include aggressive risk factor modification and a cardiac rehabilitation program. The patient was counseled regarding the importance of adherence to the prescribed antiplatelet therapy and a low fat diet. 2. Add optimal medical therapy of the patient's disease. 3. Add statin therapy. 4. Add aspirin, 81mgPOdaily. 5. Add ticagrelor (Brilinta), 90mgPObid, for 12 mon. -- HISTORY: PMH: Myocardial infarction. Risk factors: Hypertension. Diabetes mellitus; on therapy with insulin. Dyslipidemia. [[LE FT]] -- PROCEDURE IN DETAIL: Study status: Cardiac cath: urgent. Consent: The risks, benefits, and alternatives to the procedure and sedation were explained to the patient and informed consent was obtained. Fluoroscop y time: Fluoroscopy time: 10.7 min. Fluoroscopy dose: Fluoroscopy dos e: 76.1 cGy. Location: Catheterization laboratory. PROCEDURE: 1. Initial setup. The patient was brought to the laboratory. A baseline ECG was recorded. Intravenous access was obtained. Surface ECG leads, blood pressure measurements, and pulse oximetric signals were monitored. 2. Skin preparation. The planned puncture sites were prepped and draped in the usual sterile manner. 3. Local anesthesia. 1% lidocaine was administered. 4. Right radial artery access. A 6Fr/10cm Glidesheath Slender sheath was advanced into the vessel. 5. Selective left coronary angiography. A 5fr x 100cm Optitorque TIG 4.0 catheter was advanced into the left coronary vessel ostium under fluoroscopic guidance. Contrast was injected. Images were obtained in multiple projections. 6. Selective right coronary angiography. A 5fr x 100cm Optitorque TIG 4.0 catheter was advanced into the right coronary vessel ostium under fluoroscopic guidance. Contrast was injected. Images were obtained in multiple projections. 7. Left heart catheterization. A catheter was advanced across the aortic valve to the left ventricle under fluoroscopic guidance. 8. A stent was placed in the stenosis in the mid LAD. See detailed description below (1st lesion intervention). 9. ACT was 277 sec. 10. Right radial artery hemostasis. Mechanical compression was applied. 1st lesion intervention: Percutaneous intervention on the 99% stenosis in the mid LAD. 1. Guider placement: a 6Fr x 100cm Launcher EBU3.5 guiding catheter was placed. 2. A .014/180cm Runthrough NS wire was placed across the lesion. 3. Intravascular ultrasound evaluation, using a .014 [facility] catheter. 4. Stent placement. A 3 mm (D) x 38 mm (L), Xience Sharon RX (drug eluting) stent was used. The stent was advanced across the lesion and deployed with a single inflation and a maximum pressure of 18 delfino. 5. Stent placement. A 3.5 mm (D) x 23 mm (L), Xience Sharon RX (drug eluting) stent was used. The stent was advanced across the lesion and deployed with a single inflation and a maximum pressure of 18 delfino. STUDY COMPLETION: The estimated blood loss was 10 ml. All catheters inserted during the procedure were removed. The patient tolerated the pr ocedure well and was discharged from the lab. There were no complication s. Administered medications: Midazolam, 1mg, IV, VERSED. Heparin, in fusion, infusion rate of 1,100units/hr was discontinued, HEPARIN (Drip). NITROGLYCERIN (IA), 200mcg, intra-arterially, NITROGLYCERIN (IA). KAREN LINTA (180 load), 180mg, PO, BRILINTA (180 load). Aspirin, 81mg, PO, PIRIN. Heparin, 6000units, IV, HEPARIN. Nitroglycerin, 200mcg, into th e coronary artery, NITROGLYCERIN (IC). Contrast: 1. ISOVUE 300MG/CC 1 14 ml (total dose). -- CORONARY ARTERIES: The coronary circulation is right dominant. The left main bifurcates normally into the LAD and circumflex. Left main: Minor luminal irregularities. LAD: Prior intervention #1: stent in the proximal LAD. Prior intervention #2: stent in the mid LAD. Mid-vessel lesion: The diagnosti c study demonstrated a 99% stenosis. This lesion appears consistent with atherosclerotic disease. There is a filling defect consistent with thro mbus. There is CRUZ grade 3 flow (brisk flow) across the lesion. The dis vale vessel supplies a large vascular territory. The lesion is a likely c ulprit for the patient's clinical presentation. Stent placement was per formed, with intravascular ultrasound, jailing the first diagonal, resul ting in an excellent angiographic appearance (see 1st lesion interventio n). Following intervention, there is a residual 0% stenosis with CRUZ gr nam 3 flow (brisk flow). There were no site complications. Proximal ves salvatore lesion: The diagnostic study demonstrated a 40%restenosisin the prev ious stent #1. was performed. Following intervention, there is a r esidual 0% stenosis. Mid-vessel lesion: The diagnostic study demonstrat ed a 70%restenosisin the previous stent #2. was performed. Followi ng intervention, there is a residual 0% stenosis. 1st diagonal: Ostial lesion: There is a 90% stenosis. 2nd obtuse marginal: Small. Ostial lesion: There is an 80% stenosis. Right coronary: Minor luminal irregularities. AORTIC VALVE: There is no stenosis. HEMODYNAMICS: + ---+ + +Stage description +Condition1:Room Air - + + ---+ + +LV pressure s/d, ed +168/-13, 11, dP/tk=4586 mm Hg/s+ + ---+ + +Arterial pressure s/d (m)+153/69 (101) + + ---+ + Prepared and electronically signed by Theron Fox MD 02/24/2019 08:13 Final Dictated: 02/24/2019 8:13 am Dictating Physician: MD OFX JUSTIN Signed Date and Time: 02/24/2019 8:13 am Signed by: MD FOX JUSTIN Normal [facility] [email or web address] [facility] Glucose,Bedsideon 02-23-2019 Glucose [Mass/Vol] 251 mg/dL High 70-100 [facility] [email or web address] [facility] Comment on above: Result Comment: Test performed by glucose meter. Results may be 10%-15% lower than serum/plasma values. (CLIA ID [id number]) Performed By: #### B GLU #### [facility] [address] [place] [address] Glucose [Mass/Vol] 149 mg/dL High 70-100 [facility] [email or web address] [facility] Comment on above: Result Comment: Test performed by glucose meter. Results may be 10%-15% lower than serum/plasma values. (CLIA ID [id number]) Performed By: #### B GLU #### [address] [address] [place], [place] Hemogramon 02-23-2019 Erythrocyte distribution width (RBC) [Ratio] 13.4 % Normal 11.5-14.5 [facility] Comment on above: Performed By: #### B MP3DEE KathleenN, HEMOG #### [address] [address] [address] [place], [place] Hematocrit (Bld) [Volume fraction] 41.7 % Normal 35.0-47.0 [facility] Comment on above: Performed By: #### B MP3M TROPN, HEMOG #### [address] [address] [address] [place], [place] Hemoglobin (Bld) [Mass/Vol] 14.3 g/dL Normal 11.7-16.0 [facility] Comment on above: Performed By: #### B MP3DEE KathleenN, HEMOG #### [address] [address] [address] [place], [place] MCH (RBC) [Entitic mass] 27.9 pg Normal 26.0-34.0 [facility] Comment on above: Performed By: #### B MP3DEE KathleenN, HEMOG #### [address] [address] [address] [place], [place] MCHC (RBC) [Mass/Vol] 34.3 % Normal 32.0-36.0 [facility] Comment on above: Performed By: #### B MP3M TROPN, HEMOG #### [address] [address] [address] [place], [place] MCV (RBC) [Entitic vol] 81.4 fL Normal 79.0-98.0 [facility] Comment on above: Performed By: #### B MP3M TROPN, HEMOG #### [address] [address] [address] [place], [place] Platelet mean volume (Bld) [Entitic vol] 8.2 fL Normal 7.4-10.4 [facility] Comment on above: Performed By: #### B MP3M TROPN, HEMOG #### [address] [address] [place] [address] Platelets (Bld) [#/Vol] 216 10*3/uL Normal 140-440 [facility] Comment on above: Performed By: #### B MP3M, TROPN, HEMOG #### [facility] [address] [place] [address] RBC (Bld) [#/Vol] 5.13 10*6/uL Normal 3.80-5.20 [facility] Comment on above: Performed By: #### B MP3M, TROPN, HEMOG #### [facility] [address] [place] [address] WBC (Bld) [#/Vol] 6.8 10*3/uL Normal 3.6-10.7 [facility] Comment on above: Performed By: #### B MP3M, TROPN, HEMOG #### [facility] [address] [place] [address] Otheron 02-23-2019 Interpretation and review of laboratory results Abnormal [facility] [employer] Test Performed by [facility], [facility] [place] [address] [facility], [place] POCT Glucoseon 02-23-2019 Glucose [Mass/Vol] 251 mg/dL High 70 - 100 mg/dL [facility] [email or web address] Comment on above: Test performed by gl ucose meter. Results may be 10%-15% lower than serum/plasma values. (CLIA ID [id number]) Interpretation and review of laboratory results Abnormal [facility] [place], [place] Test Performed by [employer] [facility], [facility] [place] [address] [facility] [place], [place] Glucose [Mass/Vol] 149 mg/dL High 70 - 100 mg/dL [facility] [employer] [place], [place] Comment on above: Test performed by gl ucose meter. Results may be 10%-15% lower than serum/plasma values. (CLIA ID [id number]) Interpretation and review of laboratory results Abnormal [facility] [place] Test Performed by [facility], [facility] [place] [address] [facility] [place], [place] Troponinon 02-23-2019 Interpretation and review of laboratory results Abnormal [place] Troponin I.cardiac [Mass/Vol] 1.820 ng/mL High 0 - 0.034 ng/mL [place] Comment on above: . Test Performed by [facility], [address] [place] [id number] [place] [address] Interpretation and review of laboratory results Abnormal [place] Troponin I.cardiac [Mass/Vol] 0.972 ng/mL High 0 - 0.034 ng/mL [place] Comment on above: . Test Performed by [facility], [facility] [place] [address] [place] Troponin Ion 02-23-2019 Troponin I.cardiac [Mass/Vol] 1.820 ng/mL High 0.000-0.034 [facility] Comment on above: Result Comment: . Performed By: #### T ROPN #### [address] Troponin I.cardiac [Mass/Vol] 0.972 ng/mL High 0.000-0.034 [facility] Comment on above: Result Comment: . Performed By: #### B MP3M, TROPN, HEMOG #### [address] Culture, urine Bacteria identified Cx Nom (U) Positive [facility] Work Phone: Vital Signs Date Time Vital Sign Value Performing Clinician Facility 12-03-2024 14:34-0400 Body height 165.[address] Madalyn Vaughan DO Work Phone: [facility] 12-03-2024 14:34-0400 Body mass index (BMI) [Ratio] 30.1 kg/m2 Dr. Madalyn Vaughan DO Work Phone: [facility] 12-03-2024 14:34-0400 Body weight 82.[address] Madalyn Vaughan DO Work Phone: [facility] 12-03-2024 14:34-0400 Diastolic blood pressure 69 mm[Hg] Dr. Madalyn Vaughan DO Work Phone: [facility] 12-03-2024 14:34-0400 Heart rate 57 /min Dr. Madalyn Vaughan DO Work Phone: [facility] 12-03-2024 14:34-0400 SaO2% (BldA) [Mass fraction] 98 % Dr. Madalyn Vaughan DO Work Phone: [facility] 12-03-2024 14:34-0400 Systolic blood pressure 116 mm[Hg] Dr. Madalyn Vaughan DO Work Phone: [facility] 09-11-2024 07:04-0400 Body height 165.1 cm Miguel Forte MD Work Phone: [facility] 09-11-2024 07:00-0400 Body temperature 97.81 [degF] Miguel Forte MD Work Phone: [phone])[phone] [address] 09-11-2024 07:00-0400 Diastolic blood pressure 66 mm[Hg] Miguel Forte MD Work Phone: 1(678)946-509824 [address] 09-11-2024 07:00-0400 Heart rate 63 /min Miguel Forte MD Work Phone: [facility] 09-11-2024 07:00-0400 Respiratory rate 15 /min Miguel Forte MD Work Phone: [facility] 09-11-2024 07:00-0400 SaO2% (BldA) [Mass fraction] 97 % Miugel Forte MD Work Phone: [facility] 09-11-2024 07:00-0400 Systolic blood pressure 130 mm[Hg] Miguel Forte MD Work Phone: [facility] 08-21-2024 09:28-0400 Body mass index (BMI) [Ratio] 31.4 kg/m2 Dr. Madalyn Vaughan DO Work Phone: [facility] 08-21-2024 09:28-0400 Body weight 85.[address] Madalyn Vaughan DO Work Phone: [facility] 08-21-2024 09:28-0400 Diastolic blood pressure 69 mm[Hg] Dr. Madalyn Vaughan DO Work Phone: [facility] 08-21-2024 09:28-0400 Heart rate 60 /min Dr. Madalyn Vaughan DO Work Phone: [facility] 08-21-2024 09:28-0400 Respiratory rate 16 /min Dr. Madalyn Vaughan DO Work Phone: [facility] 08-21-2024 09:28-0400 Systolic blood pressure 108 mm[Hg] Dr. Madalyn Vaughan DO Work Phone: [facility] 05-28-2024 15:50-0500 Body height 165.[address] Madalyn Vaughan DO Work Phone: [facility] 05-28-2024 15:50-0500 Body mass index (BMI) [Ratio] 31.1 kg/m2 Dr. Madalyn Vaughan DO Work Phone: [facility] 05-28-2024 15:50-0500 Body weight 84.[address] Madalyn Vaughan DO Work Phone: [facility] 05-28-2024 15:50-0500 Diastolic blood pressure 74 mm[Hg] Dr. Madalyn Vaughan DO Work Phone: [facility] 05-28-2024 15:50-0500 Heart rate 61 /min Dr. Madalyn Vaughan DO Work Phone: [facility] 05-28-2024 15:50-0500 SaO2% (BldA) [Mass fraction] 97 % Dr. Madalyn Vaughan DO Work Phone: [facility] 05-28-2024 15:50-0500 Systolic blood pressure 119 mm[Hg] Dr. Madalyn Vaughan DO Work Phone: [facility] 04-04-2023 09:18-0500 Body height 165.[address] Madalyn Vaughan Work Phone: [facility] 04-04-2023 09:18-0500 Body weight [address] Madalyn Vaughan Work Phone: [facility] 04-04-2023 09:03-0500 Body mass index (BMI) [Ratio] 30.4 kg/m2 Dr. Madalyn Vaughan Work Phone: [facility] 03-21-2023 10:00-0500 Body height 165.[address] Madalyn Vaughan Work Phone: [facility] 03-21-2023 10:00-0500 Body mass index (BMI) [Ratio] 29.4 kg/m2 Dr. Madalyn Vaughan Work Phone: [facility] 03-21-2023 10:00-0500 Body weight 80.[address] Madalyn Vaughan Work Phone: [facility] 03-21-2023 10:00-0500 Diastolic blood pressure 81 mm[Hg] Dr. Madalyn Vaughan Work Phone: [facility] 03-21-2023 10:00-0500 Heart rate 63 /min Dr. Madalyn Vaughan Work Phone: [facility] 03-21-2023 10:00-0500 Respiratory rate 18 /min Dr. Madalyn Vaughan Work Phone: [facility] 03-21-2023 10:00-0500 SaO2% (BldA) [Mass fraction] 99 % Dr. Madalyn Vaughan Work Phone: [facility] 03-21-2023 10:00-0500 Systolic blood pressure 133 mm[Hg] Dr. Madalyn Vaughan Work Phone: [facility] 03-21-2023 09:06-0500 Body mass index (BMI) [Ratio] 29.7 kg/m2 Dr. Madalyn Vaughan Work Phone: [facility] 03-21-2023 09:06-0500 Body temperature 98.6 [degF] Dr. Madalyn Vaughan Work Phone: [facility] 03-21-2023 09:06-0500 Body weight 81.[address] Madalyn Vaughan Work Phone: [facility] 03-21-2023 09:06-0500 Diastolic blood pressure 66 mm[Hg] Dr. Madalyn Vaughan Work Phone: [facility] 03-21-2023 09:06-0500 Heart rate 65 /min Dr. Madalyn Vaughan Work Phone: [facility] 03-21-2023 09:06-0500 SaO2% (BldA) [Mass fraction] 97 % Dr. Madalyn Vaughan Work Phone: [facility] 03-21-2023 09:06-0500 Systolic blood pressure 130 mm[Hg] Dr. Madalyn Vaughan Work Phone: [facility] 06-23-2022 13:15-0500 Body height 165.[address] Madalyn Vaughan Work Phone: [facility] 06-23-2022 13:15-0500 Body mass index (BMI) [Ratio] 30.9 kg/m2 Dr. Madalyn Vaughan Work Phone: [facility] 06-23-2022 13:15-0500 Body temperature 97.7 [degF] Dr. Madalyn Vaughan Work Phone: [facility] 06-23-2022 13:15-0500 Body weight 84.[address] Madalyn Vaughan Work Phone: [facility] 06-23-2022 13:15-0500 Diastolic blood pressure 73 mm[Hg] Dr. Madalyn Vaughan Work Phone: [facility] 06-23-2022 13:15-0500 Heart rate 76 /min Dr. Madalyn Vaughan Work Phone: [facility] 06-23-2022 13:15-0500 Respiratory rate 17 /min Dr. Madalyn Vaughan Work Phone: [facility] 06-23-2022 13:15-0500 SaO2% (BldA) [Mass fraction] 96 % Dr. Madalyn Vaughan Work Phone: [facility] 06-23-2022 13:15-0500 Systolic blood pressure 120 mm[Hg] Dr. Madalyn Vaughan Work Phone: [facility] 01-20-2022 13:56-0400 Body height 165.[address] Madalyn Vaughan Work Phone: [facility] Work Phone: 01-20-2022 13:56-0400 Body mass index (BMI) [Ratio] 30.9 kg/m2 Dr. Madalyn Vaughan Work Phone: [facility] Work Phone: 01-20-2022 13:56-0400 Body temperature 95.9 [degF] Dr. Madalyn Vaughan Work Phone: [facility] Work Phone: 01-20-2022 13:56-0400 Body weight 84.[address] Madalyn Vaughan Work Phone: [facility] Work Phone: 01-20-2022 13:56-0400 Diastolic blood pressure 76 mm[Hg] Dr. Madalyn Vaughan Work Phone: [facility] Work Phone: 01-20-2022 13:56-0400 Heart rate 67 /min Dr. Madalyn Vaughan Work Phone: [facility] Work Phone: 01-20-2022 13:56-0400 Respiratory rate 18 /min Dr. Madalyn Vaughan Work Phone: [facility] Work Phone: 01-20-2022 13:56-0400 SaO2% (BldA) [Mass fraction] 96 % Dr. Madalyn Vaughan Work Phone: [facility] Work Phone: 01-20-2022 13:56-0400 Systolic blood pressure 116 mm[Hg] Dr. Madalyn Vaughan Work Phone: [facility] Work Phone: 01-14-2022 11:32-0400 Body height 165.[address] Madalyn Vaughan Work Phone: [facility] Work Phone: 01-14-2022 11:32-0400 Body mass index (BMI) [Ratio] 30.7 kg/m2 Dr. Madalyn Vaughan Work Phone: [facility] Work Phone: 01-14-2022 11:32-0400 Body weight 83.[address] Madalyn Vaughan Work Phone: [facility] Work Phone: 01-14-2022 11:32-0400 Diastolic blood pressure 83 mm[Hg] Dr. Madalyn Vaughan Work Phone: [facility] Work Phone: 01-14-2022 11:32-0400 Heart rate 72 /min Dr. Madalyn Vaughan Work Phone: [facility] Work Phone: 01-14-2022 11:32-0400 Respiratory rate 16 /min Dr. Madalyn Vaughan Work Phone: [facility] Work Phone: 01-14-2022 11:32-0400 SaO2% (BldA) [Mass fraction] 94 % Dr. Madalyn Vaughan Work Phone: [facility] Work Phone: 01-14-2022 11:32-0400 Systolic blood pressure 143 mm[Hg] Dr. Madalyn Vaughan Work Phone: [facility] Work Phone: 07-27-2021 17:00-0400 Diastolic blood pressure 64 mm[Hg] Dr. Madalyn Vaughan Work Phone: [facility] Work Phone: 07-27-2021 17:00-0400 Heart rate 64 /min Dr. Madalyn Vaughan Work Phone: [facility] Work Phone: 07-27-2021 17:00-0400 Respiratory rate 13 /min Dr. Madalyn Vaughan Work Phone: [facility] Work Phone: 07-27-2021 17:00-0400 SaO2% (BldA) [Mass fraction] 98 % Dr. Madalyn Vaughan Work Phone: [facility] Work Phone: 07-27-2021 17:00-0400 Systolic blood pressure 110 mm[Hg] Dr. Madalyn Vaughan Work Phone: [facility] Work Phone: 07-27-2021 14:19-0400 Body height 165.[address] Madalyn Vaughan Work Phone: [facility] Work Phone: 07-27-2021 14:19-0400 Body mass index (BMI) [Ratio] 29.1 kg/m2 Dr. Madalyn Vaughan Work Phone: [facility] Work Phone: 07-27-2021 14:19-0400 Body temperature 97.7 [degF] Dr. Madalyn Vaughan Work Phone: [facility] Work Phone: 07-27-2021 14:19-0400 Body weight 79.[address] Madalyn Vaughan Work Phone: [facility] Work Phone: 06-29-2021 10:55-0400 Body height 165.[address] Madalyn Vaughan Work Phone: [facility] Work Phone: 06-29-2021 10:55-0400 Body mass index (BMI) [Ratio] 28.8 kg/m2 Dr. Madalyn Vaughan Work Phone: [facility] Work Phone: 06-29-2021 10:55-0400 Body temperature 95.6 [degF] Dr. Madalyn Vaughan Work Phone: [facility] Work Phone: 06-29-2021 10:55-0400 Body weight 78.[address] Madalyn Vaughan Work Phone: [facility] Work Phone: 06-29-2021 10:55-0400 Diastolic blood pressure 78 mm[Hg] Dr. Madalyn Vaughan Work Phone: [facility] Work Phone: 06-29-2021 10:55-0400 Heart rate 72 /min Dr. Madalyn Vaughan Work Phone: [facility] Work Phone: 06-29-2021 10:55-0400 Respiratory rate 16 /min Dr. Madalyn Vaughan Work Phone: [facility] Work Phone: 06-29-2021 10:55-0400 SaO2% (BldA) [Mass fraction] 99 % Dr. Madalyn Vaughan Work Phone: [facility] Work Phone: 06-29-2021 10:55-0400 Systolic blood pressure 124 mm[Hg] Dr. Madalyn Vaughan Work Phone: [facility] Work Phone: 06-17-2021 12:03-0500 Body mass index (BMI) [Ratio] 29.4 kg/m2 Dr. Madalyn Vaughan Work Phone: [facility] Work Phone: 06-17-2021 12:03-0500 Body weight 80.[address] Madalyn Vaughan Work Phone: [facility] Work Phone: 06-17-2021 12:03-0500 Diastolic blood pressure 67 mm[Hg] Dr. Madalyn Vaughan Work Phone: [facility] Work Phone: 06-17-2021 12:03-0500 Heart rate 76 /min Dr. Madalyn Vaughan Work Phone: [facility] Work Phone: 06-17-2021 12:03-0500 Respiratory rate 18 /min Dr. Madalyn Vaughan Work Phone: [facility] Work Phone: 06-17-2021 12:03-0500 SaO2% (BldA) [Mass fraction] 97 % Dr. Madalyn Vaughan Work Phone: [facility] Work Phone: 06-17-2021 12:03-0500 Systolic blood pressure 100 mm[Hg] Dr. Madalyn Vaughan Work Phone: [facility] Work Phone: 05-26-2021 09:50-0500 Body temperature 97.1 [degF] Dr. Madalyn Vaughan Work Phone: [facility] Work Phone: 05-26-2021 09:50-0500 Diastolic blood pressure 62 mm[Hg] Dr. Madalyn Vaughan Work Phone: [facility] Work Phone: 05-26-2021 09:50-0500 Heart rate 58 /min Dr. Madalyn Vaughan Work Phone: [facility] Work Phone: 05-26-2021 09:50-0500 Respiratory rate 12 /min Dr. Madalyn Vaughan Work Phone: [facility] Work Phone: 05-26-2021 09:50-0500 SaO2% (BldA) [Mass fraction] 99 % Dr. Madalyn Vaughan Work Phone: [facility] Work Phone: 05-26-2021 09:50-0500 Systolic blood pressure 99 mm[Hg] Dr. Madalyn Vaughan Work Phone: [facility] Work Phone: 05-24-2021 22:01-0500 Body mass index (BMI) [Ratio] 29.6 kg/m2 Dr. Madalyn Vaughan Work Phone: [facility] Work Phone: 05-24-2021 22:01-0500 Body weight 80.[address] Madalyn Vaughan Work Phone: [facility] Work Phone: 05-22-2021 07:03-0500 Body weight [address] Madalyn Vaughan Work Phone: [facility] Work Phone: 05-22-2021 06:49-0500 Body mass index (BMI) [Ratio] 30.4 kg/m2 Dr. Madalyn Vaughan Work Phone: [facility] Work Phone: 04-28-2021 09:52-0500 Body mass index (BMI) [Ratio] 30.4 kg/m2 Dr. Madalyn Vaughan Work Phone: [facility] Work Phone: 04-28-2021 09:52-0500 Body weight [address] Madalyn Vaughan Work Phone: [facility] Work Phone: 04-28-2021 09:52-0500 Diastolic blood pressure 78 mm[Hg] Dr. Madalyn Vaughan Work Phone: [facility] Work Phone: 04-28-2021 09:52-0500 Heart rate 71 /min Dr. Madalyn Vaughan Work Phone: [facility] Work Phone: 04-28-2021 09:52-0500 Respiratory rate 16 /min Dr. Madalyn Vaughan Work Phone: [facility] Work Phone: 04-28-2021 09:52-0500 Systolic blood pressure 116 mm[Hg] Dr. Madalyn Vaughan Work Phone: [facility] Work Phone: 04-28-2021 07:42-0500 Body mass index (BMI) [Ratio] 30.4 kg/m2 Dr. Madalyn Vaughan Work Phone: [facility] Work Phone: 04-28-2021 07:42-0500 Body temperature 97 [degF] Dr. Madalyn Vaughan Work Phone: [facility] Work Phone: 04-28-2021 07:42-0500 Body weight 83.[address] Madalyn Vaughan Work Phone: [facility] Work Phone: 04-28-2021 07:42-0500 Diastolic blood pressure 80 mm[Hg] Dr. Madalyn Vaughan Work Phone: [facility] Work Phone: 04-28-2021 07:42-0500 Heart rate 68 /min Dr. Madalyn Vaughan Work Phone: [facility] Work Phone: 04-28-2021 07:42-0500 Respiratory rate 16 /min Dr. Madalyn Vaughan Work Phone: [facility] Work Phone: 04-28-2021 07:42-0500 SaO2% (BldA) [Mass fraction] 100 % Dr. Madalyn Vaughan Work Phone: [facility] Work Phone: 04-28-2021 07:42-0500 Systolic blood pressure 122 mm[Hg] Dr. Madalyn Vaughan Work Phone: [facility] Work Phone: 02-24-2019 11:25-0500 Body Temperature 97.11 [degF] [facility] 02-24-2019 11:25-0500 BP Diastolic 72 mm[Hg] [facility] 02-24-2019 11:25-0500 BP Systolic 109 mm[Hg] [facility] 02-24-2019 11:25-0500 Pulse (Heart Rate) 74 /min [facility] 02-24-2019 11:25-0500 Pulse Oximetry 98 % [facility] 02-24-2019 11:25-0500 Respiratory Rate 19 /min [facility] 02-24-2019 06:31-0500 BMI (Body Mass Index) 32.28 kg/m2 [facility] 02-24-2019 06:31-0500 Body weight 88 kg [facility] 02-23-2019 04:30-0500 Height 165.1 cm [facility], [place] Encounters Encounter Date Encounter Type Care Provider Facility Start: 12-03-2024 End: 12-03-2024 Patient encounter procedure Shonna Mcfarland [facility] Work Phone: Start: 12-03-2024 End: 12-03-[address] Madalyn Vaughan DO Work Phone: -[facility] Start: 09-11-2024 End: 09-11-2024 Emergency department patient visit Miguel Forte MD Work Phone: [facility] Start: 08-21-2024 End: 08-21-[address] Reggie Ramirez MD -[facility] Work Phone: Start: 08-21-2024 End: 08-21-2024 [facility] Start: 06-19-2024 ambulatory [facility] Start: 06-14-2024 End: 06-14-[address] Madalyn Vaughan DO Work Phone: [facility] Work Phone: Start: 06-14-2024 End: 06-14-2024 Patient encounter procedure Shonna Mcfarland [facility] -[facility] Work Phone: Start: 06-14-2024 End: 06-14-2024 ambulatory Shonna Mcfarland Facility:[facility] Start: 05-28-2024 End: 05-28-2024 Patient encounter procedure Shonna Mcfarland [facility] Work Phone: Start: 05-28-2024 End: 05-28-2024 ambulatory [facility] Facility:[facility] Start: 08-03-2023 End: 08-03-2023 ambulatory [facility] Work Phone: Start: 08-03-2023 End: 08-03-2023 Patient encounter procedure [facility] Start: 04-04-2023 Non-patient / Non-visit Dr. Monique Vaughan Work Phone: [facility] Start: 04-04-2023 End: 04-04-2023 Admission to same day surgery center Dr. Madalyn Vaughan Work Phone: [facility]/Special Procedures Work Phone: Start: 04-04-2023 End: 04-04-[address] Madalyn Vaughan Work Phone: [facility] Work Phone: Start: 03-30-2023 End: 03-30-[address] Madalyn Vaughan Work Phone: [facility] Work Phone: Start: 03-30-2023 End: 03-30-[address] Madalyn Vaughan Work Phone: [facility]-Radiology, [facility] Work Phone: Start: 03-21-2023 End: 03-21-[address] Madalyn Vaughan Work Phone: [facility] Work Phone: Start: 03-21-2023 End: 03-21-[address] Mdaalyn Vaughan Work Phone: [facility] Work Phone: Start: 12-06-2022 Telephone encounter Faiza Hodges i, MD Work Phone: Vascular Medicine Comment on above: Results Start: 2022 End: 2022 ambulatory NICK Benoit [facility] Start: 10-11-2022 End: 10-11-2022 ambulatory FAIZA WELSH Facility:[facility] Start: 09-27-2022 End: 09-28-2022 ambulatory MADALYN VAUGHAN Facility:[facility] Start: 09-27-2022 End: 09-27-2022 ambulatory MADALYN VAUGHAN Facility:[facility] Start: 07-09-2022 End: 07-09-[address] Madalyn Vaughan Work Phone: [facility] Start: 07-08-2022 End: 07-08-[address] Madalyn Vaughan Work Phone: [facility] Work Phone: Start: 07-08-2022 End: 07-08-[address] Madalyn Vaughan Work Phone: [facility]-Laboratory Start: 06-23-2022 End: 06-23-[address] Madalyn Vaughan Work Phone: [facility] Start: 03-24-2022 Non-patient / Non-visit Dr. Monique Vaughan Work Phone: [facility] Start: 03-24-2022 End: 03-24-[address] Madalyn Vaughan Work Phone: [facility] Work Phone: Start: 03-24-2022 End: 03-24-[address] Madalyn Vaughan Work Phone: [facility]-Cardiovascular Services Start: 02-24-2022 End: 02-24-[address] Madalyn Vaughan Work Phone: [facility] Work Phone: Start: 02-24-2022 End: 02-24-[address] Madalyn Vaughan Work Phone: [facility] Start: 01-20-2022 End: 01-20-[address] Madalyn Vaughan Work Phone: [facility] Work Phone: Start: 01-20-2022 End: 01-20-[address] Madalyn Vaughan Work Phone: [facility] Start: 01-14-2022 End: 01-14-[address] Madalyn Vaughan Work Phone: [facility] Work Phone: Start: 01-14-2022 End: 01-14-[address] Madalyn Vaughan Work Phone: [facility] Start: 07-27-2021 End: 07-27-2021 Emergency department patient visit Dr. Madalyn Vaughan Work Phone: [facility]-Emergency Department Start: 07-21-2021 Telephone encounter Cole Fransico masters DO Work Phone: Vascular Medicine Comment on above: Appointment Start: 07-16-2021 Telephone encounter Edmundo Feliciano se, MD Work Phone: Vascular Surg Dept Comment on above: Appointment Start: 06-29-2021 End: 06-29-[address] Madalyn Vaughan Work Phone: [facility]atory, [facility] Start: 06-29-2021 End: 06-29-[address] Madalyn Vaughan Work Phone: [facility] Start: 06-17-2021 End: 06-17-[address] Madalyn Vaughan Work Phone: [facility] Start: 05-26-2021 Non-patient / Non-visit Dr. Monique Vaughan Work Phone: [facility] Start: 05-26-2021 Non-patient / Non-visit Dr. Monique Vaughan Work Phone: [facility] Start: 05-25-2021 End: 05-25-[address] Madalyn Vaughan Work Phone: [facility]/Special Procedures Start: 05-25-2021 Non-patient / Non-visit Dr. Monique Vaughan Work Phone: [facility] Start: 05-24-2021 Non-patient / Non-visit Dr. Monique Vaughan Work Phone: [facility] Start: 05-24-2021 End: 05-26-2021 Evaluation and management of inpatient Dr. Madalyn Vaughan Work Phone: [facility]-Progressive Care Unit Start: 05-18-2021 Non-patient / Non-visit Dr. Monique Vaughan Work Phone: [facility] Start: 05-18-2021 End: 05-18-[address] Madalyn Vaughan Work Phone: [facility]-Cardiovascular Services Start: 04-28-2021 End: 04-28-[address] Madalyn Vaughan Work Phone: [facility] Start: 04-28-2021 End: 04-28-[address] Madalyn Vaughan Work Phone: [facility], [facility] Start: 02-23-2019 End: 02-24-2019 Evaluation and management of inpatient Sindy Tobar Work Phone: [facility]acity Management Comment on above: NSTEMI (non-ST eleva khadar myocardial infarction) (HCC) (Primary Dx); Coronary artery disease involving chilkoot coronary artery of chilkoot heart without angina pectoris Procedures Date Procedure Procedure Detail Performing Clinician Start: 09-11-2024 Ct abdomen & pelvis w/contrast material Milka Checkole DO Work Phone: Start: 09-11-2024 Bilirubin direct Milka Checkole DO Work Phone: Start: 09-11-2024 CBC AND ELECTRONIC DIFF Jacob Escobar DO Work Phone: Start: 09-11-2024 Complete blood count with white cell differential, automated Jacob Escobar DO Work Phone: Start: 09-11-2024 GOLD TOP TUBE Jacob Escobar DO Work Phone: Start: 09-11-2024 LAVENDER TOP TUBE Jacob Escobar DO Work Phone: Start: 09-11-2024 LT BLUE TOP TUBE Jacob Lares im DO Work Phone: Start: 09-11-2024 MINT GREEN TOP TUBE Tylor Escobar DO Work Phone: Start: 09-11-2024 RAINBOW DRAW Jacob Escobar D O Work Phone: Start: 09-11-2024 EXTRA MICRO Oleksandr lucas MD Work Phone: Start: 09-11-2024 URINALYSIS REFLEX TO CULTURE Oleksandr Avelar MD Work Phone: Start: 09-11-2024 Urnls dip stick/tabl et reagent auto microscopy Oleksandr Avelar MD Work Phone: Start: 08-21-2024 Evaluation of diagno stic study results Dr. Madalyn Vaughan DO Work Phone: Start: 08-03-2023 Urine culture Start: 03-30-2023 Plain chest X-ray Dr. Kishan Vaughan Work Phone: Start: 03-24-2022 Radionuclide imaging of perfusion of myocardium under exercise stress Dr. Madalyn Vaughan Work Phone: Start: 02-24-2022 MRI of joint of lowe r extremity Dr. Madalyn Vaughan Work Phone: Start: 07-27-2021 Plain chest X-ray Dr. Kishan Vaughan Work Phone: Start: 05-25-2021 History of placement of stent for coronary artery disease History of coronary artery stent placement Dr. Reggie Ramirez MD Comment on above: WDE-UOS-Hume LAD and Mid LAD w/ 3.5 x 16 mm and 3.0 x 12 mm Promus Premier Stent and POBA-D1 11/12/14; PCI-CLAY-ISR Prox and Mid LAD and thrombotic lesion between both stents w/ 3.5 x 23 mm and 3.0 x 38 mm Xience Sharon Stents 02/23/19; DNX-TZD-Wwdl LAD w/ 3.5 x 22 mm Orsiro Stent 05/25/21 Start: 05-24-2021 Plain chest X-ray Dr. Kishan Vaughan Work Phone: Start: 05-24-2021 SARS-CoV-2 Antigen (Rapid) Dr. Madalyn Vaughan Work Phone: Start: 05-20-2021 Plain chest X-ray Dr. Kishan Vaughan Work Phone: Start: 05-18-2021 Radionuclide imaging of perfusion of myocardium under exercise stress Dr. Madalyn Vaughan Work Phone: Start: 02-24-2019 Gluc bld gluc mntr d ev cleared fda spec home use Sindyleona Tobar Work Phone: Start: 02-24-2019 BASIC METABOLIC PANE L W/ REFLEX TO MG FOR LOW K [employer] Work Phone: Start: 02-24-2019 Blood count complete automated [employer] Work Phone: Start: 02-24-2019 Lipid panel Sindy Ab palma Amadou Work Phone: Start: 02-24-2019 Thromboplastin time partial plasma/whole blood Sindy Abdsmita Amadou Work Phone: Start: 02-23-2019 Gluc bld gluc mntr d ev cleared fda spec home use Sindyleona Tobar Work Phone: Start: 02-23-2019 CARDIAC CATH NURSING LOG 3m Scanning Start: 02-23-2019 End: 02-23-2019 Coagulation time activated Sindyleona Delgadoan Work Phone: Start: 02-23-2019 DIAGNOSTIC CARDIAC C ATH LAB PROCEDURE Cynthia Latham Work Phone: Start: 02-23-2019 Gluc bld gluc mntr d ev cleared fda spec home use Sindy Abdsmita Amadou Work Phone: Start: 02-23-2019 Assay of troponin quantitative Venkat Horton Work Phone: Start: 02-23-2019 Thromboplastin time partial plasma/whole blood Sindy Tobar Work Phone: Start: 02-23-2019 Assay of troponin quantitative Sindy Tobar Work Phone: Start: 02-23-2019 BASIC METABOLIC PANE L W/ REFLEX TO MG FOR LOW K Sindy Tobar Work Phone: Start: 02-23-2019 Blood count complete automated Sindy Tobar Work Phone: Start: 02-23-2019 Thromboplastin time partial plasma/whole blood Sindy Tobar Work Phone: Urine culture Dr. Madalyn Vaughan Work Phone: Plan of Treatment Date Care Activity Detail Author Start: 2036 RSV VACCINE (1 - 1-d ose 75+ series) RSV VACCINE (1 - 1-dose 75+ series) [facility] Start: 09-28-2027 LIPID SCREEN LIPID SCREEN [facility] Start: 02-06-2025 ambulatory Ambulatory Facility:[facility] Start: 12-17-2024 Influenza vaccination INFLUENZ A VACCINE (Season Ended) [facility] Start: 12-18-2023 COVID-19 VACCINE ( season) COVID-19 VACCINE ( season) [facility] Start: 09-28-2023 Hepatitis B surface antibody level LDL CHOLESTEROL [facility] Start: 04-04-2023 Patient discharge [facility] Start: 12-17-2022 Influenza vaccination INFLUENZA (#1) [facility] Start: 04-18-2022 DEPRESSION ASSESSMENT DEPRESSION ASS ESSMENT [facility] Start: 12-17-2021 Influenza vaccination INFLUENZA (Sea son Ended) [facility] Start: 12-17-2018 Influenza vaccination Flu vaccine (# 1) [place], [place] Start: 11-13-2017 DIABETES SCREEN DIABETES SCREEN [facility] Start: 11-27-2011 Breast cancer screen Breast cancer s pete [place], [place] Start: 11-27-2011 Pneumococcal vaccination PNEUMOCOCCAL VACCINE SERIES (1 of 1 - PCV) [facility] Start: 11-27-2011 SHINGRIX VACCINE (1 of 2) SHINGRIX VACCINE (1 of 2) [facility] Start: 11-27-2011 Zoster vaccine hzv l jay for subcutaneous use ZOSTER (SHINGLES) VACCINE (1 of 2) [facility] Start: 2006 COLOGUARD (FIT-DNA) COLOGUARD (FIT-D NA) [facility] Start: 2006 Colonoscopy COLONOSCOPY [facility] Start: 2006 COLORECTAL CANCER SCREENING COLORECTAL CANCER SCREENING [facility] Start: [address] COLONOGRAPHY [facility] Start: 2006 FECAL OCCULT BLOOD FECAL OCCULT BLOO D [facility] Start: 2006 LIPID SCREEN LIPID SCREEN [facility] Start: 2006 Screening for malign ant neoplasm of colon COLORECTAL CANCER SCREENING DISCUSSION [facility] Start: 2006 SIGMOIDOSCOPY SIGMOIDOSCOPY [facility] Start: 2001 Lipid panel LIPID SCREENING [facility] Start: 2001 Mammography MAMMOGRAM [facility] Start: 2001 Screening for malign ant neoplasm of breast MAMMOGRAM SCREENING DISCUSSION [facility] Start: 11-27-1991 HPV TESTING HPV TESTING [facility] Start: 1982 PAP TESTING PAP TESTING [facility] Start: 1982 Screening for malign ant neoplasm of cervix CERVICAL CANCER SCREENING DISCUSSION [facility] Start: 1980 Hepatitis B vaccine (1 of 3 - Risk 3-dose series) Hepatitis B vaccine (1 of 3 - Risk 3-dose series) [place] Start: 1980 Third diphtheria, tetanus and acellular pertussis (DTaP) vaccination TDAP (ADULT) [facility] Start: 1980 Urine microalbumin profile DTAP,TDAP,TD (1 - Tdap) [facility] Start: 11-27-1979 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 Start: 1976 HIV screening HIV SCREENING DISCUSSI ON [facility] Start: 1973 Adult depression screening assessment DEPRESSION SCREENING [facility] Start: 1966 COVID-19 VACCINE (#1) COVID-19 VACCI NE (#1) [facility] Start: 05-29-1962 COVID-19 VACCINE (#1) COVID-19 VACCI NE (#1) [facility] Start: 1961 Hepatitis C screening HEPATITI S C VIRUS SCREENING [facility] Start: 1961 Tetanus vaccination TETANUS [facility] End: 02-23-2019 CK ISOENZYMES CK ISOENZYMES Lab Add-On One Time for 1 Occurrences starting 02/23/2019 until 02/23/[facility] on above: One Time for 1 Occur rences starting 02/23/2019 until 02/23/2019 End: 02-23-2019 Diagnostic Cardiac Hat Renovator Procedure Diagnostic Cardiac Hat Renovator Procedure Cardiac Cath Routine One Time for 1 Occurrences starting 02/23/2019 until 02/23/2019 [facility] Comment on above: One Time for 1 Occur rences starting 02/23/2019 until 02/23/2019 Diagnostic Cardiac C ath Lab Procedure Diagnostic Cardiac Hat Renovator Procedure Cardiac Cath Routine 02/23/2019 4:24 PM [facility]ANIEL [facility] DIAZ ECHO Complete 2D W Doppler W Color ECHO Complete 2D W Doppler W Color Echocardiography Routine 02/24/2019 12:[address] [email or web address] Eller Comment on above: As Needed until disc ontinued starting 02/23/2019 Daily until disconti nued starting 02/23/2019, 2 completed Initiate Oxygen Ther apy Protocol [facility] Comment on above: Daily until disconti nued starting 02/23/2019 Lipid 1996 panel - Serum or Plasma [facility] Work Phone: Patient Education ED Chest Pain, Uncertain Cause [facility] Work Phone: Patient referral [facility] Work Phone: Platelets (Bld) [#/Vol] Platelet count Lab Routine Every Other Day until discontinued starting 02/25/2019 [facility] Comment on above: Every Other Day unti l discontinued starting 02/25/2019 Radionuclide imaging of perfusion of myocardium under exercise stress [facility] Radionuclide imaging of perfusion of myocardium under exercise stress [facility] End: 02-23-2019 Troponin I.cardiac [Mass/Vol[facility] Comment on above: One Time for 1 Occur rences starting 02/23/2019 until 02/23/2019 End: 02-24-2019 Troponin I.cardiac [Mass/Vol] Troponin Lab Timed Now Then Every 6hr for 3 Occurrences starting 02/23/2019 until 02/24/2019, [address] [facility] Comment on above: Now Then Every 6hr f or 3 Occurrences starting 02/23/2019 until 02/24/2019, 1 completed Troponin I.cardiac [Mass/Vol] Troponin Lab Timed 02/23/2019 6:[address] [facility] Payers Date Payer Category Payer Medicaid (Managed Care) [facility] [id number] 2024 Self-pay [id number] 2022 Medicaid [id number] 2022 Medicaid [place] [employer] [id number] 2022-Present [phone] [address] [place] [address] Medicaid [id number] 2019 Medicaid [place] [facility] MEDICAID [id number] 2019-Present [phone] [address] [place] [address] Medicaid [id number] 2018 Unknown [employer] xxxxxxxxxx 2018-Present [phone] [address] [address] [place] [address] xxxxxxxxxx [id number] 2018 Unknown [employer] HI X [id number] 2018-Present [phone] [address] [address] [place] [address] O [id number] 1960 Unknown [id number] 1960 Unknown [id number] Unknown [id number] Unknown [id number] Unknown [id number] Unknown [id number] Unknown [id number] Unknown [id number] 462 Unknown [id number] 462 Unknown [id number] 462 Unknown [id number] 462 Unknown [id number] 462 Social History Date Type Detail Facility Start: 02-23-2019 End: 04-04-2023 Tobacco smoking status NHIS Never smoker [facility] Start: 02-23-2019 End: 09-27-2022 Alcohol intake Lifetime non-drinker (finding) [place], [place] Start: 02-23-2019 History SDOH Alcohol Frequency 1 [place], [place] Start: 1960 Sex Assigned At Not on file [place], [place] Start: 06-29-2021 End: 04-01-2023 Tobacco smoking status [facility] Unknown if ever smoked [facility] Start: 1960 Sex Assigned At Female [facility] Start: 07-11-2021 End: 07-21-2021 Exposure to SARS-CoV-2 (event) Not sure [facility] Start: 09-27-2022 Tobacco use and exposure Smokeless tobacco non-user [facility] Start: 08-02-2014 End: 09-27-2022 History of Social function [facility] Start: 08-02-2014 End: 09-27-2022 Tobacco use panel [facility] National Score (1-10 0), lower number is lower risk 80 [facility] Start: 05-21-2012 End: 06-27-2024 Sex Female (finding) [facility] Medical Equipment Procedure Code Equipment Code Equipment Origin al Text Equipment Identifier Dates ([id number]) Drug-eluting coronary artery stent, bioabsorbable-polyme r-coated ()[id number] FDA Start: 05-25-2021 Pen Needle, Diab etic (Bd Ultra-Fine Yu Pen Needle) 32 gauge x 5/32" needle Start: 05-24-2021 Pen Needle, Diab etic (Bd Ultra-Fine Yu Pen Needle) 32 gauge x 5/32" needle Start: 04-28-2021 End: 05-24-2021 Pen Needle, Diab etic (Bd Ultra-Fine Yu Pen Needle) 32 gauge x 5/32" needle Start: 05-24-2021 Pen Needle, Diab etic (Bd Ultra-Fine Yu Pen Needle) 32 gauge x 5/32" needle Start: 04-28-2021 End: 05-24-2021 Pen Needle, Diab etic (Bd Ultra-Fine Yu Pen Needle) 32 gauge x 5/32" needle Start: 05-24-2021 Pen Needle, Diab etic (Bd Ultra-Fine Yu Pen Needle) 32 gauge x 5/32" needle Start: 04-28-2021 End: 05-24-2021 Pen Needle, Diab etic (Bd Ultra-Fine Yu Pen Needle) 32 gauge x 5/32" needle Start: 05-24-2021 Pen Needle, Diab etic (Bd Ultra-Fine Yu Pen Needle) 32 gauge x 5/32" needle Start: 04-28-2021 End: 05-24-2021 Pen Needle, Diab etic (Bd Ultra-Fine Yu Pen Needle) 32 gauge x 5/32" needle Start: 05-24-2021 Pen Needle, Diab etic (Bd Ultra-Fine Yu Pen Needle) 32 gauge x 5/32" needle Start: 04-28-2021 End: 05-24-2021 Pen Needle, Diab etic (Bd Ultra-Fine Yu Pen Needle) 32 gauge x 5/32" needle Start: 05-24-2021 Pen Needle, Diab etic (Bd Ultra-Fine Yu Pen Needle) 32 gauge x 5/32" needle Start: 04-28-2021 End: 05-24-2021 Pen Needle, Diab etic (Bd Ultra-Fine Yu Pen Needle) 32 gauge x 5/32" needle Start: 05-24-2021 Pen Needle, Diab etic (Bd Ultra-Fine Yu Pen Needle) 32 gauge x 5/32" needle Start: 04-28-2021 End: 05-24-2021 Pen Needle, Diab etic (Bd Ultra-Fine Yu Pen Needle) 32 gauge x 5/32" needle Start: 05-24-2021 Pen Needle, Diab etic (Bd Ultra-Fine Yu Pen Needle) 32 gauge x 5/32" needle Start: 04-28-2021 End: 05-24-2021 Pen Needle, Diab etic (Bd Ultra-Fine Yu Pen Needle) 32 gauge x 5/32" needle Start: 05-24-2021 Pen Needle, Diab etic (Bd Ultra-Fine Yu Pen Needle) 32 gauge x 5/32" needle Start: 04-28-2021 End: 05-24-2021 Pen Needle, Diab etic (Bd Ultra-Fine Yu Pen Needle) 32 gauge x 5/32" needle Start: 05-24-2021 Pen Needle, Diab etic (Bd Ultra-Fine Yu Pen Needle) 32 gauge x 5/32" needle Start: 04-28-2021 End: 05-24-2021 Pen Needle, Diab etic (Bd Ultra-Fine Yu Pen Needle) 32 gauge x 5/32" needle Start: 05-24-2021 Pen Needle, Diab etic (Bd Ultra-Fine Yu Pen Needle) 32 gauge x 5/32" needle Start: 04-28-2021 End: 05-24-2021 Pen Needle, Diab etic (Bd Ultra-Fine Yu Pen Needle) 32 gauge x 5/32" needle Start: 05-24-2021 Pen Needle, Diab etic (Bd Ultra-Fine Yu Pen Needle) 32 gauge x 5/32" needle Start: 04-28-2021 End: 05-24-2021 Pen Needle, Diab etic (Bd Ultra-Fine Yu Pen Needle) 32 gauge x 5/32" needle Start: 05-24-2021 Pen Needle, Diab etic (Bd Ultra-Fine Yu Pen Needle) 32 gauge x 5/32" needle Start: 04-28-2021 End: 05-24-2021 Functional Status Date Assessment Result Facility 05-26-2021 Functional status Ambulates [facility] Work Phone: Mental Status Date Assessment Result Facility 07-27-2021 Cognitive function Awake;Alert;A ppropriate;Fol lows Commands [facility] Work Phone: 05-26-2021 Cognitive function Voice/Name [facility] Work Phone: Clinical Notes 05-25-2021 to 09-11-2024 Discharge InstructionsAttachmentsSaron Leonaole, DO - 09/11/2024 7:32 AM EDTSham Delgadillomarcus, DO - 09/11/2024 7:32 AM EDDanny Luz, DO - 09/11/2024 7:28 AM EDTCalie Almonte RN - 09/11/2024 7:01 AM EDT Note Date & Type Note Facility 09-11-2024 Hospital Discharg e instructions Jacob Escobar, DO - 09/11/2024 10:16 AM EDT You were seen in the Emergency Department for abdominal pain and concern for UTI. Your urine showed signs of a UTI, your CT scan of your abdomen and pelvis did not show any signs of acute infection A prescription for augmentin antibiotics was sent to your pharmacy. Please take this medication as prescribed. Please complete the entire antibiotic course even if your symptoms go away completely. Please return to the Emergency Department if you experience: - Persistent fever (greater than 100.3F) - Nausea or vomiting that prevent you drinking fluids - New or worsening pain - New, worsening, or other concerning symptoms Please keep all previously scheduled appointments. It is important that you follow-up with your primary care physician for re-evaluation. If you do not have a primary care physician, we recommend you establish with one. [facility] PH[facility]ICIAN REFERRAL Please call the [facility] physician referral service at or toll-free at to request a Primary Care Provider. CLINICAL APPLICATION SUPPORT CONSULTANT If you need any further assistance with scheduling follow up care, please call the Clinical Franchise Sales Manager at . The following attachments cannot be sent through Care Everywhere.Pyelonephritis (German)UTI (Urinary Tract Infection): Female (German)documented in this encounter [facility] 09-11-2024 Physician Emergency department Note ED RESIDENT STAFFING NOTE Please see papo resident notes from this encounter for additional information RELEVANT HPI: Bonnie Brownlee is a 63 y.o. female w hx of DM2, HLD, CAD here for urinary pain. Pt presents w urinary pain and increased frequency x1 mo. Feels like prior UTI. Denies any fevers, chills, n/v cp or sob. Endorsing lower abd pain and bilateral flank pain. ROS: 10 pt review of system reviewed and negative unless otherwise stated in the HPI or papo resident's note. Family history reviewed and noncontributory to presenting problem other than that mention in HPI Social history reviewed and noncontributory to presenting problem other than that mention in HPI PERTINENT EXAM: Vital Signs: BP 130/66 Pulse 63 Temp 97.8 F (36.6 C) (Temporal) Resp 15 Ht 1.651 m (5' 5") SpO2 97% Gen: well appearing in no acute distress HEENT: atraumatic, normocephallic Respiratory: Normal Respiratory effort. Clear to auscultation bilaterally Cardiovascular: Normal rate and regular rhythm No murmurs, rubs, or gallops appreciated. No peripheral edema 2+ pedal pulses bilaterally. Abdomen: Soft, non-distended, ttp in lower abdomen (suprapubic and RLQ). No rebound/guarding. No organomegaly or massed noted. Musculoskeletal: No deformities noted. Normal range of motion all extremities. Neurological: Oriented to person, place, and time. CN 2-12 intact grossly. No focal deficits appreciated. ASSESSMENT AND PLAN This is a 63 y.o. female w hx of DM2, HLD, CAD here for uriary sxs. MDM Pt presents w urinary pain, frequency, likely UTI related. Pending labs and UA. Will obtain CT abd/pelvis to r.o other intraabdominal pathology Dispo pending labs and imaging Impression/Plan: Abd pain Urinary sxs This patient was discussed with the attending physician who was in the immediate care area during the evaluation and decision making process. This note was dictated using Oak[employer] voice recognition software. Attempts at proofreading were made, but errors may occasionally still occur. Milka Siddiqui DO Emergency Medicine PGY3 Milka Siddiqui DO Resident 09/11/24 0813 [facility] 09-11-2024 Emergency department Note ED RESIDENT STAFFING NOTE Please see papo resident notes from this encounter for additional information RELEVANT HPI: Bonnie Brownlee is a 63 y.o. female w hx of DM2, HLD, CAD here for urinary pain. Pt presents w urinary pain and increased frequency x1 mo. Feels like prior UTI. Denies any fevers, chills, n/v cp or sob. Endorsing lower abd pain and bilateral flank pain. ROS: 10 pt review of system reviewed and negative unless otherwise stated in the HPI or papo resident's note. Family history reviewed and noncontributory to presenting problem other than that mention in HPI Social history reviewed and noncontributory to presenting problem other than that mention in HPI PERTINENT EXAM: Vital Signs: BP 130/66 Pulse 63 Temp 97.8 F (36.6 C) (Temporal) Resp 15 Ht 1.651 m (5' 5") SpO2 97% Gen: well appearing in no acute distress HEENT: atraumatic, normocephallic Respiratory: Normal Respiratory effort. Clear to auscultation bilaterally Cardiovascular: Normal rate and regular rhythm No murmurs, rubs, or gallops appreciated. No peripheral edema 2+ pedal pulses bilaterally. Abdomen: Soft, non-distended, ttp in lower abdomen (suprapubic and RLQ). No rebound/guarding. No organomegaly or massed noted. Musculoskeletal: No deformities noted. Normal range of motion all extremities. Neurological: Oriented to person, place, and time. CN 2-12 intact grossly. No focal deficits appreciated. ASSESSMENT AND PLAN This is a 63 y.o. female w hx of DM2, HLD, CAD here for uriary sxs. [facility] Pt presents w urinary pain, frequency, likely UTI related. Pending labs and UA. Will obtain CT abd/pelvis to r.o other intraabdominal pathology Dispo pending labs and imaging Impression/Plan: Abd pain Urinary sxs This patient was discussed with the attending physician who was in the immediate care area during the evaluation and decision making process. This note was dictated using [employer] voice recognition software. Attempts at proofreading were made, but errors may occasionally still occur. Milka Siddiqui DO Emergency Medicine PGY3 Milka Siddiqui DO Resident 09/11/24 08 EMERGENCY DEPARTMENT ENCOUNTER CHIEF COMPLAINT Chief Complaint Patient presents with Urinary Pain HPI Bonnie Brownlee is a 63 y.o. female with history significant for HLD, DM, CAD s/p PCI 2014 who presents with concerns for UTI. Thinks this has been going on for the last month, describes urinary frequency along with burning sensation that is constant and worse with urination. States that this feels similar to previous UTIs. Says that she has been in the hospital recently staying as a guest for her who was admitted, and thinks that the increased stress as triggered this episode. Endorses some bilateral back pain around the lumbar region, and lower abdominal pain. Denies any fever, chills, chest pain, shortness of breath, nausea, vomiting, vaginal discharge, blood in urine Review of Systems REVIEW OF SYSTEMS Noted as above in HPI. History obtained from Patient PAST MEDICAL HISTORY No past medical history on file. SURGICAL HISTORY No past surgical history on file. PHYSICAL EXAM Vital Signs:BP 130/66 Pulse 63 Temp 97.8 F (36.6 C) (Temporal) Resp 15 Ht 1.651 m (5' 5") SpO2 97% Physical Exam Constitutional: General: She is not in acute distress. Cardiovascular: Rate and Rhythm: Normal rate and regular rhythm. Pulmonary: Effort: Pulmonary effort is normal. No respiratory distress. Breath sounds: No wheezing or rales. Abdominal: Palpations: Abdomen is soft. Tenderness: There is abdominal tenderness (RLQ, LLQ and suprapubic). There is no guarding or rebound. Neurological: Mental Status: She is alert. Labs: No results found for this visit on 09/11/24. Radiology: No orders to display ED COURSE & MEDICAL DECISION MAKING ED Course: ED Course as of 09/11/24 1110 Tue September 11, 2024 0830 Nitrites, Urine(!): Positive 0830 Leukocyte esterase, Urine(!): Moderate 0830 Bacteria, Urine(!): TRACE 0835 Has grown E faecalis in the past (Bactrim or cephalosporins not effective) 1012 CT ABDOMEN/PELVIS WITH CONTRAST IMPRESSION: 1. Normal appendix. No acute bowel obstruction or free air. Moderate amount of stool in the colon. 2. Heterogeneous uterus with a punctate focus of calcification in the left fundus. Slight prominence of adnexal vascularity especially on the left side with no clear adnexal mass lesions. 3. Hepatic steatosis with some areas of fatty sparing in the liver. No suspicious focal liver lesions. 4. Ancillary findings as described above Assessment: Bonnie Brownlee is a 63 y.o. female who presents with lower abdominal pain in addition to urinary frequency and burning. Differential diagnosis includes but is not limited to the following, at least one of which represents a threat to life or bodily function: Appendicitis, UTI, pyelonephritis, nephrolithiasis, diverticulitis, bowel obstruction, perforation Assessment and Plan: At this time, vitals are reviewed and patient is hemodynamically stable. Overall well appearing, normal vitals, no acute distress. Will obtain screening labs, provide symptom control and reassess. Given that patient has not had any nausea or vomiting or GI symptoms for the last month of these urinary symptoms, I have lower suspicion for appendicitis. CT abdomen and pelvis did not show any signs of acute infection, perforation, obstruction. Patient's urinalysis did show signs of a UTI, given that patient had flank pain she likely has pyelonephritis. Given that she recently had E faecalis on her past micro, we discussed with pharmacy that Augmentin would be beneficial for her. We gave her a 1st dose here, and sent her home with a total 7 day course. I reviewed previous records, examined and spoke to the patient, and ordered the above labs, imaging, therapeutics, and consultations. I have discussed the patient with the attending physician and they agree with the work up and plan. Medical Decision Making Amount and/or Complexity of Data Reviewed Labs: ordered. Decision-making details documented in ED Course. Radiology: ordered. Decision-making details documented in ED Course. Risk Prescription drug management. Impression: UTI/pyelonephritis Disposition: Discharge and follow up with: PCP This note was dictated with [employer] dictation software. Every effort was made to correct edits but please excuse any incorrections. I discussed the patient with the attending physician, MD Jacob Song DO Resident 09/11/24 1112 Pt to ED with cc of UTI. PT states she has been dealing with an undiagnosed UTI for appox 1 month. Pt complaining of urinary urgency and frequency along with a burning sensation. VSS, GCS 15. documented in this encounter [facility] 09-11-2024 Physician Emergency department Note EMERGENCY DEPARTMENT ENCOUNTER CHIEF COMPLAINT Chief Complaint Patient presents with Urinary Pain HPI Bonnie Brownlee is a 63 y.o. female with history significant for HLD, DM, CAD s/p PCI 2014 who presents with concerns for UTI. Thinks this has been going on for the last month, describes urinary frequency along with burning sensation that is constant and worse with urination. States that this feels similar to previous UTIs. Says that she has been in the hospital recently staying as a guest for her who was admitted, and thinks that the increased stress as triggered this episode. Endorses some bilateral back pain around the lumbar region, and lower abdominal pain. Denies any fever, chills, chest pain, shortness of breath, nausea, vomiting, vaginal discharge, blood in urine Review of Systems REVIEW OF SYSTEMS Noted as above in HPI. History obtained from Patient PAST MEDICAL HISTORY No past medical history on file. SURGICAL HISTORY No past surgical history on file. PHYSICAL EXAM Vital Signs:BP 130/66 Pulse 63 Temp 97.8 F (36.6 C) (Temporal) Resp 15 Ht 1.651 m (5' 5") SpO2 97% Physical Exam Constitutional: General: She is not in acute distress. Cardiovascular: Rate and Rhythm: Normal rate and regular rhythm. Pulmonary: Effort: Pulmonary effort is normal. No respiratory distress. Breath sounds: No wheezing or rales. Abdominal: Palpations: Abdomen is soft. Tenderness: There is abdominal tenderness (RLQ, LLQ and suprapubic). There is no guarding or rebound. Neurological: Mental Status: She is alert. Labs: No results found for this visit on 09/11/24. Radiology: No orders to display ED COURSE & MEDICAL DECISION MAKING ED Course: ED Course as of 09/11/24 1110 Tue September 11, 2024 0830 Nitrites, Urine(!): Positive 0830 Leukocyte esterase, Urine(!): Moderate 0830 Bacteria, Urine(!): TRACE 0835 Has grown E faecalis in the past (Bactrim or cephalosporins not effective) 1012 CT ABDOMEN/PELVIS WITH CONTRAST IMPRESSION: 1. Normal appendix. No acute bowel obstruction or free air. Moderate amount of stool in the colon. 2. Heterogeneous uterus with a punctate focus of calcification in the left fundus. Slight prominence of adnexal vascularity especially on the left side with no clear adnexal mass lesions. 3. Hepatic steatosis with some areas of fatty sparing in the liver. No suspicious focal liver lesions. 4. Ancillary findings as described above Assessment: Bonnie Brownlee is a 63 y.o. female who presents with lower abdominal pain in addition to urinary frequency and burning. Differential diagnosis includes but is not limited to the following, at least one of which represents a threat to life or bodily function: Appendicitis, UTI, pyelonephritis, nephrolithiasis, diverticulitis, bowel obstruction, perforation Assessment and Plan: At this time, vitals are reviewed and patient is hemodynamically stable. Overall well appearing, normal vitals, no acute distress. Will obtain screening labs, provide symptom control and reassess. Given that patient has not had any nausea or vomiting or GI symptoms for the last month of these urinary symptoms, I have lower suspicion for appendicitis. CT abdomen and pelvis did not show any signs of acute infection, perforation, obstruction. Patient's urinalysis did show signs of a UTI, given that patient had flank pain she likely has pyelonephritis. Given that she recently had E faecalis on her past micro, we discussed with pharmacy that Augmentin would be beneficial for her. We gave her a 1st dose here, and sent her home with a total 7 day course. I reviewed previous records, examined and spoke to the patient, and ordered the above labs, imaging, therapeutics, and consultations. I have discussed the patient with the attending physician and they agree with the work up and plan. Medical Decision Making Amount and/or Complexity of Data Reviewed Labs: ordered. Decision-making details documented in ED Course. Radiology: ordered. Decision-making details documented in ED Course. Risk Prescription drug management. Impression: UTI/pyelonephritis Disposition: Discharge and follow up with: PCP This note was dictated with Screen [employer] dictation software. Every effort was made to correct edits but please excuse any incorrections. I discussed the patient with the attending physician, MD Jacob Song, DO Resident 09/11/24 1112 [facility] 09-11-2024 Emergency department Note Pt to ED with cc of UTI. PT states she has been dealing with an undiagnosed UTI for appox 1 month. Pt complaining of urinary urgency and frequency along with a burning sensation. VSS, GCS 15. [facility] 05-28-2024 Evaluation note Diagnosis Onset Date Resolution Diabetes chronic May 28, 2024 3:38pm Essential (primary) hypertension chronic May 28, 2024 3:38pm Hyperlipidemia chronic May 192024 3:38pm Hypertriglyceridemia chronic Febr ua2024 3:38pm Neuropathy chronic May 28, 2024 3:38pm Obesity chronic May 28, 2024 3:38pm [facility] Work Phone: [phone]) 678-845708-22-2023 Miscellaneous Notes* Telephone Encounter - Faiza Welsh MD - 12/07/2022 1:43 PM EDT Spoke to the patient informed her that we spoke to her on September and was documented in my chart. Unfortunately the patient since her visit did not take the fenofibrate. I have emphasized on the importance of her hypertriglyceridemia to lower we need to have her on the fenofibrate along with the ezetimibe. She decided to try and recheck her cholesterol levels on the next visit that is scheduled on 01/10. I have informed her about the results of the LEW and carotids. Faiza Welsh MD 12/07/2022 1:44 PM * Telephone Encounter - Vanita Eaton - 12/06/2022 10:10 AM EDT Patient called asking what the results of the lab work the was perfomed in September were, She has not heard from anyone. You can either just call her or she can have a virtual visit. [facility] NoteHNO ID: [id number] Author: Faiza Welsh MD Service: ? Author Type: Physician Type: Progress Notes Filed: 09/27/2022 11:31 AM Note Text: [facility] [place] Larry Rosas Department of Cardiovascular Medicine SECTION OF VASCULAR MEDICINE OUTPATIENT VISIT DATE September 27, 2022 OUTPATIENT VISIT TYPE CONSULTATION Consult regarding: Bilateral leg pain Consult requested by: Madalyn Vaughan My final recommendations will be communicated back to the requesting physician by way of the shared medical record or by letter. Primary care physician: Madalyn Vaughan DO History of present illness: 61-year-old female with medical history of, -CAD c/b NSTEMI s/p PCI to diagonal in 2014 and LAD. Had in-stent restenosis of LAD in 2019 s/p CLAY Proximal LAD stenosis on 05/24/2021 with in-stent stenosis and distal 70% stenosis. Currently on Plavix 75 mg daily. 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 She gets most of her care at [facility] including cardiac care. The patient made a vascular medicine appointment for concerns of dizziness and lower extremity pain. 2 years back when the patient had a NSTEMI, she had cold sweats, pressure in the head and dizziness. Most recently, the patient has started having similar symptoms 6 months back. It is intermittent and happens at the end of the day mostly once. It is associated with change in position or times of movement. It is not associated with headaches, vision changes, or difficulty maintaining balance or syncopal events. The patient also complains of pain in the lower legs bilaterally. It is constant but gets worse at night specially when the patient lays down in the bed. It is associated with numbness and tingling. The pain doesn't get worse with walking longer distances. Her activities are limited by exertional chest pain. She doesn't complain of open sores or ulcers or skin discoloration. She is a non-smoker, nonalcoholic and has no history of recreational drug use. The patient has extensive family history of premature coronary artery disease. Allergies: No known allergies. Statin induced muscle pain. Medications: Current Outpatient Medications on File Prior to Visit Medication Sig insulin aspart U-100 (NOVOLOG) 100 unit/mL (3 mL) INJECT 8 UNITS SUBCUTANEOUSLY AT SUPPER, THEN 4 UNITS WITH SNACKS. metoprolol succinate ER (TOPROL XL) 25 mg 24 hr tablet Take 25 mg by mouth once daily. clopidogrel (PLAVIX) 75 mg tablet Take 75 mg by mouth once daily. No current facility-administered medications on file prior to visit. Past medical history: CAD Hypertension Hyperlipidemia Diabetes Mellitus. Past surgical history: History of coronary artery stent placement (05/25/21) History of left heart catheterization (02/21/20) Family history: Father CVA (cerebral vascular accident) Social history: Smoking Status: Never smoker alcohol intake: never substance use type: does not use caffeine: Yes (Occasionally) Type: coffee REVIEW OF SYSTEMS: Review of systems: General Fever or chills - No Night sweats - No Change in weight - No Lumps in groin, underarms - No Neurological Headaches - No Seizures - No Passing out - No Dizziness/light headedness - YES Numbness, tingling, pins or needles - YES Weakness in arms or legs - No Head, eyes, ears, nose and throat Changes in hearing - No Changes in vision - No Nose bleeds - No Difficulty or pain with swallowing - No Cardiovascular Chest pain or pressure - YES Palpitations - YES Irregular heartbeat - YES Shortness of breath - YES Respiratory Cough - No Wheezing - No Shortness of breath at rest - No Shortness of breath with exertion - YES Coughing up blood - No Sleep apnea - No Gastrointestinal Abdominal pain - No Nausea/vomiting - No Diarrhea/Constipation - No Stomach pain after eating - No Blood in stool - No Black stool - No Genitourinary Pain with urination - No Blood in urine - No Gynecology - No Abnormal vaginal bleeding - No History of loss - No Extremity Bulging veins - No Swelling in arms or legs - No Redness of extremities - No Pain with walking - No Color change of hands/feet/digits - No Musculoskeletal Joint pain - YES Joint swelling - YES Back pain - YES Muscle pain or ache - YES Skin Rash - No Lesions - No Slow healing sores - No Tight or thickened skin - No Hematology Low blood counts - No Easy bruising - No Blood transfusions - No Psychology Depressed mood - No Anxiety or history of panic attacks - No History of recreational drug use - No Cancer screening (up to date?): Colonoscopy: No Pap smear: No Mammogram: No Smoking history: -Current or past (more content not included)...[facility] 07-16-2021 Miscellaneous Notes* Telephone Encounter - Hilary Calabrese - 07/16/2021 3:10 PM EDT Patient called and would like to be seen by Dr. Huff. She said that she is diabetic and suffers from leg pain. She would like to be checked for blockage in her legs. Inocencia Calabrese Roller Checker [facility]* Diagnosis Onset Date Resolution Status History of coronary artery stent placement May acute Essential (primary) hypertension chronic Hyperlipidemia [facility] Work Phone: 1(810) 950-971202-07-2022 Evaluation note* Diagnosis Onset Date Resolution Status History of coronary artery stent placement May acute Essential (primary) hypertension chronic Hyperlipidemia chronic Dysuria acute Diabetes chronic Obesity [facility] Work Phone: 1(827) 886-389602-07-2022 Evaluation note* Diagnosis Onset Date Resolution Status Admit Date History of coronary artery stent placement May 25, 2021 acute August 21, 2024 9:01am Essential (primary) hypertension chronic August 21, 2024 9:01am Hyperlipidemia chronic August 21 025 9:01am [facility] Work Phone: Evaluation note* Diagnosis Onset Date Resolution Status Noncompliance with diabetes treatment acute Obesity acute Atherosclerosis of coronary artery of chilkoot heart without angina pectoris chronic Diabetes chronic Essential (primary) hypertension chronic Hyperlipidemia chronic Atherosclerosis of coronary artery of chilkoot heart without angina pectoris chronic Diabetes chronic Essential (primary) hypertension chronic Hyperlipidemia chronic Unstable angina acute Essential (primary) hypertension chronic Chest pain resolved Atherosclerosis of coronary artery of chilkoot heart without angina pectoris chronic Essential (primary) hypertension chronic Hyperlipidemia chronic Diabetes chronic Essential (primary) hypertension chronic Hyperlipidemia chronic Neuropathy [facility] Work Phone: Evaluation note* Diagnosis Onset Date Resolution Status Diabetes chronic Hyperlipidemia chronic Neuropathy chronic Obesity [facility] Work Phone: Evaluation note* Diagnosis Familial hypercholesterolemia Pure hypercholesterolemia Coronary artery disease due to lipid rich plaque [facility] Diagnosis Onset Date Resolution Status Diabetes chronic Essential (primary) hypertension chronic Hyperlipidemia chronic Neuropathy chronic Overweight chronic Chest pain acute History of coronary artery stent placement May acute Essential (primary) hypertension chronic Hyperlipidemia chronic [facility] Work Phone: Evaluation noteNo assessment information available [facility] Work Phone: Evaluation note* Diagnosis Pyelonephritis- Primary Pyelonephritis, unspecified [facility]No reason for referral information [facility] Work Phone: Summary Purpose Family History No Family History Records Found Relationship Condition Age at Onset Recorded Date/T nely father Cerebrovascular accident (CVA) Unknown Advance Directives No Advanced Directives Records FoundLatest Code Status on File Code Status Date Activated Date Inactivated Comments Full Code 02/23/2019 5:19 PM Full Code 02/23/2019 2:25 PM 02/23/2019 5:19 PM Full Code 02/23/2019 5:24 AM 02/23/2019 2:25 PM Advance Directive Response Recorded Date/ Time Advance Directives No May 22, 2021 9:03am Living Will No May 25 12:08am Power of Pack Train Driver No May 25, 2021 12:08am Advance Directive Response Recorded Date/ Time Advance Directives No May 22, 2021 9:03am Living Will No July 27, 2021 2:41pm Power of Pack Train Driver No July 27 2:41pm Advance Directive Response Recorded Date/ Time Advance Directives No May 22, 2021 8:03am Living Will No July 27, 2021 1:41pm Power of Pack Train Driver No July 27 1:41pm Advance Directive Response Recorded Date/ Time Advance Directives No March 9:18am Living Will No April 04, 2 023 9:18am Power of Pack Train Driver No April 04, 2023 9:18am Advance Directive Response Recorded Date/ Time Advance Directives No March 10:18am Living Will No April 04, 023 10:18am Power of Pack Train Driver No April 04, 2023 10:18am Advance Directive Response Recorded Date/ Time Living Will No April 04, 2 023 10:18am Power of Pack Train Driver No April 04, 2023 10:18am Advance Directives No March 10:18am Advance Directive Response Recorded Date/ Time Living Will No July 27, 2021 2:41pm Do you have a Healthcare Power of Pack Train Driver? No July 27, 2021 2:41pm Advance Directives No March 10:18am Reason for Referral Status Reason Specialty Diagnoses / Procedures Referred By Contact Referred To Contact Open Specialty Services Required Cardiac Rehabilitation Diagnoses NSTEMI (non-ST elevated myocardial infarction) (HCC) Coronary artery disease involving chilkoot coronary artery of chilkoot heart without angina pectoris Cherelle Thomas APRN - CNP [address] [place] [address] [facility] [address] [place] [address] Scheduling Instructions [facility] [address] [place] [address] Discharge Instructions * Instructions* Cherelle Thomas APRN - CNP - 02/24/2019 Call your doctor with any medication questions or if you notice any side effects from your medications. If you are unable to fill your medications, please call your Auto Overhauler immediately. The office number is located with your follow-up appointment information. Call your doctor if any redness or drainage from the wound site. DO NOT stop taking your medication unless instructed to do so by your doctor. Read the drug information material that were given to you and take medications as instructed by your doctor. New drugs may have been added to your medications, that will strengthen your heart and prevent re-stenosis of the coronary arteries. Drink 6 glasses of water (8 ounces each) over the next 24 hours. Water helps clear the dye from your body. No alcoholic beverages for 24 hours. It may interfere with healing. No exercise or sex for 5 days. Call 911 for chest pain, arm pain, nausea, neck pain, dizziness or unusual sweating AND your pain has not relieved with 2 doses of Nitroglycerin. Call your doctor if a lump at the puncture site enlarges or is larger than marble size. Call your doctor for numbness, tingling, or swelling of the fingers, hand or wrist. Call your doctor for increased area or bruising with discoloration extending into the arm. If bleeding occurs, hold pressure with your thumb against the puncture site and your finger againstthe back of the wrist for 10 minutes, if BLEEDING continues CALL 911. OK to shower. No tub baths, swimming pools or hot tub soaking for three days. Wash site daily with soap and water, dry gently. The healing wound should remain soft and dry. Keepsite clean and dry, no soaking of wrist for three days (no cleaning or dish washing). Remove band aid the day after procedure and leave open to air. No bending of affected wrist for 24 hours. DO NOT lift more than three pounds for 3-5 days. [address] driving for 24 hours. GIVE PCI PACKET (FROM RESEARCH AFFILIATE) TO PATIENT Give Coronary Artery Discharge Booklet PLEASE CALL YOUR HEART DOCTOR IF YOU CANNOT GET YOUR MEDICATIONS. THE NUMBER IS LISTED WITH YOUR FOLLOW-UP APPOINTMENT. Procedure Sedation Instructions 1. If you have received sedation: you must have someone drive you home 2. You should not drive a car, operate machinery, drink alcohol or perform any activity that requires alertness for the rest of the day. The effects of the sedative should be gone by tomorrow. documented in this encounter Assessments Diagnosis NSTEMI (non-ST elevated myocardial infarction) ([facility])- Primary Acute myocardial infarction, subendocardial infarction, episode of care unspecified Coronary artery disease involving chilkoot coronary artery of chilkoot heart without angina pectoris CAD (coronary artery disease) Coronary atherosclerosis of unspecified type of vessel, chilkoot or graft DM (diabetes mellitus) ([facility]) Type II or unspecified type diabetes mellitus without mention of complication, not stated as uncontrolled Chief Complaint and Reason for Visit Chief Complaint 5M F/U 3 M FU CAD Coronary artery disease UNSTABLE ANGINA UNSTABLE ANGINA UNSTABLE ANGINA UNSTABLE ANGINA UNSTABLE ANGINA ABN STRESS UNSTABLE ANGINA UNSTABLE ANGINA UNSTABLE ANGINA 3WK FU @ [facility] 6 WK F/U Reason for Visit Noncompliance with d iabetes treatment Obesity Atherosclerosis of coronary artery of chilkoot heart without angina pectoris Diabetes Essential (primary) hypertension Hyperlipidemia Atherosclerosis of coronary artery of chilkoot heart without angina pectoris Diabetes Essential (primary) hypertension Hyperlipidemia Unstable angina Essential (primary) hypertension Chest pain Atherosclerosis of coronary artery of chilkoot heart without angina pectoris Essential (primary) hypertension Hyperlipidemia Diabetes Essential (primary) hypertension Hyperlipidemia Neuropathy Chief Complaint 5M F/U 3 M FU CAD Coronary artery disease UNSTABLE ANGINA UNSTABLE ANGINA UNSTABLE ANGINA UNSTABLE ANGINA UNSTABLE ANGINA ABN STRESS UNSTABLE ANGINA UNSTABLE ANGINA UNSTABLE ANGINA 3WK FU @ [facility] 6 WK F/U CHEST PAIN Reason for Visit Noncompliance with d iabetes treatment Obesity Atherosclerosis of coronary artery of chilkoot heart without angina pectoris Diabetes Essential (primary) hypertension Hyperlipidemia Atherosclerosis of coronary artery of chilkoot heart without angina pectoris Diabetes Essential (primary) hypertension Hyperlipidemia Unstable angina Essential (primary) hypertension Chest pain Atherosclerosis of coronary artery of chilkoot heart without angina pectoris Essential (primary) hypertension Hyperlipidemia Diabetes Essential (primary) hypertension Hyperlipidemia Neuropathy Chief Complaint 6 M FU Reason for Visit History of coronary artery stent placement Essential (primary) hypertension Hyperlipidemia Chief Complaint 6 M FU R/S 3 M FU E ORDER Reason for Visit History of coronary artery stent placement Essential (primary) hypertension Hyperlipidemia Dysuria Diabetes Obesity Chief Complaint 6 M FU R/S 3 M FU E ORDER LT KNEE PAIN Reason for Visit History of coronary artery stent placement Essential (primary) hypertension Hyperlipidemia Dysuria Diabetes Obesity Chief Complaint 6 M FU R/S 3 M FU E ORDER LT KNEE PAIN CHEST PAIN CHEST PAIN Reason for Visit History of coronary artery stent placement Essential (primary) hypertension Hyperlipidemia Dysuria Diabetes Obesity Chief Complaint CHEST PAIN CHEST PAIN 4 M FU Injection Reason for Visit Diabetes Hyperlipidemia Neuropathy Obesity Chief Complaint 4 M FU 6 M FU Reason for Visit Diabetes Essential (primary) hypertension Hyperlipidemia Neuropathy Overweight Chest pain History of coronary artery stent placement Essential (primary) hypertension Hyperlipidemia Chief Complaint 4 M FU 6 M FU CP Unstable angina Unstable angina Reason for Visit Diabetes Essential (primary) hypertension Hyperlipidemia Neuropathy Overweight Chest pain History of coronary artery stent placement Essential (primary) hypertension Hyperlipidemia Chief Complaint 4 M FU 6 M FU CP Reason for Visit Diabetes Essential (primary) hypertension Hyperlipidemia Neuropathy Overweight Chest pain History of coronary artery stent placement Essential (primary) hypertension Hyperlipidemia Chief Complaint Admit Date 7 M FU, RS 05/02May 28, 2024 3:38pm Reason for Visit Admit Date Diabetes May 28, 2024 3:38pm Essential (primary) hypertension Februar 2024 3:38pm Hyperlipidemia May 28, 2024 3:38pm Hypertriglyceridemia May 28, 2024 3:38pm Neuropathy May 28, 2024 3:38pm Obesity May 28, 2024 3:38pm Chief Complaint Admit Date 18 M FU August 21, 2024 9:01am 6 M FU December 03, 2024 2: 33pm Reason for Visit Admit Date History of coronary artery stent placeme nt August 21, 2024 9:01am Essential (primary) hypertension August 9:01am Hyperlipidemia August 21, 2024 9:01am Additional Source Comments INFORMATION SOURCE (unrecogn ized section and content) DATE CREATED AUTHOR 05/02/2019 [facility] DATE CREATED AUTHOR AUTHOR'S ORGANIZ ATION 12/03/2022 [facility] DATE CREATED AUTHOR AUTHOR'S ORGANIZ ATION 12/08/2022 [facility] DATE CREATED AUTHOR AUTHOR'S ORGANIZ ATION 09/14/2024 [facility] DATE CREATED AUTHOR AUTHOR'S ORGANIZ ATION 02/01/2025 [facility] Goals (unrecognized section and content) Goals may be documented in a n alternate sectionGoals may be documented in an alternate sectionGoals may be documented in an alternate sectionGoals may be documented in an alternate sectionGoals may be documented in an alternate sectionGoals may be documented in an alternate sectionGoals may be documented in an alternate sectionGoals may be documented in an alternate sectionGoals may be documented in an alternate sectionGoals may be documented in an alternate sectionGoals may be documented in an alternate sectionGoals may be documented in an alternate sectionGoals may be documented in an alternate section Source Comments (unrecognize d section and content) In the event this informatio n is protected by the Federal Confidentiality of Alcohol and Drug Abuse Patient Records regulations: The Federal rules restrict any use of the information to criminally investigate or prosecute any alcohol or drug abuse patient.[facility] the event this information is protected by the Federal Confidentiality of Alcohol and Drug Abuse Patient Records regulations: The Federal rules restrict any use of the information to criminally investigate or prosecute any alcohol or drug abuse patient.[facility] Hospital[facility] the event this information is protected by the Federal Confidentiality of Alcohol and Drug Abuse Patient Records regulations: The Federal rules restrict any use of the information to criminally investigate or prosecute any alcohol or drug abuse patient.[facility] Reason for Visit (unrecogniz ed section and content) Reason Comments Appointment Reason Comments Results Reason Comments Urinary Pain Care Teams (unrecognized sec tion and content) Dye Tub Operator Relationship Specialty Start Date End Date Madalyn Vaughan DO [address] [place] [address] PCP - General Family Practice 07/21/21 Reggie Ramirez [address] [facility] [address] [place], [place] [id number] [employer] Cardiology 07/21/21 Team Status: Active Member Role Status Dates Dr. Madalyn Vaughan DO Family Provider Active Dr. Madalyn Vaughan DO Primary Care Provider Active Team Status: Inactive Member Role Status Dates Dr. Madalyn Vaughan DO Primary Care Provider, Referring P tarah Active JOE De La Fuente Attending Provider Active Team Status: Active Member Role Status Dates Dr. Madalyn Vaughan DO Primary Care Provider Active Dr. Reggie Ramirez MD Attending Provider, Other Provide r Active Team Status: Inactive Member Role Status Dates Dr. Madalyn Vaughan DO Primary Care Provider, Referring P rojenniferder Active Dr. Wali Hurley MD Attending Provider Active Team Status: Inactive Member Role Status Dates Dr. Madalyn Vaughan DO Primary Care Provider Active Dr. Reggie Ramirez MD Attending Provider Active Team Status: Inactive Member Role Status Dates Dr. Madalyn Vaughan DO Primary Care Provider Active JOE De La Fuente Attending Provider Active Dye Tub Operator Relationship Specialty Start Date End Date Madalyn Vaughan DO [address] [facility] [place], [place] [id number] PCP - General Family Medicine 07/21/21 Reggie Ramirez [address] [facility] [address] [place], [place] [id number] Auto Over[employer]uler Cardiology 07/21/21 Team Status: Inactive Member Role Status Dates Dr. Madalyn Vaughan DO Primary Care Provider, Referring P rovider Active Isadora Emanuel PA, PA Attending Provider Active Team Status: Active Member Role Status Dates Dr. Madalyn Vaughan DO Primary Care Provider Active Dr. Reggie Ramirez MD Referring Provider, Other Provide r Active Dr. Tip Sanders MD Attending Provider Active Team Status: Inactive Member Role Status Dates Dr. Madalyn Vaughan DO Primary Care Provider Active Dr. Reggie Ramirez MD Attending Provider, Referring Pro vider Active Team Status: Inactive Member Role Status Dates Dr. Madalyn Vaughan DO Primary Care Provide r, Attending Provider, Referring Provider Active Team Status: Inactive Member Role Status Dates Dr. Madalyn Vaughan DO Primary Care Provider Active Start: May 28, 2024 End: May 28, 2024 Dr. Madalyn Vaughan DO Referring Provider Active St art: May 28, 2024 End: May 28, 2024 JOE De La Fuente Attending Provider Active Start: May 28, 2024 End: May 28, 2024 Team Status: Inactive Member Role Status Dates Dr. Madalyn Vaughan DO Primary Care Provider Active Start: June 14, 2024 End: June 14, 2024 JOE De La Fuente Attending Provider Active Start: June 14, 2024 End: June 14, 2024 JOE De La Fuente Referring Provider Active Start: June 14, 2024 End: June 14, 2024 Team Status: Active Member Role/Relationship Status Dates Dr. Madalyn Vaughan DO Primary Care Provider Active Team Status: Inactive Member Role/Relationship Status Dates Dr. Madalyn Vaughan DO Primary Care Provider Active Start: August 21, 2024 End: August 21, 2024 Dr. Madalyn Vaughan DO Referring Provider Active St art: August 21, 2024 End: August 21, 2024 Dr. Reggie Ramirez MD Attending Provider Active S tart: August 21, 2024 End: August 21, 2024 Team Status: Inactive Member Role/Relationship Status Dates Dr. Madalyn Vaughan DO Primary Care Provider Active Start: December 03, 2024 End: December 03, 2024 Dr. Madalyn Vaughan DO Referring Provider Active St art: December 03, 2024 End: December 03, 2024 JOE De La Fuente Attending Provider Active Start: December 03, 2024 End: December 03, 2024 Scheduled Active and Recently Administ ered Medications (unrecognized section and content) Medication Order 09/09/2024 09/10/2024 09/11/2024 Amoxicillin-clavulanate (AUGMENTIN) 875-125 MG per tablet 1 tablet (COMPLETED) 1 tablet, Oral, ONCE, 1 dose, On Tue09/11/24 at 1045 1018 (Given - Provid er: Derrell Martínez, EMT-P) iohexol (OMNIPAQUE) 350 MG/ML injection 1-171 mL (COMPLETED) 1-171 mL, Intravenous, ONCE, 1 dose, On Tue09/11/24 at 0915, Extravasation Risk, CT Procedure 0901 (Given - Radiol ogy - Provider: Isaías Higgins) PRN Medication Order 09/09/2024 09/10/2024 09/11/2024 Sodium chloride (PF) 0.9 % injection 1-100 mL (COMPLETED) 1-100 mL, Intravenous, ONCE NEEDED, 1 dose, Starting on Tue09/11/24 at 0901, Until Tue09/11/24 at 0901, Flush, CT Procedure 0901 (Given - Provid er: Isaías Higgins) FOR RECORDS PERTAINING TO PATIENTS WHO ARE OR HAVE BEEN ENROLLED IN A CHEMICAL DEPENDENCY/SUBSTANCEABUSE PROGRAM, SOME INFORMATION MAY BE OMITTED. This clinical summary was aggregated from multiple sources. Caution should be exercised in using it in the provision of clinical care. This summary normalizes information from multiple sources, and as a consequence, information in this document may materially change the coding, format and clinical context of patient data. In addition, data may be omitted in some cases. CLINICAL DECISIONS SHOULD BE BASED ON THE PRIMARY CLINICAL RECORDS. [facility] [email or web address], [facility]. provides no warranty or guarantee of the accuracy or completeness of information in this document.
--- NOTE | 2025-02-06 18:13 | STRESSREP ---
Stress Test Report Exercise myocardial perfusion stress test. 64-year-old lady with a history of chest pain. Stress protocol: Resting EKG demonstrates normal sinus rhythm with a rate of 60 bpm resting blood pressure is 122/74 mmHg. The patient exercised according to the regular Brennen protocol for a total duration of 7 minutes and 16 seconds attaining a maximum heart rate of 146 bpm which was 92% of maximum predicted heart rate; the maximum workload was 10.1 metabolic equivalents. At rest there were no ST or T wave changes noted to suggest ischemia and at peak exercise upsloping ST changes only were noted which did not meet the criteria for ischemia. During recovery however there was some downsloping ST depression noted. No clinical angina was noted the test was terminated due to the target heart rate being achieved/fatigue. The peak blood pressure was 182/78 mmHg. Rate-pressure product was 23,600. Myocardial perfusion protocol. 12.7 mCi of technetium 99m sestamibi was injected at rest. The patient exercised according to regular Brennen protocol for total duration of 7 minutes and 16 seconds and at peak exercise 37 mCi of technetium 99m sestamibi was injected stress images were obtained stress and rest images were reconstructed in comparing the short axis vertical long and horizontal long axis. Gated images were also obtained. Perfusion SPECT analysis: Review of the stress images demonstrate normal uptake of tracer noted in all areas of the myocardium. The resting images similarly demonstrate normal uptake of tracer noted in all areas of the myocardium. No areas of reversibility are noted to suggest ischemia no previous infarct was noted. Gated SPECT analysis: The gated ejection fraction is 72%. Conclusion: Normal exercise myocardial perfusion stress test at a high workload.
== END | disposition home or self-care (01) ==
LOC: CVS 06:42
PROVIDERS: PCP Family Medicine; Referring Provider Internal Medicine Cardiovascular Disease; Visit Provider Internal Medicine Cardiovascular Disease
DX: I25.110 Atherosclerotic heart disease of native coronary artery with unstable angina pectoris (principal)
CPT/HCPCS: 78452; 93017; A9500; A4216

== ENCOUNTER → 2025-03-20 | Outpatient (CLI) | payer MEDICAID, SELFPAY ==
--- NOTE | 2025-03-20 07:31 | ECHOD_ITS ---
Reason For Study Reason For Study: DYSPNEA Procedure This was a 2D Doppler, Color Flow transthoracic echocardiogram. Exam performed in department. Left Ventricle Normal LV size. The left ventricular ejection fraction is 60 %. No regional wall motion abnormalities noted. Right Ventricle Normal RV size. Normal systolic function. Atria Normal left atrium. Normal right atrium. Mitral Valve Normal mitral valve. Tricuspid Valve Normal tricuspid valve. Mild (1+) tricuspid valve insufficiency. Pulmonary artery systolic pressure is 26 mmHg. Aortic Valve Trisinus/trileaflet aortic valve. Mild focal aortic valve calcification. Pulmonic Valve Normal pulmonic valve. Great Vessels Normal aortic root. The pulmonary artery is normal size. Inferior vena cava collapse with respiration. Pericardium/Pleural No pericardial effusion. MMode/2D Measurements & Calculations LVIDd: 4.3 cm IVSd: 0.88 cm LVOT diam: 1.9 cm LVIDs: 2.4 cm LVPWd: 0.91 cm LVOT area: 2.8 cm2 RVDd: 3.8 cm FS: 44.3 % Ao root diam: 3.3 cm LAV(MOD-bp): 52.0 ml LVAd ap4: 20.6 cm2 LAV(MOD-bp) Indexed: 27.2 ml/m2 LVLd ap4: 7.1 cm LAV(MOD-sp2): 58.6 ml EDV(MOD-sp4): 50.8 ml LAV(MOD-sp4): 44.0 ml EDV(sp4-el): 51.0 ml LVAs ap4: 11.7 cm2 LVLs ap4: 5.7 cm ESV(MOD-sp4): 20.7 ml ESV(sp4-el): 20.4 ml EF(MOD-sp4): 59.2 % EF(sp4-el): 60.0 % LVAd ap2: 24.7 cm2 SV(MOD-sp4): 30.1 ml SV(MOD-sp2): 43.5 ml LVLd ap2: 7.5 cm SI(MOD-sp4): 15.7 ml/m2 SI(MOD-sp2): 22.7 ml/m2 EDV(MOD-sp2): 67.1 ml EDV(sp2-el): 68.6 ml LVAs ap2: 12.9 cm2 LVLs ap2: 6.2 cm ESV(MOD-sp2): 23.6 ml ESV(sp2-el): 22.7 ml EF(MOD-sp2): 64.8 % SV(sp4-el): 30.6 ml Ao sinus diam: 2.[address] Junction: 2.3 cm LA dimension(2D): 3.7 cm LA A4 area: 17.1 cm2 RA A4 area: 13.1 cm2 TAPSE: 1.7 cm Time Measurements MV dec time: 0.17 sec Doppler Measurements & Calculations MV E max tesfaye: 66.0 cm/sec Lat Peak E' Tesfaye: 13.0 cm/sec Med Peak E' Tesfaye: 9.0 cm/sec MV A max tesfaye: 58.5 cm/sec E/E' lat: 5.1 E/E' med: 7.3 MV E/A: 1.1 MV dec slope: 378.1 cm/sec2 Ao V2 max: 121.3 cm/sec LV V1 max: 98.9 cm/sec Ao max P.9 mmHg LV V1 max P.9 mmHg Ao V2 mean: 85.1 cm/sec LV V1 mean P.1 mmHg Ao mean P.3 mmHg LV V1 mean: 67.9 cm/sec Ao V2 VTI: 32.3 cm LV V1 VTI: 24.4 cm AV (velocity ratio): 0.76 SINDY(I,D): 2.1 cm2 SINDY(V,D): 2.3 cm2 SV(LVOT): 68.6 ml PA V2 max: 80.1 cm/sec TR max tesfaye: 235.4 cm/sec TR max P.2 mmHg ECHO/Echo Complete Interpretation Summary Normal LV size. Mild (1+) tricuspid valve insufficiency. Mild focal aortic valve calcification. Pulmonary artery systolic pressure is 26 mmHg. The left ventricular ejection fraction is 60 %. Ordering Physician: Manuel Souza Referring Physician: Madalyn Vaughan Performed By: Niurka Parr RDCS
--- OUTSIDE RECORDS SUMMARY | 2025-03-20 07:31 | XMS RPT_ITS | CCD ---
Author Organization [facility] Care Team Providers Care Marsh Buggy Operator Name Role Phone Unavailable Primary Care Provider UnavailDr. Madalyn Holt Primary Care Provider Dr. Madalyn Vaughan Referring Provider Dr. Wali Hurley Attending Provider Roof STRETCHER DRIER OPERATOR, STRETCHER DRIER OPERATOR-C James Eller Attending Provider Roof STRETCHER DRIER OPERATOR, STRETCHER DRIER OPERATOR-C James Eller Referring Provider Roof STRETCHER DRIER OPERATOR, STRETCHER DRIER OPERATOR-C James Eller Other Provider Dr. Reggie Ramirez Attending Provider Dr. Alberto Green Emergency Provider Dr. Kaiser Corey Admit Provider Dr. Kaiser Corey Attending Provider Dr. Kaiser Corey Other Provider Dr. Reggie Ramirez Other Provider Dr. Min Arias Attending Provider Dr. Reggie Ramirez Referring Provider Dr. Jairo Tinoco Other Provider Unavailable Dr. Jairo Tinoco Attending Provider Unavailable Dr. Kaiser Corey Referring Provider Adelfo GURROLA, PA Isadora Kathleen Attending Provider JOE Mcfarland Attending Provider Unavailable Primary Care Provider Madalyn Barone DO Primary Care Provider [phone] Madalyn Vaughan Primary Care Provider Clement, Dr. Bergman Referring Provider James, Dr. Paredes Attending Provider [phone] JOE Mcfarland Attending Provider Clement, Dr. Bergman Primary Care Provider Clement, Dr. Bergman Referring Provider [phone] James, Dr. Paredes Attending Provider [phone] JOE Mcfarland Attending Provider James, Dr. Paredes Other Provider Clement, Dr. Bergman Primary Care Provider James, Dr. Paredes Attending Provider [phone] James, Dr. Paredes Other Provider Clement, [...] Unavailable Clement, Dr. Bergman Primary Care Provider Clement, Dr. Bergman Referring Provider JOE Mcfarland Attending Provider [phone] Adelof GURROLA, GALILEO Kathleen Attending Provider Dr. Reggie Ramirez Referring Provider Dr. Reggie Ramirez Other Provider Dr. Tip Sanders Attending Provider Clement GILL, Dr. Bergman Primary Care Provider [phone] Clement GILL, Dr. Bergman Referring Provider [phone] Bartolo STRETCHER DRIER OPERATOR-C, Shonna Attending Provider [phone] Bartolo STRETCHER DRIER OPERATOR-C, Shonna Referring Provider [phone] Unavailable Primary Care Provider UnavailMIGUEL Kang Attending Unavailable Eladioys DO, Dr. Bergman Primary Care Provider [phone] Clement GILL, Dr. Bergman Referring Provider Dr. Reggie Ramirez MD Attending Provider [phone] Bartolo STRETCHER DRIER OPERATOR-C, Shonna Attending Provider [phone] Malys, Madalyn Referring Unavailable Malys, Madalyn Primary Care Unavailable Wali Hurley Attending Unavailable James, [place] Attending Unavailable Malys, Madalyn Referring Unavailable Malys, Madalyn Primary Care Unavailable Malys, Madalyn Primary Care Unavailable Malys, Madalyn Referring Unavailable Bartolo, Shonna Attending Unavailable James, [place] Attending Unavailable James, [place] Referring Unavailable Malys, Madalyn Primary Care Unavailable Bartolo, Shonna Referring Unavailable Malys, Madalyn Primary Care Unavailable Real Mcfarlandn Attending Unavailable Malys, Madalyn Referring Unavailable Malys, Madalyn Primary Care Unavailable Bartolo, Shonna Attending Unavailable Isadora Wesley Attending Unavail able Malys, Madalyn Referring Unavailable Malys, Madalyn Primary Care Unavailable James, [place] Referring Unavailable Malys, Madalyn Primary Care Unavailable James, Reggie Consulting Unavailable James, Reggie Attending Unavailable Allergies Allergy Classification Reported Allergen(s) Allergy Type Date of Onset Reaction(s) Facility (15 sources) atorvastatin; Translations: [ATORVASTATIN] Drug Allergy 06-29-[place] ([place] sources[place] rosuvastatin; Translations: [ROSUVASTATIN] Drug Allergy 06-29-2021 [facility] (15 sources) Simvastatin; Translations: [SIMVASTATIN] Drug Allergy 06-29-2021 Myalgia [facility] (8 sources) evolocumab; Translations: [EVOLOCUMAB] Drug Allergy 09-23-2022 Unknown [facility] Work Phone: (1 source) atorvastatin Drug Allergy 12-03-2024 [facility] (1 source) evolocumab Drug Allergy 12-03-2024 [facility] (1 source) rosuvastatin Drug Allergy 12-03-2024 [facility] (1 source) Simvastatin Drug Allergy 12-03-2024 [facility] Rep[facility] Medications Current Medications Medication Drug Class(es) [...] 03-21-2023 Blood-Glucose Meter (Onetouch Verio Flex Meter) [facility] Active 0 .Route 1 0 March 21, 2023 1:00am Diabetes mellitus Type 2 diabetes mellitus without complications As directed Start: 03-21-2023 Blood-Glucose Meter (Onetouch Verio Flex Meter) misc Active 0 .Route 1 March 21, 2023 1:00am As directed Start: 03-21-2023 Blood-Glucose Meter (Onetouch Verio Flex Meter) misc Active 0 .Route 1 March 21, 2023 12:00am As directed Blood-Glucose Sensor (Freest yle Jaime 3 Plus Sensor) device (3 sources) Start: 11-19-2024 Blood-Glucose Sensor (Freestyle Jaime 3 Plus Sensor) device Active 0 .Route 2 November 19, 2024 1:02pm Diabetes mellitus Type 2 diabetes mellitus with hyperglycemia jail (current) use of insulin 1 sensor every 15 days Start: 05-28-2024 End: 11-19-2024 Blood-Glucose Sensor (Freest yle Jaime 3 Plus Sensor) device Discontinued 0 .Route 2 May 28, 2024 1:00am November 19, 2024 1:02pm Diabetes mellitus Type 2 diabetes mellitus with hyperglycemia orthopedic dentist (current) use of insulin 1 sensor every [...] mellitus Type 2 diabetes mellitus with hyperglycemia jail (current) use of insulin Start: 08-19-2020 End: [...] mg PO THREE TIMES A DAY 15 January 21, 2022 12:00am September 23, 2022 [...] mellitus Type 2 diabetes mellitus with hyperglycemia jail (current) use of insulin Start: 08-03-2021 End: [...] Discontinued 140 mg SC every 2 weeks 2 June 17, 2021 1:00am September 23, 2022 9:53am [...] genesis th once daily. Flash Glucose Scanning [place] (Freestyle Jaime 2 [place]) misc (13 sources) Start: 12-06-2022 End: 12-03-2024 Flash Glucose Scanning [place] (Freestyle Jaime 2 [place]) misc Discontinued 0 .Route 1 0 December 06, 2022 3:19pm December 03, 2024 2:40pm Diabetes mellitus Type 2 diabetes mellitus without complications As directed Start: 12-06-2022 Flash Glucose Scanning [place] (Freestyle Jaime 2 [place]) misc Active 0 .Route 1 December 06, 2022 3:19pm As directed Start: 12-06-2022 Flash Glucose Scanning [place] (Freestyle Jaime 2 [place]) misc Active 0 .Route 1 December 06, 2022 2:19pm As directed Start: 06-23-2022 End: 12-06-2022 Flash Glucose Scanning [place] r (Freestyle Jaime 2 [place]) misc Discontinued 0 .Route 1 0 June 23, 2022 1:00am December 06, 2022 3:19pm Diabetes mellitus Type 2 diabetes mellitus without complications As directed Start: 06-23-2022 End: 12-06-2022 Flash Glucose Scanning Reade r (Freestyle Jaime 2 [place]) misc Discontinued 0 .Route 1 June 23, 2022 1:00am December 06, 2022 3:19pm As directed Start: 06-23-2022 End: 12-06-2022 Flash Glucose Scanning [place] r (Freestyle Jaime 2 [place]) misc Discontinued 0 .Route 1 June 23, 2022 12:00am December 06, 2022 2:19pm As directed Start: 06-23-2022 Flash Glucose Scanning [place] (Freestyle Jaime 2 [place]) misc Active 0 .Route 1 June 23, [...] 0545 LOW Dose Heparin Weight Based Dosing (ACS/CA/CVA/ECMO) aPTT < 30 Call ordering provider JAYCEE. [...] Start: 02-23-2019 End: 02-23-2019 2,000 Units, Intravenous, KS N, Other, heparin dosing algorithm, Starting Tue02/23/19 [...] mellitus Type 2 diabetes mellitus with hyperglycemia orthopedic dentist (current) use of insulin Start: 01-11-2023 End: 12-26-2023 Insulin Aspart U-100 (Novolo g Flexpen U-100 Insulin) 100 unit/mL (3 mL) insulin pen Discontinued 12 U SC TWICE A DAY 15 January 11, 2023 12:59pm December 26, 2023 12:56pm Diabetes mellitus Type 2 diabetes mellitus with hyperglycemia jail (current) use of insulin Start: 07-19-2022 insulin [...] mellitus Type 2 diabetes mellitus with hyperglycemia jail (current) use of insulin 8 u supper, [...] pen Discontinued 50 U SC DAILY 9 6 March 25, 2020 1:00am June 30, 2020 3:57pm 3 ml insulin detemir 100 unt/ml pen injector (20 sources) Insulin Analog Start: 01-27-2022 End: 07-19-2022 Insulin Detemir U-100 (Levemir Flextouch U-100 Insuln) 100 unit/mL (3 mL) insulin pen Discontinued 32 U SC AT BEDTIME 30 3 July 15, 2022 3:32pm July 19, 2022 1:27pm Diabetes mellitus Type 2 diabetes mellitus with hyperglycemia orthopedic dentist (current) use of insulin Start: 04-30-2021 End: [...] mellitus Type 2 diabetes mellitus with hyperglycemia jail (current) use of insulin Start: 12-29-2023 End: [...] mellitus Type 2 diabetes mellitus with hyperglycemia orthopedic dentist (current) use of insulin Start: 12-26-2023 End: 12-29-2023 Insulin Detemir U-100 (Levem ir Flexpen) 100 unit/mL (3 mL) insulin pen Discontinued 32 U SC AT BEDTIME 28.8 December 26, 2023 12:56pm December 29, 2023 2:01pm Start: 10-10-2023 End: 12-26-2023 Insulin Detemir U-100 (Levem ir Flexpen) 100 unit/mL (3 mL) insulin pen Discontinued 32 U SC AT BEDTIME 30 October 10, 2023 1:33pm December 26, 2023 12:56pm Start: 10-10-2023 End: 12-26-2023 Insulin Detemir U-100 (Levem ir Flexpen) 100 unit/mL (3 mL) insulin pen Discontinued 32 U SC AT BEDTIME October 10, 2023 1:33pm December 26, 2023 12:56pm Start: 07-19-2022 End: 10-10-2023 Insulin Detemir U-100 (Levem ir Flexpen) 100 unit/mL (3 mL) insulin pen Discontinued 32 U SC AT BEDTIME 30 July 19, 2022 12:00am October 10, 2023 [...] tablet Discontinued 2.5 mg PO DAILY 30 June 17, 2021 2:30pm August 03, 2021 [...] doses per episode omega-3 acid ethyl esters (long term) 1000 mg oral capsule (6 sources) Start: 12-30-2022 End: 10-19-2023 take 1 capsule by mouth twice daily [place]-3 Acid Ethyl Esters (Lovaza) 1 gram capsule [...] on Tue09/11/24 at 0901, Until Tue09/11/24 at 09, [place], CT Procedure Start: 02-23-2019 End: 02-27-2019 [...] heart disease (20 sources) Coronary arteriosclerosis in [place] artery; Translations: [Coronary arteriosclerosis] Onset: 02-23-2019 02-24-2019 [...] Onset: 2022 Episodic Other aftercare (1 source) orthopedic dentist (current) use of insulin; Translations: [jail (current) use of insulin] Onset: 12-03-2024 Episodic [...] Test Name Value Interpretation Reference Range Facility Stress Reporton 02-06-2025 Stress Report [facility] [address] [place] [id number] MR#: [id number] Acct: [id number] Name: BONNIE BROWNLEE Rep #: [id number] : 1960 64 From: Reggie Ramirez MD Primary Care: Dr. Madalyn Vaughan, DO Status: R EG CLI Referring Dr: Reggie Ramirez MD Sex: F C Stress Test Report Exercise myocardial perfusion stress test. 64-year-old lady with a history of chest pain. Stress protocol: Resting EKG demonstrates normal sinus rhythm with a rate of 60 bpm resting blood pressure is 122/74 mmHg. The patient exercised according to the regular Brennen protocol for a total duration of 7 minutes and 16 seconds attaining a maximum heart rate of 146 bpm which was 92% of maximum predicted heart rate; the maximum workload was 10.1 metabolic equivalents. At rest there were no ST or T wave changes noted to suggest ischemia and at peak exercise upsloping ST changes only were noted which did not meet the criteria for ischemia. During recovery however there was some downsloping ST depression noted. No clinical angina was noted the test was terminated due to the target heart rate being achieved/fatigue. The peak blood pressure was 182/78 mmHg. Rate-pressure product was 23,600. Myocardial perfusion protocol. 12.7 mCi of technetium 99m sestamibi was injected at rest. The patient exercised according to regular Brennen protocol for total duration of 7 minutes and 16 seconds and at peak exercise 37 mCi of technetium 99m sestamibi was injected stress images were obtained stress and rest images were reconstructed in comparing the short axis vertical long and horizontal long axis. Gated images were also obtained. Perfusion SPECT analysis: Review of the stress images demonstrate normal uptake of tracer noted in all areas of the myocardium. The resting images similarly demonstrate normal uptake of tracer noted in all areas of the myocardium. No areas of reversibility are noted to suggest ischemia no previous infarct was noted. Gated SPECT analysis: The gated ejection fraction is 72%. Conclusion: Normal exercise myocardial perfusion stress test at a high workload. 02/06/251815 Date Reggie Ramirez MD CC: Dr. Reggie Ramirez MD; Dr. 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 [place] [address] OFFICE VISIT Date of Service: 12/03/24 MR#: [id number] Acct: [id number] Name: BONNIE BROWNLEE Rep #: [id number] : 1960 Provider: JOE urias Age/Sex: 64/F Location: [facility] [place] Status: Signed Intake Vital Signs 05/28/24 15:50 05/06/25 09:28 12/03/24 14:34 Height 5 ft 5 [...] 6 M FU Chief Complaint: f/u diabetes Learning Manager Required: No Accompanied by: Self Is patient in pain?: No Allergies atorvastatin Adverse Reaction (Severe, Verified 12/03/24 14:34) myalgias rosuvastatin Adverse Reaction (Severe, Verified 12/03/24 14:34) myalgias simvastatin Adverse Reaction (Severe, Verified 12/03/24 14:34) myalgias evolocumab (From Repatha Pushtronex) Adverse Reaction (Intermediate, Verified 12/03/24 14:34) mylagias Medications ???Medication ???Instructions ???Recorded ???Confirmed ???Type pen needle, diabetic 32 gauge x 05/24/21 12/03/24 History (BD Ultra-Fine Yu Pen Needle) blood-glucose meter (Healthifyuch #1 ea 03/21/23 12/03/24 Rx Verio Flex [...] 12/03/24 Rx Jaime 3 Plus Sensor device) [facility] Medical History Abnormal stress test Noncompliance with diabetes treatment Obesity Diabetes Hypertriglyceridemia History of non-ST elevation myocardial infarction (NSTEMI) (02/23/19) Type 2 diabetes mellitus Atherosclerosis of coronary artery of [place] heart without angina pectoris Essential (primary) hypertension [...] want to pursue a stress test as I have horrible chest pain during the test. Hx of poorly controlled cholesterol and unable [...] chest pain (more content not included)... Normal [facility] CALCIUMon 09-11-2024 Calcium [Mass/Vol] 9.5 mg/dL 8.6 - 10. 5 mg/dL [facility] Calcium [Mass/Vol] 9.5 mg/dL Normal 8.6-10.5 [facility] Comment on above: Performed By: #### H FP, MGO, CA, LIPA, C7ED #### [facility] (DEFAULT) [address] [place] [address] CBC AND ELECTRONIC DIFFon Basophils (Bld) [#/Vol] K/uL 0.00 - 0.15 K/uL [facility] Basophils/100 WBC (Bld) 0.2 % [facility] Differential cell count method Nom (Bld) Electronic Differential O [facility] Eosinophils (Bld) [#/Vol] 0.1 10*3/uL 0.00 - 0.42 K/uL [facility] Eosinophils/100 WBC (Bld) 1.7 % [facility] Erythrocyte distribution width (RBC) [Ratio] 12.7 % 10.8 - 14.9 % [facility] Hematocrit (Bld) [Volume fraction] 37.2 % 34.9 - 44.3 % [facility] Hemoglobin (Bld) [Mass/Vol] 12.5 g/dL 11.4 - 15.2 g/dL [facility] Immature granulocytes (Bld) [#/Vol] K/uL NINF - 0.08 K/uL [facility] Immature granulocytes/100 WBC (Bld) 0.2 % [facility] Lymphocytes (Bld) [#/Vol] 2.65 10*3/uL 1.16 - 3.51 K/uL [facility] Lymphocytes/100 WBC (Bld) 46.2 % [facility] MCH (RBC) [Entitic mass] 27.7 pg 25.9 - 33.9 pg [facility] MCHC (RBC) [Mass/Vol] 33.6 g/dL 31.4 - 35.9 g/dL [facility] MCV (RBC) [Entitic vol] 82.5 fL 79.6 - 97.7 fL [facility] Monocytes (Bld) [#/Vol] 0.51 10*3/uL 0.22 - 0.87 K/uL [facility] Monocytes/100 WBC (Bld) 8.9 % [facility] Neutrophils (Bld) [#/Vol] 2.45 10*3/uL 1.64 - 7.28 K/uL [facility] Nucleated RBC/100 WBC (Bld) [Ratio] 0 % NINF [facility] Platelet mean volume (Bld) [Entitic vol] 10.5 fL 8.5 - 12.2 fL [facility] Platelets (Bld) [#/Vol] 259 10*3/uL 150 - 393 K/uL [facility] RBC (Bld) [#/Vol] 4.51 10*6/uL [facility] Segmented neutrophils/100 WBC (Bld) 42.8 % [facility] WBC (Bld) [#/Vol] 5.73 10*3/uL 3.99 - 11. 19 K/uL [facility] Abs Baso Auto < Normal 0.00-0.15 [facility] Comment on above: Performed By: #### L [id number] #### [facility] (DEFAULT) [address] [address] Basophils/100 WBC (Bld) 0.2 % Normal [facility] Comment on above: Performed By: #### L [id number] #### [facility] (DEFAULT) [address] [address] DIFF STATUS Electronic Differential Normal [facility] Comment on above: Performed By: #### L [id number] #### [facility] (DEFAULT) [address] [place] [address] Eosinophils (Bld) [#/Vol] 0.10 10*3/uL Normal 0.00-0.42 [facility] Comment on above: Performed By: #### L [id number] #### [facility] (DEFAULT) [address] [address] Eosinophils/100 WBC (Bld) 1.7 % Normal [facility] Comment on above: Performed By: #### L [id number] #### [facility] (DEFAULT) [address] [address] Hematocrit (Bld) [Volume fraction] 37.2 % Normal 34.9-44.3 [facility] Comment on above: Performed By: #### L [id number] #### [facility] (DEFAULT) [address] [address] Hemoglobin (Bld) [Mass/Vol] 12.5 g/dL Normal 11.4-15.2 [facility] Comment on above: Performed By: #### L [id number] #### [facility] (DEFAULT) [address] [address] Immature Grans % 0.2 % Normal [facility] Comment on above: Performed By: #### L [id number] #### [facility] (DEFAULT) [address] [address] Immature Grans Absolute < Normal <=0.08 [facility] Comment on above: Performed By: #### L [id number] #### [facility] (DEFAULT) [address] [address] Lymphocytes (Bld) [#/Vol] 2.65 10*3/uL Normal 1.16-3.51 [facility] Comment on above: Performed By: #### L [id number] #### [facility] (DEFAULT) [address] [address] Lymphocytes/100 WBC (Bld) 46.2 % Normal [facility] Comment on above: Performed By: #### L [id number] #### [facility] (DEFAULT) [address] [address] MCV (RBC) [Entitic vol] 82.5 fL Normal 79.6-97.7 [facility] Comment on above: Performed By: #### L [id number] #### [facility] (DEFAULT) [address] [address] Mean Cell Hgb 27.7 pg Normal 25.9-33.9 [facility] Comment on above: Performed By: #### L [id number] #### [facility] (DEFAULT) [address] [address] Mean Cell Hgb Conc 33.6 g/dL Normal 31.4-35.9 [facility] Comment on above: Performed By: #### L [id number] #### [facility] (DEFAULT) [address] [address] Monocytes (Bld) [#/Vol] 0.51 10*3/uL Normal 0.22-0.87 [facility] Comment on above: Performed By: #### L [id number] #### [facility] (DEFAULT) [address] [address] Monocytes/100 WBC (Bld) 8.9 % Normal [facility] Comment on above: Performed By: #### L [id number] #### [facility] (DEFAULT) [address] [address] Nucleated RBC 0.0 /100 WBC Normal <=0.2 [facility] Comment on above: Performed By: #### L [id number] #### [facility] (DEFAULT) [address] [address] Platelet mean volume (Bld) [Entitic vol] 10.5 fL Normal 8.5-12.2 [facility] Comment on above: Performed By: #### L [id number] #### [facility] (DEFAULT) [address] [place] [address] Platelets (Bld) [#/Vol] 259 10*3/uL Normal 150-393 [facility] Comment on above: Performed By: #### L [id number] #### [facility] (DEFAULT) [address] [place] [address] RBC (Bld) [#/Vol] 4.51 10*6/uL Normal 3.91-5.04 [facility] Comment on above: Performed By: #### L [id number] #### [facility] (DEFAULT) [address] [place] [address] RBC Distribution 12.7 % Normal 10.8-14.9 [facility] Comment on above: Performed By: #### L [id number] #### [facility] (DEFAULT) [address] [place] [address] Segs + Bands Auto 42.8 % Normal [facility] Comment on above: Performed By: #### L [id number] #### [facility] (DEFAULT) [address] [place] [address] Segs + Bands,Absolute Auto 2.45 K/uL Normal 1.64-7.28 [facility] Comment on above: Performed By: #### L [id number] #### [facility] (DEFAULT) [address] [place] [address] WBC (Bld) [#/Vol] 5.73 10*3/uL Normal 3.99-11.19 [facility] Comment on above: Performed By: #### L [id number] #### [facility] (DEFAULT) [address] [place] [address] [facility] 7 - EDon 09-11-2024 Anion gap [Moles/Vol] 9 mmol/L 7 - 17 mmol/L [facility] Chloride [Moles/Vol] 106 mmol/L 98 - 10 8 mmol/L [facility] CO2 [Moles/Vol] 26 mmol/L 21 - 31 mmol/L [facility] Creatinine [Mass/Vol] 0.84 mg/dL 0.50 - 1.20 mg/dL [facility] eGFR, CKD-EPI, Female 79 - PINF [facility] Comment on above: Reported eGFR is bas ed on the CKD-EPI 2020 equation using creatinine, age, and sex. Glucose [Mass/Vol] 125 mg/dL 70 - 179 mg/dL [facility] Osmolality Calc [Osmolality] 291 [facility] Potassium [Moles/Vol] 3.9 mmol/L 3.5 - 5.0 mmol/L [facility] Sodium [Moles/Vol] 137 mmol/L 135 - 145 mmol/L [facility] Urea nitrogen [Mass/Vol] 19 mg/dL 7 - 25 mg/dL [facility] Urea nitrogen/Creatinine [Mass ratio] 23 mg/mg [facility] Anion gap [Moles/Vol] 9 mmol/L Normal 7-17 [facility] Comment on above: Performed By: #### H FP, MGO, CA, LIPA, C7ED #### [facility] (DEFAULT) [address] [place] [address] Chloride [Moles/Vol] 106 mmol/L Normal 98-108 [facility] Comment on above: Performed By: #### H FP, MGO, CA, LIPA, C7ED #### [facility] (DEFAULT) [address] [place] [address] CO2 [Moles/Vol] 26 mmol/L Normal 21-31 [facility] Comment on above: Performed By: #### H FP, MGO, CA, LIPA, C7ED #### [facility] (DEFAULT) [address] [place] [address] Creatinine [Mass/Vol] 0.84 mg/dL Normal 0.50-1.20 [facility] Comment on above: Performed By: #### H FP, MGO, CA, LIPA, C7ED #### [facility] (DEFAULT) [address] [place] [address] GFR/1.73 sq M.predicted among non-blacks MDRD (S/P/Bld) [Vol rate/Area] 79 mL/min/{1.73_m2} Normal >=60 [facility] Comment on above: Result Comment: Repo rted eGFR is based on the CKD-EPI 2020 equation using creatinine, age, and sex. Performed By: #### H FP, MGO, CA, LIPA, C7ED #### [facility] (DEFAULT) [address] [place] [address] Glucose [Mass/Vol] 125 mg/dL Normal Nonfastin -179 mg/dL; Fastin-99 [facility] Comment on above: Performed By: #### H FP, MGO, CA, LIPA, C7ED #### [facility] (DEFAULT) [address] [place] [address] 44324 Osmolality [Osmolality] 291 mosm/kg Normal 278-305 [facility] Comment on above: Performed By: #### H FP, MGO, CA, LIPA, C7ED #### [facility] (DEFAULT) [address] [place] [address] 01657 Potassium [Moles/Vol] 3.9 mmol/L Normal 3.5-5.0 [facility] Comment on above: Performed By: #### H FP, MGO, CA, LIPA, C7ED #### [facility] (DEFAULT) [address] [place] [address] 29697 Sodium [Moles/Vol] 137 mmol/L Normal 135-145 [facility] Comment on above: Performed By: #### H FP, MGO, CA, LIPA, C7ED #### [facility] (DEFAULT) [address] [place] [address] 27570 Urea nitrogen [Mass/Vol] 19 mg/dL Normal 7-25 [facility] Comment on above: Performed By: #### H FP, MGO, CA, LIPA, C7ED #### [facility] (DEFAULT) [address] [place] [address] Urea nitrogen/Creatinine [Mass ratio] 23 mg/mg Normal [facility] Comment on above: Performed By: #### H FP, MGO, CA, LIPA, C7ED #### [facility] (DEFAULT) [address] [place] [address] CT ABDOMEN/PELVIS WITH CONTR Ramon 09-11-2024 CT [...] 4. Ancillary findings as described above Normal [facility] CT Abdomen and Pelvis W [...] osteopenia. No aggressive bony lesions RADIOLOGY Justyn Ruiz, JULIANN - 09/11/2024 EXAM: CT ABDOMEN/PELVIS WITH CONTRAST, [...] lesions. 4. Ancillary findings as described above [facility] Radiology Study observation (narrative) [facility] CT Abdomen and Pelvis W cont rast IVOrdered By: Justyn Ruiz on 09-11-2024 [facility] Work Phone: EXTRA MICROon 09-11-2024 [facility] HEPATIC FUNCTION PANELon Albumin [Mass/Vol] 4.3 g/dL 3.5 - 5.0 g/dL [facility] ALP [Catalytic activity/Vol] 70 U/L 32 - 126 U/L [facility] ALT [Catalytic activity/Vol] 7 U/L Low 9 - 48 U/L [facility] AST [Catalytic activity/Vol] 16 U/L 10 - 39 U/L [facility] Bilirubin [Mass/Vol] 0.4 mg/dL [facility] mg/dL [facility] Bilirubin.direct [Mass/Vol] 0.1 mg/dL NINF - 0.3 mg/dL [facility] Interpretation and review of laboratory results Abnormal [facility] Protein [Mass/Vol] 7.5 g/dL 6.4 - 8.3 g/dL [facility] Albumin [Mass/Vol] 4.3 g/dL Normal 3.5-5.0 [facility] Comment on above: Performed By: #### H GABRIEL LANDIN, CA, LIPA, C7ED #### [facility] (DEFAULT) [address] [place] [address] 30928 ALP [Catalytic activity/Vol] 70 U/L Normal 32-126 [facility] Comment on above: Performed By: #### H FP, MGO, CA, LIPA, C7ED #### [facility] (DEFAULT) [address] [place] [address] 99182 ALT [Catalytic activity/Vol] 7 U/L Low 9-48 [facility] Comment on above: Performed By: #### H FP, MGO, CA, LIPA, C7ED #### [facility] (DEFAULT) [address] [place] [address] 98040 AST [Catalytic activity/Vol] 16 U/L Normal 10-39 [facility] Comment on above: Performed By: #### H FP, MGO, CA, LIPA, C7ED #### [facility] (DEFAULT) [address] [place] [address] 36441 Bilirubin [Mass/Vol] 0.4 mg/dL Normal <1.5 [facility] Comment on above: Performed By: #### H FP, MGO, CA, LIPA, C7ED #### [facility] (DEFAULT) [address] [place] [address] 76224 Bilirubin.indirect [Mass/Vol] 0.1 mg/dL Normal <0.3 [facility] Comment on above: Performed By: #### H FP, MGO, CA, LIPA, C7ED #### [facility] (DEFAULT) [address] [place] [address] 76267 Protein [Mass/Vol] 7.5 g/dL Normal 6.4-8.3 [facility] Comment on above: Performed By: #### H FP, MGO, CA, LIPA, C7ED #### [facility] (DEFAULT) [address] [place] [address] 20349 LIPASEon 09-11-2024 Lipase [Catalytic activity/Vol] 17 U/L - 82 U/L [facility] Lipase [Catalytic activity/Vol] 17 U/L Normal [facility] Comment on above: Performed By: #### H FP, MGO, CA, LIPA, C7ED #### [facility] (DEFAULT) [address] [place] [address] MAGNESIUMon 09-11-2024 Magnesium [Mass/Vol] 2 mg/dL 1.6 - 2 .6 mg/dL [facility] Magnesium [Mass/Vol] 2.0 mg/dL Normal 1.6-2.6 [facility] Comment on above: Performed By: #### H FP, MGO, CA, LIPA, C7ED #### [facility] (DEFAULT) [address] [place] [address] No Panel Informationon 09-11 [facility] Interpretation and review of laboratory results Normal [facility] URINALYSIS REFLEX TO CULTURE PERFORMABLEOrdered By: Paige Osman on 09-11-2024 Appearance (U) Clear Clear [facility] Comment on above: Results may be inacc urate due to color interference. Clinical correlation recommended. Bacteria LM Ql (Urine sed) TRACE Abnormal ABSENT [facility] Color (U) Ririe Abnormal Yellow [facility] Comment on above: Results may be inacc urate due to color interference. Clinical correlation recommended. Epithelial cells.squamous LM Ql (Urine sed) 3-5/hpf = 1+ 0-2/hpf, 3-5/hpf = 1+ [facility] Glucose Test strip (U) [Mass/Vol] Negative Negative [facility] Comment on above: Results may be inacc urate due to color interference. Clinical correlation recommended. Interpretation and review of laboratory results Abnormal [facility] Ketones (U) [Mass/Vol] Negative Negative [facility] Comment on above: Results may be inacc urate due to color interference. Clinical correlation recommended. Leukocyte esterase Test strip Ql (U) Moderate Abnormal Negative [facility] Comment on above: Results may be inacc urate due to color interference. Clinical correlation recommended. Nitrite Ql (U) Positive [facility]normal [facility] Comment on above: Results may be inacc urate due to color interference. Clinical correlation recommended. pH (U) 5.0 [pH] 5.0 - 7.0 [facility] Comment on above: Results may be inacc urate due to color interference. Clinical correlation recommended. Protein (U) [Mass/Vol] Negative Negative [facility] Comment on above: Results may be inacc urate due to color interference. Clinical correlation recommended. RBC (U) [#/Vol] Negative Negative [facility] Comment on above: Results may be inacc urate due to color interference. Clinical correlation recommended. RBC LM.HPF (Urine sed) [#/Area] 0-2 [facility] Specific gravity (U) [Rel density] 1.007 1.001 - 1.035 [facility] Comment on above: Results may be inacc urate due to color interference. Clinical correlation recommended. Urobilinogen (U) [Mass/Vol] 1.0 E.U./dL 0.2 E.U/dL, 1.0 E.U/dL [facility] Comment on above: Results may be inacc urate due to color interference. Clinical correlation recommended. WBC LM.HPF (Urine sed) [#/Area] 0 - 5 [facility] URINALYSIS REFLEX TO CULTURE PERFORMABLEon 09-11-2024 Appearance (U) Clear Normal Clear [facility] Comment on above: Order Comment: For i ndwelling catheters, specimen collection is acceptable on catheter day 1 and 2 only. ? Result Comment: Resu lts may be inaccurate due to color interference. Clinical correlation recommended. Performed By: #### U [id number] #### [facility] (DEFAULT) [address] [place] [address] Bacteria TRACE Abnormal ABSENT [facility] Comment on above: Order Comment: For i ndwelling catheters, specimen collection is acceptable on catheter day 1 and 2 only. ? Performed By: #### U [id number] #### [facility] [address] [place] [address] 55662 Blood Urine Negative Normal Negative [facility] Comment on above: Order Comment: For i ndwelling catheters, specimen collection is acceptable on catheter day 1 and 2 only. ? Result Comment: Resu lts may be inaccurate due to color interference. Clinical correlation recommended. Performed By: #### U [id number] #### [facility] (DEFAULT) [address] [place] [address] 40965 Color (U) Ririe Abnormal Yellow [facility] Comment on above: Order Comment: For i ndwelling catheters, specimen collection is acceptable on catheter day 1 and 2 only. ? Result Comment: Resu lts may be inaccurate due to color interference. Clinical correlation recommended. Performed By: #### U [id number] #### [facility] (DEFAULT) [address] [place] [address] 09767 Glucose Ql (U) Negative Normal Negative [facility] Comment on above: Order Comment: For i ndwelling catheters, specimen collection is acceptable on catheter day 1 and 2 only. ? Result Comment: Resu lts may be inaccurate due to color interference. Clinical correlation recommended. Performed By: #### U [id number] #### [facility] (DEFAULT) [address] [place] [address] 63885 Ketones Ql (U) Negative Normal Negative [facility] Comment on above: Order Comment: For i ndwelling catheters, specimen collection is acceptable on catheter day 1 and 2 only. ? Result Comment: Resu lts may be inaccurate due to color interference. Clinical correlation recommended. Performed By: #### U [id number] #### [facility] (DEFAULT) [address] [place] [address] 58832 Leukocyte esterase Test strip Ql (U) Moderate Abnormal Negative [facility] Comment on above: Order Comment: For i ndwelling catheters, specimen collection is acceptable on catheter day 1 and 2 only. ? Result Comment: Resu lts may be inaccurate due to color interference. Clinical correlation recommended. Performed By: #### U [id number] #### [facility] (DEFAULT) [address] [place] [address] 20704 Nitrites Urine Positive Abnormal Negative [facility] Comment on above: Order Comment: For i ndwelling catheters, specimen collection is acceptable on catheter day 1 and 2 only. ? Result Comment: Resu lts may be inaccurate due to color interference. Clinical correlation recommended. Performed By: #### U [id number] #### [facility] (DEFAULT) [address] [place] [address] 31347 pH (U) 5.0 [pH] Normal 5.0-7.0 [facility] Comment on above: Order Comment: For i ndwelling catheters, specimen collection is acceptable on catheter day 1 and 2 only. ? Result Comment: Resu lts may be inaccurate due to color interference. Clinical correlation recommended. Performed By: #### U [id number] #### [facility] (DEFAULT) [address] [place] [address] 87653 Protein Urine Negative Normal Negative [facility] Comment on above: Order Comment: For i ndwelling catheters, specimen collection is acceptable on catheter day 1 and 2 only. ? Result Comment: Resu lts may be inaccurate due to color interference. Clinical correlation recommended. Performed By: #### U [id number] #### [facility] (DEFAULT) [address] [place] [address] 98114 RBC Urine 0-2 Normal 0-2 [facility] Comment on above: Order Comment: For i ndwelling catheters, specimen collection is acceptable on catheter day 1 and 2 only. ? Performed By: #### U [id number] #### [facility] (DEFAULT) [address] [place] [address] 84658 Specific [place] Urine 1.007 Normal 1.001-1.035 [facility] Comment on above: Order Comment: For i ndwelling catheters, specimen collection is acceptable on catheter day 1 and 2 only. ? Result Comment: Resu lts may be inaccurate due to color interference. Clinical correlation recommended. Performed By: #### U [id number] #### [facility] (DEFAULT) [address] [place] [address] 45801 Squamous/Epithelial Cells, Urine 3-5/hpf = 1+ Normal 0-2/hpf, 3-5/hpf = 1+ [facility] Comment on above: Order Comment: For i ndwelling catheters, specimen collection is acceptable on catheter day 1 and 2 only. ? Performed By: #### U [id number] #### [facility] (DEFAULT) [address] [place] [address] 56176 Urobilinogen Urine 1.0 E.U./dL Normal 0.2 E.U/d L, 1.0 E.U/dL [facility] Comment on above: Order Comment: For i ndwelling catheters, specimen collection is acceptable on catheter day 1 and 2 only. ? Result Comment: Resu lts may be inaccurate due to color interference. Clinical correlation recommended. Performed By: #### U [id number] #### [facility] (DEFAULT) [address] [place] [address] 61555 WBC Urine 0 - 5 Normal 0 - 5 [facility] Comment on above: Order Comment: For i ndwelling catheters, specimen collection is acceptable on catheter day 1 and 2 only. ? Performed By: #### U [id number] #### [facility] (DEFAULT) [address] [place] [address] 12773 12 Lead EKG performed by [facility] on 08-21-2024 12 Lead EKG performed by [address] [id number] 12 Lead EKG performed by [facility] 08/21/24 0947 MR#: [id number] Acct: [id number] Name: BONNIE BROWNLEE Rep #: [id number] : 1960 63 From: Reggie Ramirez MD Attending Dr: Dr. Reggie Ramirez MD Status: DEP A MB Ordering Dr: Reggie Ramirez MD Date: 08/21/24 [place] [facility] [place] F C Admitted: [facility]/12 Lead EKG performed by [facility] ECG Report Interpretation ---Sinus Bradycardia Low voltage in precordial leads. ABNORMAL Electronically signed on 08/28/2024 at 08:15 by Reggie Ramirez Software Version [id number] 08/28/24 0821 Date Reggie Ramirez MD CC: Dr. 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 [place], [place] [address] OFFICE VISIT Date of Service: 08/21/24 MR#: [id number] Acct: [id number] Name: BONNIE BROWNLEE Rep #: [id number] : 1960 Provider: Dr. 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 Required: No Accompanied by: Self Is patient in pain?: No Allergies atorvastatin Adverse Reaction (Severe, Verified 08/21/24 09:42) myalgias rosuvastatin Adverse Reaction (Severe, Verified 08/21/24 09:42) myalgias simvastatin Adverse Reaction (Severe, Verified 08/21/24 09:42) myalgias evolocumab (From Repatha Pushtronex) Adverse Reaction (Intermediate, Verified 08/21/24 09:42) mylagias Medications ???Medication ???Instructions ???Recorded ???Confirmed ???Type pen needle, diabetic 32 gauge x 05/24/21 03/21/23 History (BD Ultra-Fine Yu Pen Needle) flash glucose scanning reader #1 ea 12/06/22 03/21/23 Rx (FreeStyle Jaime 2 [place]) blood-glucose meter (Healthifyuch #1 ea 03/21/23 03/21/23 Rx Verio Flex [...] you fallen in the past year?: No [facility] Medical History Abnormal stress test Noncompliance with diabetes treatment Obesity Diabetes Hypertriglyceridemia History of non-S (more content not included)... Normal [facility] Albumin DL <= 20 mg/L (U) [M ass/Vol]Ordered By: Shonna Mcfarland on 06-14-2024 Urine Random Microalbumin < 12.0 mg/L NO RANGE EST. [facility] BUN/creatinine ratioOrdered By: Shonna Mcfarland on 06-14-2024 Urea nitrogen/Creatinine [Mass ratio] 16.4 mg/mg 10-20 [facility] Bilirubin, totalOrdered By: Shonna Mcfarland on 06-14-2024 Bilirubin [Mass/Vol] 0.45 mg/dL 0.00-1.30 [facility] Calculated very low density lipoprotein (VLDL) cholesterol measurementOrdered By: Shonna Mcfarland on 06-14-2024 VLDL Cholesterol 29 mg/dL 5-40 [facility] Carbon dioxide measurementOr dered By: Shonna Mcfarland on 06-14-2024 CO2 [Moles/Vol] 27.7 mmol/L 22.0-29.0 [facility] Chloride measurementOrdered By: Shonna Mcfarland on 06-14-2024 Chloride [Moles/Vol] 103 mmol/L 96-108 [facility] Comprehensive Metabolic Prof ilon 06-14-2024 Albumin [Mass/Vol] 4.3 g/dL Normal 3.4-4.8 [facility] Comment on above: Performed By: #### L 506.1001, L501.9520, L500.4100, L502.0250, L500.4050, L501.9985 #### [facility] [address] [place], [address] Albumin/Globulin [Mass ratio] 1.5 {ratio} Normal 0.9-2.4 [facility] Comment on above: Performed By: #### L 506.1001, L501.9520, L500.4100, L502.0250, L500.4050, L501.9985 #### [facility] [address] [place], [address] ALK PHOS 67 U/L Normal 35-104 [facility] Comment on above: Performed By: #### L 506.1001, L501.9520, L500.4100, L502.0250, L500.4050, L501.9985 #### [facility] [address] [place], [address] ALT [Catalytic activity/Vol] 9 U/L Normal <=34 [facility] Comment on above: Performed By: #### L 506.1001, L501.9520, L500.4100, L502.0250, L500.4050, L501.9985 #### [facility] [address] [place], [address] Anion gap [Moles/Vol] 9 mmol/L Normal 5-15 [facility] Comment on above: Performed By: #### L 506.1001, L501.9520, L500.4100, L502.0250, L500.4050, L501.9985 #### [facility] [address] [place], [address] AST [Catalytic activity/Vol] 21 U/L Normal <=31 [facility] Comment on above: Performed By: #### L 506.1001, L501.9520, L500.4100, L502.0250, L500.4050, L501.9985 #### [facility] [address] [place], [address] Bilirubin [Mass/Vol] 0.45 mg/dL Normal 0.00-1.30 [facility] Comment on above: Performed By: #### L 506.1001, L501.9520, L500.4100, L502.0250, L500.4050, L501.9985 #### [facility] [address] [place], [address] BUN/CRE 16.4 RATIO Normal 10-20 [facility] Comment on above: Performed By: #### L 506.1001, L501.9520, L500.4100, L502.0250, L500.4050, L501.9985 #### [facility] [address] [place], [address] Calcium [Mass/Vol] 9.6 mg/dL Normal 7.6-11.0 [facility] Comment on above: Performed By: #### L 506.1001, L501.9520, L500.4100, L502.0250, L500.4050, L501.9985 #### [facility] [address] [place], [address] Chloride [Moles/Vol] 103 mmol/L Normal 96-108 [facility] Comment on above: Performed By: #### L 506.1001, L501.9520, L500.4100, L502.0250, L500.4050, L501.9985 #### [facility] [address] [place], [address] CO2 [Moles/Vol] 27.7 mmol/L Normal 22.0-29.0 [facility] Comment on above: Performed By: #### L 506.1001, L501.9520, L500.4100, L502.0250, L500.4050, L501.9985 #### [facility] [address] [place], [address] Creatinine [Mass/Vol] 0.8 mg/dL Normal 0.6-1.0 [facility] Comment on above: Performed By: #### L 506.1001, L501.9520, L500.4100, L502.0250, L500.4050, L501.9985 #### [facility] [address] [place], [address] GFR/1.73 sq M.predicted among non-blacks MDRD (S/P/Bld) [Vol rate/Area] 88 mL/min/{1.73_m2} Normal >60 [facility] Comment on above: Result Comment: mL/m in/1.73m2 CKD-EPI Creatinine Equation (2020) Performed By: #### L 506.1001, L501.9520, L500.4100, L502.0250, L500.4050, L501.9985 #### [facility] [address] [place], [address] Globulin (S) [Mass/Vol] 2.9 g/dL Normal 2.2-4.2 [facility] Comment on above: Performed By: #### L 506.1001, L501.9520, L500.4100, L502.0250, L500.4050, L501.9985 #### [facility] [address] [place], [address] Glucose [Mass/Vol] 129 mg/dL High 70-99 [facility] Comment on above: Performed By: #### L 506.1001, L501.9520, L500.4100, L502.0250, L500.4050, L501.9985 #### [facility] [address] [place], [address] Potassium [Moles/Vol] 4.4 mmol/L Normal 3.3-5.1 [facility] Comment on above: Performed By: #### L 506.1001, L501.9520, L500.4100, L502.0250, L500.4050, L501.9985 #### [facility] [address] [place], [address] Sodium [Moles/Vol] 139 mmol/L Normal 133-145 [facility] Comment on above: Performed By: #### L 506.1001, L501.9520, L500.4100, L502.0250, L500.4050, L501.9985 #### [facility] [address] [place], [address] T PROT 7.2 g/dL Normal 5.9-8.4 [facility] Comment on above: Performed By: #### L 506.1001, L501.9520, L500.4100, L502.0250, L500.4050, L501.9985 #### [facility] [address] [place], [address] Urea nitrogen [Mass/Vol] 13 mg/dL Normal 4-19 [facility] Comment on above: Performed By: #### L 506.1001, L501.9520, L500.4100, L502.0250, L500.4050, L501.9985 #### [facility] [address] [place], [address] Creatinine Unsp time (U) [Ma ss/Vol]Ordered By: Shonna Mcfarland on 06-14-2024 Creatinine (U) [Mass/Vol] 189.00 mg/dL NO RANGE EST. [facility] GFR/1.73 sq M.predicted shantel g non-blacks MDRD (S/P/Bld) [Vol rate/Area]Ordered By: Shonna Mcfarland on 06-14-2024 Estimated GFR (MDRD) Non-Af Amer 88 >60 [facility] Comment on above: mL/min/1.73m2 CKD-EP I Creatinine Equation (2020) Hemoglobin A1con 06-14-2024 HbA1c (Bld) [Mass fraction] 6.7 % Normal <=5.6 [facility] Comment on above: Performed By: #### L 506.1001, L501.9520, L500.4100, L502.0250, L500.4050, L501.9985 #### [facility] [address] [place], [address] Hemoglobin A1c percentageOrd ered By: Shonna Mcfarland on 06-14-2024 HbA1c (Bld) [Mass fraction] 6.7 % >5.7 [facility] L506.1001on 06-14-2024 Vitamin D 25-OH 26.7 ng/mL Low 30-100 [facility] Comment on above: Result Comment: Katherine min D Status Deficiency: <20 ng/mL (50nmol/L) Insufficiency: 20-30 ng/mL (50-75 nmol/L) Sufficiency: 30-100 ng/mL (75-250 nmol/L) Toxicity: >100 ng/mL (>250 nmol/L) Performed By: #### L 506.1001, L501.9520, L500.4100, L502.0250, L500.4050, L501.9985 #### [facility] [address] [place], [address] LDL calc ser/plasOrdered By: Shonna Mcfarland on 06-14-2024 LDL Cholesterol, Calculated 159 mg/dL [facility] Comment on above: Ckeohczrec=276-094 m g/dL & Higher Tkkr=132 mg/dL or greater Laboratory - Chemistry and C hemistry - challengeOrdered By: Shonna Mcfarland on 06-14-2024 AST [Catalytic activity/Vol] 21 U/L <32 [facility] Lipid Profileon 06-14-2024 CHOL:HDL 4.15 Normal [facility] Comment on above: Performed By: #### L 506.1001, L501.9520, L500.4100, L502.0250, L500.4050, L501.9985 #### [facility] [address] [place], [place], [id number] (054) Cholesterol [Mass/Vol] 248 mg/dL High <=200 [facility] Comment on above: Result Comment: Chol esterol level, Desirable <200 mg/dL Borderline high cholesterol 200-239 mg/dL High cholesterol >=240 mg/dL Recommendations of the NCEP Adult Treatment Panel for the following risk-cutoff thresholds for the [place] Citizen population. Performed By: #### L 506.1001, L501.9520, L500.4100, L502.0250, L500.4050, L501.9985 #### [facility] [address] [place], [place], [id number] (694) Cholesterol in HDL [Mass/Vol] 60 mg/dL Normal [facility] Comment on above: Result Comment: Jeny onal Cholesterol Education Program (NCEP) guidelines: <40 mg/dL: Low HDL-cholesterol (major risk factor for CHD) >= 60 mg/dL: High HDL-cholesterol (negative risk factor for CHD) HDL-cholesterol is affected by a number of factors, e.g. smoking, exercise, hormones, sex and age. Performed By: #### L 506.1001, L501.9520, L500.4100, L502.0250, L500.4050, L501.9985 #### [facility] [address] [place], [address] Cholesterol in LDL [Mass/Vol] 159 mg/dL Normal [facility] Comment on above: Result Comment: Bord oxiyve=309-141 mg/dL Higher Vadx=726 mg/dL or greater Performed By: #### L 506.1001, L501.9520, L500.4100, L502.0250, L500.4050, L501.9985 #### [facility] [address] [place], [address] Cholesterol in VLDL [Mass/Vol] 29 mg/dL Normal 5-40 [facility] Comment on above: Performed By: #### L 506.1001, L501.9520, L500.4100, L502.0250, L500.4050, L501.9985 #### [facility] [address] [place], [address] Triglyceride [Mass/Vol] 145 mg/dL Normal [facility] Comment on above: Result Comment: The drugs N-Acetylcysteine and Metamizole may falsely depress this assay. Normal range: <150 mg/dL Borderline High: 150-199 mg/dL High: 200-499 mg/dL Very High: >500 mg/dL Performed By: #### L 506.1001, L501.9520, L500.4100, L502.0250, L500.4050, L501.9985 #### [facility] [address] [place], [address] Microalb:Creat Ratio,Random URon 06-14-2024 MALB:CREAT Normal [facility] Comment on above: Result Comment: UNAB LE TO CALCULATE Performed By: #### L 506.1001, L501.9520, L500.4100, L502.0250, L500.4050, L501.9985 #### [facility] [address] [place], [address] Microalbumin/creat ratio urO rdered By: Shonna Mcfarland on 06-14-2024 Urine Microalbumin/Creatinin e Ratio See comment [facility] Comment on above: UNABLE TO CALCULATE Screening total cholesterol/ high density lipoprotein (HDL) cholesterol ratioOrdered By: Shonna Mcfarland on 06-14-2024 Cholesterol.total/Chol esterol in HDL [Mass ratio] 4.15 {ratio} [facility] Serum creatinine measurement (mass/volume)Ordered By: Shonna Mcfarland on 06-14-2024 Creatinine [Mass/Vol] 0.8 mg/dL 0.70-1.20 [facility] Serum globulin measurementOr dered By: Shonna Mcfarland on 06-14-2024 Globulin (S) [Mass/Vol] 2.9 g/dL 2.2-4.2 [facility] Serum glucose measurement (m ass/volume)Ordered By: Shonna Mcfarland on 06-14-2024 Glucose [Mass/Vol] 129 mg/dL High 70-99 [facility] Serum or plasma alanine sanchez otransferase (ALT) measurementOrdered By: Shonna Mcfarland on 06-14-2024 ALT [Catalytic activity/Vol] 9 U/L <35 [facility] Serum or plasma albumin nanette urement (mass/volume)Ordered By: Shonna Mcfarland on 06-14-2024 Albumin [Mass/Vol] 4.3 g/dL 3.4-4.8 [facility] Serum or plasma albumin/glob ulin mass ratioOrdered By: Shonna Mcfarland on 06-14-2024 Albumin/Globulin [Mass ratio] 1.5 {ratio} 0.9-2.4 [facility] Serum or plasma alkaline dennis sphatase measurementOrdered By: Shonna Mcfarland on 06-14-2024 ALP [Catalytic activity/Vol] 67 U/L 35-104 [facility] Serum or plasma anion gap de termination (moles/volume)Ordered By: Shonna Mcfarland on 06-14-2024 Anion gap [Moles/Vol] 9 mmol/L 5-15 [facility] Serum or plasma calcium nanette urement (mass/volume)Ordered By: Shonna Mcfarland on 06-14-2024 Calcium [Mass/Vol] 9.6 mg/dL 7.6-11.0 [facility] Serum or plasma cholesterol in HDL measurement (mass/volume)Ordered By: Shonna Mcfarland on 06-14-2024 Cholesterol in HDL [Mass/Vol] 60 mg/dL >40 [facility] Comment on above: National Cholesterol Education Program (NCEP) guidelines:<40 mg/dL: Low HDL-cholesterol (major risk factor for CHD)>= 60 mg/dL: High HDL-cholesterol (negative risk factor for CHD)HDL-cholesterol is affected by a number of factors, e.g. smoking, exercise, hormones, sex and age. Serum or plasma cholesterol measurement (mass/volume)Ordered By: Shonna Mcfarland on 06-14-2024 Cholesterol [Mass/Vol] 248 mg/dL High <201 [facility] Comment on above: Cholesterol level, D esirable <200 mg/dLBorderline high cholesterol 200-239 mg/dLHigh cholesterol >=240 mg/dLRecommendations of the NCEP Adult Treatment Panel for the following risk-cutoff thresholds for the [place] population. Serum or plasma potassium me asurementOrdered By: Shonna Mcfarland on 06-14-2024 Potassium [Moles/Vol] 4.4 mmol/L 3.3-5.1 [facility] Serum or plasma sodium measu rement (moles/volume)Ordered By: Shonna Mcfarland on 06-14-2024 Sodium [Moles/Vol] 139 mmol/L 133-145 [facility] Serum or plasma urea nitroge n measurement (mass/volume)Ordered By: Shonna Mcfarland on 06-14-2024 Urea nitrogen [Mass/Vol] 13 mg/dL 4-19 [facility] TSH DL <= 0.005 mIU/L QnOrde red By: Shonna Mcfarland on 06-14-2024 Thyroid Stimulating Hormone (TSH) 1.920 uIU/mL 0.300-4.200 [facility] Thyroid Stim Hormone (TSH)on 06-14-2024 TSH 1.920 uIU/mL Normal 0.300-4.200 [facility] Comment on above: Performed By: #### L 506.1001, L501.9520, L500.4100, L502.0250, L500.4050, L501.9985 #### [facility] [address] [place], [address] Total proteinOrdered By: Arianna Mcfarland on 06-14-2024 Protein [Mass/Vol] 7.2 g/dL 5.9-8.4 [facility] Triglycerides measurementOrd ered By: Shonna Bartolo on 06-14-2024 Triglyceride [Mass/Vol] 145 mg/dL <199 [facility] Comment on above: The drugs N-Acetylcy steine and Metamizole may falsely depress this assay. Normal range: <150 mg/dLBorderline High: 150-199 mg/dLHigh: 200-499 mg/dLVery High: >500 mg/dL Vitamin D, 25-hydroxyOrdered By: Shonna Mcfarland on 06-14-2024 Vitamin D 25-Hydroxy 26.7 ng/mL Low 30-100 [facility] Comment on above: Vitamin D StatusDefi ciency: <20 ng/mL (50nmol/L)Insufficiency: 20-30 ng/mL (50-75 nmol/L)Sufficiency: 30-100 ng/mL (75-250 nmol/L)Toxicity: >100 ng/mL (>250 nmol/L) Endocrinology Visit Reporton 05-28-2024 Endocrinology Visit Report [facility] [address] [place] [address] OFFICE VISIT Date of Service: 05/28/24 MR#: [id number] Acct: [id number] Name: BONNIE BROWNLEE Rep #: [id number] : 1960 Provider: JOE urias Age/Sex: 63/F Location: [facility] [place] Status: Signed Intake Vital Signs 10/27/23 10:39 05/28/24 15:50 Height 5 ft 5 in 5 ft 5 in Weight: 180 lb 187 lb BMI 29.9 31.1 BP 106/71 119/74 Blood Pressure Location Lt brachial Rt brachial Position Sitting Sitting Pulse 69 61 Pulse Source Monitor Monitor Pulse Oximetry (%) 97 97 Oxygen Delivery Method room air room air Intake Visit Reasons: 7 M FU, RS 05/02 Chief Complaint: f/u diabetes Is patient in pain?: No Allergies atorvastatin Adverse Reaction (Severe, Verified 05/28/24 15:55) myalgias rosuvastatin Adverse Reaction (Severe, Verified 05/28/24 15:55) myalgias simvastatin Adverse Reaction (Severe, Verified 05/28/24 15:55) myalgias evolocumab (From Repatha Pushtronex) Adverse Reaction (Intermediate, Verified 05/28/24 15:55) mylagias Medications ???Medication ???Instructions ???Recorded ???Confirmed ???Type pen needle, diabetic 32 gauge x 05/24/21 03/21/23 History (BD Ultra-Fine Yu Pen Needle) flash glucose scanning reader #1 ea 12/06/22 03/21/23 Rx (FreeStyle Jaime 2 [place]) blood-glucose meter (Healthifyuch #1 ea 03/21/23 03/21/23 Rx Verio Flex [...] BID 05/28/24 05/28/24 Hi story capsule,extended release PFSH Medical History Abnormal stress test Noncompliance with diabetes treatment Obesity Diabetes Hypertriglyceridemia History of non-ST elevation myocardial infarction (NSTEMI) (02/23/19) Type 2 diabetes mellitus Atherosclerosis of coronary artery of [place] heart without angina pectoris Essential (primary) hypertension [...] however, she discontinued use as she states I couldn't get the pen to work. After further discussing, my cholesterol isn't the problem, it's my triglycerides. Currently taking fenofibrate 145 mg once daily. [...] wounds En (more content not included)... Normal [facility] - Hematology and Cell countsOrdered By: Shonna Mcfarland on 05-28-2024 HbA1c (Bld) [Mass fraction] 6.9 % High 4.2-6.3 [facility] Culture, urineOrdered By: Monique Vaughan on 08-03-2023 Bacteria identified Cx Nom (U) Presumptive Lactobacillus sp. [facility] Bacteria identified Cx Nom (U) Negative [facility] Absolute lymphocyte countOrd ered By: Isadora Emanuel on 03-30-2023 Lymphocytes Auto (Unsp spec) [#/Vol] 1.51 10*3/uL 0.83-4.51 [facility] Basophil percentageOrdered B y: Isadora Emanuel on 03-30-2023 Basophils/100 WBC (Bld) 0.4 % 0-1 [facility] Chloride [Moles/Vol] 105 mmol/L 98-107 [facility] Eosinophils/100 WBC (Bld) 1.0 % 0-5 [facility] Glucose [Mass/Vol] 144 mg/dL 74-106 [facility] Comment on above: Fasting Glucose resu lt greater than or equal to 126 mg/dL suggests DIABETES MELLITUS per A.D.A. criteria. Neutrophils (Bld) [#/Vol] 2.8 10*3/uL 2.0-7.7 [facility] Neutrophils/100 WBC (Bld) 57.0 % 47-70 [facility] Potassium [Moles/Vol] 4.0 mmol/L 3.5-5.1 [facility] Sodium [Moles/Vol] 138 mmol/L 136-145 [facility] WBC (Bld) [#/Vol] 4.9 10*3/uL 4.4-11.0 [facility] Blood erythrocytes count (nu mber/volume)Ordered By: Isadora Emanuel on 03-30-2023 RBC (Bld) [#/Vol] 4.77 10*6/uL 4.2-5.4 [facility] Blood hemoglobin measurement (mass/volume)Ordered By: Isadora Emanuel on 03-30-2023 Hemoglobin (Bld) [Mass/Vol] 12.7 g/dL 12.0-15.0 [facility] Blood lymphocytes/100 leukoc ytesOrdered By: Isadora Emanuel on 03-30-2023 Lymphocytes/100 WBC (Bld) 30.6 % 19-41 [facility] Blood monocytes/100 leukocyt esOrdered By: Isadora Emanuel on 03-30-2023 Monocytes/100 WBC (Bld) 10.8 % 0-10 [facility] Blood platelet mean volumeOr dered By: Isadora Emanuel on 03-30-2023 Platelet mean volume (Bld) [Entitic vol] 10.5 fL 6.2-12.0 [facility] Determination of erythrocyte mean corpuscular volume (MCV)Ordered By: Isadora Emanuel on 03-30-2023 MCV (RBC) [Entitic vol] 83.9 fL 81-99 [facility] Hematocrit Auto (Bld) [Volum e fraction]Ordered By: Isadora Emanuel on 03-30-2023 Hematocrit (Bld) [Volume fraction] 40.0 % 37-47 [facility] INR in Blood by Coagulation assayOrdered By: Isadora Emanuel on 03-30-2023 INR Coag (Bld) [Relative time] 1.0 {INR} [facility] - Chemistry and C hemistry - challengeOrdered By: Isadora Emanuel on 03-30-2023 CO2 [Moles/Vol] 29.0 mmol/L 21.0-32.0 [facility] Urea nitrogen/Creatinine [Mass ratio] 17.8 mg/mg 10-20 [facility] - CoagulationOrde red By: Isadora Emanuel on 03-30-2023 aPTT Coag (Bld) [Time] 28.0 s 24.1-36.2 [facility] PT Coag (PPP) [Time] 13.1 s 11.7-14.9 [facility] - Hematology and Cell countsOrdered By: Isadora Emanuel on 03-30-2023 Erythrocyte distribution width (RBC) [Entitic vol] 38.3 fL 35.1-43.9 [facility] Erythrocyte distribution width (RBC) [Ratio] 12.6 % 11.6-14.6 [facility] Immature granulocytes/100 WBC (Bld) 0.200 % 0.0-0.9 [facility] Comment on above: IG% - Immature Granu locytes (promyelocytes, myelocytes and metamyelocytes) > 1% indicates that a LEFT SHIFT is Present. MCH (RBC) [Entitic mass] 26.6 pg 27.0-32.0 [facility] Nucleated RBC/100 WBC (Bld) [Ratio] 0 % 0-5 [facility] MCHC Auto (RBC) [Mass/Vol]Or dered By: Isadora Emanuel on 03-30-2023 MCHC (RBC) [Mass/Vol] 31.8 g/dL 32-36 [facility] No Panel InformationOrdered By: Isadora Emanuel on 03-30-2023 Estimated GFR (MDRD) Amer 104 mL/min >60 [facility] Comment on above: GFR Calc Estimated GFR (MDRD) Non-Af Amer 86 mL/min >60 [facility] Comment on above: Non- GFR Calc Platelets bldOrdered By: Jay Emanuel on 03-30-2023 Platelets (Bld) [#/Vol] 233 10*3/uL 150-450 [facility] Serum or plasma calcium nanette urement (mass/volume)Ordered By: Isadora Emanuel on 03-30-2023 Calcium [Mass/Vol] 9.3 mg/dL 8.5-10.1 [facility] Serum or plasma creatinine m easurement (mass/volume)Ordered By: Isadora Emanuel on 03-30-2023 Creatinine [Mass/Vol] 0.73 mg/dL 0.55-1.02 [facility] Comment on above: The validity of the calculated GFR & GFRAA in patients over 70 years has not been determined. Clinical correlation is essential. Serum or plasma urea nitroge n measurement (mass/volume)Ordered By: Isadora Emanuel on 03-30-2023 Urea nitrogen [Mass/Vol] 13 mg/dL 7-18 [facility] Thin prep Papanicolaou smear with manual screeningOrdered By: Isadora Emanuel on 03-30-2023 Thin prep Papanicolaou smear with manual screening 4 5-15 [facility] Basophil percentageOrdered B y: Shonna Mcfarland on 03-21-2023 Cholesterol [Mass/Vol] 321 mg/dL <200 [facility] Comment on above: <200 mg/dL Desirable 200-240 mg/dL Borderline >240 mg/dL High Risk Triglyceride [Mass/Vol] 287 mg/dL <199 [facility] Comment on above: The drugs N-Acetylcy steine and Metamizole may falsely depress this assay.Serum Triglycerides Reference Interval Normal <150 mg/dL Borderline high 150 - 199 mg/dL High 200 - 499 mg/dL Very High > or = 500 mg/dL Laboratory - Hematology and Cell countson 03-21-2023 HbA1c (Bld) [Mass fraction] 6.5 % 4.2-6.3 [facility] Serum or plasma cholesterol in HDL measurement (mass/volume)Ordered By: Shonna Mcfarland on 03-21-2023 Cholesterol in HDL [Mass/Vol] 48 mg/dL >40 [facility] Comment on above: The drugs N-Acetylcy steine and Metamizole may falsely depress this assay. Reference Range HDL <40 mg/dL Low HDL Cholesterol HDL >or= 60 mg/dL High HDL Cholesterol Serum or plasma cholesterol in VLDL measurement (mass/volume)Ordered By: Shonna Mcfarland on 03-21-2023 Cholesterol in VLDL [Mass/Vol] 57 mg/dL 5-40 [facility] Serum or plasma low density lipoprotein (LDL) cholesterol measurement (mass/volume)Ordered By: Shonna Mcfarland on 03-21-2023 Cholesterol in LDL [Mass/Vol] 216 mg/dL 0-130 [facility] BONNIE BROWNLEE ([id number]) 1960 F Date Time Provider Department 12/06/22 [...] Status:Closed by FAIZA WELSH on 12/07/22 [facility] URINE CULTURE [CCL]on 2022 Bacteria identified [...] and its performance characteristics determined by the [facility] [place] ([facility]). It has not been cleared or approved by the FDA. [facility] is regulated under CLIA as qualified to perform high-complexity testing. This test is used for clinical purposes. It should not be regarded as investigational or for research. SOURCE: [place] [address] Karri Colón III, M.D. [id number] SEND TO YES Normal [facility] Comment on above: Performed By: #### 2 [id number] #### [facility],[address] [place] [id number] Bacteria Ur Culton 3 Bacteria identified Cx Nom (U) CULTURE, URINE: [...] , Intermediate >32 , Resistant >64 Abnormal [facility] Comment on above: Performed By: #### 6 30-4 #### [facility] CLIA [id number] [address] [place] [address] [place] PVR LEG W/EXC [facility] 10-11-2022 PVR LEG W/EXC [facility] Non-Invasive Vascular Laboratory [facility] J35 Lower Extremity Arterial Physiology Study [...] Interpreting physician: Jad José MD Final CC [email or web address] [facility] : [id number] oDynamicsSISUID See Link below for Image Normal [facility] US CAROTID ARTERIES [facility] 10-11-2022 US CAROTID ARTERIES [facility] Non-Invasive Vascular Laboratory [facility] J35 Carotid Duplex Bilateral/Complete Date of service/time: [...] and antegrade flow noted. Technologist: Rakel Pantoja T Ordering physician: FAIZA WELSH Interpreting physician: Jad José MD Final CC [email or web address] : [id number] ISUID See Link below for Image Normal [facility] 09-28-2022 CNPN Telephone (SHANIQUAVMN) BONNIE BROWNLEE ([id number]) 1960 F Date Time Provider Department 09/28/22 [...] [E78.01] Order(s):LIPID PANEL BASIC [SQLIPB] Order #: [id number] FUTURE Prescriptions as of 09/28/2022 - insulin [...] Encounter Status:Closed by FAIZA WELSH on 09/28/22 [facility] ROBERTcamille 09-27-2022 CNOV Office Visit (PERVMN ) BONNIE BROWNLEE ([id number]) 1960 F Date Time Provider Department 09/27/22 9:15 AM FAIZA WELSH PERVMN During your visit today, we recorded the following information about you: Pulse Blood pressure Weight Height 70/minute 129/75 81.1 kg 1.651 m Faiza Welsh MD 09/27/2022 11:31 AM Signed Heart and Vascular [place] Larry Rosas Department of Cardiovascular Medicine SECTION [...] usual state of health and lives in [place], [place]. She gets most of her care at [facility] including cardiac care. The patient made a [...] Blood t (more content not included)... [facility] LIPID PANEL, NONFASTINGon Cholesterol [Mass/Vol] 430 mg/dL High <200 [facility] Comment on above: Order Comment: Speci men Type: BLOOD SPECIMEN Ordering Facility: [facility] Address: [address] [address] Result Comment: <200 mg/dL, Desirable 200-239 mg/dL, Borderline high >239 mg/dL, High Performed By: #### L IPNF #### [facility] CLIA [id number] [address] HDL CHOLESTEROL, NF 37 mg/dL Low >39 [facility] Comment on above: Order Comment: Speci men Type: BLOOD SPECIMEN Ordering Facility: [facility] Address: [address] [place] [address] Result Comment: 40-5 9 mg/dL, Acceptable >59 mg/dL, High: Negative risk factor for coronary heart disease <40 mg/dL, Low: Positive risk factor for coronary heart disease Performed By: #### L IPNF #### [facility] CLIA [id number] [facility] [address] LDL CHOLESTEROL, NF Normal [facility] Comment on above: Order Comment: Ursula anguiano Type: BLOOD SPECIMEN Ordering Facility: [facility] Address: [address] [place] [address] Result Comment: Unab le to calculate due to increased Triglycerides. A Direct LDL Cholesterol measurement will not be performed. If clinically indicated, a fasting Basic Lipid Panel (LIPB) may be ordered. Performed By: #### L IPNF #### [facility] CLIA [id number] [facility] [address] [place] LDL/HDL RATIO, NF Normal [facility] Comment on above: Order Comment: Ursula anguiano Type: BLOOD SPECIMEN Ordering Facility: [facility] Address: [address] [place] [address] Result Comment: Unab le to calculate due to elevated Triglycerides. Reference: 1. National Cholesterol Education Program ATP III Guideline At-A-Glance Quick Desk Reference: National Heart, Lung, and Blood [place]. National Institutes of Health. 2001: NIH Publication No. 01-3305. 2. An International Atherosclerosis Society position paper: global recommendations for the management of dyslipidemia: executive summary, Atherosclerosis. 2014: 232(2):410-413. Performed By: #### L IPNF #### [facility] CLIA [id number] [address] [place] NON HDL CHOL, NF 393 mg/dL High <130 [facility] Comment on above: Order Comment: Ursula anguiano Type: BLOOD SPECIMEN Ordering Facility: [facility] Address: [address] [place] [address] Result Comment: <130 mg/dL, Optimal 130-159 mg/dL, Near optimal/above optimal 160-189 mg/dL, Borderline high 190-219 mg/dL, High >219 mg/dL, Very high Secondary prevention optimal non HDL Cholesterol levels are recommended to be <100 mg/dL Performed By: #### L IPNF #### [facility] CLIA [id number] [facility] [address] T CHOL/HDL RATIO NF 11.62 mg/dL High <5.10 [facility] Comment on above: Order Comment: Ursula anguiano Type: BLOOD SPECIMEN Ordering Facility: [facility] Address: [address] [place] [address] Performed By: #### L IPNF #### [facility] CLIA [id number] [address] [place] TRIGLYCERIDES, NF 631 mg/dL High <150 [facility] Comment on above: Order Comment: Ursula anguiano Type: BLOOD SPECIMEN Ordering Facility: [facility] Address: [address] [address] Result Comment: <150 mg/dL, Normal 150-199 mg/dL, Borderline high 200-499 mg/dL, High >499 mg/dL, Very high Performed By: #### L IPNF #### [facility] CLIA [id number] [address] [place] [address] [place] VLDL CHOLESTEROL, NF Normal [facility] Comment on above: Order Comment: Speci men Type: BLOOD SPECIMEN Ordering Facility: [facility] Address: [address] [address] Result Comment: Unab le to calculate due to elevated Triglycerides. Performed By: #### L IPNF #### [facility] CLIA [id number] [address] [facility] [address] [place] LPa SerPl-mCncon 09-27-2022 Lipoprotein a [Mass/Vol] mg/dL Normal <30 [facility] Comment on above: Order Comment: Speci men Type: BLOOD SPECIMEN Ordering Facility: [facility] Address: [address] [address] Performed By: #### 1 0835-7 #### [facility] CLIA [id number] [facility] [place] [address] [place] Basophil percentageOrdered B y: Shonna Mcfarland on 07-08-2022 Bilirubin [Mass/Vol] 1.10 mg/dL 0.20-1.00 [facility] Comment on above: For patients on eltr ombopag therapy, use of Dimension [place] TBIL is not recommended. Chloride [Moles/Vol] 102 mmol/L 98-107 [facility] Cholesterol [Mass/Vol] 380 mg/dL <200 [facility] Comment on above: <200 mg/dL Desirable 200-240 mg/dL Borderline >240 mg/dL High Risk Glucose [Mass/Vol] 189 mg/dL 74-106 [facility] Comment on above: Fasting Glucose resu lt greater than or equal to 126 mg/dL suggests DIABETES MELLITUS per A.D.A. criteria. Potassium [Moles/Vol] 4.1 mmol/L 3.5-5.1 [facility] Protein [Mass/Vol] 7.5 g/dL 6.4-8.2 [facility] Sodium [Moles/Vol] 137 mmol/L 136-145 [facility] Triglyceride [Mass/Vol] 370 mg/dL <199 [facility] Comment on above: The drugs N-Acetylcy steine and Metamizole may falsely depress this assay.Serum Triglycerides Reference Interval Normal <150 mg/dL Borderline high 150 - 199 mg/dL High 200 - 499 mg/dL Very High > or = 500 mg/dL Laboratory - Chemistry and C hemistry - challengeOrdered By: Shonna Mcfarland on 07-08-2022 ALP [Catalytic activity/Vol] 78 U/L 45-117 [facility] ALT [Catalytic activity/Vol] 18 U/L 13-56 [facility] CO2 [Moles/Vol] 27.0 mmol/L 21.0-32.0 [facility] Globulin (S) [Mass/Vol] 3.8 g/dL 2.2-4.2 [facility] Urea nitrogen/Creatinine [Mass ratio] 16.7 mg/mg 10-20 [facility] No Panel InformationOrdered By: Shonna Mcfarland on 07-08-2022 Estimated GFR (MDRD) Amer 106 mL/min >60 [facility] Comment on above: GFR Calc Estimated GFR (MDRD) Non-Af Amer 88 mL/min >60 [facility] Comment on above: Non- GFR Calc Thyroid Stimulating Hormone (TSH) 1.19 uIU/mL 0.358-3.74 [facility] Urine Microalbumin/Creatinin e Ratio 5.8 mg/g CRE <30 [facility] Vitamin D 25-Hydroxy 36.3 ng/mL [facility] Comment on above: Vitamin D 25(OH) Sta tus Range Deficiency <20 ng/mL (50nmol/L) Insufficiency 20 - 30 ng/mL (50 - 75 nmol/L) Sufficiency 30 - 100 ng/mL (75 - 250 nmol/L) Toxicity >100 ng/mL (>250 nmol/L) Serum or plasma albumin nanette urement (mass/volume)Ordered By: Shonna Mcfarland on 07-08-2022 Albumin [Mass/Vol] 3.7 g/dL 3.2-5.0 [facility] Serum or plasma albumin/glob ulin mass ratioOrdered By: Shonna Mcfarland on 07-08-2022 Albumin/Globulin [Mass ratio] 1.0 {ratio} 0.9-2.4 [facility] Serum or plasma calcium nanette urement (mass/volume)Ordered By: Shonna Mcfarland on 07-08-2022 Calcium [Mass/Vol] 9.4 mg/dL 8.5-10.1 [facility] Serum or plasma cholesterol in HDL measurement (mass/volume)Ordered By: Shonna Mcfarland on 07-08-2022 Cholesterol in HDL [Mass/Vol] 50 mg/dL >40 [facility] Comment on above: The drugs N-Acetylcy steine and Metamizole may falsely depress this assay. Reference Range HDL <40 mg/dL Low HDL Cholesterol HDL >or= 60 mg/dL High HDL Cholesterol Serum or plasma cholesterol in VLDL measurement (mass/volume)Ordered By: Shonna Mcfarland on 07-08-2022 Cholesterol in VLDL [Mass/Vol] 74 mg/dL 5-40 [facility] Serum or plasma creatinine m easurement (mass/volume)Ordered By: Shonna Mcfarland on 07-08-2022 Creatinine [Mass/Vol] 0.72 mg/dL 0.55-1.02 [facility] Comment on above: The validity of the calculated GFR & GFRAA in patients over 70 years has not been determined. Clinical correlation is essential. Serum or plasma low density lipoprotein (LDL) cholesterol measurement (mass/volume)Ordered By: Shonna Mcfarland on 07-08-2022 Cholesterol in LDL [Mass/Vol] 256 mg/dL 0-130 [facility] Serum or plasma urea nitroge n measurement (mass/volume)Ordered By: Shonna Mcfarland on 07-08-2022 Urea nitrogen [Mass/Vol] 12 mg/dL 7-18 [facility] Thin prep Papanicolaou smear with manual screeningOrdered By: Shonna Mcfarland on 07-08-2022 Thin prep Papanicolaou smear with manual screening 15 U/L 15-37 [facility] Thin prep Papanicolaou smear with manual screening 8 5-15 [facility] Thin prep Papanicolaou smear with manual screening 6.4 mg/L NO RANGE EST. [facility] Urine creatinine measurement (mass/volume)Ordered By: Shonna Mcfarland on 07-08-2022 Creatinine (U) [Mass/Vol] 110.00 mg/dL NO RANGE EST. [facility] Laboratory - Hematology and Cell countson 06-23-2022 HbA1c (Bld) [Mass fraction] 8.3 % 4.2-6.3 [facility] Basophil percentageon 2021 Basophil percentage 0-5 SEEN /hpf 0-5 [facility] Work Phone: Bilirubin Test strip Ql (U)o n 01-20-2022 Bilirubin Ql (U) Negative Negative [facility] Work Phone: Ketones Test strip Ql (U)on 01-20-2022 Ketones Ql (U) Negative Negative [facility] Work Phone: Laboratory - Hematology and Cell countson 01-20-2022 HbA1c (Bld) [Mass fraction] 7.9 % [facility] Work Phone: Mucus LM Ql (Urine sed)on Mucus Ql (Urine sed) 0 SEEN /hpf [facility] Work Phone: Nitrite Test strip Ql (U)on 01-20-2022 Nitrite Ql (U) Negative Negative [facility] Work Phone: Protein Test strip Ql (U)on 01-20-2022 Protein Ql (U) Negative Negative [facility] Work Phone: Squamous epithelial cells de tection in urine sediment by light microscopyon 01-20-2022 Epithelial cells.squamous LM Ql (Urine sed) 0-5 SEEN /hpf 5-10 [facility] Work Phone: Urine blood detectionon RBC Ql (U) Negative Negative [facility] Work Phone: RBC Ql (U) 0 SEEN /hpf 0-5 [facility] Work Phone: Urine clarityon 01-20-2022 Clarity (U) Clear Clear [facility] Work Phone: Urine color determinationon 01-20-2022 Color (U) Straw Yellow [facility] Work Phone: Urine glucose detectionon Glucose Ql (U) Normal mg/dl Normal [facility] Work Phone: Urine leukocyte esterase det ection by dipstickon 01-20-2022 Leukocyte esterase Test strip Ql (U) 25 /ul Negative [facility] Work Phone: Urine pHon 01-20-2022 pH (U) 6.5 [pH] 5.0 - 8.0 [facility] Work Phone: Urine sediment bacteria coun t by microscopy (number/high power field)on 01-20-2022 Bacteria LM.HPF (Urine sed) [#/Area] 1 /[HPF] None Seen [facility] Work Phone: Urine specific gravity measu rementon 01-20-2022 Specific gravity (U) [Rel density] 1.015 1.002-1.030 [facility] Work Phone: Urobilinogen Auto test strip Ql (U)on 01-20-2022 Urobilinogen Ql (U) Normal mg/dl Normal [facility] Work Phone: Basophil percentageon 2021 Basophil percentage 0 SEEN /hpf 0-5 [facility] Work Phone: Bilirubin Test strip Ql (U)o n 01-14-2022 Bilirubin Ql (U) Negative Negative [facility] Work Phone: Ketones Test strip Ql (U)on 01-14-2022 Ketones Ql (U) Negative Negative [facility] Work Phone: Mucus LM Ql (Urine sed)on Mucus Ql (Urine sed) 0 SEEN /hpf [facility] Work Phone: Nitrite Test strip Ql (U)on 01-14-2022 Nitrite Ql (U) Negative Negative [facility] Work Phone: Protein Test strip Ql (U)on 01-14-2022 Protein Ql (U) Negative Negative [facility] Work Phone: Squamous epithelial cells de tection in urine sediment by light microscopyon 01-14-2022 Epithelial cells.squamous LM Ql (Urine sed) 0-5 SEEN /hpf 5-10 [facility] Work Phone: Urine blood detectionon 12-18 RBC Ql (U) Negative Negative [facility] Work Phone: RBC Ql (U) 0-5 SEEN /hpf 0-5 [facility] Work Phone: Urine clarityon 01-14-2022 Clarity (U) Clear Clear [facility] Work Phone: Urine color determinationon 01-14-2022 Color (U) Straw Yellow [facility] Work Phone: Urine glucose detectionon Glucose Ql (U) Normal mg/dl Normal [facility] Work Phone: Urine leukocyte esterase det ection by dipstickon 01-14-2022 Leukocyte esterase Test strip Ql (U) Negative Negative [facility] Work Phone: Urine pHon 01-14-2022 pH (U) 6.0 [pH] 5.0 - 8.0 [facility] Work Phone: Urine sediment bacteria coun t by microscopy (number/high power field)on 01-14-2022 Bacteria LM.HPF (Urine sed) [#/Area] 0 /[HPF] None Seen [facility] Work Phone: Urine specific gravity measu rementon 01-14-2022 Specific gravity (U) [Rel density] 1.010 1.002-1.030 [facility] Work Phone: Urobilinogen Auto test strip Ql (U)on 01-14-2022 Urobilinogen Ql (U) Normal mg/dl Normal [facility] Work Phone: Absolute lymphocyte counton 07-27-2021 Lymphocytes Auto (Unsp spec) [#/Vol] 1.80 10*3/uL 0.83-4.51 [facility] Work Phone: Basophil percentageon 2021 Basophils/100 WBC (Bld) 0.2 % 0-1 [facility] Work Phone: Chloride [Moles/Vol] 104 mmol/L 98-107 [facility]: Eosinophils/100 WBC (Bld) 1.1 % 0-5 [facility] Work Phone: Glucose [Mass/Vol] 232 mg/dL 74-106 [facility] Work Phone: Comment on above: Glucose result great er than or equal to 200 mg/dLsuggests DIABETES MELLITUS per A.D.A. criteria. Neutrophils (Bld) [#/Vol] 3.1 10*3/uL 2.0-7.7 [facility] Work Phone: Neutrophils/100 WBC (Bld) 57.6 % 47-70 [facility] Work Phone: Potassium [Moles/Vol] 3.6 mmol/L 3.5-5.1 [facility] Work Phone: Sodium [Moles/Vol] 138 mmol/L 136-145 [facility] Work Phone: WBC (Bld) [#/Vol] 5.5 10*3/uL 4.4-11.0 [facility] Work Phone: Blood erythrocytes count (nu mber/volume)on 07-27-2021 RBC (Bld) [#/Vol] 4.47 10*6/uL [facility].2-5.4 [facility]: Blood hemoglobin measurement (mass/volume)on 07-27-2021 Hemoglobin (Bld) [Mass/Vol] 12.1 g/dL 12.0-15.0 [facility] Work Phone: Blood lymphocytes/100 leukoc yteson 07-27-2021 Lymphocytes/100 WBC (Bld) 33.0 % 19-41 [facility] Work Phone: [phone] Blood monocytes/100 leukocyt eson 07-27-2021 Monocytes/100 WBC (Bld) 7.9 % 0-10 [facility] Work Phone: Blood platelet mean volumeon 07-27-2021 Platelet mean volume (Bld) [Entitic vol] 10.2 fL 6.2-12.0 [facility] Work Phone: Determination of erythrocyte mean corpuscular volume (MCV)on 07-27-2021 MCV (RBC) [Entitic vol] 82.8 fL 81-99 [facility] Work Phone: Hematocrit Auto (Bld) [Volum e fraction]on 07-27-2021 Hematocrit (Bld) [Volume fraction] 37.0 % 37-47 [facility] Work Phone: INR in Blood by Coagulation assayon 07-27-2021 INR Coag (Bld) [Relative time] 1.0 {INR} [facility] Work Phone: Laboratory - Chemistry and C hemistry - challengeon 07-27-2021 CO2 [Moles/Vol] 30.0 mmol/L 21.0-32.0 [facility] Work Phone: Urea nitrogen/Creatinine [Mass ratio] 16.2 mg/mg 10-20 [facility] Work Phone: Laboratory - Coagulationon 0 07-27-2021 PT Coag (PPP) [Time] 12.7 s 11.7-14.9 [facility] Work Phone: Laboratory - Hematology and Cell countson 07-27-2021 Erythrocyte distribution width (RBC) [Entitic vol] 37.6 fL 35.1-43.9 [facility] Work Phone: Erythrocyte distribution width (RBC) [Ratio] 12.5 % 11.6-14.6 [facility] Work Phone: Immature granulocytes/100 WBC (Bld) 0.200 % 0.0-0.9 [facility] Work Phone: Comment on above: IG% - Immature Granu locytes (promyelocytes, myelocytes and metamyelocytes) > 1% indicates that a LEFT SHIFT is Present. MCH (RBC) [Entitic mass] 27.1 pg 27.0-32.0 [facility] Work Phone: Nucleated RBC/100 WBC (Bld) [Ratio] 0 % 0-5 [facility] Work Phone: MCHC Auto (RBC) [Mass/Vol]on 07-27-2021 MCHC (RBC) [Mass/Vol] 32.7 g/dL 32-36 [facility] Work Phone: No Panel Informationon 07-27 D-Dimer Quantitative (PE/DVT) < 0.27 FEU/ug/m 0.27-0.49 [facility] Work Phone: Comment on above: NORMAL D-Dimer level (<0.50) indicates no DVT or PE. NORMAL D-Dimer level (<0.50) indicates no DVT or PE. Estimated Creatinine Clearance Calc 73.66 ml/min [facility] Work Phone: Estimated GFR (MDRD) Amer 103 mL/min >60 [facility] Work Phone: Comment on above: GFR Calc Estimated GFR (MDRD) Non-Af Amer 85 mL/min >60 [facility] Work Phone: Comment on above: Non- GFR Calc Troponin I High Sensitivity < 3 pg/mL 3.0-54.0 [facility] Work Phone: Comment on above: Please Note: [place] Units and Gender Specific Reference Ranges. For more information see Policy Stat Procedure [place] High Sensitivity Troponin (TNIH) and attachments. Platelets bldon 07-27-2021 Platelets (Bld) [#/Vol] 220 10*3/uL 150-450 [facility] Work Phone: Serum or plasma calcium nanette urement (mass/volume)on 07-27-2021 Calcium [Mass/Vol] 8.9 mg/dL 8.5-10.1 [facility] Work Phone: Serum or plasma creatinine m easurement (mass/volume)on 07-27-2021 Creatinine [Mass/Vol] 0.74 mg/dL 0.55-1.02 [facility] Work Phone: Comment on above: The validity of the calculated GFR & GFRAA in patients over 70 years has not been determined. Clinical correlation is essential. Serum or plasma urea nitroge n measurement (mass/volume)on 07-27-2021 Urea nitrogen [Mass/Vol] 12 mg/dL 7-18 [facility] Work Phone: Thin prep Papanicolaou smear with manual screeningon 07-27-2021 Thin prep Papanicolaou smear with manual screening 4 5-15 [facility] Work Phone: Basophil percentageon 2021 Cholesterol [Mass/Vol] 277 mg/dL <200 [facility] Work Phone: Comment on above: <200 mg/dL Desirable 200-240 mg/dL Borderline >240 mg/dL High Risk Triglyceride [Mass/Vol] 171 mg/dL [facility] Work Phone: Comment on above: The drugs N-Acetylcy steine and Metamizole may falsely depress this assay.Serum Triglycerides Reference Interval Normal <150 mg/dL Borderline high 150 - 199 mg/dL High 200 - 499 mg/dL Very High > or = 500 mg/dL Laboratory - Hematology and Cell countson 06-29-2021 HbA1c (Bld) [Mass fraction] 6.6 % [facility] Work Phone: Serum or plasma cholesterol in HDL measurement (mass/volume)on 06-29-2021 Cholesterol in HDL [Mass/Vol] 51 mg/dL [facility] Work Phone: Comment on above: The drugs N-Acetylcy steine and Metamizole may falsely depress this assay. Reference Range HDL <40 mg/dL Low HDL Cholesterol HDL >or= 60 mg/dL High HDL Cholesterol Serum or plasma cholesterol in VLDL measurement (mass/volume)on 06-29-2021 Cholesterol in VLDL [Mass/Vol] 34 mg/dL 5-40 [facility] Work Phone: Serum or plasma low density lipoprotein (LDL) cholesterol measurement (mass/volume)on 06-29-2021 Cholesterol in LDL [Mass/Vol] 192 mg/dL 0-130 [facility] Work Phone: Basophil percentageon 2021 Bilirubin [Mass/Vol] 1.10 mg/dL 0.20-1.00 [facility] Work Phone: Comment on above: For patients on eltr ombopag therapy, use of Dimension [place] TBIL is not recommended. Chloride [Moles/Vol] 106 mmol/L 98-107 [facility] Work Phone: Glucose [Mass/Vol] 125 mg/dL 74-106 [facility] Work Phone: Comment on above: Fasting Glucose resu lt from 100 to 125 mg/dL suggests IMPAIRED HOMEOSTASIS per A.D.A. criteria. Potassium [Moles/Vol] 3.8 mmol/L 3.5-5.1 [facility] Work Phone: Protein [Mass/Vol] 7.1 g/dL 6.4-8.2 [facility] Work Phone: Sodium [Moles/Vol] 137 mmol/L 136-145 [facility] Work Phone: WBC (Bld) [#/Vol] 5.4 10*3/uL 4.4-11.0 [facility] Work Phone: Blood erythrocytes count (nu mber/volume)on 05-26-2021 RBC (Bld) [#/Vol] 4.52 10*6/uL 4.2-5.4 [facility] Work Phone: Blood hemoglobin measurement (mass/volume)on 05-26-2021 Hemoglobin (Bld) [Mass/Vol] 12.5 g/dL 12.0-15.0 [facility] Work Phone: Blood platelet mean volumeon 05-26-2021 Platelet mean volume (Bld) [Entitic vol] 10.2 fL 6.2-12.0 [facility] Work Phone: Determination of erythrocyte mean corpuscular volume (MCV)on 05-26-2021 MCV (RBC) [Entitic vol] 81.6 fL 81-99 [facility] Work Phone: Glucose Glucometer (BldC) [M ass/Vol]on 05-26-2021 Glucose [Mass/Vol] 146 mg/dL 70-110 [facility] Work Phone: Comment on above: MANAGEMENT OF PATIEN T CARE PER NURSING PROTOCOL Hematocrit Auto (Bld) [Volum e fraction]on 05-26-2021 Hematocrit (Bld) [Volume fraction] 36.9 % 37-47 [facility] Work Phone: Laboratory - Chemistry and C hemistry - challengeon 05-26-2021 ALP [Catalytic activity/Vol] 82 U/L 45-117 [facility] Work Phone: ALT [Catalytic activity/Vol] 14 U/L 13-56 [facility] Work Phone: CO2 [Moles/Vol] 24.0 mmol/L 21.0-32.0 [facility] Work Phone: Globulin (S) [Mass/Vol] 3.7 g/dL 2.2-4.2 [facility] Work Phone: Urea nitrogen/Creatinine [Mass ratio] 15.6 mg/mg 10-20 [facility] Work Phone: Laboratory - Hematology and Cell countson 05-26-2021 Erythrocyte distribution width (RBC) [Entitic vol] 37.4 fL 35.1-43.9 [facility] Work Phone: Erythrocyte distribution width (RBC) [Ratio] 12.5 % 11.6-14.6 [facility] Work Phone: MCH (RBC) [Entitic mass] 27.7 pg 27.0-32.0 [facility] Work Phone: MCHC Auto (RBC) [Mass/Vol]on 05-26-2021 MCHC (RBC) [Mass/Vol] 33.9 g/dL 32-36 [facility] Work Phone: No Panel Informationon 05-26 Estimated Creatinine Clearance Calc 70.79 ml/min [facility] Work Phone: Estimated GFR (MDRD) Amer 99 mL/min >60 [facility] Work Phone: Comment on above: GFR Calc Estimated GFR (MDRD) Non-Af Amer 82 mL/min >60 [facility] Work Phone: Comment on above: Non- GFR Calc Platelets bldon 05-26-2021 Platelets (Bld) [#/Vol] 194 10*3/uL 150-450 [facility] Work Phone: Serum or plasma albumin nanette urement (mass/volume)on 05-26-2021 Albumin [Mass/Vol] 3.4 g/dL 3.2-5.0 [facility] Work Phone: Serum or plasma albumin/glob ulin mass ratioon 05-26-2021 Albumin/Globulin [Mass ratio] 0.9 {ratio} 0.9-2.4 [facility] Work Phone: Serum or plasma calcium nanette urement (mass/volume)on 05-26-2021 Calcium [Mass/Vol] 8.8 mg/dL 8.5-10.1 [facility] Work Phone: Serum or plasma creatinine m easurement (mass/volume)on 05-26-2021 Creatinine [Mass/Vol] 0.77 mg/dL 0.55-1.02 [facility] Work Phone: Comment on above: The validity of the calculated GFR & GFRAA in patients over 70 years has not been determined. Clinical correlation is essential. Serum or plasma urea nitroge n measurement (mass/volume)on 05-26-2021 Urea nitrogen [Mass/Vol] 12 mg/dL 7-18 [facility] Work Phone: Thin prep Papanicolaou smear with manual screeningon 05-26-2021 Thin prep Papanicolaou smear with manual screening 13 U/L 15-37 [facility] Work Phone: Thin prep Papanicolaou smear with manual screening 7 5-15 [facility] Work Phone: Absolute lymphocyte counton 05-25-2021 Lymphocytes Auto (Unsp spec) [#/Vol] 2.56 10*3/uL 0.83-4.51 [facility] Work Phone: Basophil percentageon 2021 Basophils/100 WBC (Bld) 0.2 % 0-1 [facility] Work Phone: [phone] Eosinophils/100 WBC (Bld) 2.0 % 0-5 [facility] Work Phone: Neutrophils (Bld) [#/Vol] 2.0 10*3/uL 2.0-7.7 [facility] Work Phone: Neutrophils/100 WBC (Bld) 38.6 % 47-70 [facility] Work Phone: Blood lymphocytes/100 leukoc yteson 05-25-2021 Lymphocytes/100 WBC (Bld) 50.0 % 19-41 [facility] Work Phone: Blood monocytes/100 leukocyt eson 05-25-2021 Monocytes/100 WBC (Bld) 9.0 % 0-10 [facility] Work Phone: Laboratory - Hematology and Cell countson 05-25-2021 Immature granulocytes/100 WBC (Bld) 0.200 % 0.0-0.9 [facility] Work Phone: Comment on above: IG% - Immature Granu locytes (promyelocytes, myelocytes and metamyelocytes) > 1% indicates that a LEFT SHIFT is Present. Nucleated RBC/100 WBC (Bld) [Ratio] 0 % 0-5 [facility] Work Phone: No Panel Informationon 05-25 Troponin I High Sensitivity 4 pg/mL 3.0-54.0 [facility] Work Phone: Comment on above: Please Note: [place] Units and Gender Specific Reference Ranges. For more information see Policy Stat Procedure [place] High Sensitivity Troponin (TNIH) and attachments. No Panel Informationon 05-24 SARS-CoV-2 Antigen (Rapid) [facility] Work Phone: Absolute lymphocyte counton 05-20-2021 Lymphocytes Auto (Unsp spec) [#/Vol] 2.16 10*3/uL 0.83-4.51 [facility] Work Phone: Basophil percentageon 2021 Basophils/100 WBC (Bld) 0.2 % 0-1 [facility] Work Phone: Chloride [Moles/Vol] 104 mmol/L 98-107 [facility] Work Phone: Eosinophils/100 WBC (Bld) 1.5 % 0-5 [facility] Work Phone: Glucose [Mass/Vol] 159 mg/dL 74-106 [facility] Work Phone: Comment on above: Fasting Glucose resu lt greater than or equal to 126 mg/dL suggests DIABETES MELLITUS per A.D.A. criteria. Neutrophils (Bld) [#/Vol] 2.2 10*3/uL 2.0-7.7 [facility] Work Phone: Neutrophils/100 WBC (Bld) 45.3 % 47-70 [facility] Work [phone] Potassium [Moles/Vol] 4.0 mmol/L 3.5-5.1 [facility] Work Phone: [phone] Sodium [Moles/Vol] 138 mmol/L 136-145 [facility] Work Phone: [phone] WBC (Bld) [#/Vol] 4.7 10*3/uL 4.4-11.0 [facility] Work Phone: Blood erythrocytes count (nu mber/volume)on 05-20-2021 RBC (Bld) [#/Vol] 4.61 10*6/uL 4.2-5.4 [facility] Work Phone: Blood hemoglobin measurement (mass/volume)on 05-20-2021 Hemoglobin (Bld) [Mass/Vol] 12.9 g/dL 12.0-15.0 [facility] Work Phone: Blood lymphocytes/100 leukoc yteson 05-20-2021 Lymphocytes/100 WBC (Bld) 45.6 % 19-41 [facility] Work Phone: Blood monocytes/100 leukocyt eson 05-20-2021 Monocytes/100 WBC (Bld) 7.4 % 0-10 [facility] Work Phone: Blood platelet mean volumeon 05-20-2021 Platelet mean volume (Bld) [Entitic vol] 10.8 fL 6.2-12.0 [facility] Work Phone: Determination of erythrocyte mean corpuscular volume (MCV)on 05-20-2021 MCV (RBC) [Entitic vol] 83.1 fL 81-99 [facility] Work Phone: Hematocrit Auto (Bld) [Volum e fraction]on 05-20-2021 Hematocrit (Bld) [Volume fraction] 38.3 % 37-47 [facility] Work Phone: Laboratory - Chemistry and C hemistry - challengeon 05-20-2021 CO2 [Moles/Vol] 27.0 mmol/L 21.0-32.0 [facility] Work Phone: Urea nitrogen/Creatinine [Mass ratio] 16.8 mg/mg 10-20 [facility] Work Phone: Laboratory - Hematology and Cell countson 05-20-2021 Erythrocyte distribution width (RBC) [Entitic vol] 38.6 fL 35.1-43.9 [facility] Work Phone: Erythrocyte distribution width (RBC) [Ratio] 12.8 % 11.6-14.6 [facility] Work Phone: Immature granulocytes/100 WBC (Bld) 0.000 % 0.0-0.9 [facility] Work Phone: Comment on above: IG% - Immature Granu locytes (promyelocytes, myelocytes and metamyelocytes) > 1% indicates that a LEFT SHIFT is Present. MCH (RBC) [Entitic mass] 28.0 pg 27.0-32.0 [facility] Work Phone: Nucleated RBC/100 WBC (Bld) [Ratio] 0 % 0-5 [facility] Work Phone: MCHC Auto (RBC) [Mass/Vol]on 05-20-2021 MCHC (RBC) [Mass/Vol] 33.7 g/dL 32-36 [facility] Work Phone: No Panel Informationon 05-20 Estimated GFR (MDRD) Amer 107 mL/min >60 [facility] Work Phone: Comment on above: GFR Calc Estimated GFR (MDRD) Non-Af Amer 89 mL/min >60 [facility] Work Phone: Comment on above: Non- GFR Calc Platelets bldon 05-20-2021 Platelets (Bld) [#/Vol] 205 10*3/uL 150-450 [facility] Work Phone: Serum or plasma calcium nanette urement (mass/volume)on 05-20-2021 Calcium [Mass/Vol] 9.1 mg/dL 8.5-10.1 [facility] Work Phone: Serum or plasma creatinine m easurement (mass/volume)on 05-20-2021 Creatinine [Mass/Vol] 0.72 mg/dL 0.55-1.02 [facility] Work Phone: Comment on above: The validity of the calculated GFR & GFRAA in patients over 70 years has not been determined. Clinical correlation is essential. Serum or plasma urea nitroge n measurement (mass/volume)on 05-20-2021 Urea nitrogen [Mass/Vol] 12 mg/dL 7-18 [facility] Work Phone: Thin prep Papanicolaou smear with manual screeningon 05-20-2021 Thin prep Papanicolaou smear with manual screening 7 5-15 [facility] Work Phone: Basophil percentageon 2021 Bilirubin [Mass/Vol] 0.80 mg/dL 0.20-1.00 [facility] Work Phone: Comment on above: For patients on eltr ombopag therapy, use of Dimension [place] TBIL is not recommended. Chloride [Moles/Vol] 102 mmol/L 98-107 [facility] Work Phone: Cholesterol [Mass/Vol] 364 mg/dL <200 [facility] Work Phone: Comment on above: <200 mg/dL Desirable 200-240 mg/dL Borderline >240 mg/dL High Risk Glucose [Mass/Vol] 256 mg/dL 74-106 [facility] Work Phone: Comment on above: Glucose result great er than or equal to 200 mg/dLsuggests DIABETES MELLITUS per A.D.A. criteria.Please note revised GLUCOSE reference range effective 2017. Potassium [Moles/Vol] 4.1 mmol/L 3.5-5.1 [facility] Work Phone: Protein [Mass/Vol] 7.4 g/dL 6.4-8.2 [facility] Work Phone: Sodium [Moles/Vol] 137 mmol/L 136-145 [facility] Work Phone: Triglyceride [Mass/Vol] 688 mg/dL [facility] Work Phone: Comment on above: The drugs [...] 04-28-2021 ALP [Catalytic activity/Vol] 90 U/L 45-117 [facility] Work Phone: ALT [Catalytic activity/Vol] 19 U/L 13-56 [facility] Work Phone: CO2 [Moles/Vol] 27.0 mmol/L 21.0-32.0 [facility] Work Phone: Globulin (S) [Mass/Vol] 4.0 g/dL 2.2-4.2 [facility] Work Phone: Urea nitrogen/Creatinine [Mass ratio] 13.1 mg/mg 10-20 [facility] Work Phone: Laboratory - Hematology and Cell countson 04-28-2021 HbA1c (Bld) [Mass fraction] 8.7 % [facility] Work Phone: No Panel Informationon 04-28 Estimated GFR (MDRD) Amer 89 mL/min >60 [facility] Work Phone: Comment on above: GFR Calc Estimated GFR (MDRD) Non-Af Amer 74 mL/min >60 [facility] Work Phone: Comment on above: Non- GFR Calc Thyroid Stimulating Hormone (TSH) 2.14 uIU/mL 0.358-3.74 [facility] Work Phone: Urine Microalbumin/Creatinin e Ratio 11.2 mg/g CRE <30 [facility] Work Phone: Vitamin D 25-Hydroxy 44.9 ng/mL [facility] Work Phone: Comment on above: Vitamin D 25(OH) Sta tus Range Deficiency <20 ng/mL (50nmol/L) Insufficiency 20 - 30 ng/mL (50 - 75 nmol/L) Sufficiency 30 - 100 ng/mL (75 - 250 nmol/L) Toxicity >100 ng/mL (>250 nmol/L) Serum or plasma albumin nanette urement (mass/volume)on 04-28-2021 Albumin [Mass/Vol] 3.4 g/dL 3.2-5.0 [facility] Work Phone: Serum or plasma albumin/glob ulin mass ratioon 04-28-2021 Albumin/Globulin [Mass ratio] 0.8 {ratio} 0.9-2.4 [facility] Work Phone: Serum or plasma calcium nanette urement (mass/volume)on 04-28-2021 Calcium [Mass/Vol] 9.2 mg/dL 8.5-10.1 [facility] Work Phone: Serum or plasma cholesterol in HDL measurement (mass/volume)on 04-28-2021 Cholesterol in HDL [Mass/Vol] 36 mg/dL [facility] Work Phone: Comment on above: The drugs N-Acetylcy steine and Metamizole may falsely depress this assay. Reference Range HDL <40 mg/dL Low HDL Cholesterol HDL >or= 60 mg/dL High HDL Cholesterol Serum or plasma cholesterol in VLDL measurement (mass/volume)on 04-28-2021 Cholesterol in VLDL [Mass/Vol] [facility] Work Phone: Comment on above: Test not performed Serum or plasma creatinine m easurement (mass/volume)on 04-28-2021 Creatinine [Mass/Vol] 0.84 mg/dL 0.55-1.02 [facility] Work Phone: Comment on above: The validity of the calculated GFR & GFRAA in patients over 70 years has not been determined. Clinical correlation is essential. Serum or plasma low density lipoprotein (LDL) cholesterol measurement (mass/volume)on 04-28-2021 Cholesterol in LDL [Mass/Vol] [facility] Work Phone: Comment on above: Test not performed Serum or plasma urea nitroge n measurement (mass/volume)on 04-28-2021 Urea nitrogen [Mass/Vol] 11 mg/dL 7-18 [facility] Work Phone: Thin prep Papanicolaou smear with manual screeningon 04-28-2021 Thin prep Papanicolaou smear with manual screening 14 U/L 15-37 [facility] Work Phone: Thin prep Papanicolaou smear with manual screening 8 5-15 [facility] Work Phone: Thin prep Papanicolaou smear with manual screening 5.6 mg/L NO RANGE EST. [facility] Work Phone: Urine creatinine measurement (mass/volume)on 04-28-2021 Creatinine (U) [Mass/Vol] 50.40 mg/dL NO RANGE EST. [facility] Work Phone: APTTon 02-24-2019 aPTT Coag (Bld) [Time] 20.8 s Normal 20.0-30.5 [facility] Comment on above: Result Comment: NOTE : The therapeutic time for Heparin anticoagulation, based on Xa activity inhibition, is an APTT of 46-80 seconds. Performed By: #### B HARRIET3NATALIE Kathleen, HEMOG #### [address] [address] [place], [place] aPTT Coag (Bld) [Time] 20.8 s 20 - 30.5 s [place], [place] Comment on above: NOTE: The therapeuti c time for Heparin anticoagulation, based on Xa activity inhibition, is an APTT of 46-80 seconds. Test Performed by [facility], [facility] [place], [place] [id number] [place] [address] Basic Metabolic Panelon Anion gap [Moles/Vol] 6 Normal [facility] Comment on above: Performed By: #### B MP3M TROPN, HEMOG #### [facility] [address] [place] [address] Calcium [Mass/Vol] 9.3 mg/dL Normal 8.4-10.4 [facility] Comment on above: Performed By: #### B MP3M TROPN, HEMOG #### [facility] [address] [place] [address] CO2 [Moles/Vol] 24 mmol/L Normal 22-30 [facility] Comment on above: Performed By: #### B MP3M TROPN, HEMOG #### [facility] [address] [place], [place] Glucose [Mass/Vol] 176 mg/dL High 70-100 [facility] Comment on above: Performed By: #### B MP3M TROPN, HEMOG #### [address] [address] [place] [place], [place] Urea nitrogen [Mass/Vol] 13 mg/dL Normal 7-20 [facility] Comment on above: Performed By: #### B MP3M TROPN, HEMOG #### [address] [address] [place], [place] Creatinine [Mass/Vol] 0.58 mg/dL Normal 0.52-1.25 [facility] Comment on above: Performed By: #### B MP3M TROPN, HEMOG #### [address] [address] [place] [place], [place] GFR/1.73 sq M predicted among blacks MDRD (S/P/Bld) [Vol rate/Area] mL/min/{1.73_m2} Normal >60 [facility] Comment on above: Performed By: #### B MP3M TROPN, HEMOG #### [address] [address] [place], [place] GFR/1.73 sq M predicted among non-blacks MDRD (S/P/Bld) [Vol rate/Area] mL/min/{1.73_m2} Normal >60 [facility] Comment on above: Result Comment: Sour ce- MDRD equation with creatinine calibration to IDMS(NKDEP) eGFR not recommended for drug dose adjustment Performed By: #### B MP3M TROPN, HEMOG #### [address] [address] [place], [place] Potassium [Moles/Vol] 3.7 mmol/L Normal 3.5-5.1 [facility] Comment on above: Performed By: #### B MP3M TROPN, HEMOG #### [address] [address] [place] [address] Sodium [Moles/Vol] 135 mmol/L Normal 135-145 [facility] Comment on above: Performed By: #### B NATALIE MORRIS, HEMOG #### [facility] [address] [place] [address] Chloride [Moles/Vol] 105 mmol/L Normal 98-107 [facility] Comment on above: Performed By: #### B NATALIE MORRIS, HEMOG #### [facility] [address] [place] [address] Basic Metabolic Panel w/ Ref blanquita to MGon 02-24-2019 Anion gap [Moles/Vol] 6 mmol/L [place], [place] Calcium [Mass/Vol] 9.3 mg/dL 8.4 - 10. 4 mg/dL [place], [place] Chloride [Moles/Vol] 105 mmol/L 98 - 10 7 mmol/L [place] CO2 [Moles/Vol] 24 mmol/L 22 - 30 mmol/L [place] Creatinine [Mass/Vol] 0.58 mg/dL 0.52 - 1.25 mg/dL [place], [place] EGFR IF NonAfrican [place] Citizen >60.0 >60 mL/min [place], [place] Comment on above: Source- MDRD equatio n with creatinine calibration to IDMS(NKDEP) eGFR not recommended for drug dose adjustment GFR/1.73 sq M predicted among blacks MDRD (S/P/Bld) [Vol rate/Area] mL/min/{1.73_m2} >60 mL/min [place], [place] Glucose [Mass/Vol] 176 mg/dL High 70 - 100 mg/dL [place] Potassium [Moles/Vol] 3.7 mmol/L 3.5 - 5.1 mmol/L [place] Sodium [Moles/Vol] 135 mmol/L 135 - 145 mmol/L [place] Urea nitrogen [Mass/Vol] 13 mg/dL 7 - 20 mg/dL [place] CBCon 02-24-2019 Erythrocyte distribution width (RBC) [Ratio] 13.8 % 11.5 - 14.5 % [place] Hematocrit (Bld) [Volume fraction] 38.4 % 35 - 47 % [place] Hemoglobin (Bld) [Mass/Vol] 13.3 g/dL 11.7 - 16 g/dL [place] MCH (RBC) [Entitic mass] 27.8 pg 26 - 34 pg [place] MCHC (RBC) [Mass/Vol] 34.5 % 32 - 36 % [place], [place] MCV (RBC) [Entitic vol] 80.6 fL 79 - 98 fL [place] Platelet mean volume (Bld) [Entitic vol] 8.2 fL 7.4 - 10.4 fL [place] Platelets (Bld) [#/Vol] 219 10*3/uL 140 - 440 10*3/uL [place] RBC (Bld) [#/Vol] 4.77 10*6/uL 3.8 - 5.2 10*6/uL [place] WBC (Bld) [#/Vol] 8.4 10*3/uL 3.6 - 10.7 10*3/uL [place] Test Performed by [id number] [place] [address] Diagnostic Cardiac Set Up Inspector Procedureon 02-24-2019 [facility] -- CARDIAC CATHETERIZATION Patient: Bonnie Brownlee Procedure [...] 3. Intravascular ultrasound evaluation, using a .014 [place] [employer] catheter. 4. Stent placement. A 3 mm [...] + +LV pressure s/d, ed +168/-13, 11, dP/zc=1770 mm Hg/s+ + ---+ + +Arterial pressure s/d (m)+153/69 (101) + + ---+ + Prepared and electronically signed by Theron Fox MD 02/24/2019 08:13 [place], [place] [facility] Incoming Cardiology Results From Trevor/Carlany - 02/24/2019 8:13 AM EST [facility] -- CARDIAC CATHETERIZATION Patient: Bonnie [...] 3. Intravascular ultrasound evaluation, using a .014 [place] [facility] [employer] catheter. 4. Stent placement. A 3 mm [...] (Drip). NITROGLYCERIN (IA), 200mcg, intra-arterially, NITROGLYCERIN (IA). AKREN LINTA (180 load), 180mg, PO, BRILINTA (180 [...] + +LV pressure s/d, ed +168/-13, 11, dP/xz=9565 mm Hg/s+ + ---+ + +Arterial pressure s/d (m)+153/69 (101) + + ---+ + Prepared and electronically signed by Theron Fox MD 02/24/2019 08:13 [place], [place] Echo Complete w/wo Contrasto n 02-24-2019 Echo Complete w/wo Contrast Patient Name: BONNIE BROWNLEE Ultrasound Exam Date/Time 02/24/2019 12:31:33 EST Exam Echo Complete w/wo Contrast Ordering Physician KRUNAL THOMAS CAYLA Accession Number [id number] Reason For Exam NSTEMI Report TRANSTHORACIC ECHOCARDIOGRAM PATIENT: Bonnie Brownlee STUDY DATE: 02/24/2019 : 1960 AGE: 58 HT/WT: 165.1 cm (65 88 kg in) (193.6 lb) GENDER: F BP: 127 / 81 LOCATION: [facility] PATIENT Inpatient [facility] STATUS: *ORDERING PHYSICIAN: * Cherelle Thomas *READING PHYSICIAN: * Nathan, *RN INTERNATIONAL: * Viik Rodriguez MD RDCS, AE, KANCHAN -- INDICATIONS: NSTEMI. -- HISTORY: Stent x [...] Dictated: 02/24/2019 1:00 pm Dictating Physician: Iris EVANS, OTFRIED Signed Date and Time: 02/24/2019 1:00 pm Signed by: Iris EVANS, OTFRIED Normal [facility] Glucose,Bedsideon 02-24-2019 Glucose [Mass/Vol] 249 mg/dL High 70-100 [facility] Comment on above: Result Comment: Test performed by glucose meter. Results may be 10%-15% lower than serum/plasma values. (CLIA ID [id number]) Performed By: #### B MP3M TROPN, HEMOG #### [facility] [address] [place], [place] Hemogramon 02-24-2019 Erythrocyte distribution width (RBC) [Ratio] 13.8 % Normal 11.5-14.5 [facility] Comment on above: Performed By: #### B MP3M TROPN, HEMOG #### [address] [address] [place], [place] Hematocrit (Bld) [Volume fraction] 38.4 % Normal 35.0-47.0 [facility] Comment on above: Performed By: #### B MP3M TROPN, HEMOG #### [address] [address] [place], [place] Hemoglobin (Bld) [Mass/Vol] 13.3 g/dL Normal 11.7-16.0 [facility] Comment on above: Performed By: #### B MP3M, TROPN, HEMOG #### [address] [address] [place], [place] MCH (RBC) [Entitic mass] 27.8 pg Normal 26.0-34.0 [facility] Comment on above: Performed By: #### B MP3M, TROPN, HEMOG #### [address] [address] [place], [place] MCHC (RBC) [Mass/Vol] 34.5 % Normal 32.0-36.0 [facility] Comment on above: Performed By: #### B MP3M, TROPN, HEMOG #### [address] [address] [place], [place] MCV (RBC) [Entitic vol] 80.6 fL Normal 79.0-98.0 [facility] Comment on above: Performed By: #### B HARRIET3NATALIE Kathleen, HEMOG #### [facility] [address] [place], [place] Platelet mean volume (Bld) [Entitic vol] 8.2 fL Normal 7.4-10.4 [facility] Comment on above: Performed By: #### B MP3Frannie TROPN, HEMOG #### [facility] [address] [place], [place] Platelets (Bld) [#/Vol] 219 10*3/uL Normal 140-440 [facility] Comment on above: Performed By: #### B MP3NATALIE Kathleen, HEMOG #### [address] [address] [place], [place] RBC (Bld) [#/Vol] 4.77 10*6/uL Normal 3.80-5.20 [facility] Comment on above: Performed By: #### Jessica MP3NATALIE Kathleen, HEMOG #### [address] [address] [place], [place] WBC (Bld) [#/Vol] 8.4 10*3/uL Normal 3.6-10.7 [facility] Comment on above: Performed By: #### B MP3M TROPN, HEMOG #### [address] [address] [place], [place] Lipid Panelon 02-24-2019 Cholesterol in HDL [Mass/Vol] 46 mg/dL Normal 40-60 [facility] Comment on above: Performed By: #### Jessica MP3M TROPN, HEMOG #### [facility] [address] [place], [place] Cholesterol.total/Chol esterol in HDL [Mass ratio] 7 Normal [facility] Comment on above: Result Comment: Ref Range: < 3 Low Risk for CHD 3-6 Mod Risk for CHD > 6 High Risk for CHD Performed By: #### B MP3M TROPN, HEMOG #### [facility] [address] [place] [address] Protein [Mass/Vol] - Abnormal <100 [facility] Comment on above: Result Comment: LDL unable to calculate, Trig >400 mg/dL Suggest ordering LDL-Chol,Direct. Performed By: #### B MP3M TROPN, HEMOG #### [facility] [address] [place] [address] Triglyceride [Mass/Vol] 434 mg/dL Abnormal <150 [facility] Comment on above: Performed By: #### B MP3M, TROPN, HEMOG #### [facility] [address] [place], [place] Cholesterol [Mass/Vol] 308 mg/dL Abnormal < 200 [facility] Comment on above: Performed By: #### B MP3M TROPN, HEMOG #### [facility] [address] [place], [place] Cholesterol in HDL [Mass/Vol] 46 mg/dL Normal 40-60 [facility] Comment on above: Performed By: #### B MP3M TROPN, HEMOG #### [facility] [address] [place], [place] Cholesterol.total/Chol esterol in HDL [Mass ratio] 7 Normal [facility] Comment on above: Result Comment: Ref Range: < 3 Low Risk for CHD 3-6 Mod Risk for CHD > 6 High Risk for CHD Performed By: #### B MP3M, TROPN, HEMOG #### [facility] [address] [place] [address] Protein [Mass/Vol] - Abnormal <100 [facility] Comment on above: Result Comment: LDL unable to calculate, Trig >400 mg/dL Suggest ordering LDL-Chol,Direct. Performed By: #### B MP3M, TROPN, HEMOG #### [facility] [address] [place], [place] Cholesterol [Mass/Vol] 310 mg/dL Abnormal < 200 [facility] Comment on above: Performed By: #### B MP3M, TROPN, HEMOG #### [facility] [address] [place], [place] Triglyceride [Mass/Vol] 431 mg/dL Abnormal <150 [facility] Comment on above: Performed By: #### B MP3M, TROPN, HEMOG #### [facility] [address] [place] [address] Lipid panelon 02-24-2019 Cholesterol [Mass/Vol] 308 mg/dL Abnormal <200 [place] Cholesterol in HDL [Mass/Vol] 46 mg/dL 40 - 60 mg/dL [place] Cholesterol in LDL [Mass/Vol] =- Abnormal <100 mg/dL [place] Comment on above: LDL unable to calcul ate, Trig >400 mg/dL Suggest ordering LDL-Chol,Direct. Cholesterol.total/Chol esterol in HDL [Mass ratio] 7 {ratio} [place], [place] Comment on above: Ref Range: < 3 Low Risk for CHD 3-6 Mod Risk for CHD > 6 High Risk for CHD Triglyceride [Mass/Vol] 434 mg/dL Abnormal <150 [place] Lipid panel - fastingon Cholesterol [Mass/Vol] 310 mg/dL Abnormal <200 [place] Cholesterol in HDL [Mass/Vol] 46 mg/dL 40 - 60 mg/dL [place] Cholesterol in LDL [Mass/Vol] =- Abnormal <100 mg/dL [place], [place] Comment on above: LDL unable to calcul ate, Trig >400 mg/dL Suggest ordering LDL-Chol,Direct. Cholesterol.total/Chol esterol in HDL [Mass ratio] 7 {ratio} [place], [place] Comment on above: Ref Range: < 3 Low Risk for CHD 3-6 Mod Risk for CHD > 6 High Risk for CHD Interpretation and review of laboratory results Abnormal [place] Triglyceride [Mass/Vol] 431 mg/dL Abnormal <150 [place] Test Performed by [facility], [address] [place] [address] [place] Otheron 02-24-2019 Interpretation and review of laboratory results Abnormal [place] Test Performed by [facility], [facility] [place] [address] [place], [place] POCT Glucoseon 02-24-2019 Glucose [Mass/Vol] 249 mg/dL High 70 - 100 mg/dL [place] Comment on above: Test performed by gl ucose meter. Results may be 10%-15% lower than serum/plasma values. (CLIA ID [id number]) Interpretation and review of laboratory results Abnormal [place] Test Performed by [facility], [address] [place] [address] [place] ACT,Whole Bloodon 02-23-2019 ACT,Whole Blood 151 s High 90-134 [facility] Comment on above: Result Comment: ACTB O Performed by [employer] Elite[employer]IA ID: [id number] [place], [place] ACT testing is not intended for patients taking aprotonin, patients with hematocrits of <20% or >55%, patients using other types of anticoagulation medications, and patients with Lupus Anticoagulant. Performed By: #### A CTBO #### [address] ACT,Whole Blood 277 s High 90-134 [facility] Comment on above: Result Comment: ACTB O Performed by [employer] ID: [id number] [place], [place] ACT testing is not intended for patients taking aprotonin, patients with hematocrits of <20% or >55%, patients using other types of anticoagulation medications, and patients with Lupus Anticoagulant. Performed By: #### A CTBO #### [address] APTTon 02-23-2019 aPTT Coag (Bld) [Time] 36.5 s High 20.0-30.5 [facility] Comment on above: Result Comment: NOTE : The therapeutic time for Heparin anticoagulation, based on Xa activity inhibition, is an APTT of 46-80 seconds. Performed By: #### A PTT #### [address] aPTT Coag (Bld) [Time] 36.5 s High 20 - 30.5 s [place], [place] Comment on above: NOTE: The therapeuti c time for Heparin anticoagulation, based on Xa activity inhibition, is an APTT of 46-80 seconds. Interpretation and review of laboratory results Abnormal [place] Test Performed by [facility], [address] [place] [address] [place] aPTT Coag (Bld) [Time] 50.4 s High 20.0-30.5 [facility] Comment on above: Result Comment: NOTE : The therapeutic time for Heparin anticoagulation, based on Xa activity inhibition, is an APTT of 46-80 seconds. Performed By: #### A PTT #### [address] [address] [place], [place] aPTT Coag (Bld) [Time] 50.4 s High 20 - 30.5 s [place] Comment on above: NOTE: The therapeuti c time for Heparin anticoagulation, based on Xa activity inhibition, is an APTT of 46-80 seconds. Interpretation and review of laboratory results Abnormal [place] Test Performed by [facility], [address] [place] [address] [place] Activated clotting timeon Activated Clotting Time 151 s High 90 - 134 s [place] Comment on above: ACTBO Performed by [employer] ID: [id number] [place], [place] ACT testing is not intended for patients taking aprotonin, patients with hematocrits of <20% or >55%, patients using other types of anticoagulation medications, and patients with Lupus Anticoagulant. Activated Clotting Time 277 s High 90 - 134 s [place], [place] Comment on above: ACTBO Performed by [employer] ID: [id number] [place], [place] ACT testing is not intended for patients taking aprotonin, patients with hematocrits of <20% or >55%, patients using other types of anticoagulation medications, and patients with Lupus Anticoagulant. Basic Metabolic Panelon Anion gap [Moles/Vol] 10 Normal [facility] Comment on above: Performed By: #### B MP3M, TROPN, HEMOG #### [facility] [address] [place], [place] CO2 [Moles/Vol] 24 mmol/L Normal 22-30 [facility] Comment on above: Performed By: #### B NATALIE MORRIS, HEMOG #### [address] [address] [place] [place], [place] Creatinine [Mass/Vol] 0.56 mg/dL Normal 0.52-1.25 [facility] Comment on above: Performed By: #### B HARRIET3NATALIE Kathleen, HEMOG #### [address] [address] [place] [place], [place] GFR/1.73 sq M predicted among blacks MDRD (S/P/Bld) [Vol rate/Area] mL/min/{1.73_m2} Normal >60 [facility] Comment on above: Performed By: #### B HARRIET3NATALIE Kathleen, HEMOG #### [address] [address] [place], [place] GFR/1.73 sq M predicted among non-blacks MDRD (S/P/Bld) [Vol rate/Area] mL/min/{1.73_m2} Normal >60 [facility] Comment on above: Result Comment: Sour ce- MDRD equation with creatinine calibration to IDMS(NKDEP) eGFR not recommended for drug dose adjustment Performed By: #### NATALIE ROBISON, HEMOG #### [address] [address] [place], [place] Glucose [Mass/Vol] 183 mg/dL High 70-100 [facility] Comment on above: Performed By: #### B HARRIET3NATALIE Kathleen, HEMOG #### [address] [address] [place], [place] Urea nitrogen [Mass/Vol] 11 mg/dL Normal 7-20 [facility] Comment on above: Performed By: #### B HARRIET3NATALIE Kathleen, HEMOG #### [address] [address] [place], [place] Chloride [Moles/Vol] 105 mmol/L Normal 98-107 [facility] Comment on above: Performed By: #### B MP3NATALIE Kathleen, HEMOG #### [address] [address] [place] [address] Potassium [Moles/Vol] 3.9 mmol/L Normal 3.5-5.1 [facility] Comment on above: Performed By: #### B MP3M TROPN, HEMOG #### [facility] [address] [place] [address] Sodium [Moles/Vol] 139 mmol/L Normal 135-145 [facility] Comment on above: Performed By: #### B MP3M TROPN, HEMOG #### [facility] [address] [place] [address] Calcium [Mass/Vol] 9.6 mg/dL Normal 8.4-10.4 [place] Comment on above: Performed By: #### B MP3MNATALIE, HEMOG #### [address] [address] [address] [place], [place] Basic Metabolic Panel w/ Ref blanquita to MGon 02-23-2019 Anion gap [Moles/Vol] 10 mmol/L [place], [place] Chloride [Moles/Vol] 105 mmol/L 98 - 10 7 mmol/L [place] CO2 [Moles/Vol] 24 mmol/L 22 - 30 mmol/L [place] Creatinine [Mass/Vol] 0.56 mg/dL 0.52 - 1.25 mg/dL [place] EGFR IF NonAfrican [place] Citizen >60.0 >60 mL/min [place] Comment on above: Source- MDRD equatio n with creatinine calibration to IDAZ(NKDEP) eGFR not recommended for drug dose adjustment GFR/1.73 sq M predicted among blacks MDRD (S/P/Bld) [Vol rate/Area] mL/min/{1.73_m2} >60 mL/min [place] Glucose [Mass/Vol] 183 mg/dL High 70 - 100 mg/dL [place] Interpretation and review of laboratory results Abnormal [place] Potassium [Moles/Vol] 3.9 mmol/L 3.5 - 5.1 mmol/L [place], [place] Sodium [Moles/Vol] 139 mmol/L 135 - 145 mmol/L [place], [place] Urea nitrogen [Mass/Vol] 11 mg/dL 7 - 20 mg/dL [place] Test Performed by [address] [address] [place], [place] CBCon 02-23-2019 Erythrocyte distribution width (RBC) [Ratio] 13.4 % 11.5 - 14.5 % [place] Hematocrit (Bld) [Volume fraction] 41.7 % 35 - 47 % [place] Hemoglobin (Bld) [Mass/Vol] 14.3 g/dL 11.7 - 16 g/dL [place] MCH (RBC) [Entitic mass] 27.9 pg 26 - 34 pg [place] MCHC (RBC) [Mass/Vol] 34.3 % 32 - 36 % [place] MCV (RBC) [Entitic vol] 81.4 fL 79 - 98 fL [place] Platelet mean volume (Bld) [Entitic vol] 8.2 fL 7.4 - 10.4 fL [place] Platelets (Bld) [#/Vol] 216 10*3/uL 140 - 440 10*3/uL [place] RBC (Bld) [#/Vol] 5.13 10*6/uL 3.8 - 5.2 10*6/uL [place] WBC (Bld) [#/Vol] 6.8 10*3/uL 3.6 - 10.7 10*3/uL [place] Test Performed by [address] [address] [place], [place] Diagnostic Catherizationon 1 04-25-2018 Diagnostic Catherization Patient Name: BONNIE BROWNLEE [facility] Set Up Inspector Exam Date/Time 02/23/2019 16:25:07 EST Exam Diagnostic Catherization Ordering Physician CYNTHIA LATHAM Accession Number [id number] Report [facility] -- CARDIAC CATHETERIZATION Patient: Bonnie Brownlee Procedure [...] 3. Intravascular ultrasound evaluation, using a .014 [facility] catheter. 4. Stent placement. A 3 mm [...] + +LV pressure s/d, ed +168/-13, 11, dP/gt=6219 mm Hg/s+ + ---+ + +Arterial pressure s/d (m)+153/69 (101) + + ---+ + Prepared and electronically signed by Theron Fox MD 02/24/2019 08:13 Final Dictated: 02/24/2019 8:13 am Dictating Physician: MD FOX JUSTIN Signed Date and Time: 02/24/2019 8:13 am Signed by: MD FOX JUSTIN Normal [facility] [employer] [facility] Glucose,Bedsideon 02-23-2019 Glucose [Mass/Vol] 251 mg/dL High 70-100 [facility] Comment on above: Result Comment: Test performed by glucose meter. Results may be 10%-15% lower than serum/plasma values. (CLIA ID [id number]) Performed By: #### B GLU #### [place] [address] [place], [place] Glucose [Mass/Vol] 149 mg/dL High 70-100 [facility] Comment on above: Result Comment: Test performed by glucose meter. Results may be 10%-15% lower than serum/plasma values. (CLIA ID [id number]) Performed By: #### B GLU #### [address] [place] [address] [address] [place], [place] Hemogramon 02-23-2019 Erythrocyte distribution width (RBC) [Ratio] 13.4 % Normal 11.5-14.5 [facility] Comment on above: Performed By: #### B MP3M, TROPN, HEMOG #### [place] [address] [address] [place], [place] Hematocrit (Bld) [Volume fraction] 41.7 % Normal 35.0-47.0 [facility] Comment on above: Performed By: #### B MP3M, TROPN, HEMOG #### [place] [address] [address] [place], [place] Hemoglobin (Bld) [Mass/Vol] 14.3 g/dL Normal 11.7-16.0 [facility] Comment on above: Performed By: #### B MP3M, TROPN, HEMOG #### [place] [address] [address] [place], [place] MCH (RBC) [Entitic mass] 27.9 pg Normal 26.0-34.0 [facility] Comment on above: Performed By: #### B MP3M, TROPN, HEMOG #### [place] [address] [address] [place], [place] MCHC (RBC) [Mass/Vol] 34.3 % Normal 32.0-36.0 [facility] Comment on above: Performed By: #### B MP3M, TROPN, HEMOG #### [place] [address] [address] [place], [place] MCV (RBC) [Entitic vol] 81.4 fL Normal 79.0-98.0 [facility] Comment on above: Performed By: #### B HARRIET3NATALIE Kathleen, HEMOG #### [facility] [address], [place] Platelet mean volume (Bld) [Entitic vol] 8.2 fL Normal 7.4-10.4 [facility] Comment on above: Performed By: #### B MP3M TROPN, HEMOG #### [facility] [address], [place] Platelets (Bld) [#/Vol] 216 10*3/uL Normal 140-440 [facility] Comment on above: Performed By: #### B MP3NATALIE Kathleen, HEMOG #### [place] [address] [address] [place], [place] RBC (Bld) [#/Vol] 5.13 10*6/uL Normal 3.80-5.20 [facility] Comment on above: Performed By: #### B MP3Frannie TROPN, HEMOG #### [place] [address] [address] [place], [place] WBC (Bld) [#/Vol] 6.8 10*3/uL Normal 3.6-10.7 [facility] Comment on above: Performed By: #### B MP3Frannie TROPN, HEMOG #### [place] [address] [address] [place], [place] Otheron 02-23-2019 Interpretation and review of laboratory results Abnormal [place] [employer] Test Performed by [address] [address] [place] POCT Glucoseon 02-23-2019 Glucose [Mass/Vol] 251 mg/dL High 70 - 100 mg/dL [place] Comment on above: Test performed by ucose meter. Results may be 10%-15% lower than serum/plasma values. (CLIA ID [id number]) Interpretation and review of laboratory results Abnormal [place] Test Performed by [place] [address] [place], [place] [id number] [place] [address] Glucose [Mass/Vol] 149 mg/dL High 70 - 100 mg/dL [place], [place] Comment on above: Test performed by ucose meter. Results may be 10%-15% lower than serum/plasma values. (CLIA ID [id number]) Interpretation and review of laboratory results Abnormal [place] Test Performed by [facility] [address] Troponinon 02-23-2019 Interpretation and review of laboratory results Abnormal [place] Troponin I.cardiac [Mass/Vol] 1.820 ng/mL High 0 - 0.034 ng/mL [place] Comment on above: . Test Performed by [facility] [address] Interpretation and review of laboratory results Abnormal [place] Troponin I.cardiac [Mass/Vol] 0.972 ng/mL High 0 - 0.034 ng/mL [place] Comment on above: . Test Performed by [facility], [facility] [place], [place] [id number] [place] [address] Troponin Ion 02-23-2019 Troponin I.cardiac [Mass/Vol] 1.820 ng/mL High 0.000-0.034 [facility] Comment on above: Result Comment: . Performed By: #### T ROPN #### [address] Troponin I.cardiac [Mass/Vol] 0.972 ng/mL High 0.000-0.034 [facility] Comment on above: Result Comment: . Performed By: #### B MP3M, TROPN, HEMOG #### [address] Culture, urine Bacteria identified Cx Nom (U) Positive [facility] Work Phone: Vital Signs Date Time Vital Sign Value Performing Clinician Facility 12-03-2024 14:34-0400 Body height 165.[address] Madalyn Vaughan DO Work Phone: [facility] 12-03-2024 14:34-0400 Body mass index (BMI) [Ratio] 30.1 kg/m2 Dr. Madalyn Vaughan DO Work Phone: [facility] 12-03-2024 14:34-0400 Body weight 82.[address] aMdalyn Vaughan DO Work Phone: [facility] 12-03-2024 14:34-0400 Diastolic blood pressure 69 mm[Hg] Dr. Madalyn Vaughan DO Work Phone: [facility] 12-03-2024 14:34-0400 Heart rate 57 /min Dr. Madalyn Vaughan DO Work Phone: [facility] 12-03-2024 14:34-0400 SaO2% (BldA) [Mass fraction] 98 % Dr. Madalyn Vaughan DO Work Phone: [facility] 12-03-2024 14:34-0400 Systolic blood pressure 116 mm[Hg] Dr. Madalyn Vaughan DO Work Phone: [facility] 09-11-2024 07:04-0400 Body height 165.1 cm Miguel Forte MD Work Phone: [facility] 09-11-2024 07:00-0400 Body temperature 97.81 [degF] Miguel Forte MD Work Phone: [facility] 09-11-2024 07:00-0400 Diastolic blood pressure 66 mm[Hg] Miguel Forte MD Work Phone: [facility] 09-11-2024 07:00-0400 Heart rate 63 /min Miguel Forte MD Work Phone: [facility] 09-11-2024 07:00-0400 Respiratory rate 15 /min Miguel Forte MD Work Phone: [facility] 09-11-2024 07:00-0400 SaO2% (BldA) [Mass fraction] 97 % Miguel Forte MD Work Phone: [facility] 09-11-2024 07:00-0400 Systolic blood pressure 130 mm[Hg] Miguel Forte MD Work Phone: [facility] 08-21-2024 09:28-0400 Body mass index (BMI) [Ratio] 31.4 kg/m2 Dr. Madalyn Vaughan DO Work Phone: [facility] 08-21-2024 09:28-0400 Body weight 85.[address] Madalyn Vaughan DO Work Phone: [facility] 08-21-2024 09:28-0400 Diastolic blood pressure 69 mm[Hg] Dr. Madalyn Vaughan DO Work Phone: [facility] 08-21-2024 09:28-0400 Heart rate 60 /min Dr. Madalyn Vaughan DO Work Phone: [facility] 08-21-2024 09:28-0400 Respiratory rate 16 /min Dr. Madalyn Vaughan DO Work Phone: [facility] 08-21-2024 09:28-0400 Systolic blood pressure 108 mm[Hg] Dr. Madalyn Vaughan DO Work Phone: [facility] 05-28-2024 15:50-0500 Body height 165.[address] Madalyn Vaughan DO Work Phone: [facility] 05-28-2024 15:50-0500 Body mass index (BMI) [Ratio] 31.1 kg/m2 Dr. Madalyn Vaughan DO Work Phone: [facility] 05-28-2024 15:50-0500 Body weight 84.[address] Madalyn Vaughan DO Work Phone: [facility] 05-28-2024 15:50-0500 Diastolic blood pressure 74 mm[Hg] Dr. Madalyn Vaughan DO Work Phone: [facility] 05-28-2024 15:50-0500 Heart rate 61 /min Dr. Madalyn Vaughan DO Work Phone: [facility] 05-28-2024 15:50-0500 SaO2% (BldA) [Mass fraction] 97 % Dr. Madalyn Vaughan DO Work Phone: [facility] 05-28-2024 15:50-0500 Systolic blood pressure 119 mm[Hg] Dr. Madalyn Vaughan DO Work Phone: [facility] 04-04-2023 09:18-0500 Body height 165.[address] Madalyn Vaughan Work Phone: [facility] 04-04-2023 09:18-0500 Body weight [address] Madalyn Vaughan Work Phone: [facility] 04-04-2023 09:03-0500 Body mass index (BMI) [Ratio] 30.4 kg/m2 Dr. Maadlyn Vaughan Work Phone: [facility] 03-21-2023 10:00-0500 Body height 165.[address] Madalyn Vaughan Work Phone: [facility] 03-21-2023 10:00-0500 Body mass index (BMI) [Ratio] 29.4 kg/m2 Dr. Madalyn Vaughan Work Phone: [facility] 03-21-2023 10:00-0500 Body weight 80.[address] Madalyn Vaughan Work Phone: [facility] 03-21-2023 10:00-0500 Diastolic blood pressure 81 mm[Hg] Dr. Madalyn Vaughan Work Phone: [facility] 03-21-2023 10:00-0500 Heart rate 63 /min Dr. Madalyn Vaughan Work Phone: [facility] 03-21-2023 10:00-0500 Respiratory rate 18 /min Dr. Madalyn Vaughan Work Phone: [facility] 03-21-2023 10:00-0500 SaO2% (BldA) [Mass fraction] 99 % Dr. Madalyn Vaughan Work Phone: [facility] 03-21-2023 10:00-0500 Systolic blood pressure 133 mm[Hg] Dr. Madlayn Vaughan Work Phone: [facility] 03-21-2023 09:06-0500 Body mass index (BMI) [Ratio] 29.7 kg/m2 Dr. Madalyn Vaughan Work Phone: [facility] 03-21-2023 09:06-0500 Body temperature 98.6 [degF] Dr. Madalyn Vaughan Work Phone: [facility] 03-21-2023 09:06-0500 Body weight 81.[address] Madalyn Vaughan Work Phone: [facility] 03-21-2023 09:06-0500 Diastolic blood pressure 66 mm[Hg] Dr. Madalyn Vaughan Work Phone: [facility] 03-21-2023 09:06-0500 Heart rate 65 /min Dr. Madalyn Vaughan Work Phone: [facility] 03-21-2023 09:06-0500 SaO2% (BldA) [Mass fraction] 97 % Dr. Madalyn Vaughan Work Phone: [facility] 03-21-2023 09:06-0500 Systolic blood pressure 130 mm[Hg] Dr. Madalyn Vaughan Work Phone: [facility] 06-23-2022 13:15-0500 Body height 165.[address] Madalyn Vaughan Work Phone: [facility] 06-23-2022 13:15-0500 Body mass index (BMI) [Ratio] 30.9 kg/m2 Dr. Madalyn Vaughan Work Phone: [facility] 06-23-2022 13:15-0500 Body temperature 97.7 [degF] Dr. Madalyn Vaughan Work Phone: [facility] 06-23-2022 13:15-0500 Body weight 84.[address] Madalyn Vaughan Work Phone: [facility] 06-23-2022 13:15-0500 Diastolic blood pressure 73 mm[Hg] Dr. Madalyn Vaughan Work Phone: [facility] 06-23-2022 13:15-0500 Heart rate 76 /min Dr. Madalyn Vaughan Work Phone: [facility] 06-23-2022 13:15-0500 Respiratory rate 17 /min Dr. Madalyn Vaughan Work Phone: [facility] 06-23-2022 13:15-0500 SaO2% (BldA) [Mass fraction] 96 % Dr. Madalyn Vaughan Work Phone: [facility] 06-23-2022 13:15-0500 Systolic blood pressure 120 mm[Hg] Dr. Madayln Vaughan Work Phone: [facility] 01-20-2022 13:56-0400 Body height 165.[address] Madalyn Vaughan Work Phone: [facility] Work Phone: 01-20-2022 13:56-0400 Body mass index (BMI) [Ratio] 30.9 kg/m2 Dr. Madalyn Vaughan Work Phone: [facility] Work Phone: 01-20-2022 13:56-0400 Body temperature 95.9 [degF] Dr. Madalyn Vaughan Work Phone: [facility] Work Phone: 01-20-2022 13:56-0400 Body weight 84.[address] Madalyn Vaughan Work Phone: [facility] Work Phone: 01-20-2022 13:56-0400 Diastolic blood pressure 76 mm[Hg] Dr. Madalyn Vaughan Work Phone: [facility] Work Phone: 01-20-2022 13:56-0400 Heart rate 67 /min Dr. Madalyn Vaughan Work Phone: [facility] Work Phone: 01-20-2022 13:56-0400 Respiratory rate 18 /min Dr. Madalyn Vaughan Work Phone: [facility] Work Phone: 01-20-2022 13:56-0400 SaO2% (BldA) [Mass fraction] 96 % Dr. Madalyn Vaughan Work Phone: [facility] Work Phone: 01-20-2022 13:56-0400 Systolic blood pressure 116 mm[Hg] Dr. Madalyn Vaughan Work Phone: [facility] Work Phone: 01-14-2022 11:32-0400 Body height 165.[address] Madalyn Vaughan Work Phone: [facility] Work Phone: 01-14-2022 11:32-0400 Body mass index (BMI) [Ratio] 30.7 kg/m2 Dr. Madalyn Vaughan Work Phone: [facility] Work Phone: 01-14-2022 11:32-0400 Body weight 83.[address] Madalyn Vaughan Work Phone: [facility] Work Phone: 01-14-2022 11:32-0400 Diastolic blood pressure 83 mm[Hg] Dr. Madalyn Vaughan Work Phone: [facility] Work Phone: 01-14-2022 11:32-0400 Heart rate 72 /min Dr. Madalyn Vaughan Work Phone: [facility] Work Phone: 01-14-2022 11:32-0400 Respiratory rate 16 /min Dr. Madalyn Vaughan Work Phone: [facility] Work Phone: 01-14-2022 11:32-0400 SaO2% (BldA) [Mass fraction] 94 % Dr. Madalyn Vaughan Work Phone: [facility] Work Phone: 01-14-2022 11:32-0400 Systolic blood pressure 143 mm[Hg] Dr. Madalyn Vaughan Work Phone: [facility] Work Phone: 07-27-2021 17:00-0400 Diastolic blood pressure 64 mm[Hg] Dr. Madalyn Vaughan Work Phone: [facility] Work Phone: 07-27-2021 17:00-0400 Heart rate 64 /min Dr. Madalyn Vaughan Work Phone: [facility] Work Phone: 07-27-2021 17:00-0400 Respiratory rate 13 /min Dr. Madalyn Vaughan Work Phone: [facility] Work Phone: 07-27-2021 17:00-0400 SaO2% (BldA) [Mass fraction] 98 % Dr. Madalyn Vaughan Work Phone: [facility] Work Phone: 07-27-2021 17:00-0400 Systolic blood pressure 110 mm[Hg] Dr. Madalyn Vaughan Work Phone: [facility] Work Phone: 07-27-2021 14:19-0400 Body height 165.[address] Madalyn Vaughan Work Phone: [facility] Work Phone: 07-27-2021 14:19-0400 Body mass index (BMI) [Ratio] 29.1 kg/m2 Dr. Madalyn Vaughan Work Phone: [facility] Work Phone: 07-27-2021 14:19-0400 Body temperature 97.7 [degF] Dr. Madalyn Vaughan Work Phone: [facility] Work Phone: 07-27-2021 14:19-0400 Body weight 79.[address] Madalyn Vaughan Work Phone: [facility] Work Phone: 06-29-2021 10:55-0400 Body height 165.[address] Madalyn Vaughan Work Phone: [facility] Work Phone: 06-29-2021 10:55-0400 Body mass index (BMI) [Ratio] 28.8 kg/m2 Dr. Madalyn Vaughan Work Phone: [facility] Work Phone: 06-29-2021 10:55-0400 Body temperature 95.6 [degF] Dr. Madalyn Vaughan Work Phone: [facility] Work Phone: 06-29-2021 10:55-0400 Body weight 78.[address] Madalyn Vaughan Work Phone: [facility] Work Phone: 06-29-2021 10:55-0400 Diastolic blood pressure 78 mm[Hg] Dr. Madalyn Vaughan Work Phone: [facility] Work Phone: 06-29-2021 10:55-0400 Heart rate 72 /min Dr. Madalyn Vaughan Work Phone: [facility] Work Phone: 06-29-2021 10:55-0400 Respiratory rate 16 /min Dr. Madalyn Vaughan Work Phone: [facility] Work Phone: 06-29-2021 10:55-0400 SaO2% (BldA) [Mass fraction] 99 % Dr. Madalyn Vaughan Work Phone: [facility] Work Phone: 06-29-2021 10:55-0400 Systolic blood pressure 124 mm[Hg] Dr. Madalyn Vaughan Work Phone: [facility] Work Phone: 06-17-2021 12:03-0500 Body mass index (BMI) [Ratio] 29.4 kg/m2 Dr. Madalyn Vaughan Work Phone: [facility] Work Phone: 06-17-2021 12:03-0500 Body weight 80.[address] Madalyn Vaughan Work Phone: [facility] Work Phone: 06-17-2021 12:03-0500 Diastolic blood pressure 67 mm[Hg] Dr. Madalyn Vaughan Work Phone: [facility] Work Phone: 06-17-2021 12:03-0500 Heart rate 76 /min Dr. Madalyn Vaughan Work Phone: [facility] Work Phone: 06-17-2021 12:03-0500 Respiratory rate 18 /min Dr. Madalyn Vaughan Work Phone: [facility] Work Phone: 06-17-2021 12:03-0500 SaO2% (BldA) [Mass fraction] 97 % Dr. Madalyn Vaughan Work Phone: [facility] Work Phone: 06-17-2021 12:03-0500 Systolic blood pressure 100 mm[Hg] Dr. Madalyn Vaughan Work Phone: [facility] Work Phone: 05-26-2021 09:50-0500 Body temperature 97.1 [degF] Dr. Madalyn Vaughan Work Phone: [facility] Work Phone: 05-26-2021 09:50-0500 Diastolic blood pressure 62 mm[Hg] Dr. Madalyn Vaughan Work Phone: [facility] Work Phone: 05-26-2021 09:50-0500 Heart rate 58 /min Dr. Madalyn Vaughan Work Phone: [facility] Work Phone: 05-26-2021 09:50-0500 Respiratory rate 12 /min Dr. Madalyn Vaughan Work Phone: [facility] Work Phone: 05-26-2021 09:50-0500 SaO2% (BldA) [Mass fraction] 99 % Dr. Madalyn Vaughan Work Phone: [facility] Work Phone: 05-26-2021 09:50-0500 Systolic blood pressure 99 mm[Hg] Dr. Madalyn Vaughan Work Phone: [facility] Work Phone: 05-24-2021 22:01-0500 Body mass index (BMI) [Ratio] 29.6 kg/m2 Dr. Madalyn Vaughan Work Phone: [facility] Work Phone: 05-24-2021 22:01-0500 Body weight 80.[address] Madalyn Vaughan Work Phone: [facility] Work Phone: 05-22-2021 07:03-0500 Body weight [address] Madalyn Vaughan Work Phone: [facility] Work Phone: 05-22-2021 06:49-0500 Body mass index (BMI) [Ratio] 30.4 kg/m2 Dr. Madalyn Vaughan Work Phone: [facility] Work Phone: 04-28-2021 09:52-0500 Body mass index (BMI) [Ratio] 30.4 kg/m2 Dr. Madalyn Vaughan Work Phone: [facility] Work Phone: 04-28-2021 09:52-0500 Body weight [address] Madalyn Vaughan Work Phone: [facility] Work Phone: 04-28-2021 09:52-0500 Diastolic blood pressure 78 mm[Hg] Dr. Madalyn Vaughan Work Phone: [facility] Work Phone: 04-28-2021 09:52-0500 Heart rate 71 /min Dr. Madalyn Vaughan Work Phone: [facility] Work Phone: 04-28-2021 09:52-0500 Respiratory rate 16 /min Dr. Madalyn Vaughan Work Phone: [facility] Work Phone: 04-28-2021 09:52-0500 Systolic blood pressure 116 mm[Hg] Dr. Madalyn Vaughan Work Phone: [facility] Work Phone: 04-28-2021 07:42-0500 Body mass index (BMI) [Ratio] 30.4 kg/m2 Dr. Madalyn Vaughan Work Phone: [facility] Work Phone: 04-28-2021 07:42-0500 Body temperature 97 [degF] Dr. Madalyn Vaughan Work Phone: [facility] Work Phone: 04-28-2021 07:42-0500 Body weight 83.[address] Madalyn Vaughan Work Phone: [facility] Work Phone: 04-28-2021 07:42-0500 Diastolic blood pressure 80 mm[Hg] Dr. Madalyn Vaughan Work Phone: [facility] Work Phone: 04-28-2021 07:42-0500 Heart rate 68 /min Dr. Madalyn Vaughan Work Phone: [facility] Work Phone: 04-28-2021 07:42-0500 Respiratory rate 16 /min Dr. Madalyn Vaughan Work Phone: [facility] Work Phone: 04-28-2021 07:42-0500 SaO2% (BldA) [Mass fraction] 100 % Dr. Madalyn Vaughan Work Phone: [facility] Work Phone: 04-28-2021 07:42-0500 Systolic blood pressure 122 mm[Hg] Dr. Madalyn Vaughan Work Phone: [facility] Work Phone: 02-24-2019 11:25-0500 Body Temperature 97.11 [degF] [facility] 02-24-2019 11:25-0500 BP Diastolic 72 mm[Hg] [facility] 02-24-2019 11:25-0500 BP Systolic 109 mm[Hg] [facility] 02-24-2019 11:25-0500 Pulse (Heart Rate) 74 /min [facility], [place] 02-24-2019 11:25-0500 Pulse Oximetry 98 % [facility], [place] 02-24-2019 11:25-0500 Respiratory Rate 19 /min Sindy Tobar [facility], [place] 02-24-2019 06:31-0500 BMI (Body Mass Index) 32.28 kg/m2 Sindy Tobar [facility], [place] 02-24-2019 06:31-0500 Body weight 88 kg Sindy Canales Rahman [facility], [place] 02-23-2019 04:30-0500 Height 165.1 cm Sindy Tobar [facility], [place] Encounters Encounter Date Encounter Type Care Provider Facility Start: 03-20-2025 ambulatory Isadora GURROLA Facility:[facility] Start: 02-06-2025 ambulatory [facility] Facility:[facility] Start: 02-06-2025 End: 02-06-2025 ambulatory [facility] Facility:[facility] Start: 12-03-2024 End: 12-03-2024 Patient encounter procedure Shonna DIAZ -[facility] Work Phone: Start: 12-03-2024 End: 12-03-[address] Madalyn Vaughan DO Work Phone: [facility] Start: 09-11-2024 End: 09-11-2024 Emergency department patient visit Miguel Forte MD Work Phone: [facility] [place] [place] Emergency Department Start: 08-21-2024 End: 08-21-[address] Reggie Ramirez MD -[facility] Work Phone: Start: 08-21-2024 End: 08-21-2024 ambulatory Reggie James Facility:[facility] Start: 06-19-2024 ambulatory Madalyn Vaughan Facility:[facility] Start: 06-14-2024 End: 06-14-[address] 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 Monique Vaughan Work Phone: [facility] Start: 04-04-2023 End: 04-04-2023 Admission to same day surgery center Dr. Madalyn Vaughan Work Phone: [facility]-Set Up Inspector/Special Procedures Work Phone: Start: 04-04-2023 End: 04-04-[address] Madalyn Vaughan Work Phone: [facility] Work Phone: Start: 03-30-2023 End: 03-30-[address] Madalyn Vaughan Work Phone: [facility] Work Phone: Start: 03-30-2023 End: 03-30-2023 Patient encounter procedure Dr. Madalyn Vaughan Work Phone: [facility] Work Phone: Start: 03-21-2023 End: 03-21-[address] Madalyn Vaughan Work Phone: [facility] Work Phone: Start: 03-21-2023 End: 03-21-[address] Madalyn Vaughan Work Phone: [facility] Work Phone: Start: 12-06-2022 Telephone encounter Faiza Hodges i, MD Work Phone: Vascular Medicine Comment on above: Results Start: 2022 End: 2022 [facility] Start: 10-11-2022 End: 10-11-2022 ambulatory FAIZA WELSH Facility:[facility] Start: 09-27-2022 End: 09-28-2022 ambulatory MADALYN VAUGHAN Facility:[facility] Start: 09-27-2022 End: 09-27-2022 ambulatory MADALYN VAUGHAN Facility:[facility] Start: 07-09-2022 End: 07-09-[address] Madalyn Vaughan Work Phone: [facility] End[facility] Start: 07-08-2022 End: 07-08-[address] Madalyn Vaughan Work Phone: [facility] Work Phone: Start: 07-08-2022 End: 07-08-[address] Madalyn Vaughan Work Phone: [facility]Laboratory Start: 06-23-2022 End: 06-23-[address] Madalyn Vaughan Work Phone: [facility] Endocrin[facility] Start: 03-24-2022 Non-patient / Non-visit Dr. Monique Vaughan Work Phone: [facility] Start: 03-24-2022 End: 03-24-[address] Madalyn Vaughan Work Phone: [facility] Work Phone: Start: 03-24-2022 End: 03-24-[address] Madalyn Vaughan Work Phone: [facility]-Cardiovascular Services Start: 02-24-2022 End: 02-24-[address] Madalyn Vaughan Work Phone: [facility] Work Phone: Start: 02-24-2022 End: 02-24-[address] Madalyn Vaughan Work Phone: [facility] Start: 01-20-2022 End: 01-20-[address] Madalyn Vaughan Work Phone: [facility] Work Phone: Start: 01-20-2022 End: 01-20-[address] Madalyn Vaughan Work Phone: [facility] End[facility] Start: 01-14-2022 End: 01-14-[address] Madalyn Vaughan Work Phone: [facility] Work Phone: Start: 01-14-2022 End: 01-14-[address] Madalyn Vaughan Work Phone: [facility] Start: 07-27-2021 End: 07-27-2021 Emergency department patient visit Dr. Madalyn Vaughan Work Phone: [facility]-Emergency Department Start: 07-21-2021 Telephone encounter Cole masters DO Work Phone: Vascular Medicine Comment on above: Appointment Start: 07-16-2021 Telephone encounter Edmundo Feliciano se, MD Work Phone: Vascular Surg Dept Comment on above: Appointment Start: 06-29-2021 End: 06-29-[address] Madalyn Vaughan Work Phone: [facility], [facility] Start: 06-29-2021 End: 06-29-[address] Madalyn Vaughan Work Phone: [facility] Endocr[facility] Start: 06-17-2021 End: 06-17-[address] Madalyn Vaughan Work Phone: [facility] Start: 05-26-2021 Non-patient / Non-visit Dr. Monique Vaughan Work Phone: [facility] Inpatient Physicians Start: 05-26-2021 Non-patient / Non-visit Dr. Monique Vaughan Work Phone: [facility] Start: 05-25-2021 End: 05-25-[address] Madalyn Vaughan Work Phone: [facility]-Set Up Inspector/Special Procedures Start: 05-25-2021 Non-patient / Non-visit Dr. Monique Vaughan Work Phone: [facility] Start: 05-24-2021 Non-patient / Non-visit Dr. Monique Vaughan Work Phone: [facility] Start: 05-24-2021 End: 05-26-2021 Evaluation and management of inpatient Dr. Madalyn Vaughan Work Phone: [facility]-Progressive Care Unit Start: 05-18-2021 Non-patient / Non-visit Dr. Monique Vaughan Work Phone: [facility] Start: 05-18-2021 End: 05-18-[address] Madalyn Vaughan Work Phone: [facility]-Cardiovascular Services Start: 04-28-2021 End: 04-28-[address] Madalyn Vaughan Work Phone: [facility] Start: 04-28-2021 End: 04-28-[address] Madalyn Vaughan Work Phone: [facility] Start: 02-23-2019 End: 02-24-2019 Evaluation and management of inpatient Sindy Tobar Work Phone: [facility] Capacity Management Comment on above: NSTEMI (non-ST eleva khadar myocardial infarction) (HCC) (Primary Dx); Coronary artery disease involving catawba coronary artery of catawba heart without angina pectoris Procedures Date Procedure [...] Start: 09-11-2024 LT BLUE TOP TUBE Jacob K im DO Work Phone: Start: 09-11-2024 MINT GREEN TOP TUBE Cor y Luz DO Work Phone: Start: 09-11-2024 RAINBOW DRAW [...] culture Start: 03-30-2023 Plain chest X-ray Dr. Isa Vaughan Work Phone: Start: 03-24-2022 Radionuclide imaging of perfusion of myocardium under exercise stress Dr. Madalyn Vaughan Work Phone: Start: 02-24-2022 MRI of joint of lowe r extremity Dr. Madalyn Vaughan Work Phone: Start: 07-27-2021 Plain chest X-ray Dr. Isa Vaughan Work Phone: Start: 05-25-2021 History of placement of stent for coronary artery disease History of coronary artery stent placement Dr. Reggie Ramirez MD Comment on above: IPU-NZG-Nqpo LAD and Mid LAD w/ 3.5 x 16 mm and 3.0 x 12 mm Promus Premier Stent and POBA-D1 11/12/14; PCI-CLAY-ISR Prox and Mid LAD and thrombotic lesion between both stents w/ 3.5 x 23 mm and 3.0 x 38 mm Xience Sharon Stents 02/23/19; VLL-WDQ-Etuu LAD w/ 3.5 x 22 mm Orsiro Stent 05/25/21 Start: 05-24-2021 Plain chest X-ray Dr. Isa Vaughan Work Phone: Start: 05-24-2021 SARS-CoV-2 Antigen (Rapid) Dr. Madalyn Vaughan Work Phone: Start: 05-20-2021 Plain chest X-ray Dr. Isa Vaughan Work Phone: Start: 05-18-2021 Radionuclide imaging of perfusion of myocardium under exercise stress Dr. Madalyn Vaughan Work Phone: Start: 02-24-2019 Gluc bld gluc mntr d ev cleared fda spec home use Sindy Tobar Work Phone: Start: 02-24-2019 BASIC METABOLIC PANE L W/ REFLEX TO MG FOR LOW K Kaleigh Wright Work Phone: Start: 02-24-2019 Blood count complete automated Kaleigh Wright Work Phone: Start: 02-24-2019 Lipid panel Sindy Tobar Work Phone: Start: 02-24-2019 Thromboplastin time partial plasma/whole blood Sindy Tobar Work Phone: Start: 02-23-2019 Gluc bld gluc mntr d ev cleared fda spec home use Sindy Tobar Work Phone: Start: 02-23-2019 CARDIAC CATH NURSING LOG 3m Scanning Start: 02-23-2019 End: 02-23-2019 Coagulation time activated Sindy Tobar Work Phone: Start: 02-23-2019 DIAGNOSTIC CARDIAC C ATH LAB PROCEDURE Cynthia Latham Work Phone: Start: 02-23-2019 Gluc bld gluc mntr d ev cleared fda spec home use Sindy Tobar Work Phone: Start: 02-23-2019 Assay [...] RSV VACCINE (1 - 1-dose 75+ series) [facility] Start: 09-28-2027 LIPID SCREEN LIPID SCREEN [facility] Start: 12-17-2024 Influenza vaccination INFLUENZ A VACCINE (Season Ended) [facility] Start: 12-18-2023 COVID-19 VACCINE ( season) COVID-19 VACCINE ( season) [facility] Start: 09-28-2023 Hepatitis B surface antibody level LDL CHOLESTEROL [facility] Start: 04-04-2023 Patient discharge [facility] Start: 12-17-2022 Influenza vaccination INFLUENZA (#1) [facility] Start: 04-18-2022 DEPRESSION ASSESSMENT DEPRESSION ASS ESSMENT [facility] Start: 12-17-2021 Influenza vaccination INFLUENZA (Sea son Ended) [facility] Start: 12-17-2018 Influenza vaccination Flu vaccine (# 1) [place], [place] Start: 11-13-2017 DI[address]ETES SCREEN DI[address]ES SCREEN [facility] Start: 11-27-2011 Breast cancer screen Breast cancer s creen [place], [place] Start: 11-27-2011 Pneumococcal vaccination PNEUMOCOCCAL VACCINE SERIES (1 of 1 - PCV) [facility] Start: 11-27-2011 SHINGRIX VACCINE (1 of 2) SHINGRIX VACCINE (1 of 2) [facility] Start: 11-27-2011 Zoster vaccine hzv l jay for subcutaneous use ZOSTER (SHINGLES) VACCINE (1 of 2) [facility] Start: 2006 COLOGUARD (FIT-DNA) COLOGUARD (FIT-D NA) [facility] Start: 2006 Colonoscopy COLONOSCOPY [facility] Start: 2006 COLORECTAL CANCER SCREENING COLORECTAL CANCER SCREENING [facility] Start: [address] [facility] Start: 2006 FECAL OCCULT BLOOD FECAL OCCULT BLOO D [facility] Start: 2006 LIPID SCREEN LIPID SCREEN [facility] Start: 2006 Screening for malign ant neoplasm of colon COLORECTAL CANCER SCREENING DISCUSSION [facility] Start: 2006 SIGMOIDOSCOPY SIGMOIDOSCOPY [facility] Start: 2001 Lipid panel LIPID SCREENING [facility] Start: 2001 Mammography MAMMOGRAM [facility] Start: 2001 Screening for malign ant neoplasm of breast MAMMOGRAM SCREENING DISCUSSION [facility] Start: 11-27-1991 HPV TESTING HPV TESTING [facility] Start: 1982 PAP TESTING PAP TESTING [facility] Start: 1982 Screening for malign ant neoplasm of cervix CERVICAL CANCER SCREENING DISCUSSION [facility] Start: 1980 Hepatitis B vaccine (1 of 3 - Risk 3-dose series) Hepatitis B vaccine (1 of 3 - Risk 3-dose series) [place] Start: 1980 Third diphtheria, tetanus and acellular pertussis (DTaP) vaccination TDAP (ADULT) [facility] Start: 1980 Urine microalbumin profile DTAP,TDAP,TD (1 - Tdap) [facility] Start: 11-27-1979 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 DISEASE VISIT ANNUAL PCP TEAM CHRONIC DISEASE VISIT [facility] Start: 11-27-1979 HEPATITIS C SCREENING HEPATITIS C SC REENING [facility] Start: 11-27-1979 HIV SCREENING HIV SCREENING [facility] Start: 1976 HIV screening HIV SCREENING DISCUSSI ON [facility] Start: 1973 Adult depression screening assessment DEPRESSION SCREENING [facility] Start: 1966 COVID-19 VACCINE (#1) COVID-19 VACCI NE (#1) [facility] Start: 05-29-1962 COVID-19 VACCINE (#1) COVID-19 VACCI NE (#1) [facility] Start: 1961 Hepatitis C screening HEPATITI S C VIRUS SCREENING [facility] Start: 1961 Tetanus vaccination TETANUS [facility] End: 02-23-2019 CK ISOENZYMES CK ISOENZYMES Lab Add-On One Time for 1 Occurrences starting 02/23/2019 until 02/23/2019 [facility] [place] Comment on above: One Time for 1 Occur rences starting 02/23/2019 until 02/23/2019 End: 02-23-2019 Diagnostic Cardiac Set Up Inspector Procedure Diagnostic Cardiac Set Up Inspector Procedure Cardiac Cath Routine One Time for 1 Occurrences starting 02/23/2019 until 02/23/2019 [facility] [place] Comment on above: One Time for 1 Occur rences starting 02/23/2019 until 02/23/2019 Diagnostic Cardiac C ath Lab Procedure Diagnostic Cardiac Set Up Inspector Procedure Cardiac Cath Routine 02/23/2019 4:[address] E[facility] Complete 2D W Doppler W Color ECHO Complete 2D W Doppler W Color Echocardiography Routine 02/24/2019 12:[address] [facility] E[facility] [address] [facility] Comment on above: As Needed until disc ontinued starting 02/23/2019 Daily until disconti nued starting 02/23/2019, 2 completed Initiate Oxygen Ther [facility]y [facility] BONILLA DIAZ Comment on above: Daily until disconti nued starting 02/23/2019 Lipid 1996 panel - Serum or Plasma [facility] Work Phone: Patient Education ED Chest Pain, Uncertain Cause [facility] Work Phone: Patient referral [facility] Work Phone: Platelets (Bld) [#/Vol] Platelet count Lab Routine Every Other Day until discontinued starting 02/25/2019 [facility] BONILLA DIAZ Comment on above: Every Other Day unti l discontinued starting 02/25/2019 Radionuclide imaging of perfusion of myocardium under exercise stress [facility] Radionuclide imaging of perfusion of myocardium under exercise stress [facility] End: 02-23-2019 Troponin I.cardiac [Mass/Vol] [facility] BONILLA DIAZ Comment on above: One Time for 1 Occur rences starting 02/23/2019 until 02/23/2019 End: 02-24-2019 Troponin I.cardiac [Mass/Vol] Troponin Lab Timed Now Then Every 6hr for 3 Occurrences starting 02/23/2019 until 02/24/2019, 1 completed [facility] Comment on above: Now Then Every 6hr f or 3 Occurrences starting 02/23/2019 until 02/24/2019, 1 completed Troponin I.cardiac [Mass/Vol] Troponin Lab Timed 02/23/2019 6:[address] [facility] Payers Date Payer Category Payer Medicaid (Managed Care) [facility] [id number] 2024 Self-pay [id number] 2022 Medicaid [id number] 2022 Medicaid [place] [employer] [place] [employer] [id number] 2022-Present [phone] [place], [place] [id number] Medicaid [id number] 2019 Medicaid [place] [employer] [id number] 2019-Present [phone] [place] [address] [id number] Medicaid [id number] 2018 Unknown [employer]UREN xxxxxxxxxx 2018-Present [phone] [address] [address] [place] [address] xxxxxxxxxx [id number] 2018 Unknown [employer] [place] X [id number] 2018-Present [phone] [address] [address] [place] [address] [facility] [id number] 1960 Unknown [id number] 1960 Unknown [id number] 594 Unknown [id number] Unknown [id number] Unknown [id number] Unknown [id number] Unknown [id number] 462 Unknown [id number] 462 Unknown [id number] 462 Unknown [id number] 462 Unknown [id number] 462 Unknown [id number] 462 Unknown [id number] 462 Unknown [id number] 462 Social History Date Type Detail Facility Start: 02-23-2019 End: 04-04-2023 Tobacco smoking status NHIS Never smoker [facility] Start: 02-23-2019 End: 09-27-2022 Alcohol intake Lifetime non-drinker (finding) [place], [place] Start: 02-23-2019 History SDOH Alcohol Frequency 1 [place], [place] Start: 1960 Sex Assigned At Not on file [place], [place] Start: 06-29-2021 End: 04-01-2023 Tobacco smoking status MOIS Unknown if ever smoked [facility] Start: 1960 Sex Assigned At Female [facility] Start: 07-11-2021 End: 07-21-2021 Exposure to SARS-CoV-2 (event) Not sure [facility] Start: 09-27-2022 Tobacco use and exposure Smokeless tobacco non-user [facility] Start: 08-02-2014 End: 09-27-2022 History of Social function [facility] Start: 08-02-2014 End: 09-27-2022 Tobacco use panel [facility] National Score (1-10 0), lower number is lower risk 80 [facility] Start: 05-21-2012 End: 06-27-2024 Sex Female (finding) [facility] Medical Equipment Procedure Code Equipment Code Equipment Origin al Text Equipment Identifier Dates ([id number]) Drug-eluting coronary artery stent, bioabsorbable-polyme r-coated ()[id number] FDA Start: 05-25-2021 Pen Needle, Diab etic (Bd Ultra-Fine Yu Pen Needle) 32 gauge x 5/32 needle Start: 05-24-2021 Pen Needle, Diab etic (Bd Ultra-Fine Yu Pen Needle) 32 gauge x 5/32 needle Start: 04-28-2021 End: 05-24-2021 Pen Needle, Diab etic (Bd Ultra-Fine Yu Pen Needle) 32 gauge x 5/32 needle Start: 05-24-2021 Pen Needle, Diab etic (Bd Ultra-Fine Yu Pen Needle) 32 gauge x 5/32 needle Start: 04-28-2021 End: 05-24-2021 Pen Needle, Diab etic (Bd Ultra-Fine Yu Pen Needle) 32 gauge x 5/32 needle Start: 05-24-2021 Pen Needle, Diab etic (Bd Ultra-Fine Yu Pen Needle) 32 gauge x 5/32 needle Start: 04-28-2021 End: 05-24-2021 Pen Needle, Diab etic (Bd Ultra-Fine Yu Pen Needle) 32 gauge x 5/32 needle Start: 05-24-2021 Pen Needle, Diab etic (Bd Ultra-Fine Yu Pen Needle) 32 gauge x 5/32 needle Start: 04-28-2021 End: 05-24-2021 Pen Needle, Diab etic (Bd Ultra-Fine Yu Pen Needle) 32 gauge x 5/32 needle Start: 05-24-2021 Pen Needle, Diab etic (Bd Ultra-Fine Yu Pen Needle) 32 gauge x 5/32 needle Start: 04-28-2021 End: 05-24-2021 Pen Needle, Diab etic (Bd Ultra-Fine Yu Pen Needle) 32 gauge x 5/32 needle Start: 05-24-2021 Pen Needle, Diab etic (Bd Ultra-Fine Yu Pen Needle) 32 gauge x 5/32 needle Start: 04-28-2021 End: 05-24-2021 Pen Needle, Diab etic (Bd Ultra-Fine Yu Pen Needle) 32 gauge x 5/32 needle Start: 05-24-2021 Pen Needle, Diab etic (Bd Ultra-Fine Yu Pen Needle) 32 gauge x 5/32 needle Start: 04-28-2021 End: 05-24-2021 Pen Needle, Diab etic (Bd Ultra-Fine Yu Pen Needle) 32 gauge x 5/32 needle Start: 05-24-2021 Pen Needle, Diab etic (Bd Ultra-Fine Yu Pen Needle) 32 gauge x 5/32 needle Start: 04-28-2021 End: 05-24-2021 Pen Needle, Diab etic (Bd Ultra-Fine Uy Pen Needle) 32 gauge x 5/32 needle Start: 05-24-2021 Pen Needle, Diab etic (Bd Ultra-Fine Yu Pen Needle) 32 gauge x 5/32 needle Start: 04-28-2021 End: 05-24-2021 Pen Needle, Diab etic (Bd Ultra-Fine Yu Pen Needle) 32 gauge x 5/32 needle Start: 05-24-2021 Pen Needle, Diab etic (Bd Ultra-Fine Yu Pen Needle) 32 gauge x 5/32 needle Start: 04-28-2021 End: 05-24-2021 Pen Needle, Diab etic (Bd Ultra-Fine Yu Pen Needle) 32 gauge x 5/32 needle Start: 05-24-2021 Pen Needle, Diab etic (Bd Ultra-Fine Yu Pen Needle) 32 gauge x 5/32 needle Start: 04-28-2021 End: 05-24-2021 Pen Needle, Diab etic (Bd Ultra-Fine Yu Pen Needle) 32 gauge x 5/32 needle Start: 05-24-2021 Pen Needle, Diab etic (Bd Ultra-Fine Yu Pen Needle) 32 gauge x 5/32 needle Start: 04-28-2021 End: 05-24-2021 Pen Needle, Diab etic (Bd Ultra-Fine Yu Pen Needle) 32 gauge x 5/32 needle Start: 05-24-2021 Pen Needle, Diab etic (Bd Ultra-Fine Yu Pen Needle) 32 gauge x 5/32 needle Start: 04-28-2021 End: 05-24-2021 Functional Status Date Assessment Result Facility 05-26-2021 Functional status Ambulates [facility] Work Phone: Mental Status Date Assessment Result Facility 07-27-2021 Cognitive function Awake;Alert;A ppropriate;Fol lows Commands [facility] Work Phone: 05-26-2021 Cognitive function Voice/Name [facility] Work Phone: Clinical Notes 05-25-2021 to 09-11-2024 Discharge InstructionsAttachmentsSaron Chen, DO - 09/11/2024 7:32 AM EDTSaroaleta Siddiqui, DO - 09/11/2024 7:32 AM EDTCmayra Escobar DO - 09/11/2024 7:28 AM EDJustyna Almonte RN - 09/11/2024 7:01 AM EDT [...] one. [facility] PH[facility]IAN REFERRAL Please call the [facility] physician referral service at or toll-free at to request a Primary Care Provider. 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 The following attachments cannot be sent through Care Everywhere.Pyelonephritis (Kittitian)UTI (Urinary Tract Infection): Female (Kittitian)documented in this encounter [facility] 09-11-2024 Physician Emergency department Note ED RESIDENT [...] (Temporal) Resp 15 Ht 1.651 m (5' 5) SpO2 97% Gen: well appearing in no [...] making process. This note was dictated using AwesomePiece voice recognition software. Attempts at proofreading were made, but errors may occasionally still occur. Milka Siddiqui DO Emergency Medicine PGY3 Milka Siddiqui DO Resident 09/11/24 0813 [facility] 09-11-2024 Emergency department Note ED RESIDENT STAFFING [...] (Temporal) Resp 15 Ht 1.651 m (5' 5) SpO2 97% Gen: well appearing in no [...] making process. This note was dictated using AwesomePiece voice recognition software. Attempts at proofreading were made, but errors may occasionally still occur. Milka Siddiqui DO Emergency Medicine PGY3 Milka Siddiqui DO Resident 09/11/24 0813 EMERGENCY DEPARTMENT ENCOUNTER CHIEF COMPLAINT Chief Complaint [...] (Temporal) Resp 15 Ht 1.651 m (5' 5) SpO2 97% Physical Exam Constitutional: General: She [...] with: PCP This note was dictated with Goodfilms dictation software. Every effort was made to [...] GCS 15. documented in this encounter [facility] 09-11-2024 Physician Emergency department Note EMERGENCY DEPARTMENT [...] (Temporal) Resp 15 Ht 1.651 m (5' 5) SpO2 97% Physical Exam Constitutional: General: She [...] with: PCP This note was dictated with Goodfilms dictation software. Every effort was made to correct edits but please excuse any incorrections. I discussed the patient with the attending physician, MD Jacob Song DO Resident 09/11/24 1112 [facility] 09-11-2024 Emergency department Note Pt to ED with cc of UTI. PT states she has been dealing with an undiagnosed UTI for appox 1 month. Pt complaining of urinary urgency and frequency along with a burning sensation. VSS, GCS 15. [facility] 05-28-2024 Evaluation note Diagnosis Onset Date Resolution Diabetes chronic May 28, 2024 3:38pm Essential (primary) hypertension chronic May 28, 2024 3:38pm Hyperlipidemia chronic May 192024 3:38pm Hypertriglyceridemia chronic Febr ua2024 3:38pm Neuropathy chronic May 28, 2024 3:38pm Obesity chronic May 28, 2024 3:38pm [facility] Work Phone: 1(831) 238-359508-22-2023 Miscellaneous Notes* Telephone Encounter - Faiza Welsh [...] a virtual visit. Vanita [facility] NoteHNO ID: [id number] Author: Faiza Welsh MD Service: ? Author Type: Physician Type: Progress Notes Filed: 09/27/2022 11:31 AM Note Text: Heart and Vascular [place] Larry Rosas Department of Cardiovascular Medicine SECTION [...] usual state of health and lives in [place], [place]. She gets most of her care at [facility] including cardiac care. The patient made a [...] history: -Current or past (more content not included)...[facility] Miscellaneous Notes* Telephone Encounter - Hilary Calabrese - 07/16/2021 3:10 PM EDT Patient called and would like to be seen by Dr. Huff. She said that she is diabetic and suffers from leg pain. She would like to be checked for blockage in her legs. 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 [facility] Evaluation note* Diagnosis Onset Date Resolution Status History of coronary artery stent placement May acute Essential (primary) hypertension chronic Hyperlipidemia [facility] Work Phone: 1(281) 315-331002-07-2022 Evaluation note* Diagnosis Onset Date Resolution Status History of coronary artery stent placement May acute Essential (primary) hypertension chronic Hyperlipidemia chronic Dysuria acute Diabetes chronic Obesity [facility] Work Phone: 1(130) 603-585802-07-2022 Evaluation note* Diagnosis Onset Date Resolution Status Admit Date History of coronary artery stent placement May 25, 2021 acute August 21, 2024 9:01am Essential (primary) hypertension chronic August 21, 2024 9:01am Hyperlipidemia chronic August 21 9:01am [facility] Work Phone: Evaluation note* Diagnosis Onset Date Resolution Status Noncompliance with diabetes treatment acute Obesity acute Atherosclerosis of coronary artery of [place] heart without angina pectoris chronic Diabetes chronic Essential (primary) hypertension chronic Hyperlipidemia chronic Atherosclerosis of coronary artery of [place] heart without angina pectoris chronic Diabetes chronic Essential (primary) hypertension chronic Hyperlipidemia chronic Unstable angina acute Essential (primary) hypertension chronic Chest pain resolved Atherosclerosis of coronary artery of [place] heart without angina pectoris chronic Essential (primary) hypertension chronic Hyperlipidemia chronic Diabetes chronic Essential (primary) hypertension chronic Hyperlipidemia chronic Neuropathy chronic [facility] Work Phone: Evaluation note* Diagnosis Onset Date Resolution Status Diabetes chronic Hyperlipidemia chronic Neuropathy chronic Obesity chronic [facility] Work Phone: Evaluation note* Diagnosis Familial hypercholesterolemia Pure hypercholesterolemia Coronary artery disease due to lipid rich plaque [facility] Diagnosis Onset Date Resolution Status Diabetes chronic Essential (primary) hypertension chronic Hyperlipidemia chronic Neuropathy chronic Overweight chronic Chest pain acute History of coronary artery stent placement May acute Essential (primary) hypertension chronic Hyperlipidemia chronic [facility] Work Phone: Evaluation noteNo assessment information available [facility] Work Phone: Evaluation note* Diagnosis Pyelonephritis- Primary Pyelonephritis, unspecified documented in this encounter [facility] for referral (narrative)No reason for referral information [facility] Work Phone: Summary Purpose Family History No [...] Will No May 25 12:08am Power of Veneer Department Manager No May 25, 2021 12:08am Advance Directive Response Recorded Date/ Time Advance Directives No May 22, 2021 9:03am Living Will No July 27, 2021 2:41pm Power of Veneer Department Manager No July 27 2:41pm Advance Directive Response Recorded Date/ Time Advance Directives No May 22, 2021 8:03am Living Will No July 27, 2021 1:41pm Power of Veneer Department Manager No July 27 1:41pm Advance Directive Response Recorded Date/ Time Advance Directives No March 9:18am Living Will No April 04, 2 023 9:18am Power of Veneer Department Manager No April 04, 2023 9:18am Advance Directive Response Recorded Date/ Time Advance Directives No March 10:18am Living Will No April 04, 2 023 10:18am Power of Veneer Department Manager No April 04, 2023 10:18am Advance Directive Response Recorded Date/ Time Living Will No April 04, 2 023 10:18am Power of Veneer Department Manager No April 04, 2023 10:18am Advance Directives No March 10:18am Advance Directive Response Recorded Date/ Time Living Will No July 27, 2021 2:41pm Do you have a Healthcare Power of Veneer Department Manager? No July 27, 2021 2:41pm Advance Directives No March 10:18am Reason for Referral Status Reason Specialty Diagnoses / Procedures Referred By Contact Referred To Contact Open Specialty Services Required Cardiac Rehabilitation Diagnoses NSTEMI (non-ST elevated myocardial infarction) (HCC) Coronary artery disease involving catawba coronary artery of [place] heart without angina pectoris Cherelle Thomas APRN - VISUAL COMMUNICATIONS INSTRUCTOR [address] [facility] [address] [place] [address] [facility] [address] [facility] [address] [place] [address] Scheduling Instructions [facility] [address] [place] [address] Discharge Instructions * Instructions* Cherelle Thomas APRN - CNP - 02/24/2019 Call your doctor with any medication questions or if you notice any side effects from your medications. If you are unable to fill your medications, please call your Guitar Teacher immediately. The office number is located with [...] for 24 hours. GIVE PCI PACKET (FROM HAND FABRIC CUTTER) TO PATIENT Give Coronary Artery Discharge Booklet [...] of care unspecified Coronary artery disease involving catawba coronary artery of [place] heart without angina pectoris CAD (coronary artery disease) Coronary atherosclerosis of unspecified type of vessel, [place] or graft DM (diabetes mellitus) ([facility]) Type II or unspecified type diabetes mellitus without mention of complication, not stated as uncontrolled Chief Complaint and Reason for Visit Chief Complaint 5M F/U 3 M FU CAD Coronary artery disease UNSTABLE ANGINA UNSTABLE ANGINA UNSTABLE ANGINA UNSTABLE ANGINA UNSTABLE ANGINA ABN STRESS UNSTABLE ANGINA UNSTABLE ANGINA UNSTABLE ANGINA 3WK FU @ WC 6 WK F/U Reason for Visit Noncompliance with d iabetes treatment Obesity Atherosclerosis of coronary artery of [place] heart without angina pectoris Diabetes Essential (primary) hypertension Hyperlipidemia Atherosclerosis of coronary artery of [place] heart without angina pectoris Diabetes Essential (primary) hypertension Hyperlipidemia Unstable angina Essential (primary) hypertension Chest pain Atherosclerosis of coronary artery of [place] heart without angina pectoris Essential (primary) hypertension Hyperlipidemia Diabetes Essential (primary) hypertension Hyperlipidemia Neuropathy Chief Complaint 5M F/U 3 M FU CAD Coronary artery disease UNSTABLE ANGINA UNSTABLE ANGINA UNSTABLE ANGINA UNSTABLE ANGINA UNSTABLE ANGINA ABN STRESS UNSTABLE ANGINA UNSTABLE ANGINA UNSTABLE ANGINA 3WK FU @ [facility] 6 WK F/U CHEST PAIN Reason for Visit Noncompliance with d iabetes treatment Obesity Atherosclerosis of coronary artery of [place] heart without angina pectoris Diabetes Essential (primary) hypertension Hyperlipidemia Atherosclerosis of coronary artery of [place] heart without angina pectoris Diabetes Essential (primary) hypertension Hyperlipidemia Unstable angina Essential (primary) hypertension Chest pain Atherosclerosis of coronary artery of [place] heart without angina pectoris Essential (primary) hypertension [...] May 28, 2024 3:38pm Essential (primary) hypertension 2024 3:38pm Hyperlipidemia May 28, 2024 3:38pm [...] section and content) DATE CREATED AUTHOR 05/02/2019 [facility] DATE CREATED AUTHOR AUTHOR'S ORGANIZ ATION 12/03/2022 [facility] DATE CREATED AUTHOR AUTHOR'S ORGANIZ ATION 12/08/2022 [facility] DATE CREATED AUTHOR AUTHOR'S ORGANIZ ATION 09/14/2024 [facility] DATE CREATED AUTHOR AUTHOR'S ORGANIZ ATION 02/21/2025 [facility] Goals (unrecognized section and content) Goals may [...] or prosecute any alcohol or drug abuse patient.[facility] Hospital[facility] the event this information is protected by the Federal Confidentiality of Alcohol and Drug Abuse Patient Records regulations: The Federal rules restrict any use of the information to criminally investigate or prosecute any alcohol or drug abuse patient.[facility] Hospital[facility] the event this information is protected by the Federal Confidentiality of Alcohol and Drug Abuse Patient Records regulations: The Federal rules restrict any use of the information to criminally investigate or prosecute any alcohol or drug abuse patient.[facility] Reason for Visit (unrecogniz ed section and content) Reason Comments Appointment Reason Comments Results Reason Comments Urinary Pain Care Teams (unrecognized sec tion and content) Marsh Buggy 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 [place] [address] PCP - General Family Practice 07/21/21 [place], [place] [address] [place], [place] [id number] [phone]- Guitar Teacher Cardiology 07/21/21 Team Status: Active Member Role Status Dates Dr. Madalyn Vaughan DO Family Provider Active Dr. Madalyn Vaughan DO Primary Care Provider Active Team Status: Inactive Member Role Status Dates Dr. Madalyn Vaughan DO Primary Care Provider, Referring P rovider Active JOE De La Fuente Attending Provider Active Team Status: Active Member Role Status Dates Dr. Madalyn Vaughan DO Primary Care Provider Active Dr. Reggie Ramirez MD Attending Provider, Other Provide r Active Team Status: Inactive Member Role Status Dates Dr. Madalyn Vaughan DO Primary Care Provider, Referring P rovider Active Dr. Wali Hurley MD Attending Provider Active Team Status: Inactive Member Role Status Dates Dr. Madalyn Vaughan DO Primary Care Provider Active Dr. Reggie Ramirez MD Attending Provider Active Team Status: Inactive Member Role Status Dates Dr. Madalyn Vaughan DO Primary Care Provider Active JOE De La Fuente Attending Provider Active Marsh Buggy Operator Relationship Specialty Start Date End Date Madalyn Vaughan DO [address] [place], [place] [address] PCP - General Family Medicine 07/21/21 [place], [place] S [address] [place] [address] Guitar Teacher Cardiology 07/21/21 Team Status: Inactive Member Role [...] 1-171 mL, Intravenous, ONCE, 1 dose, On e 09/11/24 at 0915, Extravasation Risk, CT Procedure 0901 (Given - Radiol ogy - Provider: Isaías Higgins) PRN Medication Order 09/09/2024 09/10/2024 09/11/2024 Sodium chloride (PF) 0.9 % injection 1-100 mL (COMPLETED) 1-100 mL, Intravenous, ONCE NEEDED, 1 dose, Starting on Tue09/11/24 at 0901, Until Tue09/11/24 at 09, Flush, CT Procedure 09 (Given - Provid er: Isaías Higgins) FOR [...] BE BASED ON THE PRIMARY CLINICAL RECORDS. [employer] [facility]. provides no warranty or guarantee of the accuracy or completeness of information in this document.
== END | disposition home or self-care (01) ==
PROVIDERS: PCP Family Medicine; Referring Provider Student in an Organized Health Care Education/Training Program; Visit Provider Student in an Organized Health Care Education/Training Program
DX: R06.02 Shortness of breath (principal); R07.9 Chest pain, unspecified
CPT/HCPCS: 93306